=== PATIENT | female | born 1940 | race Caucasian/White ===

== ENCOUNTER → 2016-05-05 | Outpatient (CLI) | payer OTHER ==
[~2016-05-05] MED LIST: AMOX500C3 PO; ASPCH81X PO; CALC-20 PO; CARB1CAP21 PO; CARB25TA12 PO; CHOL100010 PO; EFF/375 PO; EYE PROMISE PO; KETO1DRO13 OPB; LEVO50TA PO; LEVO50TA6 PO; LORA-741 SL; MAGN400T6 PO; METO50TA16 PO; NAPHDRO11 OPB; OMEG10007 PO; PANC5000 PO; POLY335019 PO; SIMV40TA2 PO; THERA TEARS OPB
[2016-05-05 12:36] LABS: ALT/SGPT 8 U/L (12-78); AST/SGOT 13 U/L (15-37); BLOOD UREA NITROGEN 21 mg/dl (7-18); BUN/CREATININE RATIO 21.2 (10-20); CALCIUM 9.2 mg/dl (8.5-10.1); CARBON DIOXIDE 31 mmol/L (21-32); CHLORIDE 104 mmol/L (98-107); CREATININE 0.98 mg/dl (0.60-1.20); GLUCOSE 95 mg/dl (70-99); POTASSIUM 4.2 mmol/L (3.5-5.1); SODIUM 142 mmol/L (136-145)
[2016-05-05 12:47] LABS: ALB/GLOB RATIO 1.2 (0.9-2); ALKALINE PHOSPHATASE 69 U/L (45-117)
== END | disposition home or self-care (01) ==
LOC: C.LABSALHI 05-03 15:37
PROVIDERS: ATTEND Nurse Practitioner Family
DX: E03.9 Hypothyroidism, unspecified (principal); E11.9 Type 2 diabetes mellitus without complications

== ENCOUNTER → 2016-05-09 | Outpatient (CLI) | payer OTHER ==
[2016-05-09 12:46] LABS: ESTIMATED AVERAGE GLUCOSE 117 mg/dl; HA1C FLAG Normal (Normal)
== END | disposition home or self-care (01) ==
LOC: C.LABSPEC 05-05 13:36
PROVIDERS: ATTEND Nurse Practitioner Family
DX: E11.9 Type 2 diabetes mellitus without complications (principal); E03.9 Hypothyroidism, unspecified

== ENCOUNTER → 2016-09-20 | Outpatient (CLI) | payer OTHER ==
[~2016-09-20] VITALS: Ht 160 cm; Wt 64.4 kg
[~2016-09-20] MED LIST changes: -CARB25TA12 PO; -KETO1DRO13 OPB; -LEVO50TA6 PO; -METO50TA16 PO; -NAPHDRO11 OPB
[2016-09-20 14:26] VITALS: BP 123/70; PULSE 67; Ht 160 cm; Wt 64.4 kg
== END | disposition home or self-care (01) ==
LOC: C.NEUR 13:27
PROVIDERS: ATTEND Internal Medicine Pulmonary Disease
DX: G47.33 Obstructive sleep apnea (adult) (pediatric) (principal); G20 Parkinson's disease

== ENCOUNTER → 2016-09-21 | Day surgery (SDC) | payer OTHER ==
[2016-09-19 07:33] VITALS: Ht 160 cm; Wt 60.0 kg
[~2016-09-21] VITALS: Ht 160 cm; Wt 60.0 kg
[~2016-09-21] MED LIST changes: +LIDOCAINE HCL 2% 2 ML VIAL (20MG/ML) ONE; +PROPOFOL IV EMULSION 10 MG/ML 20 ML VIAL IV ONE; +SODIUM CHLORIDE 0.9% 500ML 500 ML IV ONE
--- NOTE | 2016-09-21 10:25 | Endo History and Physical ---
History & Physical Date of Service: Sep 21, 2016. Chief Complaint: change in bowel habits Referring Physician: Nicole Joseph History of Present Illness 76 yo CF who presents for colonoscopy secondary to change in bowel habits. Past Medical History Atrial Fibrillation, Diabetes, Arthritis, Anxiety, Cancer, Heart Disease, Hypertension, Thyroid Disease Past Surgical History Hx Cardiac Surgery: No Hx Internal Defibrillator: No Hx Pacemaker: No Hx Abdominal Surgery: Yes (APPY, HYSTER, TUBAL LIGATION) Hx Post-Op Nausea and Vomiting: No Hx Cancer Surgery: No Hx Thoracic Surgery: No Hx Orthopedic: Yes (CARPEL TUNNEL, R.TKA) Hx Urinary Tract Surgery: Yes (BLADDER TACK A/P) Family History None Social History Smoking Status: Never Smoker Hx Substance Use: No Hx Alcohol Use: No Allergies Coded Allergies: Sitagliptin (Verified Allergy, Mild, PER RECORD, 09/19/16) Animal Dander (Verified Allergy, Unknown, PER RECORD, 09/19/16) Metformin (Verified Allergy, Unknown, PER RECORD, 09/19/16) Sulfa Antibiotics (Verified Allergy, Unknown, PER RECORD, 09/19/16) Scallop (Verified Adverse Reaction, Intermediate, SEVERE N/V, 09/19/16) Morphine (Verified Adverse Reaction, Mild, LOW BP, 09/19/16) Uncoded Allergies: METAL (Allergy, Unknown, ., 12/17/13) Current Medications Reported Home Medications Medications Dose Route/Sig Max Daily Dose Days Date Category Dose Instructions Amoxil (Amoxicillin) 500 Mg Cap 2,000 Mg PO UD 09/19/16 Reported ONE HOUR PRIOR TO DENTAL Miralax (Polyethylene Glycol 3350) 1 Pow Pow 17 Gm PO DAILY PRN 09/19/16 Reported Rytary 36.25-145 mg (Carbidopa-Levodopa) 1 Cap Cap 1 Tab PO U 09/19/16 Reported 3 CAP AT 6AM, 2 CAP 10 AM, 3 AT 2PM, 2 AT 6PM ON EMPTY STOMACH [Thera Tears] 2 Drop OPB QAM 09/19/16 Reported Synthroid (Levothyroxine Sodium) 50 Mcg Tab 50 Mcg PO QAM 09/19/16 Reported [Eye Promise] 8 Mg PO QAM 09/19/16 Reported Vitamin D (Cholecalciferol) 1,000 Inter.unit Tab 1,000 Inter.unit PO QPM 12/22/15 Reported Effexor (Venlafaxine Hcl) 37.5 Mg Tab 37.5 Mg PO QAM 12/22/15 Reported Zocor (Simvastatin) 40 Mg Tab 40 Mg PO QPM 07/14/15 Reported Calcium 600 + D (Calcium Carbonate-Vitamin D) 1 Tab Tab 1 Tab PO BID 12/18/13 Reported Mag-Ox (Magnesium Oxide) 400 Mg Tab 400 Mg PO QAM 12/18/13 Reported Pancrelipase (Pancrelipase (Lipase-Protease-) 1 Cap Cap 4,200 Mg PO QAM 12/11/12 Reported Ativan (Lorazepam) 0.5 Mg Tab 1 Mg SL BID 12/11/12 Reported 2 TABLET DOSE [place]-3 (Fish Oil) 1 Ea Cap 1,000 Mg PO TID 12/11/12 Reported Aspirin Chewable (Aspirin) 81 Mg Chew 81 Mg PO QAM 12/11/12 Reported Vital Signs Weight (Kilograms): 60 Height (Feet): 5 Height (Inches): 3 Physical Exam General Appearance: WD/WN, no apparent distress Respiratory/Chest: Auscultation: breath sounds normal Cardiovascular: Heart Auscultation: RRR Abdomen: Bowel Sounds: normal Inspection & Palpation: soft, non-distended, no tenderness, guarding & rebound Assessment and Plan Assessment: 76 yo CF who presents for colonoscopy secondary to change in bowel habits. Plan: Proceed with colonoscopy
--- NOTE | 2016-09-21 11:02 | GI REPORT ---
Procedure Date: 09/21/2016 10:35 AM Procedure: Colonoscopy Indications: Change in bowel habits Medicines: Monitored Anesthesia Care Complications: No immediate complications. Estimated Blood Loss: Estimated blood loss: none. Procedure: Pre-Anesthesia Assessment: - Prior to the procedure, a History and Physical was performed, and patient medications and allergies were reviewed. The patient's tolerance of previous anesthesia was also reviewed. The risks and benefits of the procedure and the sedation options and risks were discussed with the patient. All questions were answered, and informed consent was obtained. Prior Anticoagulants: The patient has taken aspirin, last dose was 1 day prior to procedure. ASA Grade Assessment: III - A patient with severe systemic disease. After reviewing the risks and benefits, the patient was deemed in satisfactory condition to undergo the procedure. After I obtained informed consent, the scope was passed under direct vision. Throughout the procedure, the patient's blood pressure, pulse, and oxygen saturations were monitored continuously. The Scope was introduced through the anus and advanced to the terminal ileum. The colonoscopy was performed without difficulty. The patient tolerated the procedure well. The quality of the bowel preparation was good. The ileocecal valve, appendiceal orifice, and rectum were photographed. Findings: Scattered small and large-mouthed diverticula were found in the entire colon. Non-bleeding internal hemorrhoids were found during retroflexion. The hemorrhoids were small. Impression: - Diverticulosis in the entire examined colon. - Non-bleeding internal hemorrhoids. - No specimens collected. Recommendation: - Resume previous diet. - Continue present medications. - No repeat colonoscopy due to age and the absence of advanced adenomas. - Return to primary care physician as previously scheduled. Manfred Yadav DO 09/21/2016 11:01:51 AM This report has been signed electronically. Note Initiated On: 09/21/2016 10:35 AM I attest to the content of the Intraoperative Record and orders documented therein, exceptions below
--- NOTE | 2016-09-21 11:02 | Discharge Instructions ---
Endoscopy Patient Instructions Date / Procedure(s) Performed Sep 21, 2016. Colonoscopy Allergy Information Coded Allergies: Sitagliptin (Verified Allergy, Mild, PER RECORD, 09/19/16) Animal Dander (Verified Allergy, Unknown, PER RECORD, 09/19/16) Metformin (Verified Allergy, Unknown, PER RECORD, 09/19/16) Sulfa Antibiotics (Verified Allergy, Unknown, PER RECORD, 09/19/16) Scallop (Verified Adverse Reaction, Intermediate, SEVERE N/V, 09/19/16) Morphine (Verified Adverse Reaction, Mild, LOW BP, 09/19/16) Uncoded Allergies: METAL (Allergy, Unknown, ., 12/17/13) Discharge Date / Findings Sep 21, 2016. Diverticulosis Internal hemorrhoids Medication Instructions OK to resume all medications today as prescribed. Medications Dose Route/Sig Max Daily Dose Days Date Category Dose Instructions Amoxil (Amoxicillin) 500 Mg Cap 2,000 Mg PO UD 09/19/16 Reported ONE HOUR PRIOR TO DENTAL Miralax (Polyethylene Glycol 3350) 1 Pow Pow 17 Gm PO DAILY PRN 09/19/16 Reported Rytary 36.25-145 mg (Carbidopa-Levodopa) 1 Cap Cap 1 Tab PO U 09/19/16 Reported 3 CAP AT 6AM, 2 CAP 10 AM, 3 AT 2PM, 2 AT 6PM ON EMPTY STOMACH [Thera Tears] 2 Drop OPB QAM 09/19/16 Reported Synthroid (Levothyroxine Sodium) 50 Mcg Tab 50 Mcg PO QAM 09/19/16 Reported [Eye Promise] 8 Mg PO QAM 09/19/16 Reported Vitamin D (Cholecalciferol) 1,000 Inter.unit Tab 1,000 Inter.unit PO QPM 12/22/15 Reported Effexor (Venlafaxine Hcl) 37.5 Mg Tab 37.5 Mg PO QAM 12/22/15 Reported Zocor (Simvastatin) 40 Mg Tab 40 Mg PO QPM 07/14/15 Reported Calcium 600 + D (Calcium Carbonate-Vitamin D) 1 Tab Tab 1 Tab PO BID 12/18/13 Reported Mag-Ox (Magnesium Oxide) 400 Mg Tab 400 Mg PO QAM 12/18/13 Reported Pancrelipase (Pancrelipase (Lipase-Protease-) 1 Cap Cap 4,200 Mg PO QAM 12/11/12 Reported Ativan (Lorazepam) 0.5 Mg Tab 1 Mg SL BID 12/11/12 Reported 2 TABLET DOSE [place]-3 (Fish Oil) 1 Ea Cap 1,000 Mg PO TID 12/11/12 Reported Aspirin Chewable (Aspirin) 81 Mg Chew 81 Mg PO QAM 12/11/12 Reported Provider Instructions Activity Restrictions - No exercising or heavy lifting for 24 hours. - Do not drink alcohol the day of the procedure. - Do not drive a car or operate machinery until the day after the procedure. - Do not make any important decisions or sign important papers in 24 hours after the procedure. Following Day: - Return to full activity which may include returning to work/school. Diet Start your diet with liquids and light foods (jello, soup, juice, toast). Then eat your usual diet if not nauseated. Treatment For Common After Affects For mild abdominal pain, bloating, or excessive gas: - Rest - Eat lightly - Lie on right side Follow-Up Information Follow-up with Nicole Joseph as scheduled Anesthesia Information What You Should Know You have had a procedure that required some medicine to reduce anxiety and discomfort. This treatment is called moderate sedation. After receiving the treatment, you may be sleepy, but you will be able to breathe on your own. The effects of the treatment may last for several hours. Follow these instructions along with Activity/Diet recommendations noted above: * Do NOT do anything where dizziness or clumsiness would be dangerous. * Rest quietly at home today, then you can be up and about tomorrow. * Have a responsible person stay with you the rest of today. * You may have had an I.V. today. If so, you may take the dressing off later today. Recommendations Call your doctor if: * Trouble breathing * Continuous vomiting for more than 24 hours * Temperature above 101 degrees * Severe abdominal pain or bloating * Pain not relieved by pain medicine ordered * There is increased drainage or redness from any incision * A large amount of rectal bleeding greater than 2-3 tablespoons. (If you had a polyp/s removed or have hemorrhoids, a small amount of blood - from the rectum is to be expected.) * You have any unanswered questions or concerns. IN THE EVENT OF A SERIOUS EMERGENCY, GO TO THE NEAREST EMERGENCY ROOM Your discharge instructions were prepared by provider Manfred Yadav. Patient Instructions Signature Page Galina Kelsey Patient (or Guardian) Signature/Date: I have read and understand the instructions given to me by my caregivers. Caregiver/RN/Doctor Signature/Date: The above-named patient and/or guardian has received patient instructions on this date. + Original Patient Signature Page (only) stays with chart. Please make copy for patient.
--- NOTE | 2016-09-21 11:20 | Anesthesiology Progress Note ---
Anesthesia Post Op Note Date & Time Sep 21, 2016 at 11:19 Vital Signs Pain Intensity: 0 Vital Signs Past 12 Hours Date Time Temp Pulse Resp B/P (MAP) Pulse Ox O2 Delivery O2 Flow Rate FiO2 09/21/16 11:14 61 16 116/57 (76) 97 Room Air 09/21/16 10:59 60 16 117/52 (73) 98 Room Air 09/21/16 10:28 36.8 68 22 134/62 (86) 96 Room Air Notes Mental Status: alert / awake / arousable, participated in evaluation Pt Amnestic to Procedure: Yes Nausea / Vomiting: adequately controlled Pain: adequately controlled Airway Patency, RR, SpO2: stable & adequate BP & HR: stable & adequate Hydration State: stable & adequate Anesthetic Complications: no major complications apparent
[2016-09-21 11:29] VITALS: BP 102/58; PULSE 55; O2SAT 97
== END | disposition home or self-care (01) ==
LOC: C.GI 09:32
PROVIDERS: ATTEND Internal Medicine
DX: R19.4 Change in bowel habit (principal); K57.30 Diverticulosis of large intestine without perforation or abscess without bleeding; K64.8 Other hemorrhoids; I48.91 Unspecified atrial fibrillation; E11.9 Type 2 diabetes mellitus without complications; M19.90 Unspecified osteoarthritis, unspecified site; F41.9 Anxiety disorder, unspecified; I51.9 Heart disease, unspecified; I10 Essential (primary) hypertension

== ENCOUNTER → 2016-09-29 | Outpatient (CLI) | payer OTHER ==
[~2016-09-29] MED LIST changes: -LIDOCAINE HCL 2% 2 ML VIAL (20MG/ML) ONE; -PROPOFOL IV EMULSION 10 MG/ML 20 ML VIAL IV ONE; -SODIUM CHLORIDE 0.9% 500ML 500 ML IV ONE
[2016-09-29 13:02] LABS: ALT/SGPT 11 U/L (12-78); AST/SGOT 12 U/L (15-37); BLOOD UREA NITROGEN 18 mg/dl (7-18); BUN/CREATININE RATIO 18.3 (10-20); CALCIUM 9.2 mg/dl (8.5-10.1); CARBON DIOXIDE 32 mmol/L (21-32); CHLORIDE 107 mmol/L (98-107); GLUCOSE 82 mg/dl (70-99); POTASSIUM 4.3 mmol/L (3.5-5.1); SODIUM 145 mmol/L (136-145)
[2016-09-29 13:05] LABS: ALB/GLOB RATIO 1.2 (0.9-2); ALKALINE PHOSPHATASE 69 U/L (45-117)
== END | disposition home or self-care (01) ==
LOC: C.LABSALHI 14:40
PROVIDERS: ATTEND Family Medicine
DX: R14.0 Abdominal distension (gaseous) (principal)

== ENCOUNTER → 2016-10-17 | Outpatient (CLI) | payer OTHER ==
--- NOTE | 2016-10-17 17:17 | DIAGNOSTIC IMAGING REPORT ---
PA CHEST WITH ABDOMINAL SERIES CLINICAL HISTORY: Generalized abdominal pain. Bloating. Change in bowel habits FINDINGS: A PA chest radiograph is compared to study dated 12/22/2015 and correlated with chest CT dated 12/24/2015. The examination is degraded by apical lordotic positioning. The cardiomediastinal silhouette is unremarkable. There is atherosclerotic calcification of the thoracic aorta. The lungs and pleural spaces are clear. No pneumothorax is seen. The skeletal structures are osteopenic. The bony thorax is grossly intact. Supine and erect abdominal radiographs are obtained. No prior studies are available for comparison at the time of dictation. There is a nonobstructed abdominal bowel gas pattern. No evidence of intraperitoneal free air is seen. There is mild to moderate colonic fecal retention. There are no abnormal abdominal calcifications. Phleboliths are seen in the pelvis. There is mild lumbosacral spondylosis and scoliosis. The lumbosacral spine and bony pelvis appear intact. IMPRESSION: 1. No active disease in the chest. 2. Nonobstructed abdominal bowel gas pattern. Electronically signed by: Marcelino Pedro M.D. 10/17/2016 5:16 PM Dictated Date/Time: 10/17/2016 5:14 PM
== END | disposition home or self-care (01) ==
LOC: C.RAD1850 16:43
PROVIDERS: ATTEND Registered Nurse
DX: R14.0 Abdominal distension (gaseous) (principal); R19.4 Change in bowel habit

== ENCOUNTER → 2016-11-17 | Outpatient (CLI) | payer OTHER ==
--- NOTE | 2016-11-17 14:29 | DIAGNOSTIC IMAGING REPORT ---
KUB HISTORY: 76 years-old Female R19.4 Change in bowel applnxJ03.0 Abdominal [id number] COMPARISON: Acute abdominal series radiographs 10/17/2016 TECHNIQUE: KUB radiograph FINDINGS: Vascular calcifications of the left upper abdomen are seen. There are phleboliths of the pelvis. Bowel gas pattern is nonobstructive. No definite urolith or fracture identified. Mild volume formed stool seen throughout the colon. There is mild convex right curvature of the lumbar spine with severe degenerative changes of the lower lumbar spine. Moderate degenerative changes of all the bilateral hips. IMPRESSION: Nonobstructive bowel gas pattern. The above report was generated using voice recognition software. It may contain grammatical, syntax or spelling errors. Electronically signed by: Armand Molina M.D. 11/17/2016 2:28 PM Dictated Date/Time: 11/17/2016 2:27 PM
== END | disposition home or self-care (01) ==
LOC: C.RAD1850 13:49
PROVIDERS: ATTEND Registered Nurse
DX: R14.0 Abdominal distension (gaseous) (principal); R19.4 Change in bowel habit

== ENCOUNTER → 2017-02-01 | Outpatient (CLI) | payer OTHER ==
--- NOTE | 2017-02-01 10:09 | DIAGNOSTIC IMAGING REPORT ---
L-SPINE MIN 4 VIEWS ROUTINE HISTORY: Pain BACK PAIN COMPARISON: None. FINDINGS: Mild lumbar scoliosis. Vertebral wire stature is normal. Grade 1 anterolisthesis of L3 on L4 with a maximum subluxation of 7 mm. Appears to relate to degenerative changes of posterior elements. No evidence for compression deformity. Apparent bilateral nephrocalcinosis versus bowel content. No subluxation. Disc spaces are preserved. IMPRESSION: Moderate to significant degenerative change primarily from L3 through L5. No acute process. Bilateral nephrocalcinosis versus overlying bowel content. The above report was generated using voice recognition software. It may contain grammatical, syntax or spelling errors. Electronically signed by: Ernesto Porter M.D. 02/01/2017 10:08 AM Dictated Date/Time: 02/01/2017 10:07 AM
== END | disposition home or self-care (01) ==
LOC: C.RADPV 09:46
PROVIDERS: ATTEND Internal Medicine Gastroenterology
DX: M54.9 Dorsalgia, unspecified (principal)

== ENCOUNTER → 2017-04-17 | Outpatient (CLI) | payer OTHER ==
[2017-04-17 13:04] LABS: ALBUMIN 3.8 gm/dl (3.4-5.0); ALT/SGPT 7 U/L (12-78); BLOOD UREA NITROGEN 25 mg/dl (7-18); CALCIUM 9.2 mg/dl (8.5-10.1); CARBON DIOXIDE 31 mmol/L (21-32); CHOLESTEROL 151 mg/dl (0-200); CREATININE 0.89 mg/dl (0.60-1.20); GLUCOSE 95 mg/dl (70-99); POTASSIUM 4.1 mmol/L (3.5-5.1); SODIUM 139 mmol/L (136-145)
[2017-04-17 13:14] LABS: ALKALINE PHOSPHATASE 74 U/L (45-117); AST/SGOT 16 U/L (15-37); LDL CHOLESTEROL CALCULATED 94 mg/dl; TOTAL PROTEIN 7.2 gm/dl (6.4-8.2)
== END | disposition home or self-care (01) ==
LOC: C.LABSALHI 13:09
PROVIDERS: ATTEND Nurse Practitioner Family
DX: E78.5 Hyperlipidemia, unspecified (principal); E03.9 Hypothyroidism, unspecified

== ENCOUNTER 2017-06-29 13:13 | Emergency (ER) | payer OTHER ==
[~2017-06-29] VITALS: Ht 160 cm; Wt 61.3 kg
[~2017-06-29 13:13] MED LIST changes: +LORA-741 PO; -LORA-741 SL
[2017-06-29 13:25] VITALS: TEMP 36.6; Ht 160 cm; Wt 61.3 kg
[2017-06-29 13:26] VITALS: O2SAT 96
[2017-06-29] MEDS ORDERED: SODIUM CHLORIDE 0.9% 1000ML 1,000 ML IV STA (13:28)
[2017-06-29] MEDS ORDERED: FAMOTIDINE 20 MG TAB PO ONE (13:30)
--- NOTE | 2017-06-29 13:55 | DIAGNOSTIC IMAGING REPORT ---
CHEST ONE VIEW PORTABLE CLINICAL HISTORY: 76 years-old Female presenting with CHEST PAIN. TECHNIQUE: Portable upright AP view of the chest was obtained. COMPARISON: 10/17/2016. FINDINGS: Atherosclerosis of the aortic arch. Cardiac silhouette normal in size. Lungs and pleural spaces clear. Osseous structures normal. Upper abdomen normal. IMPRESSION: 1. No acute cardiopulmonary disease. Electronically signed by: Hadley Rutledge M.D. 06/29/2017 1:54 PM Dictated Date/Time: 06/29/2017 1:53 PM
[2017-06-29 14:04] LABS: BASO % 0.4 %; BASO ABS # 0.02 K/uL (0-0.2); EOS % 1.8 %; HEMATOCRIT 44.4 % (37-47); IG# 0.01 K/uL (0.00-0.02); LYMPH % 35.2 %; LYMPH ABS # 1.91 K/uL (1.2-3.4); MEAN CORPUSCULAR HEMOGLOBIN 30.7 pg (25-34); MEAN CORPUSCULAR HGB CONC 33.8 g/dl (32-36); MEAN PLATELET VOLUME 10.3 fL (7.4-10.4); MONO % 5.3 %; MONO ABS # 0.29 K/uL (0.11-0.59); NEUT % 57.1 %; PLATELET COUNT 159 K/uL (130-400); RED CELL DISTRIBUTION WIDTH CV 13.8 % (11.5-14.5); RED CELL DISTRIBUTION WIDTH SD 46.2 fL (36.4-46.3); WHITE BLOOD COUNT 5.43 K/uL (4.8-10.8)
[2017-06-29 14:32] LABS: ALBUMIN 3.9 gm/dl (3.4-5.0); ALT/SGPT 11 U/L (12-78); BLOOD UREA NITROGEN 20 mg/dl (7-18); CALCIUM 9.6 mg/dl (8.5-10.1); CARBON DIOXIDE 31 mmol/L (21-32); CREATININE 0.99 mg/dl (0.60-1.20); GLUCOSE 91 mg/dl (70-99); LIPASE 305 U/L (73-393); SODIUM 137 mmol/L (136-145)
[2017-06-29] MEDS ORDERED: CHOL1000 PO (14:32)
[2017-06-29] MEDS ORDERED: KETO1DRO13 OPB (14:32)
[2017-06-29] MEDS ORDERED: CARB1CAP21 PO (14:32)
[2017-06-29] MEDS ORDERED: LACT9000 PO (14:32)
[2017-06-29] MEDS ORDERED: ASPI81TA28 PO (14:32)
[2017-06-29] MEDS ORDERED: VENL75CA73 PO (14:32)
[2017-06-29 14:39] LABS: ALKALINE PHOSPHATASE 84 U/L (45-117); TOTAL PROTEIN 7.7 gm/dl (6.4-8.2)
[2017-06-29 15:18] LABS: POTASSIUM 3.8 mmol/L (3.5-5.1)
[2017-06-29] MEDS ORDERED: FAMO20TA9 PO (16:54)
--- NOTE | 2017-06-29 16:55 | EMERGENCY ROOM VISIT NOTE ---
History Report prepared by Gumaro: Anand Stevens Under the Supervision of: Dr. Franky Ruiz M.D. First contact with patient: 13:25 Stated Complaint: CHEST PAIN History of Present Illness The patient is a 76 year old female who presents to the Emergency Room with complaints of resolved chest pain beginning two hours ago. She has a history of Parkinson's (on medication TID). She states that her mind feels "slow". The patient also complains of an episode of pain in her upper back and jaw as well. She rates her current pain as a 0/10 in severity. She notes that she currently feels bloated and gassy (but this is normal for her). The patient denies fevers , chills, cough, nausea, or vomiting. She notes that her blood sugar has been running low recently. Source of History: patient Onset: Two hours ago Position: chest Symptom Intensity: 0/10 Timing: resolved Associated Symptoms: No fevers, No chills, No cough, No nausea, No vomiting Note: The patient also complains of an episode of pain in her upper back and jaw as well. Review of Systems See HPI for pertinent positives and negatives. A total of ten systems were reviewed and were otherwise negative. Past Medical & Surgical Medical Problems: (1) Atrial fibrillation (2) Benign hypertension (3) Chest pain (4) Diabetes mellitus (5) Heart disease (6) Parkinson disease Family History Patient reports no known family medical history. Social History Smoking Status: Never Smoker Alcohol Use: none Drug Use: none Marital Status: Housing Status: lives with significant other Occupation Status: retired Current/Historical Medications Scheduled Amoxicillin (Amoxil), 2,000 MG PO UD Aspirin (Aspirin Ec), 81 MG PO DAILY Calcium Carbonate-Vitamin D (Calcium 600 + D), 1 TAB PO BID Carbidopa-Levodopa (Rytary 36.25-145 mg), 3 CAP PO BID Carbidopa-Levodopa (Rytary 36.25-145 mg), 2 CAP PO BID Cholecalciferol (Vitamin D3), 1 TAB PO DAILY Famotidine (Pepcid), 20 MG PO BID Fish Oil ([place]-3), 1,000 MG PO TID Ketotifen Fumarate (Ophth) (Thera Tears Allergy Eye I), 2 DROPS OPB DAILY Lactase (Lactaid Fast Act), 1 TAB PO QAM Levothyroxine Sodium (Synthroid), 50 MCG PO QAM Magnesium Oxide (Mag-Ox), 400 MG PO QAM Polyethylene Glycol 3350 (Miralax), 17 GM PO QAM Simvastatin (Zocor), 40 MG PO QPM Venlafaxine Hcl (Venlafaxine Extended Rel), 75 MG PO DAILY [Eye Promise], 8 MG PO QAM Scheduled PRN Lorazepam (Ativan), 0.5 MG PO BID PRN for Anxiety Allergies Coded Allergies: Sitagliptin (Verified Allergy, Mild, PER RECORD, 09/19/16) Animal Dander (Verified Allergy, Unknown, PER RECORD, 09/19/16) Metformin (Verified Allergy, Unknown, PER RECORD, 09/19/16) Sulfa Antibiotics (Verified Allergy, Unknown, PER RECORD, 09/19/16) Scallop (Verified Adverse Reaction, Intermediate, SEVERE N/V, 09/19/16) Morphine (Verified Adverse Reaction, Mild, LOW BP, 09/19/16) Uncoded Allergies: METAL (Allergy, Unknown, ., 12/17/13) Physical Exam Vital Signs Date Time Temp Pulse Resp B/P (MAP) Pulse Ox O2 Delivery O2 Flow Rate FiO2 06/29/17 17:09 64 20 141/87 98 06/29/17 16:00 68 139/67 98 Room Air 06/29/17 14:56 67 18 159/70 98 Room Air 06/29/17 13:26 96 Room Air 06/29/17 13:25 36.6 66 20 142/81 96 Room Air 06/29/17 13:23 68 Physical Exam GENERAL: Awake, alert, fatigued-appearing, in no distress HENT: Normocephalic, atraumatic. Oropharynx unremarkable other than dry mucous membranes. EYES: Normal conjunctiva. Sclera non-icteric. NECK: Supple. No nuchal rigidity. FROM. No JVD. RESPIRATORY: Clear to auscultation. CARDIAC: Regular rate, normal rhythm. Extremities warm and well perfused. Pulses equal. ABDOMEN: Soft, non-distended. No tenderness to palpation. No rebound or guarding. No masses. RECTAL: Deferred. MUSCULOSKELETAL: Chest examination reveals no tenderness. The back is symmetrical on inspection without obvious abnormality. There is no CVA tenderness to palpation. No joint edema. LOWER EXTREMITIES: Calves are equal size bilaterally and non-tender. No edema. No discoloration. NEURO: Normal sensorium. No focal sensory or motor deficits noted. Slightly slow motor movement at baseline consistent with Parkinson's. SKIN: No rash or jaundice noted. Medical Decision & Procedures ER Provider Diagnostic Interpretation: Radiology results as stated below per my review and radiologist interpretation: CHEST ONE VIEW PORTABLE FINDINGS: Atherosclerosis of the aortic arch. Cardiac silhouette normal in size. Lungs and pleural spaces clear. Osseous structures normal. Upper abdomen normal. IMPRESSION: 1. No acute cardiopulmonary disease. Electronically signed by: Hadley Rutledge M.D. 06/29/2017 1:54 PM Laboratory Results 06/29/17 13:55 Red Blood Count 4.88, Mean Corpuscular Volume 91.0, Mean Corpuscular Hemoglobin 30.7, Mean Corpuscular Hemoglobin Concent 33.8, Mean Platelet Volume 10.3, Neutrophils (%) (Auto) 57.1, Lymphocytes (%) (Auto) 35.2, Monocytes (%) (Auto) 5.3, Eosinophils (%) (Auto) 1.8, Basophils (%) (Auto) 0.4, Neutrophils # (Auto) 3.10, Lymphocytes # (Auto) 1.91, Monocytes # (Auto) 0.29, Eosinophils # (Auto) 0.10, Basophils # (Auto) 0.02 06/29/17 13:55 06/29/17 14:55 Test 06/29/17 13:55 06/29/17 14:55 06/29/17 16:02 White Blood Count 5.43 K/uL (4.8-10.8) Red Blood Count 4.88 M/uL (4.2-5.4) Hemoglobin 15.0 g/dL (12.0-16.0) Hematocrit 44.4 % (37-47) Mean Corpuscular Volume 91.0 fL (80-100) Mean Corpuscular Hemoglobin 30.7 pg (25-34) Mean Corpuscular Hemoglobin Concent 33.8 g/dl (32-36) Platelet Count 159 K/uL (130-400) Mean Platelet Volume 10.3 fL (7.4-10.4) Neutrophils (%) (Auto) 57.1 % Lymphocytes (%) (Auto) 35.2 % Monocytes (%) (Auto) 5.3 % Eosinophils (%) (Auto) 1.8 % Basophils (%) (Auto) 0.4 % Neutrophils # (Auto) 3.10 K/uL (1.4-6.5) Lymphocytes # (Auto) 1.91 K/uL (1.2-3.4) Monocytes # (Auto) 0.29 K/uL (0.11-0.59) Eosinophils # (Auto) 0.10 K/uL (0-0.5) Basophils # (Auto) 0.02 K/uL (0-0.2) RDW Standard Deviation 46.2 fL (36.4-46.3) RDW Coefficient of Variation 13.8 % (11.5-14.5) Immature Granulocyte % (Auto) 0.2 % Immature Granulocyte # (Auto) 0.01 K/uL (0.00-0.02) Prothrombin Time 10.0 SECONDS (9.0-12.0) Prothromb Time International Ratio 1.0 (0.9-1.1) Anion Gap 5.0 mmol/L (3-11) Est Creatinine Clear Calc Drug Dose 39.4 ml/min Estimated GFR () 63.7 Estimated GFR (Non- 55.0 BUN/Creatinine Ratio 20.3 (10-20) Calcium Level 9.6 mg/dl (8.5-10.1) Total Bilirubin 0.7 mg/dl (0.2-1) Alanine Aminotransferase (ALT/SGPT) 11 U/L (12-78) Alkaline Phosphatase 84 U/L (45-117) Pro-B-Type Natriuretic Peptide 186 pg/ml (0-1800) Total Protein 7.7 gm/dl (6.4-8.2) Albumin 3.9 gm/dl (3.4-5.0) Lipase 305 U/L (73-393) Direct Bilirubin 0.1 mg/dl (0-0.2) Aspartate Amino Transf (AST/SGOT) 11 U/L (15-37) Troponin I < 0.015 ng/ml (0-0.045) Laboratory results reviewed by me Medications Administered Medications (Trade) Dose Ordered Sig/Robb Route Start Time Stop Time Status Last Admin Dose Admin Sodium Chloride 1,000 ml @ 999 mls/hr Q1H1M STAT IV 06/29/17 13:28 3/22/18 14:28 DC 06/29/17 14:00 999 MLS/HR Famotidine (Pepcid Tab) 20 mg NOW ONCE PO 06/29/17 13:30 06/29/17 13:36 DC 06/29/17 13:43 20 MG ECG Per My Interpretation Indication: chest pain Rate (beats per minute): 63 Rhythm: normal sinus Findings: other (Normal axis. No ST elevation. ) ED Course 1327: The patient was evaluated in room B12B. A complete history and physical exam was performed. 1335: The patient began experiencing chest pain again. 1700: I reevaluated the patient. Discussed results and discharge instructions: she verbalized understanding and agreement. The patient is ready for discharge. Medical Decision I reviewed the patient's past medical history, medications, and the nursing notes as described above. Differential diagnosis: Etiologies such as cardiac ischemia, aortic dissection, pulmonary embolism, pneumonia, pneumothorax, musculoskeletal, infections, pericarditis, myocarditis , esophageal rupture, gastrointestinal, as well as others were entertained. The patient is a 76 y/o woman with a pmhx of parkinson's disease who presents to the emergency department with episode of CP per HPI. On arrival the patient is in NAD, AFVSS. Sx onset at 1400. EKG unremarkable. Trop negative. WBC wnl. CXR negative. Delta troponin again negative > 4 hours from onset of sx. Unlikely cardiac. No tachycardia or hypoxia thus PE not likely. Patient feeling improved with Pepcid suggesting likely GERD/gastritis. Findings and plan for follow-up reviewed with patient. Patient agreeable and d/c'd per discharge instructions. Medication Reconcilliation Current Medication List: was personally reviewed by me Blood Pressure Screening Patient's blood pressure: Elevated blood pressure Blood pressure disposition: Elevated BP felt to be situational Impression Primary Impression: Chest pain due to GERD Scribe Attestation The scribe's documentation has been prepared under my direction and personally reviewed by me in its entirety. I confirm that the note above accurately reflects all work, treatment, procedures, and medical decision making performed by me. Departure Information Dispostion Home / Self-Care Prescriptions Famotidine (PEPCID) 20 Mg Tab 20 MG PO BID for 14 Days, #28 TAB Prov: Franky Ruiz M.D. 06/29/17 Referrals Nicole Joseph,C.R.N.P. (PCP) Patient Instructions ED Chest Pain Atypical Unkn Cause, ED GERD, My [facility] Additional Instructions Please follow up with your primary care physician in the next 1-3 days for re- evaluation. Your symptoms are most likely due to reflux/gastritis. Otherwise, your exam, EKG, chest xray, and lab results did not show signs of an emergent condition at this time. Pepcid as directed for acid reduction. Drink plenty of fluids to ensure hydration. Return to the emergency department for worsening symptoms as described in the accompanying instructions.
[2017-06-29 17:09] VITALS: BP 141/87; PULSE 64; O2SAT 98
== END 2017-06-29 17:16 | disposition home or self-care (01) ==
LOC: EDBD 13:13 → C.EDB 13:14
DX: R07.9 Chest pain, unspecified (principal); K21.9 Gastro-esophageal reflux disease without esophagitis; G20 Parkinson's disease; I48.91 Unspecified atrial fibrillation; E11.9 Type 2 diabetes mellitus without complications; I11.9 Hypertensive heart disease without heart failure; Z79.82 Long term (current) use of aspirin; Z79.899 Other long term (current) drug therapy; Z91.048 Other nonmedicinal substance allergy status; Z88.8 Allergy status to other drugs, medicaments and biological substances; Z88.2 Allergy status to sulfonamides; Z88.5 Allergy status to narcotic agent; Z91.018 Allergy to other foods

== ENCOUNTER → 2017-11-08 | Outpatient (CLI) | payer OTHER ==
[~2017-11-08] MED LIST changes: -ASPCH81X PO; +ASPI81TA28 PO; +CHOL1000 PO; -CHOL100010 PO; -EFF/375 PO; +KETO1DRO13 OPB; +LACT9000 PO; -PANC5000 PO; -THERA TEARS OPB; +VENL75CA73 PO
--- NOTE | 2017-11-08 15:12 | DIAGNOSTIC IMAGING REPORT ---
KUB HISTORY: Acute nausea with constipation CHANGE IN BOWEL HABIT COMPARISON: KUB 11/17/2016 FINDINGS: The bowel gas pattern is non-obstructive. Moderate volume of formed colonic stool about the right hemicolon. There is no organomegaly. Phleboliths of the pelvis redemonstrated. No renal calculi. No ureteral calculi. No pneumoperitoneum or pneumatosis. No fracture. Degenerative changes of the lumbar spine and hips. IMPRESSION: Nonobstructive bowel gas pattern. Electronically signed by: Armand Molina M.D. 11/08/2017 3:11 PM Dictated Date/Time: 11/08/2017 3:10 PM
== END | disposition home or self-care (01) ==
LOC: C.RADPV 14:48
PROVIDERS: ATTEND Nurse Practitioner Family
DX: K59.00 Constipation, unspecified (principal)

== ENCOUNTER 2018-08-06 08:21 | Inpatient (IN) ==
[2018-08-06 09:13] LABS: Basophils # (auto) 0.01 K/uL (0-0.2); Basophils % (auto) 0.2 %; Eosinophils # (auto) 0.16 K/uL (0-0.5); Eosinophils % (auto) 3.1 %; Hematocrit (blood only) 46.9 % (37-47); Hemoglobin 15.7 g/dL (12.0-16.0); Immature Granulocytes # (auto) 0.01 K/uL (0.00-0.02); Immature Granulocytes % (auto) 0.2 %; Lymphocytes # (auto) 1.86 K/uL (1.2-3.4); Mean Corpuscular Hgb Conc 33.5 g/dL (32-36); Mean Corpuscular Volume 92.1 fL (80-100); Mean Platelet Volume 10.1 fL (7.4-10.4); Monocytes # (auto) 0.24 K/uL (0.11-0.59); Monocytes % (auto) 4.6 %; Neutrophils # (auto) 2.89 K/uL (1.4-6.5); Neutrophils % (auto) 55.9 %; Platelet Count 137 K/uL (130-400); RDW Coefficient of Variation 14.4 % (11.5-14.5); RDW Standard Deviation 48.8 fL (36.4-46.3); Red Blood Count 5.09 M/uL (4.2-5.4); White Blood Count 5.17 K/uL (4.8-10.8)
[2018-08-06 09:21] LABS: Alanine Aminotransferase 12 U/L (12-78); Aspartate Aminotransferase 15 U/L (15-37); BUN Creatinine Ratio 23.6 (10-20); Blood Urea Nitrogen 20 mg/dl (7-18); Calcium 9.7 mg/dl (8.5-10.1); Carbon Dioxide 29 mmol/L (21-32); Chloride 106 mmol/L (98-107); Creatinine Clr Calc Pharmacy 50.9 ml/min; Est GFR (African American) 77.7; Est GFR (Non-African American) 67.1; Glucose 119 mg/dl (70-99); Potassium 4.2 mmol/L (3.5-5.1); Sodium 141 mmol/L (136-145)
[2018-08-06 09:31] LABS: Alkaline Phosphatase 125 U/L (45-117); Bilirubin,Total 0.5 mg/dl (0.2-1); Globulin 3.9 gm/dl (2.5-4.0); Total Protein 7.9 gm/dl (6.4-8.2); Troponin I < 0.015 ng/ml (0-0.045)
--- NOTE | 2018-08-06 10:13 | XRay Report ---
XR chest 1V portable CLINICAL HISTORY: weakness dyspnea COMPARISON STUDY: 03/07/2018 FINDINGS: The bones soft tissues and hemidiaphragms are normal. The cardiomediastinal silhouette is n ormal. The lungs are clear. The pulmonary vasculature is normal. IMPRESSION: Negative chest. The above report was generated using voice recognition software. It may contain grammatical, syntax or spelling errors. Electronically signed by: Ernesto Porter M.D. 08/06/2018 10:11 AM
[2018-08-06 10:18] LABS: Appearance Urine Clear (Clear); Bilirubin Urine Negative (Negative); Blood Urine Negative (Negative); Color Urine Yellow; Glucose Urine UA Negative (Negative); Ketones Urine Negative (Negative); Leukocyte Esterase Urine Negative (Negative); Nitrite Urine Negative (Negative); Protein Urine Negative (Negative); Urobilinogen Urine Negative (Negative)
[2018-08-06] MEDS ORDERED: LORazepam 0.5 MG TAB PO STA (10:30)
--- NOTE | 2018-08-06 12:13 | History & Physical Report ---
Date of Service August 06, 2018 Assessment & Plan (1) Dysphasia: Dysphasia and difficulty with medical compliance is the primary reason for this patient returning to the facility. We will hydrate her overnight with normal saline will have a speech evaluation level on swallowing precautions with aspiration precautions mentioned moist foods will attempt to give her usual medications which include antidepressants and anxiolytics as well as Parkinson medications. If she does not improve and there is no defined direction from speech neurology consultation, she typically sees Dr. Sidhu, may be undertaken to see if adjustment of her Parkinson's meds will help with her swallowing. In addition she does have a strong smell of urine and this may be just from dehydration we will check a urine culture in case a metabolic encephalopathy is worsening some of her confusion and making swallowing more of a challenge for her (2) Atrial fibrillation: Patient typically takes Eliquis for anticoagulation and aspirin. Not usually on a rate controlling medication will maintain these medicines at this time he does not appear to be in A. fib on EKG (3) Parkinson disease: Patient takes combination carbidopa levodopa 3 tablets 4 times a day and will be continued on the same (4) Diabetes: Diabetes is listed in her problem list and metformin and Januvia are listed as allergies. Patient's glucose is 119 on presentation we will have her on a carb conscious diet and not in place sliding-scale insulin unless her glucoses are difficult control and A1c will be ordered in the morning (5) Coronary artery disease: This is listed by her history aspirin will be maintained (6) Anxiety and depression: Patient typically takes clonazepam in the morning Effexor 150 with PRN Ativan these are ordered and will be continued Patient also takes Requip at night at 0.25 this will be continued (7) Hypothyroidism: Clinically euthyroid on presentation, TSH is 2.5 we will continue her Synthroid dosing (8) DVT prophylaxis: Subcu heparin is used History of Present Illness Primary Care Provider: Chesterred Neritory Patient [facility] with decline of late with increased anxiety and difficulty taking oral medications. Patient had a long history of swallowing issues having had a speech evaluation in February 2018 including a video swallow and barium swallow without any significant mechanical obstruction seen. Patient was given strategies to help with her swallowing however she is having some mild progression of her dementia and she lives in the [facility] with her who suffers from macular degeneration. She presents today feeling on fit to return to the personal [facility] anxious and jittery with lack of confidence in what medication she is actually taking at home. Some of these do include anticoagulant such as Eliquis and anxiety medications and depression medications. Patient be brought in for repeat speech evaluation and consideration for pacemaker in a higher level of nursing care. She also presents to us with a pulsed form that says comfort is her focus however she presented for treatment today she is not clear regarding those issues she was questioned about DNR status and did confirm that Allergies Allergy/AdvReac Type Severity Reaction Status Date / Time sitagliptin Allergy Mild PER RECORD Verified 08/06/18 08:47 animal dander Allergy Unknown PER RECORD Verified 08/06/18 08:47 metformin Allergy Unknown PER RECORD Verified 08/06/18 08:47 Sulfa (Sulfonamide Allergy Unknown PER RECORD Verified 08/06/18 08:47 Antibiotics) scallops AdvReac Intermediate SEVERE N/V Verified 08/06/18 08:47 morphine AdvReac Mild LOW BP Verified 08/06/18 08:47 METAL Allergy Unknown . Uncoded 08/06/18 08:47 Home Medications Home Medications Medication Instructions Recorded Confirmed Type Eye Promise 8 mg PO DAILY 03/07/18 08/06/18 History Thera Tears Drops 2 drp OPB DAILY 03/07/18 08/06/18 History aspirin [Aspir-Low] 81 mg PO DAILY 03/07/18 08/06/18 History carbidopa-levodopa [Rytary] 3 cap PO QID 03/07/18 08/06/18 History cholecalciferol (vitamin D3) 1,000 unit PO DAILY 03/07/18 08/06/18 History [Vitamin D3] docusate sodium [Colace] 100 mg PO BID 03/07/18 08/06/18 History lactase [Lactaid Fast Act] 9,000 unit PO UD PRN 03/07/18 08/06/18 History lorazepam 0.5 mg PO BID PRN 03/07/18 08/06/18 History magnesium oxide 400 mg PO DAILY 03/07/18 08/06/18 History polyethylene glycol 3350 17 g PO DAILY 03/07/18 08/06/18 History simvastatin [Zocor] 40 mg PO QPM 03/07/18 08/06/18 History venlafaxine 150 mg PO DAILY 03/07/18 08/06/18 History apixaban [Eliquis] 5 mg PO BID 08/06/18 08/06/18 History clonazepam 1 mg PO QAM 08/06/18 08/06/18 History levothyroxine [Synthroid] 75 mcg PO DAILY 08/06/18 08/06/18 History Past Med/Surg History Medical History Parkinson disease (Chronic) Anxiety and depression Atrial fibrillation Coronary artery disease Diabetes Hypothyroidism Family History Other FHx: heart disease Family history of diabetes mellitus Social History Preferred Language: Grenadian Feels Safe at Home: Yes Smoking Status: Never smoker Review of Systems Review of Systems: ROS: Review of systems is questionable as she does have some forgetfulness. She is tremulous and appears frightened No double vision blurry vision She says she cannot swallow effectively No palpitations, chest pain or pressure No Wheezing or breathing issues No abdominal pain nausea vomiting diarrhea No burning urine urine frequency or changes in color, she smells of strong urine No focal joint pain or muscle pain No skin rashes or oral lesions No unusual bruising or bleeding No focused back pain or numbness or loss of strength Patient has difficulty completing a train of thought but on confrontation of testing does have reasonable memory recall Physical Exam Physical Exam: The patient appeared anxious and agitated Vital signs as documented. Stable Head exam is unremarkable. normocephalic, atraumatic oropharynx is clear she does have an upper plate Neck is without jugular venous distension, thyromegaly, or lymphademopathy Lungs are clear to auscultation and percussion. (She claims not be able to get a full breath but on exam she did seem to move air well) Cardiac exam reveals Rhythm is regular. She appears in sinus mechanism of the history of A. fib, systolic murmur is heard Abdominal exam reveals normal bowel sounds, no masses, no organomegaly Extremities are nonedematous and both pedal pulses are present Neurologic exam is A&Ox3, no focal deficits Psychologically seems anxious and distracted Skin is warm Dry without bruises or lesions Results & Data Vital Signs (Past 12 Hours) Vital Signs Pulse Pulse Resp BP BP Pulse Ox 08/06/18 11:31 82 19 154/70 H 99 08/06/18 11:30 83 20 99 08/06/18 11:01 78 30 H 145/70 H 98 08/06/18 11:00 75 22 98 08/06/18 10:32 77 16 96 08/06/18 10:31 78 20 143/76 H 97 08/06/18 10:30 76 16 97 08/06/18 10:03 77 23 98 08/06/18 09:31 69 22 158/75 H 99 08/06/18 09:30 73 73 22 158/75 H 97 08/06/18 09:02 72 20 157/77 H 98 08/06/18 09:00 71 23 100 08/06/18 08:57 71 25 H 146/96 H 98 08/06/18 08:50 99 08/06/18 08:30 71 21 100 08/06/18 08:27 74 22 153/89 H 99 08/06/18 08:08 72 25 H 153/89 H 99 Diagnostic Findings Chest x-rays unremarkable ECG Additional Comments: EKG appears to have a sinus mechanism although read as accelerated junctional rhythm
[2018-08-06] MEDS ORDERED: ACETAMINOPHEN 325 MG TAB PO PRN (13:17)
[2018-08-06] MEDS ORDERED: ONDANSETRON INJ 2 MG/ML 2 ML VIAL IV PRN (13:17)
[2018-08-06] MEDS ORDERED: SODIUM CHLORIDE 0.9% 1000ML 1,000 ML IV SCH (13:17)
[2018-08-06] MEDS ORDERED: LACTASE 3000 UNIT TAB PO PRN (13:45)
[2018-08-06 14:16] LABS: Partial Thromboplastin Ratio 1.1; Partial Thromboplastin Time 29.6 Seconds (21.0-31.0); Prothrombin Time 10.2 Seconds (9.0-12.0)
--- NOTE | 2018-08-06 14:26 | Emergency Department Note ---
Entered by Adwoa Simms acting as a scribe for History of Present Illness General Chief complaint: GI Assessment Stated complaint: Can't Swallow Source: patient History of Present Illness Provider complaint: abdominal bloating Onset (ago): hour(s) (today) Location: abdomen Maximum Pain Intensity: 0 Quality: + other (bloating) Associated symptoms: + other (difficulty with swallowing and breathing ); no fever/chills and no nausea/vomiting The patient is a 78 year old female who presents to the Emergency Department with complaints of abdominal bloating today. She denies feeling nauseous and febrile. She does report having difficulty with swallowing and breathing. She states that she is able to eat intermittently. The patient states that her pills are being crushed and that she is able to take them like this. The patient s tates that she feels like there is something "stuck in her throat." She reports that she recently had a test done by Dr. Jolly. Home Medications Home Medications Medication Instructions Recorded Confirmed Type Eye Promise 8 mg PO DAILY 03/07/18 08/06/18 History Thera Tears Drops 2 drp OPB DAILY 03/07/18 08/06/18 History aspirin [Aspir-Low] 81 mg PO DAILY 03/07/18 08/06/18 History carbidopa-levodopa [Rytary] 3 cap PO QID 03/07/18 08/06/18 History cholecalciferol (vitamin D3) 1,000 unit PO DAILY 03/07/18 08/06/18 History [Vitamin D3] docusate sodium [Colace] 100 mg PO BID 03/07/18 08/06/18 History lactase [Lactaid Fast Act] 9,000 unit PO UD PRN 03/07/18 08/06/18 History lorazepam 0.5 mg PO BID PRN 03/07/18 08/06/18 History magnesium oxide 400 mg PO DAILY 03/07/18 08/06/18 History polyethylene glycol 3350 17 g PO DAILY 03/07/18 08/06/18 History simvastatin [Zocor] 40 mg PO QPM 03/07/18 08/06/18 History venlafaxine 150 mg PO DAILY 03/07/18 08/06/18 History apixaban [Eliquis] 5 mg PO BID 08/06/18 08/06/18 History clonazepam 1 mg PO QAM 08/06/18 08/06/18 History levothyroxine [Synthroid] 75 mcg PO DAILY 08/06/18 08/06/18 History Allergies Allergy/AdvReac Type Severity Reaction Status Date / Time sitagliptin Allergy Mild PER RECORD Verified 08/06/18 08:47 animal dander Allergy Unknown PER RECORD Verified 08/06/18 08:47 metformin Allergy Unknown PER RECORD Verified 08/06/18 08:47 Sulfa (Sulfonamide Allergy Unknown PER RECORD Verified 08/06/18 08:47 Antibiotics) scallops AdvReac Intermediate SEVERE N/V Verified 08/06/18 08:47 morphine AdvReac Mild LOW BP Verified 08/06/18 08:47 METAL Allergy Unknown . Uncoded 08/06/18 08:47 Past Med/Surg History Medical History Parkinson disease (Chronic) Anxiety and depression Atrial fibrillation Coronary artery disease Diabetes Hypothyroidism Family History Other FHx: heart disease Family history of diabetes mellitus Social History Preferred Language: Uzbek Feels Safe at Home: Yes Smoking Status: Never smoker Review of Systems See HPI for pertinent positives & negatives. and A total of 10 systems reviewed and were otherwise negative Physical Exam Vital Signs Vital Signs - 24 hr 08/06/18 08:08 08/06/18 08:27 08/06/18 08:30 Temperature Temperature Source Sepsis Recent Fever Within 48 Hours No Sepsis New/Unexplained Change in Mental Status No Sepsis Action Taken by Nursing No Action Required Pulse Rate 72 74 71 Pulse Rate [Apical] Pulse Rate [Left Brachial] Pulse Rate from SpO2 Sensor 73 71 Pulse Rhythm Regular Pulse Rhythm [Apical] Respiratory Rate 25 H 22 21 Respiratory Effort / Characteristics Non-Labored Respiratory Depth Normal Respiratory Pattern Regular Blood Pressure 153/89 H 153/89 H Blood Pressure [Left Arm] Blood Pressure Mean 110 110 Blood Pressure Mean [Left Arm] Blood Pressure Position Sitting Blood Pressure Position [Left Arm] Pulse Oximetry 99 99 100 Oxygen Delivery Method Room Air 08/06/18 08:50 08/06/18 08:57 08/06/18 09:00 Temperature Temperature Source Sepsis Recent Fever Within 48 Hours Sepsis New/Unexplained Change in Mental Status Sepsis Action Taken by Nursing Pulse Rate 71 71 Pulse Rate [Apical] Pulse Rate [Left Brachial] Pulse Rate from SpO2 Sensor 68 71 Pulse Rhythm Pulse Rhythm [Apical] Respiratory Rate 25 H 23 Respiratory Effort / Characteristics Respiratory Depth Respiratory Pattern Blood Pressure 146/96 H Blood Pressure [Left Arm] Blood Pressure Mean 112 Blood Pressure Mean [Left Arm] Blood Pressure Position Blood Pressure Position [Left Arm] Pulse Oximetry 99 98 100 Oxygen Delivery Method Room Air 08/06/18 09:02 08/06/18 09:30 08/06/18 09:31 Temperature Temperature Source Sepsis Recent Fever Within 48 Hours Sepsis New/Unexplained Change in Mental Status Sepsis Action Taken by Nursing Pulse Rate 72 73 69 Pulse Rate [Apical] 73 Pulse Rate [Left Brachial] Pulse Rate from SpO2 Sensor 72 71 70 Pulse Rhythm Pulse Rhythm [Apical] Regular Respiratory Rate 20 22 22 Respiratory Effort / Characteristics Respiratory Depth Normal Respiratory Pattern Blood Pressure 157/77 H 158/75 H Blood Pressure [Left Arm] 158/75 H Blood Pressure Mean 103 102 Blood Pressure Mean [Left Arm] 102 Blood Pressure Position Blood Pressure Position [Left Arm] Lying Pulse Oximetry 98 97 99 Oxygen Delivery Method Room Air 08/06/18 10:03 08/06/18 10:30 08/06/18 10:31 Temperature Temperature Source Sepsis Recent Fever Within 48 Hours Sepsis New/Unexplained Change in Mental Status Sepsis Action Taken by Nursing Pulse Rate 77 76 78 Pulse Rate [Apical] Pulse Rate [Left Brachial] Pulse Rate from SpO2 Sensor 76 76 78 Pulse Rhythm Pulse Rhythm [Apical] Respiratory Rate 23 16 20 Respiratory Effort / Characteristics Respiratory Depth Respiratory Pattern Blood Pressure 143/76 H Blood Pressure [Left Arm] Blood Pressure Mean 98 Blood Pressure Mean [Left Arm] Blood Pressure Position Blood Pressure Position [Left Arm] Pulse Oximetry 98 97 97 Oxygen Delivery Method 08/06/18 10:32 08/06/18 11:00 08/06/18 11:01 Temperature Temperature Source Sepsis Recent Fever Within 48 Hours Sepsis New/Unexplained Change in Mental Status Sepsis Action Taken by Nursing Pulse Rate 77 75 78 Pulse Rate [Apical] Pulse Rate [Left Brachial] Pulse Rate from SpO2 Sensor 77 75 78 Pulse Rhythm Pulse Rhythm [Apical] Respiratory Rate 16 22 30 H Respiratory Effort / Characteristics Respiratory Depth Respiratory Pattern Blood Pressure 145/70 H Blood Pressure [Left Arm] Blood Pressure Mean 95 Blood Pressure Mean [Left Arm] Blood Pressure Position Blood Pressure Position [Left Arm] Pulse Oximetry 96 98 98 Oxygen Delivery Method 08/06/18 11:30 08/06/18 11:31 08/06/18 11:32 Temperature Temperature Source Sepsis Recent Fever Within 48 Hours Sepsis New/Unexplained Change in Mental Status Sepsis Action Taken by Nursing Pulse Rate 83 82 83 Pulse Rate [Apical] Pulse Rate [Left Brachial] Pulse Rate from SpO2 Sensor 83 81 81 Pulse Rhythm Pulse Rhythm [Apical] Respiratory Rate 20 19 16 Respiratory Effort / Characteristics Respiratory Depth Respiratory Pattern Blood Pressure 154/70 H Blood Pressure [Left Arm] Blood Pressure Mean 98 Blood Pressure Mean [Left Arm] Blood Pressure Position Blood Pressure Position [Left Arm] Pulse Oximetry 99 99 99 Oxygen Delivery Method 08/06/18 12:00 08/06/18 12:30 08/06/18 12:31 Temperature Temperature Source Sepsis Recent Fever Within 48 Hours Sepsis New/Unexplained Change in Mental Status Sepsis Action Taken by Nursing Pulse Rate 71 69 68 Pulse Rate [Apical] Pulse Rate [Left Brachial] Pulse Rate from SpO2 Sensor 65 69 65 Pulse Rhythm Pulse Rhythm [Apical] Respiratory Rate 21 16 15 Respiratory Effort / Characteristics Respiratory Depth Respiratory Pattern Blood Pressure 157/72 H 141/61 H Blood Pressure [Left Arm] Blood Pressure Mean 100 87 Blood Pressure Mean [Left Arm] Blood Pressure Position Blood Pressure Position [Left Arm] Pulse Oximetry 98 98 97 Oxygen Delivery Method 08/06/18 13:17 Temperature 36.4 C L Temperature Source Oral Sepsis Recent Fever Within 48 Hours Sepsis New/Unexplained Change in Mental Status Sepsis Action Taken by Nursing Pulse Rate Pulse Rate [Apical] Pulse Rate [Left Brachial] 74 Pulse Rate from SpO2 Sensor Pulse Rhythm Pulse Rhythm [Apical] Respiratory Rate 18 Respiratory Effort / Characteristics Respiratory Depth Respiratory Pattern Blood Pressure Blood Pressure [Left Arm] 144/76 H Blood Pressure Mean Blood Pressure Mean [Left Arm] 98 Blood Pressure Position Blood Pressure Position [Left Arm] Sitting Pulse Oximetry 98 Oxygen Delivery Method Room Air GENERAL: Awake, alert but occasionally confused, generally weak-appearing and anxious HENT: Normocephalic, atraumatic. EYES: Normal conjunctiva. Sclera non-icteric. NECK: Supple. No nuchal rigidity. RESPIRATORY: Clear to auscultation. Normal respiratory effort. CARDIAC: Normal rate. Normal rhythm. Extremities warm and well perfused. GI: Soft, non-distended. No tenderness to palpation. No rebound or guarding. RECTAL: Deferred. MUSCULOSKELETAL: Atraumatic. Chest examination reveals no tenderness. LOWER EXTREMITIES: Calves are equal size bilaterally and non-tender. No edema NEURO: Normal sensorium. No sensory or motor deficits noted. No facial droop. Slight resting tremor. SKIN: Warm and dry. No jaundice noted. Course 0856: The patient was evaluated in room B3B. A history and physical were performed. 1050: I called the patient's son without answer. 1101: I reevaluated the patient. 1109: I discussed the patient's case with her [facility]. They stated that the patient has not been eating much, has not been taking most of her medications, and that her behavior changes back and forth liberally. 1112: I updated the patient who verbalized agreement and understanding of the treatment plan. 1117: I discussed the patient's case with Dr. Lawanda Francois who will evaluate the patient for further management. Consultations Consultation #1: [facility] Time: 11:09 Consultation #2: Dr. Lawanda Francois Time: 11:17 Administered Medications Discontinued Medications Lorazepam (Ativan) 0.5 mg PO NOW STA Stop: 08/06/18 10:31 Last Admin: 08/06/18 10:57 Dose: 0.5 mg Documented by: [id number] Medical Decision Making Differential Diagnosis Differential includes acute coronary syndrome, myocardial infarction, CVA, TIA, anemia, infection, pneumonia, UTI, pyelonephritis, poor nutrition, dehydration, electrolyte disturbance,hypoglycemia. Medical Records Attestation: I reviewed the patient's medical records. Home Medications Current Medication List: was personally reviewed by me Laboratory Data Attestation: I reviewed the patient's lab results. Result diagrams: 08/06/18 08:40 08/06/18 08:40 Lab Results 08/06/18 08/06/18 08/06/18 Range/Units 08:40 08:40 08:40 WBC 5.17 (4.8-10.8) K/uL RBC 5.09 (4.2-5.4) M/uL Hgb 15.7 (12.0-16.0) g/dL Hct 46.9 (37-47) % MCV 92.1 (80-100) fL MCH 30.8 (25-34) pg MCHC 33.5 (32-36) g/dL RDW Std Deviation 48.8 H (36.4-46.3) fL RDW Coeff of Beverly 14.4 (11.5-14.5) % Plt Count 137 (130-400) K/uL MPV 10.1 (7.4-10.4) fL Immature Gran % (Auto) 0.2 % Neut % (Auto) 55.9 % Lymph % (Auto) 36.0 % [place] % (Auto) 4.6 % Eos % (Auto) 3.1 % Baso % (Auto) 0.2 % Immature Gran # (Auto) 0.01 (0.00-0.02) K/uL Neut # (Auto) 2.89 (1.4-6.5) K/uL Lymph # (Auto) 1.86 (1.2-3.4) K/uL [place] # (Auto) 0.24 (0.11-0.59) K/uL Eos # (Auto) 0.16 (0-0.5) K/uL Baso # (Auto) 0.01 (0-0.2) K/uL PT 10.2 (9.0-12.0) Seconds INR 1.0 (0.9-1.1) APTT 29.6 (21.0-31.0) Seconds PTT Ratio 1.1 Sodium 141 (136-145) mmol/L Potassium 4.2 (3.5-5.1) mmol/L Chloride 106 (98-107) mmol/L Carbon Dioxide 29 (21-32) mmol/L Anion Gap 6.0 (3-11) BUN 20 H (7-18) mg/dl Creatinine 0.83 (0.6-1.2) mg/dl Est Cr Clr Drug Dosing 50.9 ml/min Est GFR ( Amer) 77.7 Est GFR (Non-Af Amer) 67.1 BUN/Creatinine Ratio 23.6 H (10-20) Glucose 119 H (70-99) mg/dl Calcium 9.7 (8.5-10.1) mg/dl Total Bilirubin 0.5 (0.2-1) mg/dl AST 15 (15-37) U/L ALT 12 (12-78) U/L Alkaline Phosphatase 125 H (45-117) U/L Troponin I < 0.015 (0-0.045) ng/ml Total Protein 7.9 (6.4-8.2) gm/dl Albumin 4.0 (3.4-5.0) gm/dl Globulin 3.9 (2.5-4.0) gm/dl Albumin/Globulin Ratio 1.0 (0.9-2) Lipase 219 (73-393) U/L TSH 2.530 (0.300-4.500) uIu/ml Urine Color Urine Appearance (Clear) Urine pH (4.5-7.5) Ur Specific M[place] (1.000-1.030) Urine Protein (Negative) Urine Glucose (UA) (Negative) Urine Ketones (Negative) Urine Blood (Negative) Urine Nitrite (Negative) Urine Bilirubin (Negative) Urine Urobilinogen (Negative) Ur Leukocyte Esterase (Negative) 08/06/18 Range/Units 10:05 WBC (4.8-10.8) K/uL RBC (4.2-5.4) M/uL Hgb (12.0-16.0) g/dL Hct (37-47) % MCV (80-100) fL MCH (25-34) pg MCHC (32-36) g/dL RDW Std Deviation (36.4-46.3) fL RDW Coeff of Beverly (11.5-14.5) % Plt Count (130-400) K/uL MPV (7.4-10.4) fL Immature Gran % (Auto) % Neut % (Auto) % Lymph % (Auto) % [place] % (Auto) % Eos % (Auto) % Baso % (Auto) % Immature Gran # (Auto) (0.00-0.02) K/uL Neut # (Auto) (1.4-6.5) K/uL Lymph # (Auto) (1.2-3.4) K/uL [place] # (Auto) (0.11-0.59) K/uL Eos # (Auto) (0-0.5) K/uL Baso # (Auto) (0-0.2) K/uL PT (9.0-12.0) Seconds INR (0.9-1.1) APTT (21.0-31.0) Seconds PTT Ratio Sodium (136-145) mmol/L Potassium (3.5-5.1) mmol/L Chloride (98-107) mmol/L Carbon Dioxide (21-32) mmol/L Anion Gap (3-11) BUN (7-18) mg/dl Creatinine (0.6-1.2) mg/dl Est Cr Clr Drug Dosing ml/min Est GFR ( Amer) Est GFR (Non-Af Amer) BUN/Creatinine Ratio (10-20) Glucose (70-99) mg/dl Calcium (8.5-10.1) mg/dl Total Bilirubin (0.2-1) mg/dl AST (15-37) U/L ALT (12-78) U/L Alkaline Phosphatase (45-117) U/L Troponin I (0-0.045) ng/ml Total Protein (6.4-8.2) gm/dl Albumin (3.4-5.0) gm/dl Globulin (2.5-4.0) gm/dl Albumin/Globulin Ratio (0.9-2) Lipase (73-393) U/L TSH (0.300-4.500) uIu/ml Urine Color Yellow Urine Appearance Clear (Clear) Urine pH 8.0 H (4.5-7.5) Ur Specific [place] 1.010 (1.000-1.030) Urine Protein Negative (Negative) Urine Glucose (UA) Negative (Negative) Urine Ketones Negative (Negative) Urine Blood Negative (Negative) Urine Nitrite Negative (Negative) Urine Bilirubin Negative (Negative) Urine Urobilinogen Negative (Negative) Ur Leukocyte Esterase Negative (Negative) Imaging Data Radiologist's Impression: Radiology results as stated below per my review and the radiologist's interpretation: XR chest 1V portable CLINICAL HISTORY: weakness dyspnea COMPARISON STUDY: 03/07/2018 FINDINGS: The bones soft tissues and hemidiaphragms are normal. The cardiomediastinal silhouette is normal. The lungs are clear. The pulmonary vasculature is normal. IMPRESSION: Negative chest. The above report was generated using voice recognition software. It may contain grammatical, syntax or spelling errors. Electronically signed by: Ernesto Porter M.D. 08/06/2018 10:11 AM ECG Data Attestation: I personally reviewed and interpreted this ECG as follows: Indication: weakness Rate (beats per minute): 67 Rhythm: normal sinus Findings: + other (baseline tremor) and + PVC; no ST elevation Blood Pressure Blood Pressure Findings: Elevated blood pressure Blood Pressure Disposition: further management by hospitalist CHERYL Narrative Patient is a 78-year-old female with a history of Parkinson's disease as well as hyperlipidemia and thyroid dysfunction presenting today complaining of generalized weakness some nausea and slight shortness of breath. Evidently is having difficulty swallowing which is her primary complaint feels like things sometimes get stuck. Ongoing for a while according to her. She states she has seen GI before but discussion with GI do not see recent evaluation there. States generalized weakness. States difficulty swallowing. Some abdominal bloating but no tenderness. Basic labs are completed here without acute fi ndings. No leukocytosis or evidence of acute hepatitis or pancreatitis. No evidence of electrolyte abnormality acute renal insufficiency. Patient extremely anxious and coming more tremulous. Discussed with pharmacy obtaining her carbidopa but do not have that kind here. Given dose of home Ativan. Reviewed records and appears she did have a swallow study February without acute findings. Has been seen here several times but today seems significantly worse. Do not see evidence of an acute strep pharyngitis. Thyroid function within normal limits and negative urinalysis. No evidence of significant dehydration. Discussed with the patient and she is very concerned and does not feel comfo rtable at discharge. Discussed with the hospitalist. Impression & Plan Weakness, Dysphasia Discharge Plan Visit Data *Final* Discharge Date/Time: 08/06/18 12:44 Chief Complaint: GI Assessment Stated Complaint: Can't Swallow ED Provider: Tayo Rebollar Discharge Problem: Weakness, Dysphasia Patient Disposition: Admitted As Inpatient Discharge Instructions Interventions: ED Discharge Assessment Last Done: 08/06/18 12:44 The maria del carmenibe's documentation has been prepared under my direction and personally reviewed by me in its entirety. I confirm that the note above accurately reflects all work, treatment, procedures, and medical decision making performed by me.
[2018-08-06] MEDS: LORazepam 0.5 MG TAB PO PRN (15:46)
[2018-08-06] MEDS: CARBIDOPA/LEVODOPA 50/200MG EXT REL TAB PO SCH ×2 (17:26→19:59)
[2018-08-06] MEDS: HEPARIN SOD 5,000 UNIT/0.5 ML VIAL SQ SCH (20:51)
[2018-08-06] MEDS ORDERED: ROPINIROLE HCL 0.25 MG TABLET PO SCH (21:00)
[2018-08-06] MEDS: DOCUSATE SODIUM 100 MG CAP PO SCH (21:08)
[2018-08-06] MEDS: APIXABAN 5 MG TABLET PO SCH (21:08)
--- OUTSIDE RECORDS SUMMARY | 2018-08-06 22:54 | External Medical Summary | Continuity of Care Document ---
:1940 Author Name Tony Conner, Provider Address Unavailable Unavailable , Care Team Providers Name Role Phone Nuria eDleon Unavailable [email or web address] Kim Conner, Kendrick Diallo Unavailable [email or web address] Thea DO Unavailable [email or web address] Case Breanne RODRIGUEZ Unavailable [email or web address] Rossi WEAVER Unavailable Unavailable THEA Conner, S Unavailable Unavailable Unavailable Unavailable Unavailable Problems Parkinson's disease (332.0) (G20) Obstructive sleep apnea (327.23) (G47.33) Abdominal bloating (787.3) (R14.0) Anxiety (300.00) (F41.9) Panic attacks (300.01) (F41.0) Hypoxia (799.02) (R09.02) Numbness (782.0) (R20.0) Restless legs (333.94) (G25.81) Atrial fibrillation (427.31) (I48.91) Arthritis (716.90) (M19.90) Mass of right breast (611.72) (N63.10) Change in bowel habits (787.99) (R19.4) Internal hemorrhoids (455.0) (K64.8) Diverticulosis (562.10) (K57.90) Hyperlipidemia (272.4) (E78.5) Diabetes mellitus (250.00) (E11.9) Hypothyroidism (244.9) (E03.9) Fatigue (780.79) (R53.83) Sinus bradycardia (427.89) (R00.1) Claustrophobia (300.29) (F40.240) Mitral regurgitation (424.0) (I34.0) Laryngopharyngeal reflux (478.79) (K21.9) Paroxysmal supraventricular tachycardia (427.0) (I47.1) Sleep disturbances (780.50) (G47.9) Carpal tunnel syndrome of left wrist (354.0) (G56.02) Cervical radicular pain (723.4) (M54.12) Macular degeneration (362.50) (H35.30) Dysphonia (784.42) (R49.0) Allergies and Adverse Reactions Januvia TABS (Allergy) Reaction: Swellin g metFORMIN HCl TABS (Allergy) Reaction: M yalgia Sulfa Drugs (Allergy) Reaction: Rash, Ot her Animal dander - Cats (Allergy) Shellfish (Allergy) Medications Simvastatin 40 MG Oral Tablet; TAKE 1 TABLET BY MOUTH DAILY AT BEDTIME. TI Apple Start: 19-Feb-2016 Quantity: 30 Refills: 5 Baby Aspirin 81 MG CHEW; CHEW AND SWALLOW 1 TABLET DAILY. Refills: 0 Magnesium 400 MG Oral Tablet; Take 1 tablet daily Refills: 0 Theratears 0.25 % Ophthalmic Solution; I NSTILL TWO DROPS IN BOTH EYES EVERY A.M. Start: 18-Nov-2014 Refills: 0 Calcium 600+D 600-200 MG-UNIT Oral Tablet; TAKE 1 TABLET TWI CE DAILY. Start: 18-Nov-2014 Refills: 0 Eliquis 5 MG Oral Tablet; Take 1 tablet twice daily Refills: 0 Amoxicillin 500 MG Oral Capsule; TAKE 4 CAPSULES 1 HOUR PRIOR TO DENTAL APPOINTMENT. Refills: 0 Vitamin D 1000 UNIT Oral Tablet; TAKE 1 TABLET DAILY. Refills: 0 Venlafaxine HCl ER 150 MG Oral Capsule E xtended Release 24 Hour; TAKE 1 CAPSULE EVERY DAY JENNIFER Yadav Start: 25-Sep-2015 Quantity: 30 Refills: 3 Accu-Chek Faiza Plus In Vitro Strip; TEST ONCE DAILY. TI Apple Start: 04-Feb-2015 Quantity: 2 50 Strip Box Refills: 3 Stool Softener CAPS; Take 1 capsule twice daily Refills: 0 Liquid Antacid SUSP; take 2-4 tsp upto 4 times a day Refills: 0 rOPINIRole HCl - 0.25 MG Oral Tablet; TAKE 1 TABLET Be dtiDO Ana Bland Start: 22-Jun-2018 Quantity: 90 Refills: 3 Ocutabs Oral Tablet; eye promise 8mg, 1 tablet daily Start: 25-Jul-2018 Refills: 0 Beano Oral Tablet; USE DIRECTED. Star t: 25-Jul-2018 Refills: 0 clonazePAM 0.5 MG Oral Tablet; Take 2 tablets daily IRIS Yadav Start: 07-May-2018 Quantity: 30 Refills: 3 Levothyroxine Sodium 75 MCG Oral Tablet; TAKE 1 TABLET DAILY . Start: 03-Jul-2012 Refills: 0 LORazepam 0.5 MG Oral Tablet; TAKE 1.5 TABLETS AT BEDTIME. Refills: 0 Polyethylene Glycol Powder; USE DIRECTED. Start: 15-Sep-2016 Refills: 0 Rytary 36.25-145 MG Oral Capsule Extende d Release; 3 CAPS at 6am, 3 caps at 10am, 3 caps at 2pm, 3 caps at 6pm on an empty stomach (30 minutes before a meal, or one to 2 hours after a meal). JENNIFER Yadav Start: 016 Quantity: 1170 Refills: 1 Procedures History of Tubal Ligation Status: Comple tamiko History of Hysterectomy Status: Complete d History of Neuroplasty Decompression Median Nerve At Carpal Status: Completed Tunnel History of Knee Surgery Status: Complete d History of Bladder Surgery Status: Compl eted History of Appendectomy Status: Complete d Immunizations DT On: 26-Jan-2004 Pneumococcal polysaccharide vaccine, 23 valent On: 20-Feb-20 07 Influenza On: 30-Jan-2012 15:50 Lot #: [id number], [employer] Influenza On: 14-Jan-2013 14:52 Lot #: [id number], [employer] Pneumococcal polysaccharide vaccine, 23 valent On: 20-Mar-20 13 10:25 Lot #: [id number], [employer] Fluzone Quadrivalent Intramuscular Suspension On: 4 15:49 Lot #: [id number], [employer] [id number] intramuscular suspension On: 18-Nov-2014 11:35 Lot #: [id number], Other (add annotation) Fluzone High-Dose Intramuscular Suspension On: 02-Feb-2015 1 3:27 Lot #: [id number], [employer] Fluzone High-Dose Intramuscular Suspension On: 28-Jan-2016 1 0:21 Lot #: [id number], [employer] Fluzone High-Dose Intramuscular Suspension On: 27-Jan-2017 1 1:19 Lot #: [id number], [employer] Family History Unknown Family Member Family history of Acute Myocardial Infarction Status: Active Comments: Family History (V17.3) Father Family history of Acute Myocardial Infarction (V17.3) Status : Active Brother Family history of Stroke Syndrome (V17.1) Status: Active Sister Family history of colon cancer (V16.0) (Z80.0) Status: Activ e aunt Family history of malignant neoplasm of breast (V16.3) (Z80. 3) Status: Active Social History - Smoking Status Unknown if ever smoked Never smoker Plan of Treatment Planned Encounters Appointment; Kendrick Alvarez M.D. Start: 22-Nov-2018 13:15 Requ est Planned Observations Planned Goals not documented Results No Known Results Results not documented Vital Signs 24-Jul-2018 14:29 O2 Saturation 98 % 24-Jul-2018 13:21 Systolic 109 mm[Hg] Diastolic 63 mm[Hg] Heart Rate 80 /min Weight 151.8 lb Height 63 in BSA Calculated 1.72 m2 BMI Calculated 26.89 kg/m2 Encounters Appointment; Kendrick Alvarez M.D. 24-Jul-2018 13:15 Encounter Diagnosis: Problem not documented Appointment; Ana Sidhu DO 22-Jun-2018 9:40 Encounter Diagnosis: Problem not documented Appointment; Kendrick Alvarez M.D. 16-May-2018 10:45 Encounter Diagnosis: Problem not documented Appointment; Lillian Yadav PA-C 07-May-2018 12:30 Encounter Diagnosis: Problem not documented Appointment; Jarred Pichardo III, M.D. 13-Apr-2018 10:30 Encounter Diagnosis: Problem not documented Appointment; Lillian Yadav PA-C 28-Mar-2018 12:30 Encounter Diagnosis: Problem not documented Appointment; OBGYN SC1, Ultrasound 26-Dec-2017 15:00 Encounter Diagnosis: Problem not documented Appointment; Lillian Yadav PA-C 21-Dec-2017 15:00 Encounter Diagnosis: Problem not documented Appointment; Gill Lyons M.D. 18-Dec-2017 10:30 Encounter Diagnosis: Problem not documented Appointment; Kendrick Alvarez M.D. 19-Sep-2017 13:15 Encounter Diagnosis: Problem not documented Appointment; Ana Sidhu DO 22-Jun-2017 14:00 Encounter Diagnosis: Problem not documented Appointment; nAa Sidhu DO 20-Dec-2016 14:40 Encounter Diagnosis: Problem not documented Appointment; Kiana Ham CRNP 17-Nov-2016 13:00 Encounter Diagnosis: Problem not documented Appointment; Kiana Ham CRNP 17-Oct-2016 16:20 Encounter Diagnosis: Problem not documented Appointment; Kendrick Alvarez M.D. 20-Sep-2016 13:45 Encounter Diagnosis: Problem not documented Appointment; Kiana Ham CRNP 15-Sep-2016 11:50 Encounter Diagnosis: Problem not documented Appointment; Lillian Yadav PA-C 19-Aug-2016 11:00 Encounter Diagnosis: Problem not documented Appointment; Kendrick Alvarez M.D. 22-Nov-2018 13:15 Encounter Diagnosis: Problem not documented
[2018-08-07] MEDS: LORazepam 0.5 MG TAB PO PRN (06:08)
[2018-08-07] MEDS ORDERED: LEVOTHYROXINE SODIUM 75 MCG TABLET PO SCH (06:30)
[2018-08-07 07:47] LABS: Estimated Average Glucose 140 mg/dl; Hemoglobin A1C 6.5 % (4.5-5.6)
[2018-08-07 07:56] LABS: BUN Creatinine Ratio 22.7 (10-20); Calcium 8.9 mg/dl (8.5-10.1); Creatinine Clr Calc Pharmacy 53.5 ml/min; Est GFR (African American) 82.5; Est GFR (Non-African American) 71.2; Potassium 3.9 mmol/L (3.5-5.1)
[2018-08-07] MEDS: CARBIDOPA/LEVODOPA 50/200MG EXT REL TAB PO SCH ×2 (08:21→13:25)
[2018-08-07] MEDS: HEPARIN SOD 5,000 UNIT/0.5 ML VIAL SQ SCH (08:30)
[2018-08-07] MEDS ORDERED: VENLAFAXINE HCL XR 150 MG CAPXR PO SCH (09:00)
[2018-08-07] MEDS ORDERED: ASPIRIN 81 MG ECTAB PO SCH (09:00)
[2018-08-07] MEDS ORDERED: POLYETHYLENE (MIRALAX) 17 GM PACK PO SCH (09:00)
[2018-08-07] MEDS ORDERED: clonazePAM 1 MG TAB PO SCH (09:00)
[2018-08-07] MEDS ORDERED: MAGNESIUM OXIDE 400 MG TAB PO SCH (09:00)
[2018-08-07] MEDS: DOCUSATE SODIUM 100 MG CAP PO SCH (09:13)
[2018-08-07] MEDS: APIXABAN 5 MG TABLET PO SCH (09:13)
--- NOTE | 2018-08-07 16:20 | Discharge Summary ---
Date of Service August 07, 2018 Admission HPI Per Admitting Provider Patient presents from personal-care senior care with decline of late with increased anxiety and difficulty taking oral medications. Patient had a long history of swallowing issues having had a speech evaluation in February 2018 including a video swallow and barium swallow without any significant mechanical obstruction seen. Patient was given strategies to help with her swallowing however she is having some mild progression of her dementia and she lives in the personal senior care with her who suffers from macular degeneration. She presents today feeling on fit to return to the personal senior care anxious and jittery with lack of confidence in what medication she is actually taking at home. Some of these do include anticoagulant such as Eliquis and anxiety medications and depression medications. Patient be brought in for repeat speech evaluation and consideration for pacemaker in a higher level of nursing care. She also presents to us with a pulsed form that says comfort is her focus however she presented for treatment today she is not clear regarding those issues she was questioned about DNR status and did confirm that Principal Diagnosis Panic attacks Discharge Exam Constitutional WD/WN, vitals as above Eyes EOM intact bilaterally; no conjunctival abnormality ENMT external ear and nose normal, oropharynx normal Neck trachea midline, no thyromegaly normal visual inspection Respiratory normal respiratory effort, lungs clear to auscultation no respiratory distress Cardiovascular RRR, no murmur, no edema Gastrointestinal (Abdomen) Inspection/Auscultation: abdomen normal to inspection; abdomen not distended Musculoskeletal no cyanosis or clubbing, extremities motor strength 5/5 Skin no rashes, warm and dry Neurologic moves all extremities and awake Psychiatric Orientation: alert, oriented to person and cooperative Affect: + anxious affect and + tearful affect Discharge Data Allergies Allergy/AdvReac Type Severity Reaction Status Date / Time sitagliptin Allergy Mild PER RECORD Verified 08/06/18 08:47 animal dander Allergy Unknown PER RECORD Verified 08/06/18 08:47 metformin Allergy Unknown PER RECORD Verified 08/06/18 08:47 Sulfa (Sulfonamide Allergy Unknown PER RECORD Verified 08/06/18 08:47 Antibiotics) scallops AdvReac Intermediate SEVERE N/V Verified 08/06/18 08:47 morphine AdvReac Mild LOW BP Verified 08/06/18 08:47 METAL Allergy Unknown . Uncoded 08/06/18 08:47 Consultations 08/06/18 11:18 ED Decision to Admit Stat 08/06/18 13:17 Consult Case Management - Discharge Planning Routine Hospital Course (1) Dysphasia: Dysphasia was the purported reason for coming to the hospital; however, B[employer] MECH[employer]IC saw the patient and had no concerns about aspiration. The patient herself reported being at baseline the morning after admission. - Significant concern that she is having anxiety/panic attacks that cause her to have a variety of symptoms at her care facility. - Will see psychiatry on Monday. Encouraged son to keep that appointment. (2) Atrial fibrillation: Patient typically takes Eliquis for anticoagulation and aspirin. Not usually on a rate controlling medication will maintain these medicines at this time he does not appear to be in A. fib on EKG (3) Parkinson disease: Patient takes combination carbidopa levodopa 3 tablets 4 times a day and will be continued on the same (4) Diabetes: Diabetes is listed in her problem list and metformin and Januvia are listed as allergies. Patient's glucose is 119 on presentation we will have her on a carb conscious diet and not in place sliding-scale insulin unless her glucoses are difficult control and A1c will be ordered in the morning (5) Coronary artery disease: This is listed by her history aspirin will be maintained (6) Anxiety and depression: Patient typically takes clonazepam in the morning Effexor 150 with PRN Ativan these are ordered and will be continued Patient also takes Requip at night at 0.25 this will be continued (7) Hypothyroidism: Clinically euthyroid on presentation, TSH is 2.5 we will continue her Synthroid dosing (8) DVT prophylaxis: Subcu heparin is used Total Time Total Time Spent Total Time Spent (In Minutes): 35 Total Time Includes: Examination of the Patient, Discharge Planning, Medication Reconciliation and Communication With Other Providers Discharge Plan Discharge Items Patient Disposition: Personal [facility] Reason For Visit: DYSPHAGIA Discharge Diagnosis: Dysphagia, anxiety Discharge Goals: Decrease discomfort and Diagnostic testing Activity: Resume your previous activity Non-emergency contact: Primary Care Provider Call non-emergency contact if: you have any medication questions and your symptoms worsen Follow-up/Referrals: Ame Gaston [Primary Care Provider] - Diet: Regular Addtl Provider Instructions: Ms. Kelsey was admitted for trouble swallowing and shortness of breath. The speech team did not think there was any aspiration going on. They recommended: Moist diet Alternate solids and liquids Put medications in pudding, applesauce, etc. Sit upright during meals and for 30 minutes after We are arranging to have the [facility] come and update her mask as her anxiety was centered on her CPAP device at her care facility and she felt the mask was not fitting well. Prescriptions: Continued venlafaxine 150 mg capsule,extended release 24hr 150 mg PO DAILY RF: 0 aspirin [Aspir-Low] 81 mg Tablet,Delayed Release (Dr/Ec) 81 mg PO DAILY RF: 0 docusate sodium [Colace] 100 mg Capsule 100 mg PO BID RF: 0 polyethylene glycol 3350 17 gram/dose powder 17 g PO DAILY RF: 0 cholecalciferol (vitamin D3) [Vitamin D3] 1,000 unit Capsule 1,000 unit PO DAILY RF: 0 Rytary 36.25-145 mg Capsule, Extended Release 3 cap PO QID RF: 0 magnesium oxide 400 mg magnesium Tablet 400 mg PO DAILY RF: 0 Eye Promise 8 mg PO DAILY RF: 0 Thera Tears Drops 2 drp OPB DAILY RF: 0 simvastatin [Zocor] 40 mg tablet 40 mg PO QPM RF: 0 lorazepam 0.5 mg Tablet 0.5 mg PO BID PRN (Reason: intolerance) RF: 0 Lactaid Fast Act 9,000 unit Tablet 9,000 unit PO UD PRN (Reason: intolerance) RF: 0 clonazepam 1 mg Tablet 1 mg PO QAM RF: 0 levothyroxine [Synthroid] 75 mcg Tablet 75 mcg PO DAILY RF: 0 Eliquis 5 mg Tablet 5 mg PO BID RF: 0 Stand-Alone Forms: [facility] Discharge Orders: Discharge Order (Routine); Ordered 08/07/18 Ordered By: Segun Hua Admission Data Admit Date/Time: 08/06/18 11:47 Attending Provider: Segun Hua Admit Provider: Navarro Denise Primary Care Provider: Ame Gaston Other Providers: Segun Hua Service: Medical Other Interventions: Discharge Summary Assessment (RN) Last Done: 08/07/18 13:01 DC Date/Time DO NOT enter until pt leaves facility: 08/07/18 13:45
== END 2018-08-07 13:45 | disposition home or self-care (01) | DRG 880 ==
LOC: ED 08:21 → SUATTDRO 11:47 → 4W 11:47

== ENCOUNTER 2018-09-05 13:45 | Inpatient (IN) ==
[2018-09-05 14:06] LABS: Basophils # (auto) 0.01 K/uL (0-0.2); Basophils % (auto) 0.2 %; Eosinophils # (auto) 0.11 K/uL (0-0.5); Eosinophils % (auto) 1.9 %; Hematocrit (blood only) 44.9 % (37-47); Immature Granulocytes # (auto) 0.01 K/uL (0.00-0.02); Immature Granulocytes % (auto) 0.2 %; Lymphocytes # (auto) 2.26 K/uL (1.2-3.4); Lymphocytes % (auto) 38.8 %; Mean Corpuscular Hgb Conc 33.4 g/dL (32-36); Mean Platelet Volume 10.3 fL (7.4-10.4); Monocytes # (auto) 0.32 K/uL (0.11-0.59); Monocytes % (auto) 5.5 %; Neutrophils # (auto) 3.11 K/uL (1.4-6.5); Neutrophils % (auto) 53.4 %; Platelet Count 168 K/uL (130-400); RDW Coefficient of Variation 14.7 % (11.5-14.5); RDW Standard Deviation 49.5 fL (36.4-46.3); Red Blood Count 4.88 M/uL (4.2-5.4); White Blood Count 5.82 K/uL (4.8-10.8)
[2018-09-05 14:19] LABS: Alanine Aminotransferase 12 U/L (12-78); Albumin Level 4.1 gm/dl (3.4-5.0); Aspartate Aminotransferase 24 U/L (15-37); BUN Creatinine Ratio 35.4 (10-20); Blood Urea Nitrogen 29 mg/dl (7-18); Calcium 9.5 mg/dl (8.5-10.1); Carbon Dioxide 29 mmol/L (21-32); Chloride 105 mmol/L (98-107); Creatinine Clr Calc Pharmacy 50.1 ml/min; Est GFR (African American) 77.7; Est GFR (Non-African American) 67.1; Glucose 69 mg/dl (70-99); Magnesium 2.5 mg/dl (1.8-2.4); Potassium 3.6 mmol/L (3.5-5.1); Sodium 140 mmol/L (136-145)
[2018-09-05 14:30] LABS: Albumin Globulin Ratio 1.1 (0.9-2); Alkaline Phosphatase 119 U/L (45-117); Bilirubin,Total 0.6 mg/dl (0.2-1); Globulin 3.8 gm/dl (2.5-4.0); Total Protein 7.9 gm/dl (6.4-8.2); Troponin I < 0.015 ng/ml (0-0.045)
--- NOTE | 2018-09-05 14:36 | CT Scan Report ---
CT head/brain wo con CT DOSE: 638.56 mGycm HISTORY: Mental status change ams TECHNIQUE: Multiaxial CT images of the head were performed without the use of intravenous contrast. A dose lowering technique was utilized adhering to the principles of ALARA. Comparison: 04/24/2018 Findings: The paranasal sinuses and mastoid air cells are clear. The calvarium and skull base are int act. The ventricles and sulci are within normal limits. There is no mass, hematoma, midline shift, or acute infarct. Impression: No acute intracranial abnormality. The above report was generated using voice recognition software. It may contain grammatical, syntax or spelling errors. Electronically signed by: Ernesto Porter M.D. 09/05/2018 2:34 PM
[2018-09-05] MEDS: SODIUM CHLORIDE 0.9% 1000ML 1,000 ML IV SCH (14:49)
[2018-09-05 15:50] LABS: Appearance Urine Clear (Clear); Bilirubin Urine Negative (Negative); Blood Urine Negative (Negative); Color Urine Yellow; Glucose Urine UA Negative (Negative); Ketones Urine Negative (Negative); Leukocyte Esterase Urine Negative (Negative); Nitrite Urine Negative (Negative); Protein Urine Negative (Negative); Specific Gravity Urine 1.013 (1.000-1.030); Urobilinogen Urine Negative (Negative)
[2018-09-05] MEDS ORDERED: LORazepam 2 MG/4 ML VIAL ONE (16:57)
[2018-09-05] MEDS ORDERED: LORazepam 1 MG/2 ML VIAL IV STA (17:04)
--- NOTE | 2018-09-05 17:24 | History & Physical Report ---
Date of Service September 05, 2018 Assessment & Plan (1) Metabolic encephalopathy: Patient appears to be delirious. Etiology uncertain. Concern with overall decline over the last 3 weeks as well. She is afebrile, hemodynamically stable, laboratory findings largely unremarkable and CT head negative. ?medication effects? ?progression of PD with dementia/delirium. Doubt infectious etiology -Admit to medical floor, one to one observation to assist with patient safety -Check ammonia, phos, B12 -Delirium prevention strategies -Avoid delirium producing agents - benzos/anticholinergics -If persistent symptoms would consider MRI, LP and consultation with Neurology Present on Admission?: Yes (2) Diabetes: Blood sugar presently 84 on fingerstick. -ISS -Continue to monitor Present on Admission?: Yes (3) Atrial fibrillation: Patient presently in NSR -Continue Eliquis at home dose Present on Admission?: Yes (4) Parkinson disease: Chronic -Continue Carbidopa/Levodopa at home dosage Present on Admission?: Yes (5) CAD (coronary artery disease): Chronic. Stable. -Continue ASA -Continue Simvastatin Present on Admission?: Yes (6) Anxiety: Chronic. -Continue Venlafaxine at home dosage -Continue Buspar -Hold PO Benzos for now as they may be contributing to overall delirium -Will provide PRN agent for delirium if called (7) Hypothyroid: Chronic. TSH WNL -Continue Synthroid (8) RLS (restless legs syndrome): Chronic -Hold Ropinarole for now F/E/N - Heplock. Monitor electrolytes and replete as needed. Continue PO Magnesium. CC diet as tolerate, bowel regimen Ppx - Patient on anticoagulation with Eliquis Code -Full per review of records, patient unable to hold discussion due to AMS Dispo - Medical floor History of Present Illness Chief Complaint: Metabolic encephalopathy Primary Care Provider: [facility] Ame Galina Kelsey is a 78yo female [place] resident presenting from [facility] with altered mental status. Patient is reportedly quite clear at baseline but has been having increased confusion over the last 2-3 weeks. She was seen in the ER on 08/17 with acute SOB thought to be secondary to panic attack. Upon review of documentation from that visit, patient had been combative with the staff at the long-term care residence and was "hearing electricity" in her head. She was seen in the ER on 08/16 with SOB as well. She was also admitted to the Hospitalist service 08/06 - 08/07 with dysphagia and increased anxiety and difficulty taking her medications. Upon arrival to the ER she is afebrile, HD Stable, acutely confused and delirious - trying to crawl out of bed. When asked about why she is in the hospital she responds "because somebody tore out the page", patient counting "1,2,1,2,1,2" repeatedly. Answers some questions and follows some commands. Unable to provide more details of history. ER Course: Ativan 1mg IV Allergies Allergy/AdvReac Type Severity Reaction Status Date / Time sitagliptin Allergy Mild PER RECORD Verified 09/05/18 14:58 animal dander Allergy Unknown PER RECORD Verified 09/05/18 14:58 metformin Allergy Unknown PER RECORD Verified 09/05/18 14:58 Sulfa (Sulfonamide Allergy Unknown PER RECORD Verified 09/05/18 14:58 Antibiotics) scallops AdvReac Intermediate SEVERE N/V Verified 09/05/18 14:58 morphine AdvReac Mild LOW BP Verified 09/05/18 14:58 METAL Allergy Unknown . Uncoded 09/05/18 14:58 Home Medications Home Medications Medication Instructions Recorded Confirmed Type apixaban [Eliquis] 5 mg PO BID 08/17/18 09/05/18 History aspirin [Aspirin Childrens] 81 mg PO [facility] 08/17/18 09/05/18 History clonazepam 1 mg PO 08/17/18 09/05/18 History docusate sodium [Colace] 100 mg PO BID 08/17/18 09/05/18 History levothyroxine [Synthroid] 75 mcg PO [facility] 08/17/18 09/05/18 History lorazepam 1 mg PO 08/17/18 09/05/18 History magnesium oxide 400 mg PO QA 08/17/18 09/05/18 History polyethylene glycol 3350 1 packet PO [facility] 08/17/18 09/05/18 History ropinirole 0.25 mg PO 08/17/18 09/05/18 History simvastatin 40 mg PO 08/17/18 09/05/18 History venlafaxine 150 mg PO QA 08/17/18 09/05/18 History Eye Promise 8mg Tabs 8 mg PO [facility] 09/05/18 09/05/18 History Thera Tears 0.25% Eye Drops 2 drp OPB QAM 09/05/18 09/05/18 History oclfc-i-khhbtdmhcktde [Beano] 2 - 4 tab PO UD 09/05/18 09/05/18 History buspirone 5 mg PO BID 09/05/18 09/05/18 History carbidopa-levodopa [Rytary] 3 cap PO QID 09/05/18 09/05/18 History cholecalciferol (vitamin D3) 1,000 unit PO QAM 09/05/18 09/05/18 History [Vitamin D3] Past Med/Surg History Medical History Parkinson disease (Chronic) Anxiety and depression Atrial fibrillation Coronary artery disease Diabetes Hypothyroidism Family History Other FHx: heart disease Family history of diabetes mellitus Social History Preferred Language: Sami Communication Ability: Effective Beliefs That Will Affect Care: None marital status: Current Living Situation: Spouse and Personal Care Facility current occupational status: retired Feels Safe at Home: Yes Smoking Status: Never smoker Hx Alcohol Use: No Hx Substance Use: No Review of Systems Review of Systems: Unobtainable due to cognitive status Physical Exam Physical Exam: General: restless, crawling out of bed, NAD, non-toxic in appearance, AA&O to person and location and "May" Skin: warm, dry, intact, no rashes or lesions HEENT: NC/AT, PERRL, EOMI, anicteric sclera, conjunctiva without injection, external ear normal to inspection and nontender, nares patent, moist mucus membranes, dentition intact, no oropharyngeal lesions, neck supple, trachea midline, no LAD, no thyromegaly, no JVD Heart: +S1/S2, regular, no m/r/g Lungs: equal air entry bilaterally, no rales/rhonchi/wheezes Abd: +BS, soft, NT/ND, no masses/organomegaly/ascites Ext: warm, 2+ pulses in UE/LE bilaterally, no clubbing/cyanosis or edema Neuro: patient moving all extremities spontaneously with equal strength, AA&O to person and location, no facial droop, inattentive, slow to answer questions Results & Data Vital Signs (Past 12 Hours) Vital Signs Temp Pulse Resp BP BP Pulse Ox 09/05/18 16:30 84 23 09/05/18 16:20 77 19 09/05/18 16:10 85 15 09/05/18 16:00 85 17 149/82 H 99 09/05/18 15:50 83 19 99 09/05/18 15:40 77 24 99 09/05/18 15:30 77 16 144/71 H 98 09/05/18 15:20 82 17 09/05/18 15:10 78 16 97 09/05/18 15:00 87 24 141/71 H 99 09/05/18 14:51 99 09/05/18 14:50 77 15 98 09/05/18 14:40 72 18 99 09/05/18 14:34 73 17 123/79 97 09/05/18 14:33 76 19 09/05/18 14:15 142/57 H 09/05/18 14:10 71 14 99 09/05/18 14:05 75 16 142/57 H 96 09/05/18 14:00 72 13 96 09/05/18 13:55 36.3 C L 73 18 98 Laboratory Results Lab Results 09/05/18 09/05/18 09/05/18 Range/Units 13:15 13:15 15:34 WBC 5.82 (4.8-10.8) K/uL RBC 4.88 (4.2-5.4) M/uL Hgb 15.0 (12.0-16.0) g/dL Hct 44.9 (37-47) % MCV 92.0 (80-100) fL MCH 30.7 (25-34) pg MCHC 33.4 (32-36) g/dL RDW Std Deviation 49.5 H (36.4-46.3) fL RDW Coeff of [place] 14.7 H (11.5-14.5) % Plt Count 168 (130-400) K/uL MPV 10.3 (7.4-10.4) fL Immature Gran % (Auto) 0.2 % Neut % (Auto) 53.4 % Lymph % (Auto) 38.8 % [place] % (Auto) 5.5 % Eos % (Auto) 1.9 % Baso % (Auto) 0.2 % Immature Gran # (Auto) 0.01 (0.00-0.02) K/uL Neut # (Auto) 3.11 (1.4-6.5) K/uL Lymph # (Auto) 2.26 (1.2-3.4) K/uL [place] # (Auto) 0.32 (0.11-0.59) K/uL Eos # (Auto) 0.11 (0-0.5) K/uL Baso # (Auto) 0.01 (0-0.2) K/uL Sodium 140 (136-145) mmol/L Potassium 3.6 (3.5-5.1) mmol/L Chloride 105 (98-107) mmol/L Carbon Dioxide 29 (21-32) mmol/L Anion Gap 6.0 (3-11) BUN 29 H (7-18) mg/dl Creatinine 0.83 (0.6-1.2) mg/dl Est Cr Clr Drug Dosing 50.1 ml/min Est GFR ( Amer) 77.7 Est GFR (Non-Af Amer) 67.1 BUN/Creatinine Ratio 35.4 H (10-20) Glucose 69 L (70-99) mg/dl POC Glucose (70-99) Calcium 9.5 (8.5-10.1) mg/dl Magnesium 2.5 H (1.8-2.4) mg/dl Total Bilirubin 0.6 (0.2-1) mg/dl AST 24 (15-37) U/L ALT 12 (12-78) U/L Alkaline Phosphatase 119 H (45-117) U/L Troponin I < 0.015 (0-0.045) ng/ml Total Protein 7.9 (6.4-8.2) gm/dl Albumin 4.1 (3.4-5.0) gm/dl Globulin 3.8 (2.5-4.0) gm/dl Albumin/Globulin Ratio 1.1 (0.9-2) Lipase 264 (73-393) U/L TSH 3.690 (0.300-4.500) uIu/ml Urine Color Yellow Urine Appearance Clear (Clear) Urine pH 7.0 (4.5-7.5) Ur Specific [place] 1.013 (1.000-1.030) Urine Protein Negative (Negative) Urine Glucose (UA) Negative (Negative) Urine Ketones Negative (Negative) Urine Blood Negative (Negative) Urine Nitrite Negative (Negative) Urine Bilirubin Negative (Negative) Urine Urobilinogen Negative (Negative) Ur Leukocyte Esterase Negative (Negative) 09/05/18 Range/Units 17:02 WBC (4.8-10.8) K/uL RBC (4.2-5.4) M/uL Hgb (12.0-16.0) g/dL Hct (37-47) % MCV (80-100) fL MCH (25-34) pg MCHC (32-36) g/dL RDW Std Deviation (36.4-46.3) fL RDW Coeff of [place] (11.5-14.5) % Plt Count (130-400) K/uL MPV (7.4-10.4) fL Immature Gran % (Auto) % Neut % (Auto) % Lymph % (Auto) % [place] % (Auto) % Eos % (Auto) % Baso % (Auto) % Immature Gran # (Auto) (0.00-0.02) K/uL Neut # (Auto) (1.4-6.5) K/uL Lymph # (Auto) (1.2-3.4) K/uL [place] # (Auto) (0.11-0.59) K/uL Eos # (Auto) (0-0.5) K/uL Baso # (Auto) (0-0.2) K/uL Sodium (136-145) mmol/L Potassium (3.5-5.1) mmol/L Chloride (98-107) mmol/L Carbon Dioxide (21-32) mmol/L Anion Gap (3-11) BUN (7-18) mg/dl Creatinine (0.6-1.2) mg/dl Est Cr Clr Drug Dosing ml/min Est GFR ( Amer) Est GFR (Non-Af Amer) BUN/Creatinine Ratio (10-20) Glucose (70-99) mg/dl POC Glucose 84 (70-99) Calcium (8.5-10.1) mg/dl Magnesium (1.8-2.4) mg/dl Total Bilirubin (0.2-1) mg/dl AST (15-37) U/L ALT (12-78) U/L Alkaline Phosphatase (45-117) U/L Troponin I (0-0.045) ng/ml Total Protein (6.4-8.2) gm/dl Albumin (3.4-5.0) gm/dl Globulin (2.5-4.0) gm/dl Albumin/Globulin Ratio (0.9-2) Lipase (73-393) U/L TSH (0.300-4.500) uIu/ml Urine Color Urine Appearance (Clear) Urine pH (4.5-7.5) Ur Specific [place] (1.000-1.030) Urine Protein (Negative) Urine Glucose (UA) (Negative) Urine Ketones (Negative) Urine Blood (Negative) Urine Nitrite (Negative) Urine Bilirubin (Negative) Urine Urobilinogen (Negative) Ur Leukocyte Esterase (Negative) Diagnostic Findings CT head/brain wo con CT DOSE: 638.56 mGycm HISTORY: Mental status change ams TECHNIQUE: Multiaxial CT images of the head were performed without the use of intravenous contrast. A dose lowering technique was utilized adhering to the principles of ALARA. Comparison: 04/24/2018 Findings: The paranasal sinuses and mastoid air cells are clear. The calvarium and skull base are intact. The ventricles and sulci are within normal limits. There is no mass, hematoma, midline shift, or acute infarct. Impression: No acute intracranial abnormality. The above report was generated using voice recognition software. It may contain grammatical, syntax or spelling errors. Electronically signed by: Ernesto Porter M.D. 09/05/2018 2:34 PM Dictated: 09/05/18 1431 Transcribed: 09/05/18 1431 ECG Additional Comments: NSR at 71, normal axis and intervals, no acute ischemic changes Code Status & VTE Plan Code Status Full per review of records (1) Diabetes Diabetes mellitus type: type 2 Diabetes mellitus predatory animal exterminator insulin use: without care home use Diabetes mellitus complication status: without complication Qualified Code(s): E11.9 - Type 2 diabetes mellitus without complications (2) Atrial fibrillation Atrial fibrillation type: unspecified Qualified Code(s): I48.91 - Unspecified atrial fibrillation (3) CAD (coronary artery disease) Coronary Disease-Associated Artery/Lesion type: [place] artery [place] vs. transplanted heart: [place] heart Associated angina: without angina Qualified Code(s): I25.10 - Atherosclerotic heart disease of [place] coronary artery without angina pectoris (4) Hypothyroid Hypothyroidism type: unspecified Qualified Code(s): E03.9 - Hypothyroidism, unspecified
--- NOTE | 2018-09-05 18:32 | XRay Report ---
CHEST AND ABDOMEN 2 VIEWS HISTORY: Altered mental status. COMPARISON: Chest 08/17/2018. FINDINGS: The lungs are clear. The cardiomediastinal silhouette is within normal limits. There is no pneumoperitoneum or pneumatosis. The bowel gas pattern is unremarkable. No evidence for b owel obstruction. No renal or ureteral calculi. IMPRESSION: No acute cardiopulmonary process. No evidence for bowel obstruction. Electronically signed by: Phil Ritchie M.D. 09/05/2018 6:30 PM
[2018-09-05] MEDS ORDERED: GLUCOSE 40% GEL 15 GM TUBE PO PRN (18:53)
[2018-09-05] MEDS ORDERED: GLUCOSE 10 TABS/TUBE PO PRN (18:53)
[2018-09-05] MEDS ORDERED: DEXTROSE 50% 50 ML SYRINGE IV PRN (18:53)
[2018-09-05] MEDS ORDERED: CARBOHYDRATES FOR HYPOGLYCEMIA PO PRN (18:53)
[2018-09-05] MEDS ORDERED: GLUCAGON FOR INJ 1 MG VIAL SQ PRN (18:53)
[2018-09-05] MEDS: APIXABAN 5 MG TABLET PO SCH (20:40)
[2018-09-05] MEDS: SIMVASTATIN 40 MG TAB PO SCH (20:40)
[2018-09-05] MEDS: DOCUSATE SODIUM 100 MG CAP PO SCH (20:40)
[2018-09-05] MEDS: INSULIN ASPART 100 UNITS/ML 3 ML PEN SC SCH (21:04)
[2018-09-06] MEDS: LEVOTHYROXINE SODIUM 75 MCG TABLET PO SCH (05:11)
[2018-09-06 05:42] LABS: Basophils # (auto) 0.01 K/uL (0-0.2); Basophils % (auto) 0.2 %; Eosinophils # (auto) 0.15 K/uL (0-0.5); Eosinophils % (auto) 2.6 %; Hematocrit (blood only) 43.6 % (37-47); Hemoglobin 14.5 g/dL (12.0-16.0); Immature Granulocytes # (auto) 0.01 K/uL (0.00-0.02); Immature Granulocytes % (auto) 0.2 %; Lymphocytes # (auto) 2.01 K/uL (1.2-3.4); Lymphocytes % (auto) 34.2 %; Mean Corpuscular Hgb Conc 33.3 g/dL (32-36); Mean Corpuscular Volume 92.4 fL (80-100); Mean Platelet Volume 10.6 fL (7.4-10.4); Monocytes # (auto) 0.39 K/uL (0.11-0.59); Monocytes % (auto) 6.6 %; Neutrophils % (auto) 56.2 %; Platelet Count 165 K/uL (130-400); RDW Coefficient of Variation 14.5 % (11.5-14.5); RDW Standard Deviation 49.3 fL (36.4-46.3); Red Blood Count 4.72 M/uL (4.2-5.4); White Blood Count 5.87 K/uL (4.8-10.8)
[2018-09-06 06:21] LABS: BUN Creatinine Ratio 26.9 (10-20); Creatinine Clr Calc Pharmacy 46.7 ml/min; Est GFR (African American) 71.4; Est GFR (Non-African American) 61.6
[2018-09-06] MEDS: SODIUM CHLORIDE 0.9% 1000ML 1,000 ML IV SCH (07:05)
[2018-09-06] MEDS: APIXABAN 5 MG TABLET PO SCH ×2 (07:37→21:19)
[2018-09-06] MEDS: DOCUSATE SODIUM 100 MG CAP PO SCH ×2 (07:37→21:20)
[2018-09-06] MEDS: VENLAFAXINE HCL XR 150 MG CAPXR PO SCH (07:37)
[2018-09-06] MEDS: POLYETHYLENE (MIRALAX) 17 GM PACK PO SCH (07:38)
[2018-09-06] MEDS: ASPIRIN 81 MG CHEW PO SCH (07:38)
[2018-09-06] MEDS: MAGNESIUM OXIDE 400 MG TAB PO SCH (07:38)
[2018-09-06] MEDS: ARTIFICIAL TEARS OPB SCH (07:39)
[2018-09-06] MEDS ORDERED: EYE PROMISE PO SCH (09:00)
[2018-09-06] MEDS: INSULIN ASPART 100 UNITS/ML 3 ML PEN SC SCH ×4 (09:55→21:20)
[2018-09-06] MEDS: LORazepam 0.5 MG TAB PO PRN (11:00)
--- NOTE | 2018-09-06 13:07 | Hospitalist Progress Note ---
Date of Service September 06, 2018 Assessment & Plan (1) Anxiety: She has had long-standing episodes of panic attacks with anxiety, shortness of breath, and even aggression. In speaking with Rahul ([facility] development administrator) & Ms. Nicole Joseph (her PCP), this is much longer-standing than a few weeks. In the last few weeks, it has gotten worse, but she has had the police called early this month for aggression. Presently, she has no signs of an acute process including infection, metabolic disturbance, or organ dysfunction. - Delirium prevention strategies - Consult psychiatry - She has been seeing [facility] with some recent medication changes, but still having a lot of agitation, possibly caused by home situation. - Continue buspirone (started ~2 weeks ago), venlafaxine, benzo PRN (2) Diabetes: Last A1c was 6.5% in 07/2018. - Sliding scale insulin - Continue to monitor (3) Atrial fibrillation: Patient presently in NSR. - Continue Eliquis at home dose (4) Parkinson disease: Chronic. May be exacerbating her mental health issues with a Lewy-Body dementia type picture. Sees Dr. Sidhu as outpatient. - Continue Carbidopa/Levodopa at home dosage (5) CAD (coronary artery disease): Chronic. Stable. Not reporting any chest pain. - Continue ASA, statin (6) Hypothyroid: Chronic. TSH WNL. - Continue Synthroid (7) RLS (restless legs syndrome): Chronic - Hold ropinarole for now (8) DVT prophylaxis: Apixaban Subjective Sleeping after getting Ativan for agitation/anxiety. Review of Systems Review of Systems: Unobtainable due to reduced consciousness Physical Exam Constitutional: WD/WN, vitals as above + acute distress and + lethargic Eyes: EOM intact bilaterally; no conjunctival abnormality ENMT: external ear and nose normal, oropharynx normal Neck: trachea midline, no thyromegaly normal visual inspection Respiratory: normal respiratory effort, lungs clear to auscultation no respiratory distress Cardiovascular: RRR, no murmur, no edema Gastrointestinal (Abdomen): Inspection/Auscultation: abdomen normal to inspection; abdomen not distended Musculoskeletal: no cyanosis or clubbing, extremities motor strength 5/5 Skin: no rashes, warm and dry Neurologic: moves all extremities and awake Psychiatric: Orientation: + not alert Results & Data Vital Signs (Past 12 Hours) Vital Signs Temp Pulse Resp BP Pulse Ox 09/06/18 07:37 36.5 C 67 16 128/72 97 (1) Diabetes Diabetes mellitus type: type 2 Diabetes mellitus fdc insulin use: without termite control representative use Diabetes mellitus complication status: without complication Qualified Code(s): E11.9 - Type 2 diabetes mellitus without complications (2) Atrial fibrillation Atrial fibrillation type: unspecified Qualified Code(s): I48.91 - Unspecified atrial fibrillation (3) CAD (coronary artery disease) Coronary Disease-Associated Artery/Lesion type: [place] artery [place] vs. transplanted heart: [place] heart Associated angina: without angina Qualified Code(s): I25.10 - Atherosclerotic heart disease of [place] coronary artery without angina pectoris (4) Hypothyroid Hypothyroidism type: unspecified Qualified Code(s): E03.9 - Hypothyroidism, unspecified
--- NOTE | 2018-09-06 14:59 | Psychiatric Consultation ---
Date of Consultation September 06, 2018 Impression / Recommendations Impression 78-year-old female admitted medically on 09/05/18 due to AMS and cognitive decline for the past 2-3 weeks. Recommending ongoing attempts to identify contributing factors. Pt was cooperative, but limited in ability to provide history. Pt was unwilling at this time for medication adjustments, as she wishes to consider the recommended changes before agreeing. This provider, therefore, did not enter orders - but would recommend the following: Use of clonazepam and lorazepam should be limited, and ideally discontinued, as they can contribute to falls, confusion, and respiratory depression - especially as patient is complaining of shortness of breath during the night. Recommending use only as needed, and even then may wish to utilize alternative agents with reduced risk of contributing to decompensation. Could consider further titration of buspirone, recommending 10mg BID to target anxiety. Pt is not reporting an awareness of aggressive history, but this has been reported in documentation. Could consider trial of olanzapine ODT (due to reports of dysphagia, ?ability to swallow pills). EKG on 09/05/18 with QTc <450. Could trial 2.5mg of olanzapine ODT q4h prn anxiety/agitation - but would also suggest limiting use of this medication as may also contribute to confusion and further mental status changes. Increased risk of cardiac and stroke events with antipsychotic medications in the elderly population was discussed, but should be reviewed with patient prior to initiation. Could continue venlafaxine at 150mg daily. Would certainly recommend some medication adjustments if patient is willing to consider, and will attempt to reassess the situation tomorrow to follow-up on discussion. Dr. Tameka Hodge was directly involved in review and discussion of the patient's case and participated in medical decision making regarding treatment recommendations. CPT Code Initial Consultation: 59546 Psych History Identifying Data 78-year-old female admitted medically on 09/05/18 due to altered mental status with increased confusion over the past 2-3 weeks. Pt has reportedly had several ED visits due to anxiety/SOB and was admitted the end of July with dysphagia. Psychiatric consultation is requested to address "agitation." Information is gathered from documentation, but history provided by patient is limited and not clearly reliable. Chief Complaint "Not good. Well, I guess ok." History of Present Illness Galina Kelsey is a 78-year-old female with PMH of Parkinson's disease, A. fib, CAD, diabetes, hypothyroidism, anxiety and depression. Pt was admitted medically on 09/05/18 due to reported AMS and cognitive decline for the past 2-3 weeks. Clear cause of decline is unknown at this time, though is questioned to be related to a delirium or progression of her Parkinson's, among other questions. Psychiatric consultation was requested to evaluate patient for "agitation." Records suggest the patient has been demonstrating increasingly aggressive behavior at her personal senior living. Pt has reportedly been experiencing panic attacks with shortness of breath. Pt is found to be laying in bed, in no apparent distress. She states her sister, Anat, and [id number], Briana, are currently visiting and are granted her permission to remain in the room during our discussion. Unfortunately, the patient's sister has just returned from a winter away, and is not especially familiar with the patient's recent behavior. Pt states she has been having difficulty with her swallowing, and cites this as her primary concern. She is not aware of why she has been admitted for this hospitalization. History from the patient is limited, as she is not overly aware of medication adjustments or recent events leading to her decline. Pt does admit to hallucinations - "hearing a libertarian outside [facility] every night, people in bright colors walking to libertarian." She also admits to hearing "a ringing in my head, like electricity." Pt admits that she has been experiencing "panic attacks" recently, and feels they occur without clear precipitant. Pt does not believe she has been overly agitated or aggressive. She reports shortness of breath, especially at bedtime and upon awakening. States she is to be wearing a CPAP, but recently hers has not functioned. She is agreeable to discussing possible medication adjustments, but is unwilling at time of this encounter to make any changes to her medication regimen. Pt denies SI, HI, SIB, kelsie/hypomania, other symptoms more suggestive of a bipolar presentation, and other specific psychiatric symptoms. Past Psychiatric History Previous Psych History: Reported history of anxiety and depression. Pt believes her PCP prescribes her psychiatric medications. Pt is unable to provide more significant history, and sister is not clearly aware of treatment history. History of Previous Suicide Attempt: No Allergies Allergy/AdvReac Type Severity Reaction Status Date / Time sitagliptin Allergy Mild PER RECORD Verified 09/05/18 14:58 animal dander Allergy Unknown PER RECORD Verified 09/05/18 14:58 metformin Allergy Unknown PER RECORD Verified 09/05/18 14:58 Sulfa (Sulfonamide Allergy Unknown PER RECORD Verified 09/05/18 14:58 Antibiotics) scallops AdvReac Intermediate SEVERE N/V Verified 09/05/18 14:58 morphine AdvReac Mild LOW BP Verified 09/05/18 14:58 METAL Allergy Unknown . Uncoded 09/05/18 14:58 Home Medications Home Medications Medication Instructions Recorded Confirmed Type apixaban [Eliquis] 5 mg PO BID 08/17/18 09/05/18 History aspirin [Aspirin Childrens] 81 mg PO QAM 08/17/18 09/05/18 History clonazepam 1 mg PO HS 08/17/18 09/05/18 History docusate sodium [Colace] 100 mg PO BID 08/17/18 09/05/18 History levothyroxine [Synthroid] 75 mcg PO QAM 08/17/18 09/05/18 History lorazepam 1 mg PO HS 08/17/18 09/05/18 History magnesium oxide 400 mg PO QAM 08/17/18 09/05/18 History polyethylene glycol 3350 1 packet PO QAM 08/17/18 09/05/18 History ropinirole 0.25 mg PO HS 08/17/18 09/05/18 History simvastatin 40 mg PO HS 08/17/18 09/05/18 History venlafaxine 150 mg PO QAM 08/17/18 09/05/18 History Eye Promise 8mg Tabs 8 mg PO QAM 09/05/18 09/05/18 History Thera Tears 0.25% Eye Drops 2 drp OPB QA 09/05/18 09/05/18 History [id number] [Beano] 2 - 4 tab PO UD 09/05/18 09/05/18 History buspirone 5 mg PO BID 09/05/18 09/05/18 History carbidopa-levodopa [Rytary] 3 cap PO QID 09/05/18 09/05/18 History cholecalciferol (vitamin D3) 1,000 unit PO QAM 09/05/18 09/05/18 History [Vitamin D3] Personal History Living Arrangements: Personal Care Facility ([facility] - resides there with ) Employment Status: Retired Marital Status: Beliefs That Will Affect Care: None Patient History Medical History Parkinson disease (Chronic) Anxiety and depression Atrial fibrillation Coronary artery disease Diabetes Hypothyroidism Family History Other FHx: heart disease Family history of diabetes mellitus Social History Preferred Language: [place] Communication Ability: Impaired Egg Setter Required: No Beliefs That Will Affect Care: None marital status: Current Living Situation: Personal Care Facility current occupational status: retired Feels Safe at Home: Yes Safety Concerns: Feels Safe At This Time Smoking Status: Never smoker Do You Dip or Chew Tobacco: No Second Hand Exposure: No Hx Alcohol Use: No Hx Substance Use: No Physical Exam Psychiatric: Orientation: alert (though demonstrating confusion at times), oriented to person and oriented to place Apperance: appropriately dressed (in hospital gown) and appropriately groomed Eye Contact: good eye contact Motor Behavior: + tremor (fine, observed in face and jaw specifically) Observed while laying in bed Speech: normal rate/rhythm/volume of speech Affect: + anxious affect and + tearful affect Mood: + anxious mood "I'm just not sure what's going on" Thought Process: + concrete thought process Thought Content: + preoccupation (with anxiety and dysphagia) and + hopelessness Suicidal Thoughts: denies suicidal thoughts (though admits "I'm ready to go when it's my time"), denies suicidal plan and denies suicidal intent Homicidal Thoughts: denies homicidal thoughts Hallucinations: + auditory hallucinations ("ringing in my head, like electricity") and + visual hallucinations (reporting seeing a "libertarian" outside her window for the past week) Cognition: attention grossly intact and language grossly intact; + recent memory not intact Estimated Intelligence: consistent with education level Insight: + impaired insight Judgement: + impaired judgement Vital Signs (Past 24 Hours): Last Vital Signs Temp 36.5 C 09/06/18 07:37 Pulse 67 09/06/18 07:37 Resp 16 09/06/18 07:37 BP 128/72 09/06/18 07:37 Pulse Ox 97 09/06/18 07:37 Review of Systems Constitutional: reports increased restlessness and difficulty sleeping HEENT: reports difficulty swallowing Cardiovascular: denied Respiratory: reports shortness of breath Gastrointestinal: denied Neurological: reports tremor related to Parkinson's Psychiatric: denies symptoms other than stated above Total of at least 10 systems reviewed, pertinent positives as above and in HPI. Results & Data Medications Administered Apixaban (Eliquis) 5 mg PO BID [facility] Stop: 10/05/18 20:59 Last Admin: 09/06/18 07:37 Dose: 5 mg Documented by: [id number] Admin: 09/05/18 20:40 Dose: 5 mg Documented by: [id number] Artificial Tears (Artificial Tears) 2 drops OPB [facility] Stop: 10/06/18 08:59 Last Admin: 09/06/18 07:39 Dose: 2 drops Documented by: [id number] Aspirin (Aspirin Chew) 81 mg PO QAM [facility] Stop: 10/06/18 08:59 Last Admin: 09/06/18 07:38 Dose: 81 mg Documented by: [id number] Buspirone HCl (Buspar) 5 mg PO BID [facility] Stop: 10/05/18 20:59 Last Admin: 09/06/18 07:37 Dose: 5 mg Documented by: [id number] Admin: 09/05/18 20:40 Dose: 5 mg Documented by: [id number] Docusate Sodium (Colace) 100 mg PO BID [facility] Stop: 10/05/18 20:59 Last Admin: 09/06/18 07:37 Dose: 100 mg Documented by: [id number] Admin: 09/05/18 20:40 Dose: 100 mg Documented by: [id number] Insulin Aspart (Novolog Flexpen) 0 units SC ACHS [facility] Stop: 10/05/18 20:59 Last Admin: 09/06/18 12:48 Dose: 1 units Documented by: [id number] Cosigned by: [id number] Admin: 09/06/18 09:55 Dose: 1 units Documented by: [id number] Cosigned by: [id number] Admin: 09/05/18 21:04 Dose: Not Given Documented by: [id number] Cosigned by: [id number] Levothyroxine Sodium (Synthroid) 75 mcg PO DAILYBB [facility] Stop: 10/06/18 06:29 Last Admin: 09/06/18 05:11 Dose: 75 mcg Documented by: [id number] Lorazepam (Ativan) 0.5 mg PO TID PRN PRN Reason: Anxiety Stop: 10/06/18 10:37 Last Admin: 09/06/18 11:00 Dose: 0.5 mg Documented by: [id number] Magnesium Oxide (Mag-Ox) 400 mg PO [facility] Stop: 10/06/18 08:59 Last Admin: 09/06/18 07:38 Dose: 400 mg Documented by: [id number] Polyethylene Glycol (Miralax Powder Packet) 17 gm PO [facility] Stop: 10/06/18 08:59 Last Admin: 09/06/18 07:38 Dose: 17 gm Documented by: [id number] Simvastatin (Zocor) 40 mg PO [facility] Stop: 10/05/18 20:59 Last Admin: 09/05/18 20:40 Dose: 40 mg Documented by: [id number] Venlafaxine HCl (Effexor Extended Release) 150 mg PO [facility] Stop: 10/06/18 08:59 Last Admin: 09/06/18 07:37 Dose: 150 mg Documented by: [id number]
[2018-09-06] MEDS: CARBIDOPA/LEVODOPA 25-250 1 EA TAB PO SCH ×2 (19:33→21:19)
[2018-09-06] MEDS: SIMVASTATIN 40 MG TAB PO SCH (21:20)
[2018-09-07] MEDS: LORazepam 0.5 MG TAB PO PRN ×2 (02:58→20:29)
[2018-09-07] MEDS: LEVOTHYROXINE SODIUM 75 MCG TABLET PO SCH (06:21)
[2018-09-07] MEDS: DOCUSATE SODIUM 100 MG CAP PO SCH ×2 (08:17→20:14)
[2018-09-07] MEDS: CARBIDOPA/LEVODOPA 25-250 1 EA TAB PO SCH ×4 (08:17→20:12)
[2018-09-07] MEDS: VENLAFAXINE HCL XR 150 MG CAPXR PO SCH (08:17)
[2018-09-07] MEDS: MAGNESIUM OXIDE 400 MG TAB PO SCH (08:18)
[2018-09-07] MEDS: ASPIRIN 81 MG CHEW PO SCH (08:18)
[2018-09-07] MEDS: APIXABAN 5 MG TABLET PO SCH ×2 (08:18→20:14)
[2018-09-07] MEDS: ARTIFICIAL TEARS OPB SCH (08:18)
[2018-09-07] MEDS: POLYETHYLENE (MIRALAX) 17 GM PACK PO SCH (08:18)
[2018-09-07] MEDS: INSULIN ASPART 100 UNITS/ML 3 ML PEN SC SCH ×4 (08:33→20:23)
--- NOTE | 2018-09-07 10:39 | Neurology Consultation ---
Date of Consultation September 07, 2018 Assessment & Plan (1) Parkinson disease: Parkinson's disease which is been symptomatic for the past 4 to 5 years. Patient has been following with Dr. Ana Sidhu. The patient has been exhibiting increasing subacute confusion. Etiology not entirely clear although may be multifactorial related to her underlying Parkinson's disease as well as adverse effects from some of her medications. Of note, she does report some non-distressing visual hallucinations which I suspect are a feature of her Parkinson's disease. To some extent, this issue could be triggered by her Parkinson's medications. It is notable that her dosage of ropinirole was actually increased at her last appointment in June to 3 times per day dosing. This dosing adjustment does not appear to be represented in her current medication list, however. Nonetheless, I would recommend discontinuing ropinirole altogether. If the issue persists, I would consider reducing her dosage of Rytary in the future. It may also be worthwhile to consider starting Nuplazid for Parkinson's associated hallucinations. Of course, this medication would need to be initiated as an outpatient. It is typically shipped to the patient from a specialty pharmacy after appropriate authorization/insurance approval has been completed. Of note, it does appear as if her encephalopathy is at least modestly improved this morning. I do not have any further immediate recommendations other than the di scontinuation of her dopamine agonist as above and the potential reduction of her Rytary dosage if necessary, which can be completed as an outpatient. Please contact me if I may be of further assistance. History of Present Illness Reason for Consultation: Parkinson's disease Requesting Physician: Segun Hua MD Attending Physician: Segun Hua MD History of Present Illness The patient is a 78-year-old female who has been following with Dr. Sidhu for the past few years for management of mild to moderate idiopathic Parkinson's disease which became symptomatic in 2013 or . Her Parkinson's has been characterized by tremor, restlessness, as well as gait and postural instability. Her symptoms have been responding well to Rytary. She was given a prescription for ropinirole to be taken 3 times per day this past June to address some mild wearing off between levodopa dosages. She also takes ropinirole in the evening for mild restless leg syndrome. The patient has been admitted for further assessment of persistent confusion that began 2 to 3 weeks ago. She has a history of anxiety which has been an ongoing chronic issue. She was seen by psychiatry yesterday and recommendations were made to reduce or ideally discontinue her benzodiazepines. The patient casually mention to me that she has been having visual hallucinations, people and animals, non-distressing as she knows these images are not real. This issue has been going on for the past few weeks as well. She continues to complain of a mild generalized tremor as well as some ongoing problems with her balance but believes that her Rytary has been conferring adequate symptom relief for these issues. Allergies Allergy/AdvReac Type Severity Reaction Status Date / Time sitagliptin Allergy Mild PER RECORD Verified 09/05/18 14:58 animal dander Allergy Unknown PER RECORD Verified 09/05/18 14:58 metformin Allergy Unknown PER RECORD Verified 09/05/18 14:58 Sulfa (Sulfonamide Allergy Unknown PER RECORD Verified 09/05/18 14:58 Antibiotics) scallops AdvReac Intermediate SEVERE N/V Verified 09/05/18 14:58 morphine AdvReac Mild LOW BP Verified 09/05/18 14:58 METAL Allergy Unknown . Uncoded 09/05/18 14:58 Home Medications Home Medications Medication Instructions Recorded Confirmed Type apixaban [Eliquis] 5 mg PO BID 08/17/18 09/05/18 History aspirin [Aspirin Childrens] 81 mg PO [facility] 08/17/18 09/05/18 History clonazepam 1 mg PO 08/17/18 09/05/18 History docusate sodium [Colace] 100 mg PO BID 08/17/18 09/05/18 History levothyroxine [Synthroid] 75 mcg PO [facility] 08/17/18 09/05/18 History lorazepam 1 mg PO 08/17/18 09/05/18 History magnesium oxide 400 mg PO QA 08/17/18 09/05/18 History polyethylene glycol 3350 1 packet PO QA 08/17/18 09/05/18 History ropinirole 0.25 mg PO 08/17/18 09/05/18 History simvastatin 40 mg PO 08/17/18 09/05/18 History venlafaxine 150 mg PO QA 08/17/18 09/05/18 History Eye Promise 8mg Tabs 8 mg PO [facility] 09/05/18 09/05/18 History Thera Tears 0.25% Eye Drops 2 drp OPB QAM 09/05/18 09/05/18 History [id number]-[id number] [Beano] 2 - 4 tab PO UD 09/05/18 09/05/18 History buspirone 5 mg PO BID 09/05/18 09/05/18 History carbidopa-levodopa [Rytary] 3 cap PO QID 09/05/18 09/05/18 History cholecalciferol (vitamin D3) 1,000 unit PO QAM 09/05/18 09/05/18 History [Vitamin D3] Patient History Medical History Parkinson disease (Chronic) Anxiety and depression Atrial fibrillation Coronary artery disease Diabetes Hypothyroidism Family History Other FHx: heart disease Family history of diabetes mellitus Social History Preferred Language: [place] Communication Ability: Impaired Final Inspector Motorcyles Required: No Beliefs That Will Affect Care: None marital status: Current Living Situation: Personal Care Facility current occupational status: retired Feels Safe at Home: Yes Safety Concerns: Feels Safe At This Time Smoking Status: Never smoker Do You Dip or Chew Tobacco: No Second Hand Exposure: No Hx Alcohol Use: No Hx Substance Use: No Review of Systems Constitutional: no fever and no chills Eyes: no blind spots and no diplopia Ear, Nose, Mouth, Throat: no hearing loss Respiratory: no cough and no dyspnea Cardiovascular: no chest pain and no palpitations Gastrointestinal: no abdominal pain and no vomiting Genitourinary: no dysuria Musculoskeletal: no myalgia Integumentary: no rash and no lesions Neurologic: as per Subjective / HPI Psychiatric: as per Subjective / HPI Hematologic / Lymphatic: no easy bleeding and no easy bruising Physical Exam Physical Exam: The patient is a well-developed, well-nourished elderly female. She is alert and fully oriented. Recent and remote memory intact. Attention and concentration normal. She exhibits a normal spontaneous speech pattern and age-appropriate fund of knowledge with normal comprehension of vocabulary. Her speech is mildly hypophonic. Visual parker full to confrontation. Visual acuity normal. Pupils equal round react to light and accommodation. Eye movements normal. Facial sensation intact. There is no facial droop or weakness. Hearing intact. Palate elevates to midline. Shoulder shrug intact. Tongue protrudes to midline. Sensation intact to all modalities in all 4 limbs. Deep tendon reflexes intact and symmetrical. Plantar responses downgoing bilaterally. There is no dysdiadochokinesia or dysmetria [id number] or [id number] bilaterally. Ophthalmoscopic examination reveals normal-appearing optic disks and posterior segments. No papilledema or hemorrhages. Carotid pulses normal bilaterally, no bruits to auscultation. Patient has mild difficulty standing up out of bed. Posture slightly flexed. Gait somewhat shuffling appearing. Ambulation speed reduced. Patient exhibits normal muscle strength and tone for all 4 limbs there is no cogwheel rigidity. No atrophy. The patient exhibits a mild mixed tremor with resting, postural, and action components, appears fairly symmetrical. There is an associated chin tremor as well. Results & Data Vital Signs (Past 12 Hours) Vital Signs Temp Pulse Resp BP BP Pulse Ox 09/07/18 07:29 36.6 C 69 16 149/76 H 96 09/06/18 23:38 36.5 C 69 20 112/64 97 Laboratory Results Recent labs reviewed. WBC 5.87, hemoglobin 14.5, platelet count 165, sodium 141, potassium 4.2, BUN 24, creatinine 0.89, glucose [address] of the head completed September 05, 2018 was negative for hemorrhage or acute process. Images and report reviewed. An electrocardiogram completed September 05, 2018 revealed a normal sinus rhythm, 71 bpm
--- NOTE | 2018-09-07 11:18 | Emergency Department Note ---
Entered by Tanya Bucio acting as a scribe for History of Present Illness General Chief complaint: Confusion Time Seen by Provider: 09/05/18 13:50 Source: patient Limitations: altered mental status History of Present Illness Onset (ago): hour(s) (this morning) Location: head Pain Consistency: + other (worsening) Quality: + other (confusion) Associated symptoms: + denies other symptoms (change in urine) and + other (feeling feverish, "bloating," and constipation) The patient is a 78 year old female who presents to the ED complaining of confusion that worsened this morning. She denies any pain. The patient complains of feeling feverish, "bloating," and constipation. She denies any change in urine. The patient notes that her Buspar and Klonopin and prescription medications have changed recently. She notes that she lives with her . HPI limited secondary to AMS. Patient resides in a local detention facility. They report patient has had increased fatigue and weakness over the last 2 weeks, however in the last 2 to 3 days has become more confused. Home Medications Home Medications Medication Instructions Recorded Confirmed Type apixaban [Eliquis] 5 mg PO BID 08/17/18 09/05/18 History aspirin [Aspirin Childrens] 81 mg PO [facility] 08/17/18 09/05/18 History clonazepam 1 mg PO 08/17/18 09/05/18 History docusate sodium [Colace] 100 mg PO BID 08/17/18 09/05/18 History levothyroxine [Synthroid] 75 mcg PO [facility] 08/17/18 09/05/18 History lorazepam 1 mg PO 08/17/18 09/05/18 History magnesium oxide 400 mg PO [facility] 08/17/18 09/05/18 History polyethylene glycol 3350 1 packet PO [facility] 08/17/18 09/05/18 History ropinirole 0.25 mg PO 08/17/18 09/05/18 History simvastatin 40 mg PO 08/17/18 09/05/18 History venlafaxine 150 mg PO QA 08/17/18 09/05/18 History Eye Promise 8mg Tabs 8 mg PO [facility] 09/05/18 09/05/18 History Thera Tears 0.25% Eye Drops 2 drp OPB [facility] 09/05/18 09/05/18 History [id number] [Beano] 2 - 4 tab PO UD 09/05/18 09/05/18 History buspirone 5 mg PO BID 09/05/18 09/05/18 History carbidopa-levodopa [Rytary] 3 cap PO QID 09/05/18 09/05/18 History cholecalciferol (vitamin D3) 1,000 unit PO QAM 09/05/18 09/05/18 History [Vitamin D3] Allergies Allergy/AdvReac Type Severity Reaction Status Date / Time sitagliptin Allergy Mild PER RECORD Verified 09/05/18 14:58 animal dander Allergy Unknown PER RECORD Verified 09/05/18 14:58 metformin Allergy Unknown PER RECORD Verified 09/05/18 14:58 Sulfa (Sulfonamide Allergy Unknown PER RECORD Verified 09/05/18 14:58 Antibiotics) scallops AdvReac Intermediate SEVERE N/V Verified 09/05/18 14:58 morphine AdvReac Mild LOW BP Verified 09/05/18 14:58 METAL Allergy Unknown . Uncoded 09/05/18 14:58 Past Med/Surg History Medical History Parkinson disease (Chronic) Anxiety and depression Atrial fibrillation Coronary artery disease Diabetes Hypothyroidism Family History Other FHx: heart disease Family history of diabetes mellitus Social History Preferred Language: Bulgarian Communication Ability: Impaired Communications Analyst Required: No Beliefs That Will Affect Care: None marital status: Current Living Situation: Personal Care Facility current occupational status: retired Feels Safe at Home: Yes Safety Concerns: Feels Safe At This Time Smoking Status: Never smoker Do You Dip or Chew Tobacco: No Second Hand Exposure: No Hx Alcohol Use: No Hx Substance Use: No Review of Systems See HPI for pertinent positives & negatives. Other (ROS limited secondary to AMS.) Physical Exam Vital Signs Vital Signs - 24 hr 09/05/18 13:55 09/05/18 14:00 09/05/18 14:05 Temperature 97.3 F L Temperature Source Oral Sepsis Recent Fever Within 48 Hours No Sepsis Action Taken by Nursing No Action Required Pulse Rate 73 72 75 Pulse Rate from SpO2 Sensor 74 73 72 Respiratory Rate 18 13 16 Respiratory Effort / Characteristics Non-Labored Respiratory Depth Normal Respiratory Pattern Regular Blood Pressure 142/57 H Blood Pressure [Right Arm] Blood Pressure Mean 85 Blood Pressure Mean [Right Arm] Blood Pressure Position [Right Arm] Pulse Oximetry 98 96 96 Oxygen Delivery Method Room Air 09/05/18 14:10 09/05/18 14:15 09/05/18 14:33 Temperature Temperature Source Sepsis Recent Fever Within 48 Hours Sepsis Action Taken by Nursing Pulse Rate 71 76 Pulse Rate from SpO2 Sensor 70 Respiratory Rate 14 19 Respiratory Effort / Characteristics Respiratory Depth Respiratory Pattern Blood Pressure Blood Pressure [Right Arm] 142/57 H Blood Pressure Mean Blood Pressure Mean [Right Arm] 85 Blood Pressure Position [Right Arm] Lying Pulse Oximetry 99 Oxygen Delivery Method 09/05/18 14:34 09/05/18 14:40 09/05/18 14:50 Temperature Temperature Source Sepsis Recent Fever Within 48 Hours Sepsis Action Taken by Nursing Pulse Rate 73 72 77 Pulse Rate from SpO2 Sensor 73 72 77 Respiratory Rate 17 18 15 Respiratory Effort / Characteristics Respiratory Depth Respiratory Pattern Blood Pressure 123/79 Blood Pressure [Right Arm] Blood Pressure Mean 93 Blood Pressure Mean [Right Arm] Blood Pressure Position [Right Arm] Pulse Oximetry 97 99 98 Oxygen Delivery Method 09/05/18 14:51 09/05/18 15:00 09/05/18 15:10 Temperature Temperature Source Sepsis Recent Fever Within 48 Hours Sepsis Action Taken by Nursing Pulse Rate 87 78 Pulse Rate from SpO2 Sensor 75 79 Respiratory Rate 24 16 Respiratory Effort / Characteristics Respiratory Depth Respiratory Pattern Blood Pressure 141/71 H Blood Pressure [Right Arm] Blood Pressure Mean 94 Blood Pressure Mean [Right Arm] Blood Pressure Position [Right Arm] Pulse Oximetry 99 99 97 Oxygen Delivery Method Room Air 09/05/18 15:20 09/05/18 15:30 09/05/18 15:40 Temperature Temperature Source Sepsis Recent Fever Within 48 Hours Sepsis Action Taken by Nursing Pulse Rate 82 77 77 Pulse Rate from SpO2 Sensor 78 77 Respiratory Rate 17 16 24 Respiratory Effort / Characteristics Respiratory Depth Respiratory Pattern Blood Pressure 144/71 H Blood Pressure [Right Arm] Blood Pressure Mean 95 Blood Pressure Mean [Right Arm] Blood Pressure Position [Right Arm] Pulse Oximetry 98 99 Oxygen Delivery Method 09/05/18 15:50 09/05/18 16:00 09/05/18 16:10 Temperature Temperature Source Sepsis Recent Fever Within 48 Hours Sepsis Action Taken by Nursing Pulse Rate 83 85 85 Pulse Rate from SpO2 Sensor 78 Respiratory Rate 19 17 15 Respiratory Effort / Characteristics Respiratory Depth Respiratory Pattern Blood Pressure 149/82 H Blood Pressure [Right Arm] Blood Pressure Mean 104 Blood Pressure Mean [Right Arm] Blood Pressure Position [Right Arm] Pulse Oximetry 99 99 Oxygen Delivery Method 09/05/18 16:20 09/05/18 16:30 09/05/18 16:40 Temperature Temperature Source Sepsis Recent Fever Within 48 Hours Sepsis Action Taken by Nursing Pulse Rate 77 84 87 Pulse Rate from SpO2 Sensor Respiratory Rate 19 23 21 Respiratory Effort / Characteristics Respiratory Depth Respiratory Pattern Blood Pressure Blood Pressure [Right Arm] Blood Pressure Mean Blood Pressure Mean [Right Arm] Blood Pressure Position [Right Arm] Pulse Oximetry Oxygen Delivery Method 09/05/18 16:50 09/05/18 17:00 09/05/18 17:10 Temperature Temperature Source Sepsis Recent Fever Within 48 Hours Sepsis Action Taken by Nursing Pulse Rate 79 77 76 Pulse Rate from SpO2 Sensor 76 Respiratory Rate 17 17 20 Respiratory Effort / Characteristics Respiratory Depth Respiratory Pattern Blood Pressure 133/78 Blood Pressure [Right Arm] Blood Pressure Mean 96 Blood Pressure Mean [Right Arm] Blood Pressure Position [Right Arm] Pulse Oximetry 98 Oxygen Delivery Method Room Air 09/05/18 17:11 09/05/18 17:20 Temperature Temperature Source Sepsis Recent Fever Within 48 Hours Sepsis Action Taken by Nursing Pulse Rate 75 77 Pulse Rate from SpO2 Sensor 75 Respiratory Rate 20 18 Respiratory Effort / Characteristics Respiratory Depth Respiratory Pattern Blood Pressure Blood Pressure [Right Arm] Blood Pressure Mean Blood Pressure Mean [Right Arm] Blood Pressure Position [Right Arm] Pulse Oximetry 97 Oxygen Delivery Method GENERAL: alert, well appearing, well nourished, no distress, non-toxic EYE EXAM: normal conjunctiva, PERRL and EOM's grossly intact OROPHARYNX: no exudate, no erythema, lips, buccal mucosa, and tongue normal and mucous membranes are moist NECK: supple, no nuchal rigidity, no adenopathy, non-tender LUNGS: Clear to auscultation. Normal chest wall mechanics, no w/r/r HEART: no murmurs, S1 normal and S2 normal ABDOMEN: abdomen soft, non-tender, normo-active bowel sounds, no masses, no rebound or guarding. BACK: Back is symmetrical on inspection and there is no deformity, no midline tenderness, no CVA tenderness. SKIN: no rashes and no bruising UPPER EXTREMITIES: upper extremities are grossly normal. FROM, nml pulses b/l. LOWER EXTREMITIES: No pitting edema. FROM, nml pulses b/l. NEURO EXAM: Normal sensorium, cranial nerves II-XII grossly intact, normal speech, no gross weakness of arms, no gross weakness of legs. No facial droop. NIH stroke score is 0. Course 1353: The patient was evaluated in room A03. A complete history and physical exam was performed. 1622: I reevaluated the patient, and she was still very confused. She was trying to get out of bed. She states "there is a page missing". 1647: I spoke with Dr. Anat Norris, [facility] hospitalist, about the patients case. She will evaluate the patient further. Consultations Consultation #1: I spoke with Dr. Anat Norris, [facility] hospitalist, about the patients case. She will evaluate the patient further. Time: 16:47 Administered Medications Apixaban (Eliquis) 5 mg PO BID [facility] Stop: 10/05/18 20:59 Last Admin: 09/07/18 08:18 Dose: 5 mg Documented by: [id number] Admin: 09/06/18 21:19 Dose: 5 mg Documented by: [id number] Admin: 09/06/18 07:37 Dose: 5 mg Documented by: [id number] Admin: 09/05/18 20:40 Dose: 5 mg Documented by: [id number] Artificial Tears (Artificial Tears) 2 drops OPB [facility] Stop: 10/06/18 08:59 Last Admin: 09/07/18 08:18 Dose: Not Given Documented by: [id number] Admin: 09/06/18 07:39 Dose: 2 drops Documented by: [id number] Aspirin (Aspirin Chew) 81 mg PO QAM [facility] Stop: 10/06/18 08:59 Last Admin: 09/07/18 08:18 Dose: 81 mg Documented by: [id number] Admin: 09/06/18 07:38 Dose: 81 mg Documented by: [id number] Carbidopa/Levodopa (Sinemet 25/250mg) 1 tab PO QID [facility] Stop: 10/06/18 18:29 Last Admin: 09/07/18 08:17 Dose: 1 tab Documented by: [id number] Admin: 09/06/18 21:19 Dose: 1 tab Documented by: [id number] Admin: 09/06/18 19:33 Dose: 1 tab Documented by: [id number] Docusate Sodium (Colace) 100 mg PO BID [facility] Stop: 10/05/18 20:59 Last Admin: 09/07/18 08:17 Dose: 100 mg Documented by: [id number] Admin: 09/06/18 21:20 Dose: 100 mg Documented by: [id number] Admin: 09/06/18 07:37 Dose: 100 mg Documented by: [id number] Admin: 09/05/18 20:40 Dose: 100 mg Documented by: [id number] Insulin Aspart (Novolog Flexpen) 0 units SC ACHS [facility] Stop: 10/05/18 20:59 Last Admin: 09/07/18 08:33 Dose: Not Given Documented by: [id number] Admin: 09/06/18 21:20 Dose: 1 units Documented by: [id number] Cosigned by: [id number] Admin: 09/06/18 17:39 Dose: Not Given Documented by: [id number] Cosigned by: [id number] Admin: 09/06/18 12:48 Dose: 1 units Documented by: [id number] Cosigned by: [id number] Admin: 09/06/18 09:55 Dose: 1 units Documented by: [id number] Cosigned by: [id number] Admin: 09/05/18 21:04 Dose: Not Given Documented by: [id number] Cosigned by: [id number] Levothyroxine Sodium (Synthroid) 75 mcg PO DAILYBB [facility] Stop: 10/06/18 06:29 Last Admin: 09/07/18 06:21 Dose: 75 mcg Documented by: [id number] Admin: 09/06/18 05:11 Dose: 75 mcg Documented by: [id number] Lorazepam (Ativan) 0.5 mg PO TID PRN PRN Reason: Anxiety Stop: 10/06/18 10:37 Last Admin: 09/07/18 02:58 Dose: 0.5 mg Documented by: [id number] Admin: 09/06/18 11:00 Dose: 0.5 mg Documented by: [id number] Magnesium Oxide (Mag-Ox) 400 mg PO QAM [facility] Stop: 10/06/18 08:59 Last Admin: 09/07/18 08:18 Dose: 400 mg Documented by: [id number] Admin: 09/06/18 07:38 Dose: 400 mg Documented by: [id number] Polyethylene Glycol (Miralax Powder Packet) 17 gm PO QAM [facility] Stop: 10/06/18 08:59 Last Admin: 09/07/18 08:18 Dose: 17 gm Documented by: [id number] Admin: 09/06/18 07:38 Dose: 17 gm Documented by: [id number] Simvastatin (Zocor) 40 mg PO HS [facility] Stop: 10/05/18 20:59 Last Admin: 09/06/18 21:20 Dose: 40 mg Documented by: [id number] Admin: 09/05/18 20:40 Dose: 40 mg Documented by: [id number] Venlafaxine HCl (Effexor Extended Release) 150 mg PO QAM [facility] Stop: 10/06/18 08:59 Last Admin: 09/07/18 08:17 Dose: 150 mg Documented by: [id number] Admin: 09/06/18 07:37 Dose: 150 mg Documented by: [id number] Discontinued Medications Buspirone HCl (Buspar) 5 mg PO BID [facility] Stop: 10/05/18 20:59 Last Admin: 09/07/18 08:17 Dose: 5 mg Documented by: [id number] Admin: 09/06/18 21:20 Dose: 5 mg Documented by: [id number] Admin: 09/06/18 07:37 Dose: 5 mg Documented by: [id number] Admin: 09/05/18 20:40 Dose: 5 mg Documented by: [id number] Sodium Chloride (Nss 1000ml) 1,000 mls @ 250 mls/hr IV .Q4H [facility] Stop: 10/05/18 14:44 Last Infusion: 09/06/18 07:06 Dose: 0 mls/hr Documented by: [id number] Admin: 09/06/18 07:05 Dose: Not Given Documented by: [id number] Infusion: 09/05/18 18:11 Dose: 0 mls/hr Documented by: [id number] Admin: 09/05/18 14:49 Dose: 250 mls/hr Documented by: [id number] Lorazepam (Ativan) 1 mg in 2 mls @ 2 mls/min IV NOW STA Stop: 09/05/18 17:05 Last Admin: 09/05/18 17:22 Dose: Not Given Documented by: [id number] Lorazepam (Ativan) Confirm Administered Dose 2 mg .ROUTE .STK-MED ONE Stop: 09/05/18 16:58 Last Admin: 09/05/18 17:09 Dose: 1 mg Documented by: [id number] Medical Decision Making Differential Diagnosis Differential diagnoses includes but is not limited to toxic, metabolic, infectious, traumatic, cardiac, neurologic, hematologic, psychiatric and inflammatory etiologies. Medical Records Attestation: I reviewed the patient's medical records. Home Medications Current Medication List: was personally reviewed by me Laboratory Data Attestation: I reviewed the patient's lab results. Result diagrams: 09/06/18 05:09/06/18 08:26 Lab Results 09/05/18 09/05/18 09/05/18 Range/Units 13:15 13:15 15:34 WBC 5.82 (4.8-10.8) K/uL RBC 4.88 (4.2-5.4) M/uL Hgb 15.0 (12.0-16.0) g/dL Hct 44.9 (37-47) % MCV 92.0 (80-100) fL MCH 30.7 (25-34) pg MCHC 33.4 (32-36) g/dL RDW Std Deviation 49.5 H (36.4-46.3) fL RDW Coeff of Beverly 14.7 H (11.5-14.5) % Plt Count 168 (130-400) K/uL MPV 10.3 (7.4-10.4) fL Immature Gran % (Auto) 0.2 % Neut % (Auto) 53.4 % Lymph % (Auto) 38.8 % Clark % (Auto) 5.5 % Eos % (Auto) 1.9 % Baso % (Auto) 0.2 % Immature Gran # (Auto) 0.01 (0.00-0.02) K/uL Neut # (Auto) 3.11 (1.4-6.5) K/uL Lymph # (Auto) 2.26 (1.2-3.4) K/uL Clark # (Auto) 0.32 (0.11-0.59) K/uL Eos # (Auto) 0.11 (0-0.5) K/uL Baso # (Auto) 0.01 (0-0.2) K/uL Sodium 140 (136-145) mmol/L Potassium 3.6 (3.5-5.1) mmol/L Chloride 105 (98-107) mmol/L Carbon Dioxide 29 (21-32) mmol/L Anion Gap 6.0 (3-11) BUN 29 H (7-18) mg/dl Creatinine 0.83 (0.6-1.2) mg/dl Est Cr Clr Drug Dosing 50.1 ml/min Est GFR ( Amer) 77.7 Est GFR (Non-Af Amer) 67.1 BUN/Creatinine Ratio 35.4 H (10-20) Glucose 69 L (70-99) mg/dl POC Glucose (70-99) Calcium 9.5 (8.5-10.1) mg/dl Magnesium 2.5 H (1.8-2.4) mg/dl Total Bilirubin 0.6 (0.2-1) mg/dl AST 24 (15-37) U/L ALT 12 (12-78) U/L Alkaline Phosphatase 119 H (45-117) U/L Troponin I < 0.015 (0-0.045) ng/ml Total Protein 7.9 (6.4-8.2) gm/dl Albumin 4.1 (3.4-5.0) gm/dl Globulin 3.8 (2.5-4.0) gm/dl Albumin/Globulin Ratio 1.1 (0.9-2) Lipase 264 (73-393) U/L TSH 3.690 (0.300-4.500) uIu/ml Urine Color Yellow Urine Appearance Clear (Clear) Urine pH 7.0 (4.5-7.5) Ur Specific [place] 1.013 (1.000-1.030) Urine Protein Negative (Negative) Urine Glucose (UA) Negative (Negative) Urine Ketones Negative (Negative) Urine Blood Negative (Negative) Urine Nitrite Negative (Negative) Urine Bilirubin Negative (Negative) Urine Urobilinogen Negative (Negative) Ur Leukocyte Esterase Negative (Negative) 09/05/18 Range/Units 17:02 WBC (4.8-10.8) K/uL RBC (4.2-5.4) M/uL Hgb (12.0-16.0) g/dL Hct (37-47) % MCV (80-100) fL MCH (25-34) pg MCHC (32-36) g/dL RDW Std Deviation (36.4-46.3) fL RDW Coeff of Beverly (11.5-14.5) % Plt Count (130-400) K/uL MPV (7.4-10.4) fL Immature Gran % (Auto) % Neut % (Auto) % Lymph % (Auto) % Clark % (Auto) % Eos % (Auto) % Baso % (Auto) % Immature Gran # (Auto) (0.00-0.02) K/uL Neut # (Auto) (1.4-6.5) K/uL Lymph # (Auto) (1.2-3.4) K/uL Clark # (Auto) (0.11-0.59) K/uL Eos # (Auto) (0-0.5) K/uL Baso # (Auto) (0-0.2) K/uL Sodium (136-145) mmol/L Potassium (3.5-5.1) mmol/L Chloride (98-107) mmol/L Carbon Dioxide (21-32) mmol/L Anion Gap (3-11) BUN (7-18) mg/dl Creatinine (0.6-1.2) mg/dl Est Cr Clr Drug Dosing ml/min Est GFR ( Amer) Est GFR (Non-Af Amer) BUN/Creatinine Ratio (10-20) Glucose (70-99) mg/dl POC Glucose 84 (70-99) Calcium (8.5-10.1) mg/dl Magnesium (1.8-2.4) mg/dl Total Bilirubin (0.2-1) mg/dl AST (15-37) U/L ALT (12-78) U/L Alkaline Phosphatase (45-117) U/L Troponin I (0-0.045) ng/ml Total Protein (6.4-8.2) gm/dl Albumin (3.4-5.0) gm/dl Globulin (2.5-4.0) gm/dl Albumin/Globulin Ratio (0.9-2) Lipase (73-393) U/L TSH (0.300-4.500) uIu/ml Urine Color Urine Appearance (Clear) Urine pH (4.5-7.5) Ur Specific [place] (1.000-1.030) Urine Protein (Negative) Urine Glucose (UA) (Negative) Urine Ketones (Negative) Urine Blood (Negative) Urine Nitrite (Negative) Urine Bilirubin (Negative) Urine Urobilinogen (Negative) Ur Leukocyte Esterase (Negative) Imaging Data Radiologist's Impression: Radiology results as stated below per my review and the radiologist's interpretation: CT head/brain wo con CT DOSE: 638.56 mGycm HISTORY: Mental status change ams TECHNIQUE: Multiaxial CT images of the head were performed without the use of intravenous contrast. A dose lowering technique was utilized adhering to the principles of ALARA. Comparison: 04/24/2018 Findings: The paranasal sinuses and mastoid air cells are clear. The calvarium and skull base are intact. The ventricles and sulci are within normal limits. There is no mass, hematoma, midline shift, or acute infarct. Impression: No acute intracranial abnormality. The above report was generated using voice recognition software. It may contain grammatical, syntax or spelling errors. Electronically signed by: Ernesto Porter M.D. 09/05/2018 2:34 PM CHEST AND ABDOMEN 2 VIEWS HISTORY: Altered mental status. COMPARISON: Chest 08/17/2018. FINDINGS: The lungs are clear. The cardiomediastinal silhouette is within normal limits. There is no pneumoperitoneum or pneumatosis. The bowel gas pattern is unremarkable. No evidence for bowel obstruction. No renal or ureteral calculi. IMPRESSION: No acute cardiopulmonary process. No evidence for bowel obstruction. Electronically signed by: Phil Ritchie M.D. 09/05/2018 6:30 PM ECG Data Attestation: I personally reviewed and interpreted this ECG as follows: Indication: altered mental status Rate (beats per minute): 71 Rhythm: sinus rhythm Findings: + other (normal axis, normal interval); no acute ischemic change and no ectopy Blood Pressure Blood Pressure Findings: Elevated blood pressure Blood Pressure Disposition: further management by hospitalist [facility] Narrative Patient here well-appearing and hemodynamically stable however obviously confused. Patient from a local nursing facility who is noticed this change will days after 2 weeks of increasing fatigue. Patient's labs and imaging here are reassuring. No evidence of evolving infection. Patient with a normal and nonfocal neuro exam at bedside despite confusion and reassuring head CT. I do not suspect CVA, ICH, cerebellar infarct or bleed. While patient does have a prior history of Parkinson's, there is no previously documented record of dementia. Patient does make mention of recent medication changes and on the MAR accompanying the patient from the facility, there are some medication changes that were recently made. No evidence of acute thyroid dysfunction. No evidence of acute electrolyte abnormality. No evidence of acute vascular etiology at this time. No ectopy or dysrhythmia noted on telemetry. Patient h emodynamically stable. In discussion with the hospitalist regarding the patient and plan for additional inpatient evaluation, discussed this is a possible etiology of her altered mentation at this time. Impression & Plan Altered mental status Discharge Plan Visit Data *Final* Discharge Date/Time: 09/05/18 17:58 Chief Complaint: Confusion ED Provider: Clara Hill Discharge Problem: Altered mental status Patient Disposition: Admitted As Inpatient Discharge Instructions Interventions: ED Discharge Assessment Last Done: 09/05/18 17:58 Discharge Problem: Altered mental status Qualifiers: Altered mental status type: unspecified Qualified Code(s): R41.82 - Altered mental status, unspecified The scribe's documentation has been prepared under my direction and personally reviewed by me in its entirety. I confirm that the note above accurately reflects all work, treatment, procedures, and medical decision making performed by me.
--- NOTE | 2018-09-07 11:51 | Psychiatric Progress Note ---
Date of Service September 07, 2018 Impression / Recommendations Impression Case discussed today with psychiatric nurse liaison and reviewed with attending physician. Additional history was discussed, including concern for increased aggressive behavior at the personal halfway for the past 2-3 months. There is concern from staff at the home regarding whether it is appropriate for patient to return, which explains why they are requesting additional input during this hospitalization. This provider reviewed documentation from neurology consultation, and several medication adjustments were recommended. Would certainly suggest ongoing observation to determine if these changes are benef icial to her overall presentation. Reviewed recommendations in regard to psychiatric medications - and orders for buspirone 10mg BID and olanzapine 2.5mg q4h prn were placed. Could consider Zyprexa Zydis if desire for an ODT form, as reports some episodes of dysphagia. Continued recommendation to utilize minimal amounts of benzodiazepines, as can cause further disinhibition and can continue to agitation and aggression (in addition to increased fall risk and respiratory depression). Psychiatric nurse liaison [facility] to assist with this process. Dr. Korey William was directly involved in review and discussion of the patient's case and participated in medical decision making regarding treatment recommendations. Interval History Identifying Information 78-year-old female admitted medically on 09/05/18 due to altered mental status with increased confusion over the past 2-3 weeks. Pt has reportedly had several ED visits due to anxiety/SOB and was admitted the end of July with dysphagia. Psychiatric consultation is requested to address "agitation." Information is gathered from documentation, but history provided by patient is limited and not clearly reliable. Chief Complaint "I still have a little ways left to go, but I think I'm getting better." Review of Systems Notes Constitutional: denied HEENT: reports mild improvement in dysphagia Cardiovascular: denied Respiratory: denied Gastrointestinal: denied Neurological: admits to some ongoing confusion Psychiatric: denies symptoms other than stated above Total of at least 10 systems reviewed, pertinent positives as above and in HPI. Subjective Subjective Patient's case was reviewed with psychiatric nurse liaison. Case was discussed with liaison, supervising physician, and patient's attending physician. Patient was seen today to assess progress since admission and to follow up on recommendations discussed during our initial consultation yesterday. At time of this provider's visit, the patient is stating steadily in her room, drinking a glass of water. Patient is cooperative and pleasant during our encounter and remains standing for the duration of the visit. Patient states that she recognizes that she "has a long ways to go yet" but tells this provider that she is "heading her life over to the Lord." Patient states that she recognizes that she needs help, and is therefore more willing to trust the recommendations given to her here in the hospital. Patient is now agreeable to medication adjustments discussed yesterday. She will receive 10 mg of buspirone twice daily, continue venlafaxine at home dose, and was agreeable to having olanzapine 2.5 mg availabl e as needed for anxiety or agitation. We reviewed the anticipated benefits of these medication adjustments, the patient voices no concerns about the changes. Patient states to this provider that she has not been experiencing hallucinations in the hospital, and "I do not even hear the buzzing in my head anymore." Patient denies any other needs or concerns at this time, remains agreeable to our participation in the coordination of her care moving forward. Physical Exam Psychiatric Orientation: alert, oriented x 3 (though does demonstrate some epsidoes of confusion) and cooperative (And pleasant) Apperance: appropriately dressed (In hospital gown) and appropriately groomed Eye Contact: good eye contact Motor Behavior: steady gait and station (Swaying back and forth, standing for duration of visit) and + tremor Speech: normal rate/rhythm/volume of speech Affect: euthymic affect Mood: no depressed mood and no anxious mood (Denies anxiety at this time as "giving it over to the Lord") Thought Process: goal directed thought process Thought Content: no hopelessness and no worthlessness Patient frequently mentions "getting everything over to the Lord, He is talking with me", though denies clear auditory hallucinations. Unclear if these comments are related to spiritual beliefs, mandaen preoccupations, or delusional thought content. Suicidal Thoughts: denies suicidal thoughts Homicidal Thoughts: denies homicidal thoughts Hallucinations: no auditory hallucinations and no visual hallucinations Denies to this provider any auditory or visual hallucinations while in the hospital Cognition: attention grossly intact and language grossly intact Estimated Intelligence: consistent with education level Insight: + limited insight Judgement: + limited judgement Vital Signs (Past 24 Hours) Last Vital Signs Temp 36.6 C 09/07/18 07:29 Pulse 69 09/07/18 07:29 Resp 16 09/07/18 07:29 BP 149/76 H 09/07/18 07:29 Pulse Ox 96 09/07/18 07:29 Results & Data Laboratory Results Laboratory Results - last 24 hr 09/06/18 09/06/18 09/07/18 16:38 20:11 07:49 POC Glucose 93 141 H 100 H Current Inpatient Medications Current Inpatient Medications: Current Inpatient Medications Acetaminophen (Tylenol) 650 mg PO Q4H PRN PRN Reason: pain/fever Stop: 10/05/18 18:52 Apixaban (Eliquis) 5 mg PO BID [facility] Stop: 10/05/18 20:59 Last Admin: 09/07/18 08:18 Dose: 5 mg Documented by: Artificial Tears (Artificial Tears) 2 drops [facility] Stop: 10/06/18 08:59 Last Admin: 09/07/18 08:18 Dose: Not Given Documented by: Aspirin (Aspirin Chew) 81 mg PO QAM [facility] Stop: 10/06/18 08:59 Last Admin: 09/07/18 08:18 Dose: 81 mg Documented by: Buspirone HCl (Buspar) 10 mg PO BID [facility] Stop: 10/07/18 20:59 Carbidopa/Levodopa (Sinemet 25/250mg) 1 tab PO QID [facility] Stop: 10/06/18 18:29 Last Admin: 09/07/18 08:17 Dose: 1 tab Documented by: Dextrose (Dextrose 50%) 25 - 50 ml IV UD PRN; Protocol PRN Reason: Hypoglycemia Protocol Stop: 10/05/18 18:52 Docusate Sodium (Colace) 100 mg PO BID [facility] Stop: 10/05/18 20:59 Last Admin: 09/07/18 08:17 Dose: 100 mg Documented by: Glucagon (Glucagen) 1 mg SQ UD PRN; Protocol PRN Reason: Hypoglycemia Protocol Stop: 10/05/18 18:52 Glucose (Glucose 40%) 15 - 30 gm PO UD PRN; Protocol PRN Reason: Hypoglycemia Protocol Stop: 10/05/18 18:52 Glucose (Dex4 Glucose) 4 - 8 tabs PO UD PRN; Protocol PRN Reason: Hypoglycemia Protocol Stop: 10/05/18 18:52 Insulin Aspart (Novolog Flexpen) 0 units SC ACHS [facility] Stop: 10/05/18 20:59 Last Admin: 09/07/18 08:33 Dose: Not Given Documented by: Levothyroxine Sodium (Synthroid) 75 mcg PO DAILYBB [facility] Stop: 10/06/18 06:29 Last Admin: 09/07/18 06:21 Dose: 75 mcg Documented by: Lorazepam (Ativan) 0.5 mg PO TID PRN PRN Reason: Anxiety Stop: 10/06/18 10:37 Last Admin: 09/07/18 02:58 Dose: 0.5 mg Documented by: Magnesium Oxide (Mag-Ox) 400 mg PO QAM [facility] Stop: 10/06/18 08:59 Last Admin: 09/07/18 08:18 Dose: 400 mg Documented by: Miscellaneous (Carbohydrates For Hypoglycemia) 15 - 30 gm PO UD PRN PRN Reason: Hypoglycemia Treatment Stop: 10/05/18 18:52 Olanzapine (Zyprexa) 2.5 mg PO Q6H PRN PRN Reason: Anxiety/Agitation Stop: 10/07/18 10:14 Polyethylene Glycol (Miralax Powder Packet) [facility] [place] Stop: 10/06/18 08:59 Last Admin: 09/07/18 08:18 Dose: 17 gm Documented by: Simvastatin (Zocor) 40 mg PO HS [facility] Stop: 10/05/18 20:59 Last Admin: 09/06/18 21:20 Dose: 40 mg Documented by: Venlafaxine HCl (Effexor Extended Release) 150 mg PO QAM [facility] Stop: 10/06/18 08:59 Last Admin: 09/07/18 08:17 Dose: 150 mg Documented by: CPT Code CPT Code 71727
--- NOTE | 2018-09-07 14:14 | Hospitalist Progress Note ---
Date of Service September 07, 2018 Assessment & Plan (1) Anxiety: She has had long-standing episodes of panic attacks with anxiety, shortness of breath, and even aggression. In speaking with Rahul ([facility] inside sales administrator) & Ms. Nicloe Joseph (her PCP), this is much longer-standing than a few weeks. In the last few weeks, it has gotten worse, but she has had the police called early this month for aggression. Presently, she has no signs of an acute process including infection, metabolic disturbance, or organ dysfunction. - Delirium prevention strategies - Consulted psychiatry & neurology - She has been seeing [facility] with some recent medication changes, but still having a lot of agitation, possibly caused by home situation. - Recs: - Increase buspirone to 10mg PO BID - Continue venlafaxine - Avoid benzos as able - Stop ropinerole entirely - Can decrease Rytary (carbidopa-levodopa) as outpatient - Could start Nuplazid as outpatient (needs extensive pre-auth) - Olanzapine 2.5mg PO/IM PRN for agitation/aggression (2) Diabetes: Last A1c was 6.5% in 07/2018. - Sliding scale insulin - Continue to monitor (3) Atrial fibrillation: Patient presently in NSR. - Continue Eliquis at home dose (4) Parkinson disease: Chronic. May be exacerbating her mental health issues as above. Saw Dr. Sidhu as outpatient. - Continue Carbidopa/Levodopa at home dosage as best as able (given we do not have her formulation on formulary) (5) CAD (coronary artery disease): Chronic. Stable. Not reporting any chest pain. - Continue ASA, statin (6) Hypothyroid: Chronic. TSH WNL. - Continue Synthroid (7) RLS (restless legs syndrome): Chronic - Hold ropinarole as above (8) DVT prophylaxis: Apixaban Subjective This morning she is standing at her bedside, drinking water, then spitting it out, saying it is the "Cup of Life." Review of Systems Review of Systems: Unobtainable due to mental health condition Physical Exam Constitutional: WD/WN, vitals as above + acute distress and + lethargic Eyes: EOM intact bilaterally; no conjunctival abnormality ENMT: external ear and nose normal, oropharynx normal Neck: trachea midline, no thyromegaly normal visual inspection Respiratory: normal respiratory effort, lungs clear to auscultation no respiratory distress Cardiovascular: RRR, no murmur, no edema Gastrointestinal (Abdomen): Inspection/Auscultation: abdomen normal to inspection; abdomen not distended Musculoskeletal: no cyanosis or clubbing, extremities motor strength 5/5 Skin: no rashes, warm and dry Neurologic: moves all extremities and awake Psychiatric: Orientation: alert Apperance: + disheveled Eye Contact: + poor eye contact Results & Data Vital Signs (Past 12 Hours) Vital Signs Temp Pulse Resp BP Pulse Ox 09/07/18 07:29 36.6 C 69 16 149/76 H 96 (1) Diabetes Diabetes mellitus type: type 2 Diabetes mellitus nail technician insulin use: without jail use Diabetes mellitus complication status: without complication Qualified Code(s): E11.9 - Type 2 diabetes mellitus without complications (2) Atrial fibrillation Atrial fibrillation type: unspecified Qualified Code(s): I48.91 - Unspecified atrial fibrillation (3) CAD (coronary artery disease) Coronary Disease-Associated Artery/Lesion type: [place] artery [place] vs. transplanted heart: [place] heart Associated angina: without angina Qualified Code(s): I25.10 - Atherosclerotic heart disease of [place] coronary artery without angina pectoris (4) Hypothyroid Hypothyroidism type: unspecified Qualified Code(s): E03.9 - Hypothyroidism, unspecified
[2018-09-07] MEDS: OLANZAPINE 2.5 MG TAB PO PRN (20:14)
[2018-09-07] MEDS: SIMVASTATIN 40 MG TAB PO SCH (20:15)
[2018-09-08] MEDS: OLANZAPINE 2.5 MG TAB PO PRN ×3 (03:29→21:53)
[2018-09-08] MEDS: LEVOTHYROXINE SODIUM 75 MCG TABLET PO SCH ×2 (06:06→20:26)
[2018-09-08] MEDS: VENLAFAXINE HCL XR 150 MG CAPXR PO SCH (07:36)
[2018-09-08] MEDS: MAGNESIUM OXIDE 400 MG TAB PO SCH (07:36)
[2018-09-08] MEDS: DOCUSATE SODIUM 100 MG CAP PO SCH ×2 (07:37→20:28)
[2018-09-08] MEDS: CARBIDOPA/LEVODOPA 25-250 1 EA TAB PO SCH ×4 (07:37→20:26)
[2018-09-08] MEDS: APIXABAN 5 MG TABLET PO SCH ×2 (07:38→20:27)
[2018-09-08] MEDS: POLYETHYLENE (MIRALAX) 17 GM PACK PO SCH (07:39)
[2018-09-08] MEDS: ASPIRIN 81 MG CHEW PO SCH (07:44)
[2018-09-08] MEDS: INSULIN ASPART 100 UNITS/ML 3 ML PEN SC SCH ×4 (09:00→20:30)
[2018-09-08] MEDS: ARTIFICIAL TEARS OPB SCH (09:52)
--- NOTE | 2018-09-08 13:30 | Hospitalist Progress Note ---
Date of Service September 08, 2018 Assessment & Plan (1) Anxiety: She has had long-standing episodes of panic attacks with anxiety, shortness of breath, and even aggression. In speaking with Rahul ([facility] systems administrator) & Ms. Nicole Joseph (her PCP), this is much longer-standing than a few weeks. In the last few weeks, it has gotten worse, but she has had the police called early this month for aggression. Presently, she has no signs of an acute process including infection, metabolic disturbance, or organ dysfunction. - Delirium prevention strategies - Consulted psychiatry & neurology - She has been seeing [facility] with some recent medication changes, but still having a lot of agitation, possibly caused by home situation. - Recs: - Increase buspirone to 10mg PO BID - Continue venlafaxine - Avoid benzos as able - Stop ropinerole entirely - Can decrease Rytary (carbidopa-levodopa) as outpatient - Could start Nuplazid as outpatient (needs extensive pre-auth) - Olanzapine 2.5mg PO/IM PRN for agitation/aggression - Discussed at bedside with son and grandson. Would like SNF as they feel patient cannot live at [facility] any longer. CM for placement help. I spent 35 minutes counseling the patient and family and discussing the current state, treatment course, and prognosis of his/her disease, including her Parkinson's, dementia, and anxiety. (2) Diabetes: Last A1c was 6.5% in 07/2018. - Sliding scale insulin - Continue to monitor (3) Atrial fibrillation: Patient presently in NSR. - Continue Eliquis at home dose (4) Parkinson disease: Chronic. May be exacerbating her mental health issues as above. Saw Dr. Sidhu as outpatient. - Continue Carbidopa/Levodopa at home dosage as best as able (given we do not have her formulation on formulary) (5) CAD (coronary artery disease): Chronic. Stable. Not reporting any chest pain. - Continue ASA, statin (6) Hypothyroid: Chronic. TSH WNL. - Continue Synthroid (7) RLS (restless legs syndrome): Chronic - Hold ropinirole as above (8) DVT prophylaxis: Apixaban Subjective Reports some trouble swallowing still, though no choking. Some bloating. When she got upset about leaving [facility], she reported shortness of breath. Review of Systems Review of Systems: All systems reviewed & are unremarkable except as noted in HPI & below Physical Exam Constitutional: WD/WN, vitals as above + acute distress Eyes: EOM intact bilaterally; no conjunctival abnormality ENMT: external ear and nose normal, oropharynx normal Neck: trachea midline, no thyromegaly normal visual inspection Respiratory: normal respiratory effort, lungs clear to auscultation no respiratory distress Cardiovascular: RRR, no murmur, no edema Gastrointestinal (Abdomen): Inspection/Auscultation: abdomen normal to in spection; abdomen not distended Musculoskeletal: no cyanosis or clubbing, extremities motor strength 5/5 Skin: no rashes, warm and dry Neurologic: moves all extremities and awake Psychiatric: Orientation: alert Apperance: + disheveled Eye Contact: + poor eye contact Results & Data Vital Signs (Past 12 Hours) Vital Signs Temp Pulse Resp BP Pulse Ox 09/08/18 07:20 36.5 C 67 18 139/79 99 (1) Diabetes Diabetes mellitus type: type 2 Diabetes mellitus intermediate project manager insulin use: without intermediate project manager use Diabetes mellitus complication status: without complication Qualified Code(s): E11.9 - Type 2 diabetes mellitus without complications (2) Atrial fibrillation Atrial fibrillation type: unspecified Qualified Code(s): I48.91 - Unspecified atrial fibrillation (3) CAD (coronary artery disease) Coronary Disease-Associated Artery/Lesion type: [place] artery [place] vs. transplanted heart: [place] heart Associated angina: without angina Qualified Code(s): I25.10 - Atherosclerotic heart disease of [place] coronary artery without angina pectoris (4) Hypothyroid Hypothyroidism type: unspecified Qualified Code(s): E03.9 - Hypothyroidism, unspecified
[2018-09-08] MEDS: LORazepam 0.5 MG TAB PO PRN (16:30)
[2018-09-08] MEDS: OLANZapine 10 MG/2.1 ML SDV IM PRN (17:44)
[2018-09-08] MEDS: SIMVASTATIN 40 MG TAB PO SCH (20:26)
[2018-09-09] MEDS: OLANZapine 10 MG/2.1 ML SDV IM PRN (03:52)
[2018-09-09] MEDS: CARBIDOPA/LEVODOPA 25-250 1 EA TAB PO SCH ×5 (07:27→22:09)
[2018-09-09] MEDS: VENLAFAXINE HCL XR 150 MG CAPXR PO SCH (07:27)
[2018-09-09] MEDS: MAGNESIUM OXIDE 400 MG TAB PO SCH (07:29)
[2018-09-09] MEDS: DOCUSATE SODIUM 100 MG CAP PO SCH ×2 (07:30→22:04)
[2018-09-09] MEDS: ARTIFICIAL TEARS OPB SCH (07:30)
[2018-09-09] MEDS: POLYETHYLENE (MIRALAX) 17 GM PACK PO SCH (07:31)
[2018-09-09] MEDS: APIXABAN 5 MG TABLET PO SCH ×2 (07:31→22:08)
[2018-09-09] MEDS: ASPIRIN 81 MG CHEW PO SCH (07:34)
[2018-09-09] MEDS: INSULIN ASPART 100 UNITS/ML 3 ML PEN SC SCH ×4 (10:19→22:06)
[2018-09-09] MEDS: OLANZAPINE 2.5 MG TAB PO PRN ×2 (12:12→20:15)
--- NOTE | 2018-09-09 13:23 | Hospitalist Progress Note ---
Date of Service September 09, 2018 Assessment & Plan (1) Anxiety: She has had long-standing episodes of panic attacks with anxiety, shortness of breath, and even aggression. In speaking with Rahul ([facility] infrastructure administrator) & Ms. Nicole Joseph (her PCP), this is much longer-standing than a few weeks. In the last few weeks, it has gotten worse, but she has had the police called early this month for aggression. Presently, she has no signs of an acute process including infection, metabolic disturbance, or organ dysfunction. - Delirium prevention strategies - Consulted psychiatry & neurology - She has been seeing [facility] with some recent medication changes, but still having a lot of agitation, possibly caused by home situation. - Recs: - Increase buspirone to 10mg PO BID - Continue venlafaxine - Avoid benzos as able - Stop ropinerole entirely - Can decrease Rytary (carbidopa-levodopa) as outpatient - Could start Nuplazid as outpatient (needs extensive pre-auth) - Olanzapine 2.5mg PO/IM PRN for agitation/aggression - Discussed at bedside with son and grandson. Would like SNF as they feel patient cannot live at [facility] any longer. CM for placement help. - On 09/09, had more agitation and required more PRN olanzapine. Will attempt to minimize as able. Still has 1:1 sitter. - Of note, olanzapine is a dopamine antagonist and would interfere with carbidopa/levodopa. Will need to discuss with neurology & psychiatry if this is a viable long-term medication for her. (2) Diabetes: Last A1c was 6.5% in 07/2018. - Sliding scale insulin - Continue to monitor (3) Atrial fibrillation: Patient presently in NSR. - Continue Eliquis at home dose (4) Parkinson disease: Chronic. May be exacerbating her mental health issues as above. Saw Dr. Sidhu as outpatient. - Continue Carbidopa/Levodopa at home dosage as best as able (given we do not have her formulation on formulary) (5) CAD (coronary artery disease): Chronic. Stable. Not reporting any chest pain. - Continue ASA, statin (6) Hypothyroid: Chronic. TSH WNL. - Continue Synthroid (7) RLS (restless legs syndrome): Chronic - Hold ropinirole as above (8) DVT prophylaxis: Apixaban Dispo: Will likely need SNF or even dementia unit for her continued agitation. Subjective Agitated this morning, had to get Zyprexa. At the time of examination, she was lethargic and would only follow simple commands. Review of Systems Review of Systems: Unobtainable due to mental health condition Physical Exam Constitutional: WD/WN, vitals as above Eyes: EOM intact bilaterally; no conjunctival abnormality ENMT: external ear and nose normal, oropharynx normal Neck: trachea midline, no thyromegaly normal visual inspection Respiratory: normal respiratory effort, lungs clear to auscultation no respiratory distress Cardiovascular: RRR, no murmur, no edema Gastrointestinal (Abdomen): Inspection/Auscultation: abdomen normal to inspection; abdomen not distended Musculoskeletal: no cyanosis or clubbing, extremities motor strength 5/5 Skin: no rashes, warm and dry Neurologic: moves all extremities Psychiatric: Apperance: + disheveled Eye Contact: + poor eye contact Results & Data Vital Signs (Past 12 Hours) Vital Signs Temp Pulse Resp BP Pulse Ox 09/09/18 07:11 36.5 C 79 20 145/79 H 95 (1) Diabetes Diabetes mellitus type: type 2 Diabetes mellitus termite control representative insulin use: without prison use Diabetes mellitus complication status: without complication Qualified Code(s): E11.9 - Type 2 diabetes mellitus without complications (2) Atrial fibrillation Atrial fibrillation type: unspecified Qualified Code(s): I48.91 - Unspecified atrial fibrillation (3) CAD (coronary artery disease) Coronary Disease-Associated Artery/Lesion type: [place] artery [place] vs. transplanted heart: [place] heart Associated angina: without angina Qualified Code(s): I25.10 - Atherosclerotic heart disease of [place] coronary artery without angina pectoris (4) Hypothyroid Hypothyroidism type: unspecified Qualified Code(s): E03.9 - Hypothyroidism, unspecified
[2018-09-09] MEDS: LORazepam 0.5 MG TAB PO PRN (19:44)
[2018-09-09] MEDS: SIMVASTATIN 40 MG TAB PO SCH (22:09)
[2018-09-10] MEDS: OLANZapine 10 MG/2.1 ML SDV IM PRN (02:19)
[2018-09-10] MEDS: LEVOTHYROXINE SODIUM 75 MCG TABLET PO SCH (06:35)
[2018-09-10 07:11] LABS: Hematocrit (blood only) 44.3 % (37-47); Hemoglobin 14.7 g/dL (12.0-16.0); Mean Corpuscular Hgb Conc 33.2 g/dL (32-36); Mean Corpuscular Volume 92.7 fL (80-100); Mean Platelet Volume 10.3 fL (7.4-10.4); Platelet Count 177 K/uL (130-400); RDW Coefficient of Variation 14.5 % (11.5-14.5); RDW Standard Deviation 49.4 fL (36.4-46.3); Red Blood Count 4.78 M/uL (4.2-5.4)
[2018-09-10 07:52] LABS: Calcium 9.3 mg/dl (8.5-10.1); Creatinine Clr Calc Pharmacy 45.7 ml/min; Est GFR (African American) 69.5
[2018-09-10] MEDS: INSULIN ASPART 100 UNITS/ML 3 ML PEN SC SCH ×4 (11:08→22:00)
[2018-09-10] MEDS: POLYETHYLENE (MIRALAX) 17 GM PACK PO SCH (11:10)
[2018-09-10] MEDS: DOCUSATE SODIUM 100 MG CAP PO SCH ×2 (11:10→21:10)
[2018-09-10] MEDS: VENLAFAXINE HCL XR 150 MG CAPXR PO SCH (14:02)
[2018-09-10] MEDS: ARTIFICIAL TEARS OPB SCH (14:02)
[2018-09-10] MEDS: ASPIRIN 81 MG CHEW PO SCH (14:02)
[2018-09-10] MEDS: MAGNESIUM OXIDE 400 MG TAB PO SCH (14:03)
[2018-09-10] MEDS: CARBIDOPA/LEVODOPA 25-250 1 EA TAB PO SCH ×4 (14:03→21:10)
[2018-09-10] MEDS: APIXABAN 5 MG TABLET PO SCH ×2 (14:03→21:10)
--- NOTE | 2018-09-10 20:33 | Hospitalist Progress Note ---
Date of Service September 10, 2018 Assessment & Plan (1) Altered mental status: This may be due to an underlying dementia process from her parkinson's disease with concomitant behavioral disturbance. Either way she continues to do poorly See below in "anxiety." Recent CT head w/o acute pathology. Consider MRI brain r/o subacute process. TSH, b12, ammonia all normal. consider b1 level. (2) Anxiety: Chronic h/o anxiety, panic attacks -- in setting of parkinson's disease. Now with delirium, aggression, etc leading to this admission. Appreciate psych and neurology consults. I don't see evidence of metabolic or infectious process contributing to clinical picture. She continues to have frequent need for PRN zyprexa. She has not slept in 3 + days per staff. To promote sleep and improve delirium will schedule zyprexa 5mg at HS tonight. Review of PDMP shows long-standing use of ativan on daily basis at home. Normally would not advise ongoing ativan use but has been using it for years; thus, will schedule 1mg ativan at HS as this was how she was doing it at home according to damion Riojas. Ropinirole has been stopped. - Can decrease Rytary (carbidopa-levodopa) as outpatient - Could start Nuplazid as outpatient (needs extensive pre-auth) - Continue Olanzapine 2.5mg PO/IM PRN for agitation/aggression Present on Admission?: Yes (3) Diabetes: Last A1c was 6.5% in 07/2018. - Sliding scale insulin - Continue to monitor - controlled (4) Atrial fibrillation: Patient presently in NSR. - Continue Eliquis at home dose (5) Parkinson disease: Chronic. Previously followed by Dr. Sidhu as outpatient. Continue Carbidopa/Levodopa at home dosage. Appreciate neuro consultation. (6) CAD (coronary artery disease): Chronic. Stable. Continue ASA, statin (7) Hypothyroid: Chronic. TSH WNL. Continue Synthroid. (8) RLS (restless legs syndrome): Chronic No issues (9) DVT prophylaxis: Apixaban Will restart IV fluids; barely eating. has mild T2DM but will add dextrose to fluids for calories. son updated by phone today. Subjective according to staff patient has been very agitated and borderline aggressive requiring frequent use of prn zyprexa. has not slept in 3 days. not eating. some difficulties w/ taking meds. during my visit she was sleeping soundly with blinds on windows drawn. Review of Systems Review of Systems: Unobtainable due to reduced consciousness Physical Exam Constitutional: no acute distress sleeping tremors of facial muscles/mouth region ENMT: external ear and nose normal, oropharynx normal Respiratory: normal respiratory effort, lungs clear to auscultation Cardiovascular: Rate/Rhythm: regular rate and regular rhythm Heart Sounds: normal S1 and normal S2; no murmur Vessels: posterior tibial pulses present and dorsalis pedis pulses present; no JVD Gastrointestinal (Abdomen): normal bowel sounds, soft, nontender, no hepatosplenomegaly Psychiatric: sleeping; tremors of face Results & Data Laboratory Results Laboratory Results - last 24 hr 09/10/18 09/10/18 09/10/18 06:59 06:59 12:04 WBC 6.70 RBC 4.78 Hgb 14.7 Hct 44.3 MCV 92.7 MCH 30.8 MCHC 33.2 RDW Std Deviation 49.4 H RDW Coeff of [place] 14.5 Plt Count 177 MPV 10.3 Sodium 142 Potassium Chloride 108 H Carbon Dioxide 28 Anion Gap 6.0 BUN 33 H Creatinine 0.91 Est Cr Clr Drug Dosing 45.7 Est GFR ( Amer) 69.5 Est GFR (Non-Af Amer) 60.0 BUN/Creatinine Ratio 36.0 H Glucose 101 H POC Glucose 97 Calcium 9.3 Magnesium (1) Diabetes Diabetes mellitus complication status: without complication Diabetes mellitus intermediate project manager insulin use: without intermediate project manager use Diabetes mellitus type: type 2 Qualified Code(s): E11.9 - Type 2 diabetes mellitus without complications (2) CAD (coronary artery disease) Associated angina: without angina Coronary Disease-Associated Artery/Lesion type: [place] artery [place] vs. transplanted heart: [place] heart Qualified Code(s): I25.10 - Atherosclerotic heart disease of [place] coronary artery without angina pectoris (3) Atrial fibrillation Atrial fibrillation type: unspecified Qualified Code(s): I48.91 - Unspecified atrial fibrillation (4) Hypothyroid Hypothyroidism type: unspecified Qualified Code(s): E03.9 - Hypothyroidism, unspecified (5) Altered mental status Altered mental status type: unspecified Qualified Code(s): R41.82 - Altered mental status, unspecified
[2018-09-10] MEDS ORDERED: LORazepam 0.5 MG TAB PO SCH (21:00)
[2018-09-10] MEDS: D5W AND NSS 1,000 ML IV SCH (21:10)
[2018-09-10] MEDS: SIMVASTATIN 40 MG TAB PO SCH (21:10)
[2018-09-10] MEDS: OLANZapine 5 MG TABLET PO SCH (22:00)
[2018-09-11] MEDS: LEVOTHYROXINE SODIUM 75 MCG TABLET PO SCH (05:01)
[2018-09-11] MEDS: D5W AND NSS 1,000 ML IV SCH ×2 (07:52→20:40)
--- NOTE | 2018-09-11 09:41 | Psychiatric Progress Note ---
Date of Service September 11, 2018 Impression / Recommendations Impression Galina is a 78 year old female with a past medical history of parkinsons dementia, and anxiety that we are following up on due to hospitalists concern for aggressive behavior at her personal assisted. She was started on zyprexa 5mg qhs and ativan 0.5mg qhs per the primary team. Obviously the ativan is not ideal in a 78 year old female with dementia as it can cause worsening agitation, disorientation, aggression and has an increased fall risk/respiratory depression risk. Would recommend decreasing the ativan to 0.25mg qhs and then eventually stopping it prior to discharge from hospital. Recommend continuing with the zyprexa 5mg qhs. Hopefully by decreasing the ativan and with the patient getting improved sleep her agitation and aggressive behaviour will improve. Case was discussed today with psychiatric nurse liaison and reviewed with Dr. Hodge. Please don't hesitate to contact the psychiatric team for further recommendations with regards to the patients care. Interval History Identifying Information 78-year-old female admitted medically on 09/05/18 due to altered mental status with increased confusion over the past 2-3 weeks. Pt has reportedly had several ED visits due to anxiety/SOB and was admitted the end of July with dysphagia. Psychiatric consultation is requested to address "agitation." Information is gathered from documentation, but history provided by patient is limited and not clearly reliable. Chief Complaint "I had a rough night last night". Review of Systems Notes Unable to obtain an adequate ROS due to patients inappropriate answering of questions Subjective Subjective I saw the patient for follow up this morning due to worsening agitation over the past few days. She was switched to zyprexa 5mg qhs scheduled and 0.5mg of ativan qhs. According to pdmp records she had been taking this on a regular basis (per Dr. Acosta). When spoken to this morning she said to me "I had a rough night". When asked to elucidate further she did not answer. According to nursing records she slept 7-8 hours last night without interruption. When I was in the room she would answer questions without any logical thought process. When asked if she was feeling anxious she said "I've been having difficulty breathing all night long". She kept repeating to herself "relax, relax, relax" in a soft voice while I was try ing to ask her questions. Physical Exam Mental Examination Eye Contact: No Eye Contact Motor Behavior: Tremulous Speech: Disorganized and Incoherent Mood: Anxious Affect: Anxious and Withdrawn Thought Process: Incoherent Thought Content: Disorganized and Obsessional Thoughts Insight: Poor Judgement: Poor Vital Signs (Past 24 Hours) Last Vital Signs Temp 36.9 C 09/11/18 06:01 Pulse 106 H 09/11/18 06:01 Resp 16 09/11/18 06:01 BP 126/83 09/11/18 06:01 Pulse Ox 92 09/11/18 06:01 Results & Data Laboratory Results Laboratory Results - last 24 hr 09/10/18 09/11/18 12:04 07:46 POC Glucose 97 98 Current Inpatient Medications Current Inpatient Medications: Current Inpatient Medications Acetaminophen (Tylenol) 650 mg PO Q4H PRN PRN Reason: pain/fever Stop: 10/05/18 18:52 Apixaban (Eliquis) 5 mg PO BID [facility] Stop: 10/05/18 20:59 Last Admin: 09/10/18 21:10 Dose: Not Given Documented by: Artificial Tears (Artificial Tears) 2 drops OPB QAM [facility] Stop: 10/06/18 08:59 Last Admin: 09/10/18 14:02 Dose: Not Given Documented by: Aspirin (Aspirin Chew) 81 mg PO QAM [facility] Stop: 10/06/18 08:59 Last Admin: 09/10/18 14:02 Dose: Not Given Documented by: Buspirone HCl (Buspar) 10 mg PO BID [facility] Stop: 10/07/18 20:59 Last Admin: 09/10/18 21:10 Dose: Not Given Documented by: Carbidopa/Levodopa (Sinemet 25/250mg) 1 tab PO QID [facility] Stop: 10/06/18 18:29 Last Admin: 09/10/18 21:10 Dose: Not Given Documented by: Dextrose (Dextrose 50%) 25 - 50 ml IV UD PRN; Protocol PRN Reason: Hypoglycemia Protocol Stop: 10/05/18 18:52 Docusate Sodium (Colace) 100 mg PO BID [facility] Stop: 10/05/18 20:59 Last Admin: 09/10/18 21:10 Dose: Not Given Documented by: Glucagon (Glucagen) 1 mg SQ UD PRN; Protocol PRN Reason: Hypoglycemia Protocol Stop: 10/05/18 18:52 Glucose (Glucose 40%) 15 - 30 gm PO UD PRN; Protocol PRN Reason: Hypoglycemia Protocol Stop: 10/05/18 18:52 Glucose (Dex4 Glucose) 4 - 8 tabs PO UD PRN; Protocol PRN Reason: Hypoglycemia Protocol Stop: 10/05/18 18:52 Dextrose/Sodium Chloride (D5w And Nss) 1,000 mls @ 80 mls/hr IV .[id number] [facility] Stop: 10/10/18 19:59 Last Admin: 09/11/18 07:52 Dose: 80 mls/hr Documented by: Insulin Aspart (Novolog Flexpen) 0 units SC ACHS [facility] Stop: 10/05/18 20:59 Last Admin: 09/10/18 22:00 Dose: Not Given Documented by: Levothyroxine Sodium (Synthroid) 75 mcg PO DAILYBB [facility] Stop: 10/06/18 06:29 Last Admin: 09/11/18 05:01 Dose: Not Given Documented by: Lorazepam (Ativan) 0.5 mg PO [facility] Stop: 10/10/18 20:59 Last Admin: 09/10/18 21:10 Dose: Not Given Documented by: Magnesium Oxide (Mag-Ox) 400 mg PO [facility] Stop: 10/06/18 08:59 Last Admin: 09/10/18 14:03 Dose: Not Given Documented by: Miscellaneous (Carbohydrates For Hypoglycemia) 15 - 30 gm PO UD PRN PRN Reason: Hypoglycemia Treatment Stop: 10/05/18 18:52 Olanzapine (Zyprexa) 2.5 mg PO Q6H PRN PRN Reason: Anxiety/Agitation Stop: 10/07/18 10:14 Last Admin: 09/09/18 20:15 Dose: 2.5 mg Documented by: Olanzapine (Zyprexa) 2.5 mg IM Q4H PRN PRN Reason: Anxiety/Agitation Stop: 10/08/18 17:15 Last Admin: 09/10/18 02:19 Dose: 2.5 mg Documented by: Olanzapine (Zyprexa) 5 mg PO [facility] Stop: 10/10/18 20:59 Last Admin: 09/10/18 22:00 Dose: 5 mg Documented by: Polyethylene Glycol ([facility]ax Powder Packet) [facility] Stop: 10/06/18 08:59 Last Admin: 09/10/18 11:10 Dose: Not Given Documented by: Simvastatin (Zocor) 40 mg PO HS [facility] Stop: 10/05/18 20:59 Last Admin: 09/10/18 21:10 Dose: Not Given Documented by: Venlafaxine HCl (Effexor Extended Release) [facility] Stop: 10/06/18 08:59 Last Admin: 09/10/18 14:02 Dose: Not Given Documented by: CPT Code CPT Code [id number]
[2018-09-11] MEDS: INSULIN ASPART 100 UNITS/ML 3 ML PEN SC SCH ×4 (11:36→20:45)
[2018-09-11] MEDS: ASPIRIN 81 MG CHEW PO SCH (11:38)
[2018-09-11] MEDS: ARTIFICIAL TEARS OPB SCH (11:38)
[2018-09-11] MEDS: DOCUSATE SODIUM 100 MG CAP PO SCH ×2 (11:40→20:46)
[2018-09-11] MEDS: MAGNESIUM OXIDE 400 MG TAB PO SCH (11:40)
[2018-09-11] MEDS: POLYETHYLENE (MIRALAX) 17 GM PACK PO SCH (11:40)
[2018-09-11] MEDS: VENLAFAXINE HCL XR 150 MG CAPXR PO SCH (11:40)
[2018-09-11] MEDS: APIXABAN 5 MG TABLET PO SCH ×2 (11:40→20:42)
[2018-09-11] MEDS: CARBIDOPA/LEVODOPA 25-250 1 EA TAB PO SCH ×5 (11:41→20:41)
--- NOTE | 2018-09-11 20:18 | Hospitalist Progress Note ---
Date of Service September 11, 2018 Assessment & Plan (1) Altered mental status: This may be due to an underlying dementia process from her parkinson's disease with concomitant behavioral disturbance. Cannot rule out a delirium process in setting of dementia or baseline cognitive impairment. She is much more awake today but still very confused and having active hallucinations. Psych saw again today -- recommend continuing the zyprexa 5mg HS and cutting back ativan to 0.25mg HS with ultimately stopping latter. Recent CT head w/o acute pathology. Consider MRI brain r/o subacute process but doubt she could tolerate it/complete it. TSH, b12, ammonia all normal. Check ESR, Vit B1 level, and lyme's test in am. Cont gentle fluids since she is not eating/drinking. (2) Anxiety: Chronic h/o anxiety, panic attacks -- in setting of parkinson's disease. Now with delirium, aggression, etc leading to this admission. Appreciate psych and neurology consults. I don't see evidence of metabolic or infectious process contributing to clinical picture. To promote sleep and improve delirium I have scheduled zyprexa 5mg at HS. This helped last pm. Review of PDMP shows long-standing use of ativan on daily basis at home. Normally would not advise ongoing ativan use but has been using it for years; thus, scheduled ativan at HS as this was how she was doing it at home according to MAR. Psych recommending cutting dose to 0.25mg at HS -- I have ordered that. Cont buspar,effexor. Ropinirole has been stopped. - Can decrease Rytary (carbidopa-levodopa) as outpatient - Could start Nuplazid as outpatient (needs extensive pre-auth) - Continue Olanzapine 2.5mg PO/IM PRN for agitation/aggression (3) Diabetes: Last A1c was 6.5% in 07/2018. - Sliding scale insulin - Continue to monitor - controlled (4) Atrial fibrillation: Patient presently in NSR. - Continue Eliquis at home dose (5) Parkinson disease: Chronic. Previously followed by Dr. Sidhu as outpatient. Continue Carbidopa/Levodopa at home dosage. Appreciate neuro consultation. (6) CAD (coronary artery disease): Chronic. Stable. Continue ASA, statin (7) Hypothyroid: Chronic. TSH WNL. Continue Synthroid. She has been taking it PO on most days. (8) RLS (restless legs syndrome): Chronic No issues (9) DVT prophylaxis: Apixaban cont IV fluids due to anorexia hopefully we can make progress next few days consider [facility]-psych unit?? Subjective patient indeed slept last night -- only needed 5mg of zyprexa at HS. did not require PRN zyprexa. this am did not eat any breakfast. she was wide awake during my encounter. she had pulled off all the covers and was naked when I entered the room. I attempted to put the bedsheets on her to give her privacy and she immediately wanted them off. she was actively hallucinating during my visit - pointing towards the curtain and talking about "people over there." she would grab the guardrails of the bed and shake them. when I asked her why she was shaking the bed she could not tell me. she asked me several times to "go away" and then several times she said "I need your help - I want to feel better". could not tell me why she was here or where she was. Review of Systems Review of Systems: Unobtainable due to mental health condition and Unobtainable due to cognitive status Physical Exam Constitutional: + altered mental status; no acute distress awake/alert during the visit but VERY confused ENMT: external ear and nose normal, oropharynx normal Respiratory: normal respiratory effort, lungs clear to auscultation Cardiovascular: Rate/Rhythm: regular rate and regular rhythm Heart Sounds: normal S1 and normal S2; no murmur Vessels: posterior tibial pulses present and dorsalis pedis pulses present; no JVD Gastrointestinal (Abdomen): normal bowel sounds, soft, nontender, no hepatosplenomegaly Neurologic: no focal motor deficits (moving all 4 limbs equally; no facial droop; no aphasia/dysarthria) Motor/Sensory: + tremor (facial muscles ) Psychiatric: Orientation: alert and oriented to person; + not oriented to place and + not oriented to time Results & Data Vital Signs (Past 12 Hours) Vital Signs Temp Pulse Resp BP Pulse Ox 09/11/18 15:59 37.7 C H 85 18 118/73 94 Laboratory Results Laboratory Results - last 24 hr 09/11/18 09/11/18 09/11/18 07:46 11:44 16:59 POC Glucose 98 98 139 H (1) Diabetes Diabetes mellitus complication status: without complication Diabetes mellitus penitentiary insulin use: without sanitation lead use Diabetes mellitus type: type 2 Qualified Code(s): E11.9 - Type 2 diabetes mellitus without complications (2) CAD (coronary artery disease) Associated angina: without angina Coronary Disease-Associated Artery/Lesion type: [place] artery [place] vs. transplanted heart: [place] heart Qualified Code(s): I25.10 - Atherosclerotic heart disease of [place] coronary artery without angina pectoris (3) Atrial fibrillation Atrial fibrillation type: unspecified Qualified Code(s): I48.91 - Unspecified atrial fibrillation (4) Hypothyroid Hypothyroidism type: unspecified Qualified Code(s): E03.9 - Hypothyroidism, unspecified (5) Altered mental status Altered mental status type: unspecified Qualified Code(s): R41.82 - Altered mental status, unspecified
[2018-09-11] MEDS: SIMVASTATIN 40 MG TAB PO SCH (20:42)
[2018-09-11] MEDS: OLANZapine 5 MG TABLET PO SCH (20:43)
[2018-09-11] MEDS: LORazepam 0.5 MG TAB PO SCH (20:44)
[2018-09-12] MEDS: LEVOTHYROXINE SODIUM 75 MCG TABLET PO SCH (06:05)
[2018-09-12 07:18] LABS: Basophils # (auto) 0.01 K/uL (0-0.2); Basophils % (auto) 0.1 %; Eosinophils # (auto) 0.04 K/uL (0-0.5); Eosinophils % (auto) 0.5 %; Hematocrit (blood only) 43.8 % (37-47); Hemoglobin 14.5 g/dL (12.0-16.0); Immature Granulocytes # (auto) 0.01 K/uL (0.00-0.02); Immature Granulocytes % (auto) 0.1 %; Lymphocytes # (auto) 1.95 K/uL (1.2-3.4); Lymphocytes % (auto) 25.2 %; Mean Corpuscular Hgb Conc 33.1 g/dL (32-36); Mean Corpuscular Volume 92.8 fL (80-100); Mean Platelet Volume 10.4 fL (7.4-10.4); Monocytes # (auto) 0.71 K/uL (0.11-0.59); Monocytes % (auto) 9.2 %; Neutrophils # (auto) 5.02 K/uL (1.4-6.5); Neutrophils % (auto) 64.9 %; Platelet Count 164 K/uL (130-400); RDW Coefficient of Variation 14.6 % (11.5-14.5); RDW Standard Deviation 49.5 fL (36.4-46.3); Red Blood Count 4.72 M/uL (4.2-5.4); White Blood Count 7.74 K/uL (4.8-10.8)
[2018-09-12 07:52] LABS: BUN Creatinine Ratio 52.2 (10-20); Calcium 9.2 mg/dl (8.5-10.1); Creatinine Clr Calc Pharmacy 57.7 ml/min; Est GFR (African American) 92.3; Est GFR (Non-African American) 79.7; Potassium 3.6 mmol/L (3.5-5.1)
[2018-09-12 08:09] LABS: Lyme Ab IgG w/WB Rflx Negative (Negative); Lyme Ab IgM w/WB Rflx Negative (Negative)
[2018-09-12] MEDS: CARBIDOPA/LEVODOPA 25-250 1 EA TAB PO SCH ×4 (08:27→20:53)
[2018-09-12] MEDS: VENLAFAXINE HCL XR 150 MG CAPXR PO SCH (08:27)
[2018-09-12] MEDS: MAGNESIUM OXIDE 400 MG TAB PO SCH (08:27)
[2018-09-12] MEDS: APIXABAN 5 MG TABLET PO SCH ×2 (08:29→20:53)
[2018-09-12] MEDS: POLYETHYLENE (MIRALAX) 17 GM PACK PO SCH (08:33)
[2018-09-12] MEDS: ASPIRIN 81 MG CHEW PO SCH (08:33)
[2018-09-12] MEDS: ARTIFICIAL TEARS OPB SCH (08:37)
[2018-09-12] MEDS: INSULIN ASPART 100 UNITS/ML 3 ML PEN SC SCH ×4 (10:38→20:58)
--- NOTE | 2018-09-12 10:57 | Psychiatric Progress Note ---
Date of Service September 12, 2018 Impression / Recommendations Impression Galina is a 78 year old female with a past medical history of parkinsons dementia, and anxiety that we are following up on due to hospitalists concern for aggressive behavior at her personal [facility]. It seems as if the patient has had episodic episodes of agitation/delireum on a bacground of her parkinsons dementia. Conservative measures such as frequent orientation, familiar faces and keeping the patient active during the day are important in order to ensure the patient doesn't have worsening psychotic symptoms. Making sure she doesn't sleep during the day and that the blinds are open will be important in developing a routine schedule for the patient. She has been on zyprexa 5mg qhs while in the hospital and had her ativan decreased to 0.25mg qhs yesterday evening. Today she appears to be doing much better. She is orientated to person and time but not place. The majority of her speech is difficult to understand but she seems to be cooperating with nursing staff and has not been aggressive this morning. At this point our recommendations would be to continue the zyprexa at 5mg qhs with a plan to wean off this medication at the nursing facility she lives at. We would also suggest stopping the ativan prior to discharge. She can continue all her other psychiatric medications at this point. Further discussion between case management, the patients son and elke lynne needs to be had in order to decide what level of care the patient will require upon discharge. I discussed the case with Dr. Hodge whom helped in coordinating the patients care plan. Interval History Identifying Information 78-year-old female admitted medically on 09/05/18 due to altered mental status with increased confusion over the past 2-3 weeks. Pt has reportedly had several ED visits due to anxiety/SOB and was admitted the end of July with dysphagia. Psychiatric consultation is requested to address "agitation." Information is gathered from documentation, but history provided by patient is limited and not clearly reliable. Chief Complaint "We need to figure all of this out". Review of Systems Notes Patient denies any depressive symptoms, anxiety symptoms, hallucinations, insomnia, difficulty breathing Subjective Subjective Patient was seen at the bedside this morning. According to nursing staff she slept well through the night but did press the alarm intermittently without any acute complaints. She did walk around the room today and was able to use the washroom without any difficulty. She also cut up her pancakes and ate most of h er breakfast. She is orientated to person and and time but not place. Otherwise her speech was difficult to understand; however she did re-iterate the importance of not wanting to be a burden to her siblings. Physical Exam Mental Examination Appearance: Well Groomed Eye Contact: Maintains Eye Contact Motor Behavior: Tremulous Speech: Soft and Incoherent Mood: Euthymic Affect: Nervous Thought Process: Disoriented and Incoherent Hallucinations: None Insight: Poor Judgement: Poor Vital Signs (Past 24 Hours) Last Vital Signs Temp 36.9 C 09/12/18 06:15 Pulse 73 09/12/18 06:15 Resp 18 09/12/18 06:15 BP 125/68 09/12/18 06:15 Pulse Ox 96 09/12/18 06:15 Results & Data Laboratory Results Laboratory Results - last 24 hr 09/11/18 09/11/18 09/11/18 11:44 16:59 20:25 WBC RBC Hgb Hct MCV MCH MCHC RDW Std Deviation RDW Coeff of [place] Plt Count MPV Immature Gran % (Auto) Neut % (Auto) Lymph % (Auto) [place] % (Auto) Eos % (Auto) Baso % (Auto) Immature Gran # (Auto) Neut # (Auto) Lymph # (Auto) [place] # (Auto) Eos # (Auto) Baso # (Auto) ESR Sodium Potassium Chloride Carbon Dioxide Anion Gap BUN Creatinine Est Cr Clr Drug Dosing Est GFR ( Amer) Est GFR (Non-Af Amer) BUN/Creatinine Ratio Glucose POC Glucose 98 139 H 148 H Calcium Whole Bld Vitamin B1 Lyme Disease IgG Ab Lyme Disease IgM Ab 09/12/18 09/12/18 09/12/18 06:53 06:53 06:53 WBC 7.74 RBC 4.72 Hgb 14.5 Hct 43.8 MCV 92.8 MCH 30.7 MCHC 33.1 RDW Std Deviation 49.5 H RDW Coeff of [place] 14.6 H Plt Count 164 MPV 10.4 Immature Gran % (Auto) 0.1 Neut % (Auto) 64.9 Lymph % (Auto) 25.2 [place] % (Auto) 9.2 Eos % (Auto) 0.5 Baso % (Auto) 0.1 Immature Gran # (Auto) 0.01 Neut # (Auto) 5.02 Lymph # (Auto) 1.95 [place] # (Auto) 0.71 H Eos # (Auto) 0.04 Baso # (Auto) 0.01 ESR 15 Sodium 147 H Potassium 3.6 Chloride 113 H Carbon Dioxide 28 Anion Gap 6.0 BUN 38 H Creatinine 0.72 Est Cr Clr Drug Dosing 57.7 Est GFR ( Amer) 92.3 Est GFR (Non-Af Amer) 79.7 BUN/Creatinine Ratio 52.2 H Glucose 149 H POC Glucose Calcium 9.2 Whole Bld Vitamin B1 Lyme Disease IgG Ab Lyme Disease IgM Ab 09/12/18 09/12/18 09/12/18 06:53 06:53 08:26 WBC RBC Hgb Hct MCV MCH MCHC RDW Std Deviation RDW Coeff of [place] Plt Count MPV Immature Gran % (Auto) Neut % (Auto) Lymph % (Auto) [place] % (Auto) Eos % (Auto) Baso % (Auto) Immature Gran # (Auto) Neut # (Auto) Lymph # (Auto) [place] # (Auto) Eos # (Auto) Baso # (Auto) ESR Sodium Potassium Chloride Carbon Dioxide Anion Gap BUN Creatinine Est Cr Clr Drug Dosing Est GFR ( Amer) Est GFR (Non-Af Amer) BUN/Creatinine Ratio Glucose POC Glucose 155 H Calcium Whole Bld Vitamin B1 Pending Lyme Disease IgG Ab Negative Lyme Disease IgM Ab Negative Current Inpatient Medications Current Inpatient Medications: Current Inpatient Medications Acetaminophen (Tylenol) 650 mg PO Q4H PRN PRN Reason: pain/fever Stop: 10/05/18 18:52 Apixaban (Eliquis) 5 mg PO BID [facility] Stop: 10/05/18 20:59 Last Admin: 09/12/18 08:29 Dose: 5 mg Documented by: Artificial Tears (Artificial Tears) 2 drops OPB [facility] Stop: 10/06/18 08:59 Last Admin: 09/12/18 08:37 Dose: 2 drops Documented by: Aspirin (Aspirin Chew) 81 [facility] Stop: 10/06/18 08:59 Last Admin: 09/12/18 08:33 Dose: 81 mg Documented by: Buspirone HCl (Buspar) 10 mg PO BID [facility] Stop: 10/07/18 20:59 Last Admin: 09/12/18 08:27 Dose: 10 mg Documented by: Carbidopa/Levodopa (Sinemet 25/250mg) 1 tab PO QID [facility] Stop: 10/06/18 18:29 Last Admin: 09/12/18 08:27 Dose: 1 tab Documented by: Dextrose (Dextrose 50%) 25 - 50 ml IV UD PRN; Protocol PRN Reason: Hypoglycemia Protocol Stop: 10/05/18 18:52 Docusate Sodium (Colace) 100 mg PO BID [facility] Stop: 10/05/18 20:59 Last Admin: 09/11/18 20:46 Dose: Not Given Documented by: Glucagon (Glucagen) 1 mg SQ UD PRN; Protocol PRN Reason: Hypoglycemia Protocol Stop: 10/05/18 18:52 Glucose (Glucose 40%) 15 - 30 gm PO UD PRN; Protocol PRN Reason: Hypoglycemia Protocol Stop: 10/05/18 18:52 Glucose (Dex4 Glucose) 4 - 8 tabs PO UD PRN; Protocol PRN Reason: Hypoglycemia Protocol Stop: 10/05/18 18:52 Potassium Chloride/Dextrose/Sod Cl (D5w And 1/2nss + 20meq Kcl) 20 meq in 1,000 mls @ 80 mls/hr IV .[id number] [facility] Stop: 10/12/18 10:29 Insulin Aspart (Novolog Flexpen) 0 units SC ACHS [facility] Stop: 10/05/18 20:59 Last Admin: 09/12/18 10:38 Dose: Not Given Documented by: Levothyroxine Sodium (Synthroid) 75 mcg PO DAILYBB [facility] Stop: 10/06/18 06:29 Last Admin: 09/12/18 06:05 Dose: 75 mcg Documented by: Lorazepam (Ativan) 0.25 mg PO HS [facility] Stop: 10/11/18 20:59 Last Admin: 09/11/18 20:44 Dose: 0.25 mg Documented by: Magnesium Oxide (Mag-Ox) 400 mg PO QAM [facility] Stop: 10/06/18 08:59 Last Admin: 09/12/18 08:27 Dose: 400 mg Documented by: Miscellaneous (Carbohydrates For Hypoglycemia) 15 - 30 gm PO UD PRN PRN Reason: Hypoglycemia Treatment Stop: 10/05/18 18:52 Olanzapine (Zyprexa) 2.5 mg PO Q6H PRN PRN Reason: Anxiety/Agitation Stop: 10/07/18 10:14 Last Admin: 09/09/18 20:15 Dose: 2.5 mg Documented by: Olanzapine (Zyprexa) 2.5 mg IM Q4H PRN PRN Reason: Anxiety/Agitation Stop: 10/08/18 17:15 Last Admin: 09/10/18 02:19 Dose: 2.5 mg Documented by: Olanzapine (Zyprexa) 5 mg PO [facility] Stop: 10/10/18 20:59 Last Admin: 09/11/18 20:43 Dose: 5 mg Documented by: Polyethylene Glycol (Miralax Powder Packet) 17 gm PO [facility] Stop: 10/06/18 08:59 Last Admin: 09/12/18 08:33 Dose: 17 gm Documented by: Simvastatin (Zocor) 40 mg PO [facility] Stop: 10/05/18 20:59 Last Admin: 09/11/18 20:42 Dose: 40 mg Documented by: Venlafaxine HCl (Effexor Extended Release) 150 mg PO [facility] Stop: 10/06/18 08:59 Last Admin: 09/12/18 08:27 Dose: 150 mg Documented by: CPT Code CPT Code [id number]
[2018-09-12] MEDS: D5W AND 1/2NSS + 20MEQ KCL 20 MEQ/1,000 ML BAG IV SCH (13:11)
[2018-09-12] MEDS: DOCUSATE SODIUM 100 MG CAP PO SCH ×2 (13:14→21:04)
--- NOTE | 2018-09-12 20:33 | Hospitalist Progress Note ---
Date of Service September 12, 2018 Assessment & Plan (1) Altered mental status: MARKED IMPROVEMENT WITH 2 NIGHTS OF CONSECUTIVE SLEEP AND SCHEDULED HS ZYPREXA 5MG. Weaning her ativan at HS (now only getting 0.25mg HS). This may have been due to an underlying dementia process from her parkinson's disease with concomitant behavioral disturbance. Cannot rule out a delirium process in setting of dementia (or baseline cognitive impairment). hallucinations improved. Recent CT head w/o acute pathology. TSH, b12, ammonia all normal. ESR normal. Lyme's testing negative. B1 level sent; in meantime thiamine 200mg BID. I am pleased with her progress in the last 48 hours. (2) Anxiety: Chronic h/o anxiety, panic attacks -- in setting of parkinson's disease. Presented with delirium, aggression, etc leading to this admission. Appreciate psych and neurology consults. I don't see evidence of metabolic or infectious process contributing to clinical picture. To promote sleep and improve delirium I have scheduled zyprexa 5mg at HS. This has helped the last 2 nights. Review of PDMP shows long-standing use of ativan on daily basis at home. Normally would not advise ongoing ativan use but has been using it for years; thus, scheduled ativan at HS as this was how she was doing it at home according to MAR. Psych recommending cutting dose to 0.25mg at HS then ultimately weaning off entirely. Cont buspar,effexor. Ropinirole has been stopped. (3) Diabetes: Last A1c was 6.5% in 07/2018. - Sliding scale insulin - Continue to monitor - controlled even despite use of dextrose-containing fluids (4) Atrial fibrillation: Patient presently in NSR. - Continue Eliquis at home dose (5) Parkinson disease: Chronic. Previously followed by Dr. Sidhu as outpatient. Continue Carbidopa/Levodopa at home dosage. Appreciate neuro consultation. (6) CAD (coronary artery disease): Chronic. Stable. Continue ASA, statin (7) Hypothyroid: Chronic. TSH WNL. Continue Synthroid. (8) RLS (restless legs syndrome): Chronic No issues (9) DVT prophylaxis: Apixaban cont IV fluids due to dehydration repeat BMP am son updated by phone again this evening Subjective Pt slept well again for the 2nd night in a row. Did NOT need PRN zyprexa -- just scheduled zyprexa at . When I entered the room she said hello. She apparently had eaten breakfast. She has been calm and cooperative. She knew she was in the hospital. Denied any hallucinations. Still some mild confusion however. Denied any chest pain, abd pain or other complaints. Staff reported she wanted to get up and walk today. Review of Systems Constitutional: + weakness and + increased appetite Respiratory: no cough Cardiovascular: no chest pain Gastrointestinal: no abdominal pain and no nausea Physical Exam Constitutional: well developed and well nourished; no acute distress MARKED IMPROVEMENT IN AWAKEFULNESS AND ORIENTATION ! ENMT: external ear and nose normal, oropharynx normal Respiratory: normal respiratory effort, lungs clear to auscultation Cardiovascular: Rate/Rhythm: regular rate and regular rhythm Heart Sounds: normal S1 and normal S2; no murmur Vessels: posterior tibial pulses present and dorsalis pedis pulses present; no JVD Gastrointestinal (Abdomen): normal bowel sounds, soft, nontender, no hepatosplenomegaly Neurologic: no focal motor deficits (5/5 X 4 EXTS) Motor/Sensory: + tremor (facial muscles ) Psychiatric: Orientation: alert, oriented to person and oriented to place; + not oriented to time Results & Data Vital Signs (Past 12 Hours) Vital Signs Temp Pulse Resp BP Pulse Ox 09/12/18 16:33 36.5 C 72 16 109/70 91 Laboratory Results Laboratory Results - last 24 hr 09/12/18 09/12/18 09/12/18 06:53 06:53 06:53 WBC 7.74 RBC 4.72 Hgb 14.5 Hct 43.8 MCV 92.8 MCH 30.7 MCHC 33.1 RDW Std Deviation 49.5 H RDW Coeff of Beverly 14.6 H Plt Count 164 MPV 10.4 Immature Gran % (Auto) 0.1 Neut % (Auto) 64.9 Lymph % (Auto) 25.2 [place] % (Auto) 9.2 Eos % (Auto) 0.5 Baso % (Auto) 0.1 Immature Gran # (Auto) 0.01 Neut # (Auto) 5.02 Lymph # (Auto) 1.95 [place] # (Auto) 0.71 H Eos # (Auto) 0.04 Baso # (Auto) 0.01 ESR 15 Sodium 147 H Potassium 3.6 Chloride 113 H Carbon Dioxide 28 Anion Gap 6.0 BUN 38 H Creatinine 0.72 Est Cr Clr Drug Dosing 57.7 Est GFR ( Amer) 92.3 Est GFR (Non-Af Amer) 79.7 BUN/Creatinine Ratio 52.2 H Glucose 149 H POC Glucose Calcium 9.2 Whole Bld Vitamin B1 Lyme Disease IgG Ab Lyme Disease IgM Ab 09/12/18 09/12/18 09/12/18 06:53 06:53 08:26 WBC RBC Hgb Hct MCV MCH MCHC RDW Std Deviation RDW Coeff of [place] Plt Count MPV Immature Gran % (Auto) Neut % (Auto) Lymph % (Auto) [place] % (Auto) Eos % (Auto) Baso % (Auto) Immature Gran # (Auto) Neut # (Auto) Lymph # (Auto) [place] # (Auto) Eos # (Auto) Baso # (Auto) ESR Sodium Potassium Chloride Carbon Dioxide Anion Gap BUN Creatinine Est Cr Clr Drug Dosing Est GFR ( Amer) Est GFR (Non-Af Amer) BUN/Creatinine Ratio Glucose POC Glucose 155 H Calcium Whole Bld Vitamin B1 Pending Lyme Disease IgG Ab Negative Lyme Disease IgM Ab Negative 09/12/18 09/12/18 12:12 17:34 WBC RBC Hgb Hct MCV MCH MCHC RDW Std Deviation RDW Coeff of [place] Plt Count MPV Immature Gran % (Auto) Neut % (Auto) Lymph % (Auto) [place] % (Auto) Eos % (Auto) Baso % (Auto) Immature Gran # (Auto) Neut # (Auto) Lymph # (Auto) [place] # (Auto) Eos # (Auto) Baso # (Auto) ESR Sodium Potassium Chloride Carbon Dioxide Anion Gap BUN Creatinine Est Cr Clr Drug Dosing Est GFR ( Amer) Est GFR (Non-Af Amer) BUN/Creatinine Ratio Glucose POC Glucose 109 H 104 H Calcium Whole Bld Vitamin B1 Lyme Disease IgG Ab Lyme Disease IgM Ab (1) Diabetes Diabetes mellitus complication status: without complication Diabetes mellitus retirement insulin use: without retirement use Diabetes mellitus type: type 2 Qualified Code(s): E11.9 - Type 2 diabetes mellitus without complications (2) CAD (coronary artery disease) Associated angina: without angina Coronary Disease-Associated Artery/Lesion type: [place] artery [place] vs. transplanted heart: [place] heart Qualified Code(s): I25.10 - Atherosclerotic heart disease of [place] coronary artery without angina pectoris (3) Atrial fibrillation Atrial fibrillation type: unspecified Qualified Code(s): I48.91 - Unspecified atrial fibrillation (4) Hypothyroid Hypothyroidism type: unspecified Qualified Code(s): E03.9 - Hypothyroidism, unspecified (5) Altered mental status Altered mental status type: unspecified Qualified Code(s): R41.82 - Altered mental status, unspecified
[2018-09-12] MEDS: LORazepam 0.5 MG TAB PO SCH (20:52)
[2018-09-12] MEDS: SIMVASTATIN 40 MG TAB PO SCH (20:54)
[2018-09-12] MEDS: OLANZapine 5 MG TABLET PO SCH (20:55)
[2018-09-12] MEDS: THIAMINE HCL 100 MG TAB PO SCH (21:20)
[2018-09-13] MEDS: D5W AND 1/2NSS + 20MEQ KCL 20 MEQ/1,000 ML BAG IV SCH ×2 (01:19→14:38)
[2018-09-13] MEDS: LEVOTHYROXINE SODIUM 75 MCG TABLET PO SCH (05:59)
[2018-09-13 07:07] LABS: BUN Creatinine Ratio 41.6 (10-20); Calcium 8.5 mg/dl (8.5-10.1); Creatinine Clr Calc Pharmacy 58.5 ml/min; Est GFR (African American) 93.9; Potassium 3.5 mmol/L (3.5-5.1)
[2018-09-13] MEDS: INSULIN ASPART 100 UNITS/ML 3 ML PEN SC SCH ×4 (09:41→20:21)
--- NOTE | 2018-09-13 14:11 | XRay Report ---
KUB HISTORY: abd distension; fecal impaction/constipation? COMPARISON: Chest and abdominal series 09/05/2017. FINDINGS: The bowel gas pattern is unremarkable. There are no dilated loops of small bowel to suggest an obstruction. No renal calculi. No ureteral calculi. Calcifications in the deep pelvis likely rep resent phleboliths. Punctate metallic density in the right lateral midabdomen. This remains unchanged . Small amount of well-formed stool seen within the colon. No pneumoperitoneum or pneumatosis. IMPRESSION: 1. No evidence for bowel obstruction. 2. Small amount of well-formed stool within the colon. Electronically signed by: Phil Ritchie M.D. 09/13/2018 2:10 PM
[2018-09-13] MEDS: ARTIFICIAL TEARS OPB SCH (14:35)
[2018-09-13] MEDS: DOCUSATE SODIUM 100 MG CAP PO SCH ×2 (14:35→20:23)
[2018-09-13] MEDS: ASPIRIN 81 MG CHEW PO SCH (14:35)
[2018-09-13] MEDS: VENLAFAXINE HCL XR 150 MG CAPXR PO SCH (14:35)
[2018-09-13] MEDS: MAGNESIUM OXIDE 400 MG TAB PO SCH (14:36)
[2018-09-13] MEDS: APIXABAN 5 MG TABLET PO SCH ×2 (14:36→20:23)
[2018-09-13] MEDS: CARBIDOPA/LEVODOPA 25-250 1 EA TAB PO SCH ×4 (14:36→20:24)
[2018-09-13] MEDS: POLYETHYLENE (MIRALAX) 17 GM PACK PO SCH (14:36)
[2018-09-13] MEDS: THIAMINE HCL 100 MG TAB PO SCH ×2 (14:36→20:24)
[2018-09-13] MEDS: ACETAMINOPHEN 325 MG TAB PO PRN (15:14)
[2018-09-13] MEDS: SENNA 8.6 MG TAB PO SCH (17:45)
[2018-09-13] MEDS: LORazepam 0.5 MG TAB PO SCH (20:23)
[2018-09-13] MEDS: SIMVASTATIN 40 MG TAB PO SCH (20:24)
[2018-09-13] MEDS: OLANZapine 5 MG TABLET PO SCH (20:39)
--- NOTE | 2018-09-13 21:44 | Hospitalist Progress Note ---
Date of Service September 13, 2018 Assessment & Plan (1) Altered mental status: Last 3 nights she has slept soundly all night w/o needing any PRN antipsychotics. She is not as oriented today but still awake and NOT combative or as agitated as seen earlier this stay. Will continue the zyprexa 5mg at HS. Cont ativan HS but attempting to wean off. Recent CT head w/o acute pathology. TSH, b12, ammonia all normal. ESR normal. Lyme's testing negative. B1 level sent; in meantime thiamine 200mg BID. No obvious infectious issue found. Consider MRI brain to r/o subacute strokes, etc. Etiology -- parkinson's disease with baseline dementia and now superimposed delirium? other? Cont supportive care. Appreciate neurology and psych evaluations/recommendations. (2) Anxiety: Chronic h/o anxiety, panic attacks -- in setting of parkinson's disease. Presented with delirium, aggression, etc leading to this admission. I don't see evidence of metabolic or infectious process contributing to clinical picture. To promote sleep and improve delirium she continues with scheduled zyprexa 5mg at HS. Review of PDMP shows long-standing use of ativan on daily basis at home. Normally would not advise ongoing ativan use but has been using it for years; thus, scheduled ativan at HS as this was how she was doing it at home according to MAR. Psych recommending cutting dose to 0.25mg at HS then ultimately weaning off entirely. Cont buspar and effexor. Ropinirole has been stopped. (3) Diabetes: Last A1c was 6.5% in 07/2018. - Sliding scale insulin - Continue to monitor - controlled even despite use of dextrose-containing fluids (4) Atrial fibrillation: Patient presently in NSR. - Continue Eliquis at home dose (5) Parkinson disease: Chronic. Previously followed by Dr. Sidhu as outpatient. Continue Carbidopa/Levodopa at home dosage. Appreciate neuro consultation. Now with altered MS -- see above. (6) CAD (coronary artery disease): Chronic. Stable. Continue ASA, statin (7) Hypothyroid: Chronic. TSH WNL. Continue Synthroid. (8) RLS (restless legs syndrome): Chronic No issues (9) Anorexia: ongoing. ate better yesterday; today not as good. cont IV fluids. BMP am. consider low-dose prednisone for appetite stimulation but this could potentially make mental status worse. obtained x-ray of abdomen today to r/o impaction/severe constipation - this was not seen. recent u/a negative for UTI. suspect appetite issues are due to altered MS. follow. (10) DVT prophylaxis: Apixaban cont IV fluids due to dehydration repeat BMP am son updated by phone yesterday he is to visit her MONDAY Subjective checked on patient twice today. AM rounds -- very sleepy, but would answer questions (with eyes closed). She was talking about "[place] class of '58...". Rambling about various people. Denied any complaints but difficult to obtain ROS. Staff report she slept ALL night. Saw her late evening about 1829. Apparently w/ poor appetite today. She was awake, alert. She said "I think I am confused. But I'm in the hospital. God will take care of everything." Review of Systems Review of Systems: Unobtainable due to mental health condition and Unobtainable due to cognitive status Physical Exam Constitutional: well developed and well nourished; no acute distress ENMT: external ear and nose normal, oropharynx normal Respiratory: normal respiratory effort, lungs clear to auscultation Cardiovascular: Rate/Rhythm: regular rate and regular rhythm Heart Sounds: normal S1 and normal S2; no murmur Vessels: posterior tibial pulses present and dorsalis pedis pulses present; no JVD Gastrointestinal (Abdomen): normal bowel sounds, soft, nontender, no hepatosplenomegaly Neurologic: no focal motor deficits (5/5 X 4 EXTS) Motor/Sensory: + tremor (facial muscles and arms) Psychiatric: Orientation: alert, oriented to person and oriented to place; + not oriented to time Results & Data Vital Signs (Past 12 Hours) Vital Signs Temp Pulse Resp BP Pulse Ox 09/13/18 15:17 36.8 C 67 18 174/70 H 96 Laboratory Results Laboratory Results - last 24 hr 09/13/18 09/13/18 09/13/18 05:54 08:09 12:02 Sodium 144 Potassium 3.5 Chloride 110 H Carbon Dioxide 30 Anion Gap 4.0 BUN 29 H Creatinine 0.71 Est Cr Clr Drug Dosing 58.5 Est GFR ( Amer) 93.9 Est GFR (Non-Af Amer) 81.0 BUN/Creatinine Ratio 41.6 H Glucose 121 H POC Glucose 122 H 125 H Calcium 8.5 09/13/18 09/13/18 17:01 20:11 Sodium Potassium Chloride Carbon Dioxide Anion Gap BUN Creatinine Est Cr Clr Drug Dosing Est GFR ( Amer) Est GFR (Non-Af Amer) BUN/Creatinine Ratio Glucose POC Glucose 133 H 136 H Calcium (1) Diabetes Diabetes mellitus complication status: without complication Diabetes mellitus salvage determiner insulin use: without correction use Diabetes mellitus type: type 2 Qualified Code(s): E11.9 - Type 2 diabetes mellitus without complications (2) CAD (coronary artery disease) Associated angina: without angina Coronary Disease-Associated Artery/Lesion type: [place] artery [place] vs. transplanted heart: [place] heart Qualified Code(s): I25.10 - Atherosclerotic heart disease of [place] coronary artery without angina pectoris (3) Atrial fibrillation Atrial fibrillation type: unspecified Qualified Code(s): I48.91 - Unspecified atrial fibrillation (4) Hypothyroid Hypothyroidism type: unspecified Qualified Code(s): E03.9 - Hypothyroidism, unspecified (5) Altered mental status Altered mental status type: unspecified Qualified Code(s): R41.82 - Altered mental status, unspecified
[2018-09-14] MEDS: D5W AND 1/2NSS + 20MEQ KCL 20 MEQ/1,000 ML BAG IV SCH (02:29)
[2018-09-14] MEDS: ACETAMINOPHEN 325 MG TAB PO PRN (02:41)
[2018-09-14] MEDS: LEVOTHYROXINE SODIUM 75 MCG TABLET PO SCH (05:37)
[2018-09-14 08:05] LABS: BUN Creatinine Ratio 21.5 (10-20); Est GFR (African American) 99.4; Est GFR (Non-African American) 85.8; Potassium 3.8 mmol/L (3.5-5.1)
[2018-09-14] MEDS: VENLAFAXINE HCL XR 150 MG CAPXR PO SCH (09:30)
[2018-09-14] MEDS: APIXABAN 5 MG TABLET PO SCH ×2 (09:31→20:36)
[2018-09-14] MEDS: CARBIDOPA/LEVODOPA 25-250 1 EA TAB PO SCH ×4 (09:32→20:36)
[2018-09-14] MEDS: MAGNESIUM OXIDE 400 MG TAB PO SCH (09:33)
[2018-09-14] MEDS: THIAMINE HCL 100 MG TAB PO SCH ×2 (09:33→20:37)
[2018-09-14] MEDS: ARTIFICIAL TEARS OPB SCH (09:45)
[2018-09-14] MEDS: DOCUSATE SODIUM 100 MG CAP PO SCH ×2 (09:45→20:54)
[2018-09-14] MEDS: ASPIRIN 81 MG CHEW PO SCH (09:45)
[2018-09-14] MEDS: POLYETHYLENE (MIRALAX) 17 GM PACK PO SCH (09:45)
[2018-09-14] MEDS: SENNA 8.6 MG TAB PO SCH (09:46)
[2018-09-14] MEDS: INSULIN ASPART 100 UNITS/ML 3 ML PEN SC SCH ×4 (09:50→20:53)
--- NOTE | 2018-09-14 12:53 | Psychiatric Progress Note ---
Date of Service September 14, 2018 Impression / Recommendations Impression 78-year-old female admitted medically on 09/05/18 for AMS. Initial psychiatric consultation completed on 09/06/18 to evaluate for "agitation". Pt has been seen for several follow-up visits since initial consultation. She has been receiving 5mg of olanzapine qHS and is reportedly sleeping through the night. Pt has received prn olanzapine 2.5mg as needed for agitation. Compliance with medication and PO intake has been limited, and is concerning as it is ongoing. Reviewed attending's consideration to discontinue buspirone, as this was the most recent medication adjustment prior to AMS. It is not clear if this is the main contributor to her current presentation; however, does not seem inappropriate to trail a period of time off the medication - especially as she is receiving scheduled olanzapine, with prns as needed. 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 We discussed possible benefit of scheduling a morning dose of olanzapine as well. Requested that EKG be repeated to check QTc prior to initiation of another scheduled dose (last checked 09/05/18). Could certainly consider adding 2.5mg qAM if no evidence of QTc prolongation. May also need to consider the possibility that her current presentation is a worsening of her chronic Parkinson's disease, and reversal of condition may be limited overall. Will leave discharge planning to family, case management, and primary team - however, with her current presentation, she is most appropriate for a locked dementia unit as opposed to a [facility] psych facility. Will continue to follow along and make recommendations as needed. Appreciate the opportunity to participate in the care of this patient. Dr. Korey William was directly involved in review and discussion of the patient's case and participated in medical decision making regarding treatment recommendations. Interval History Identifying Information 78-year-old female admitted medically on 09/05/18 due to altered mental status with increased confusion over the past 2-3 weeks. Pt has reportedly had several ED visits due to anxiety/SOB and was admitted the end of July with dysphagia. Psychiatric consultation is requested to address "agitation." Information is gathered from documentation, but history provided by patient is limited and not clearly reliable. Chief Complaint "Well, ok. It's nice to see you. I don't know, just a lot of time and dates and things to keep straight." Review of Systems Notes Pt did not verbalize any physical complaint, unable to reliably participate in a fully review of systems. Subjective Subjective Patient's case has been reviewed daily while following. Initial consultation completed on 09/06/18. Pt was last seen on 09/12/[address] Sams, [facility] and reviewed with Dr. Hodge, psychiatrist. This provider spoke with patient's attending physician this morning to discuss recent history obtained by patient's son. Son reported to attending that the patient began reporting feelings of "electric shock in my brain" to her son about 2-3 weeks ago. They had followed up with her outpatient psychiatrist who had started buspirone, now about 2 weeks ago. There is a question if medication adjustments may be contributing to patient's behavior and hallucinations. Son denied any visual or auditory hallucinations reported prior to the past few weeks. It is now reported by attending that the patient is experiencing olfactory hallucinations as well. Possible medication adjustments were reviewed with attending, who is considering discontinuation of buspirone, given it was most recently added. We also discussed the possible need for a scheduled morning dose of olanzapine as well. Pt has reportedly been sleeping better. She is reported to be alert and oriented, but otherwise remains confused. This provider requested a repeat EKG, and offered to follow-up with the patient in person as well. Upon my assessment, the patient is alert, spinning her water jug and staring into it. Pt was pleasant, immediately requesting this provider's name so she could find it in the jug. Pt was asked how she has been doing and states, "we'll just leave that up to the next committee. She is unable to participate in a productive interview. Attempted to assess sleep and appetite, but patient is unable to provide reliable history. Pt was asked if she was seeing odd things other than names in her water, and states, "well yeah, but they're ok if they want to stay in suit." Pt denies specific needs at this time. Attempted to determine orientation to person/place/time - she states she knows her name, but this provider must ask the committee to be told. Further questioning is not productive. Physical Exam Psychiatric Orientation: alert Orientation uncertain at this time, stated she knew her name but would not share. Unable to maintain attention to participate in further questioning. Apperance: appropriately dressed (in hospital gown) and appropriately groomed Eye Contact: + fair eye contact (occasionally looking up from water jug, which she's looking at for "names") Motor Behavior: + tremor (full body tremor visualized) Speech: normal rate/rhythm/volume of speech Affect: + blunted affect (does not appear overtly depressed) "Well, we'll take that to the committee and they can decide on that" Thought Process: + looseness of associations; + thought process not goal directed, + thought process not linear or logical and + thought process not clear or coherent Thought Content: + preoccupation (with finding names in her water jug); not paranoid Suicidal Thoughts: denies suicidal thoughts Homicidal Thoughts: denies homicidal thoughts Hallucinations: + visual hallucinations (seeing names in her water jug, admits to others but does not describe) Cognition: + remote memory not intact, + attention not intact and + language not intact Estimated Intelligence: consistent with education level Insight: + severely impaired insight Judgement: + severely impaired judgement Vital Signs (Past 24 Hours) Last Vital Signs Temp 37.0 C 09/14/18 07:53 Pulse 78 09/14/18 07:53 Resp 16 09/14/18 07:53 BP 144/64 H 09/14/18 07:53 Pulse Ox 97 09/14/18 07:53 Results & Data Laboratory Results Laboratory Results - last 24 hr 09/13/18 09/13/18 09/14/18 17:01 20:11 07:10 Sodium 144 Potassium 3.8 Chloride 112 H Carbon Dioxide 27 Anion Gap 5.0 BUN 13 D Creatinine 0.62 Est Cr Clr Drug Dosing 67.0 Est GFR ( Amer) 99.4 Est GFR (Non-Af Amer) 85.8 BUN/Creatinine Ratio 21.5 H Glucose 139 H POC Glucose 133 H 136 H Calcium 9.0 09/14/18 08:14 Sodium Potassium Chloride Carbon Dioxide Anion Gap BUN Creatinine Est Cr Clr Drug Dosing Est GFR ( Amer) Est GFR (Non-Af Amer) BUN/Creatinine Ratio Glucose POC Glucose 121 H Calcium Current Inpatient Medications Current Inpatient Medications: Current Inpatient Medications Acetaminophen (Tylenol) 650 mg PO Q4H PRN PRN Reason: pain/fever Stop: 10/05/18 18:52 Last Admin: 09/14/18 02:41 Dose: 650 mg Documented by: Apixaban (Eliquis) 5 mg PO BID [facility] Stop: 10/05/18 20:59 Last Admin: 09/14/18 09:31 Dose: 5 mg Documented by: Artificial Tears (Artificial Tears) 2 drops [facility] Stop: 10/06/18 08:59 Last Admin: 09/14/18 09:45 Dose: 2 drops Documented by: Aspirin (Aspirin Chew) 81 mg PO QAM [facility] Stop: 10/06/18 08:59 Last Admin: 09/14/18 09:45 Dose: Not Given Documented by: Carbidopa/Levodopa (Sinemet 25/250mg) 1 tab PO QID [facility] Stop: 10/06/18 18:29 Last Admin: 09/14/18 12:47 Dose: 1 tab Documented by: Dextrose (Dextrose 50%) 25 - 50 ml IV UD PRN; Protocol PRN Reason: Hypoglycemia Protocol Stop: 10/05/18 18:52 Docusate Sodium (Colace) 100 mg PO BID [facility] Stop: 10/05/18 20:59 Last Admin: 09/14/18 09:45 Dose: Not Given Documented by: Glucagon (Glucagen) 1 mg SQ UD PRN; Protocol PRN Reason: Hypoglycemia Protocol Stop: 10/05/18 18:52 Glucose (Glucose 40%) 15 - 30 gm PO UD PRN; Protocol PRN Reason: Hypoglycemia Protocol Stop: 10/05/18 18:52 Glucose (Dex4 Glucose) 4 - 8 tabs PO UD PRN; Protocol PRN Reason: Hypoglycemia Protocol Stop: 10/05/18 18:52 Potassium Chloride/Dextrose/Sod Cl (D5w And 1/2nss + 20meq Kcl) 20 meq in 1,000 mls @ 80 mls/hr IV .[id number] [facility] Stop: 10/12/18 12:44 Last Infusion: 09/14/18 09:54 Dose: 0 mls/hr Documented by: Insulin Aspart (Novolog Flexpen) 0 units SC ACHS [facility] Stop: 10/05/18 20:59 Last Admin: 09/14/18 09:50 Dose: Not Given Documented by: Levothyroxine Sodium (Synthroid) 75 mcg PO DAILYBB [facility] Stop: 10/06/18 06:29 Last Admin: 09/14/18 05:37 Dose: 75 mcg Documented by: Lorazepam (Ativan) 0.25 mg PO [facility] Stop: 10/11/18 20:59 Last Admin: 09/13/18 20:23 Dose: Not Given Documented by: Magnesium Oxide (Mag-Ox) 400 mg PO QAM [facility] Stop: 10/06/18 08:59 Last Admin: 09/14/18 09:33 Dose: 400 mg Documented by: Miscellaneous (Carbohydrates For Hypoglycemia) 15 - 30 gm PO UD PRN PRN Reason: Hypoglycemia Treatment Stop: 10/05/18 18:52 Olanzapine (Zyprexa) 2.5 mg PO Q6H PRN PRN Reason: Anxiety/Agitation Stop: 10/07/18 10:14 Last Admin: 09/09/18 20:15 Dose: 2.5 mg Documented by: Olanzapine (Zyprexa) 2.5 mg IM Q4H PRN PRN Reason: Anxiety/Agitation Stop: 10/08/18 17:15 Last Admin: 09/10/18 02:19 Dose: 2.5 mg Documented by: Olanzapine (Zyprexa) 5 mg PO [facility] Stop: 10/10/18 20:59 Last Admin: 09/13/18 20:39 Dose: 5 mg Documented by: Polyethylene Glycol (Miralax Powder Packet) 17 gm PO [facility] Stop: 10/06/18 08:59 Last Admin: 09/14/18 09:45 Dose: Not Given Documented by: Sennosides (Senokot) 17.2 mg PO [facility] Stop: 10/13/18 16:14 Last Admin: 09/14/18 09:46 Dose: Not Given Documented by: Simvastatin (Zocor) 40 mg PO [facility] Stop: 10/05/18 20:59 Last Admin: 09/13/18 20:24 Dose: Not Given Documented by: Thiamine HCl (Vitamin B-1) 200 mg PO BID [facility] Stop: 10/12/18 20:59 Last Admin: 09/14/18 09:33 Dose: 200 mg Documented by: Venlafaxine HCl (Effexor Extended Release) 150 mg PO [facility] Stop: 10/06/18 08:59 Last Admin: 09/14/18 09:30 Dose: 150 mg Documented by: CPT Code CPT Code 80055
--- NOTE | 2018-09-14 18:57 | Hospitalist Progress Note ---
Date of Service September 14, 2018 Assessment & Plan (1) Altered mental status: Last several nights she has slept soundly all night w/o needing any PRN antipsychotics. Will continue the zyprexa 5mg at HS. Cont ativan HS but will ultimately wean this off. Recent CT head w/o acute pathology. TSH, b12, ammonia all normal. ESR normal. Lyme's testing negative. B1 level sent; in meantime thiamine 200mg BID. No obvious infectious issue found. Consider MRI brain to r/o subacute strokes, etc. However, doubt she could tolerate such w/o heavy sedation. Uncertain of "electric shocks in the brain" she was experiencing 3 weeks ago. Doesn't sound like trigeminal neuralgia. Placed on buspar at that time. Since mental status got worse shortly after will d/c the buspar. Suspect we are dealing with advancing parkinson's disease with underlying dementia and behavioral disturbance. Spoke with psych - plan to give an AM dose of 2.5mg of zyprexa due to ongoing hallucinations. QTc on EKG today wnl. Re-eval tomorrow. (2) Anxiety: Chronic h/o anxiety and panic attacks -- in setting of parkinson's disease. Presented with delirium, aggression, etc leading to this admission. I don't see evidence of metabolic or infectious process contributing to clinical picture. Continue scheduled zyprexa 5mg at HS. Add AM zyprexa 2.5mg Review of PDMP shows long-standing use of ativan on daily basis at home. Normally would not advise ongoing ativan use but has been using it for years. Cont at HS to prevent withdrawal. Psych recommending cutting dose to 0.25mg at HS then ultimately weaning off entirely. STOP BUSPAR. Ropinirole has been stopped as well. Cont effexor. (3) Diabetes: Last A1c was 6.5% in 07/2018. Controlled. (4) Atrial fibrillation: Patient presently in NSR. Continue Eliquis. (5) Parkinson disease: Chronic. Previously followed by Dr. Sidhu as outpatient. Dx 2-3 years ago. Continue Carbidopa/Levodopa at home dosage. Appreciate neuro consultation. Now with altered MS -- see above. (6) CAD (coronary artery disease): Chronic. Stable. Continue ASA, statin. (7) Hypothyroid: Chronic. TSH WNL. Continue Synthroid. (8) RLS (restless legs syndrome): Chronic No issues (9) Anorexia: ongoing. consider low-dose prednisone for appetite stimulation but this could potentially make mental status worse. obtained x-ray of abdomen today to r/o impaction/severe constipation - this was not seen. recent u/a negative for UTI. suspect appetite issues are due to altered MS. add boost. add MVI. encouraged son to bring in home-cooked food that she enjoys. BMP normal today. fluids d/c for now. (10) DVT prophylaxis: Apixaban son updated at bedside today dispo - SNF once MS improved & eating better will need dementia unit ideally total time today - 65 minutes, >50% of which was spent counseling and coordinating care Subjective per staff patient was calm overnight and slept well. she still is not eating - typically refusing to eat. staff having difficult time getting her to take meds - takes 50-75% of them. during my visit patient's son Braydon had arrived and was at bedside. she was sitting in chair. she knew her son's name and where he lived (could name his hometown). she said multiple times "I'm confused." she kept saying things that did not make sense and multiple sentences had nothing to do with what we were discussing. son gave following information - * PD was dx 2-3 years ago formally by neurology, but he suspects she had PD years before her formal diagnosis * she had intact cognition and memory at time of PD diagnosis * she has lived at [facility] w/ her for 2 years * about 3 weeks ago she c/o "electric shocks" in her head; she was NOT confused at that time; she was agitated, however * 3 weeks ago saw outpatient psych; it was difficult to determine what the problem was; it was assumed that her symptoms were related to anxiety * at that time buspar BID was added; this never helped, however * she got progressively more confused over the next 1-2 weeks * son last saw his mother nearly 1 week ago - her overall mental status is similar to then * again, prior to 2-3 weeks ago, his mother has NEVER had hallucinations while speaking with son the patient was talking about people in the room that were not there. she also mentioned smelling odd smells in the room (which was not the case). Review of Systems Constitutional: + anorexia Cardiovascular: no chest pain Gastrointestinal: no abdominal pain Neurologic: no headache(s) Physical Exam Constitutional: well developed and well nourished; no acute distress very confused; hallucinating; tremors (baseline) Eyes: + conjunctival abnormality (injection, right eye) no sinus tenderness to palpation ENMT: external ear and nose normal, oropharynx normal Respiratory: normal respiratory effort, lungs clear to auscultation Cardiovascular: Rate/Rhythm: regular rate and regular rhythm Heart Sounds: normal S1 and normal S2; no murmur Vessels: posterior tibial pulses present and dorsalis pedis pulses present; no JVD Gastrointestinal (Abdomen): normal bowel sounds, soft, nontender, no hepatosplenomegaly Neurologic: no focal motor deficits (5/5 X 4 EXTS) Motor/Sensory: + tremor (facial muscles and arms) Psychiatric: Orientation: alert and oriented to person; + not oriented to place and + not oriented to time Mood: no depressed mood Results & Data Vital Signs (Past 12 Hours) Vital Signs Temp Pulse Resp BP Pulse Ox 09/14/18 15:00 36.7 C 88 21 137/87 95 09/14/18 07:53 37.0 C 78 16 144/64 H 97 Laboratory Results Laboratory Results - last 24 hr 09/13/18 09/14/18 09/14/18 20:11 07:10 08:14 Sodium 144 Potassium 3.8 Chloride 112 H Carbon Dioxide 27 Anion Gap 5.0 BUN 13 D Creatinine 0.62 Est Cr Clr Drug Dosing 67.0 Est GFR ( Amer) 99.4 Est GFR (Non-Af Amer) 85.8 BUN/Creatinine Ratio 21.5 H Glucose 139 H POC Glucose 136 H 121 H Calcium 9.0 09/14/18 09/14/18 12:06 16:37 Sodium Potassium Chloride Carbon Dioxide Anion Gap BUN Creatinine Est Cr Clr Drug Dosing Est GFR ( Amer) Est GFR (Non-Af Amer) BUN/Creatinine Ratio Glucose POC Glucose 109 H 99 Calcium (1) Diabetes Diabetes mellitus complication status: without complication Diabetes mellitus intermediate frame tender insulin use: without fci use Diabetes mellitus type: type 2 Qualified Code(s): E11.9 - Type 2 diabetes mellitus without complications (2) CAD (coronary artery disease) Associated angina: without angina Coronary Disease-Associated Artery/Lesion type: [place] artery [place] vs. transplanted heart: [place] heart Qualified Code(s): I25.10 - Atherosclerotic heart disease of [place] coronary artery without angina pectoris (3) Atrial fibrillation Atrial fibrillation type: unspecified Qualified Code(s): I48.91 - Unspecified atrial fibrillation (4) Hypothyroid Hypothyroidism type: unspecified Qualified Code(s): E03.9 - Hypothyroidism, unspecified (5) Altered mental status Altered mental status type: unspecified Qualified Code(s): R41.82 - Altered mental status, unspecified
[2018-09-14] MEDS: LORazepam 0.5 MG TAB PO SCH (20:35)
[2018-09-14] MEDS: OLANZapine 5 MG TABLET PO SCH (20:36)
[2018-09-14] MEDS: SIMVASTATIN 40 MG TAB PO SCH (20:36)
[2018-09-14] MEDS: CIPROFLOXACIN HCL 0.3% OP SOLN 2.5 ML BTL OPR SCH (21:45)
[2018-09-15] MEDS: LEVOTHYROXINE SODIUM 75 MCG TABLET PO SCH (05:34)
[2018-09-15] MEDS: ASPIRIN 81 MG CHEW PO SCH (09:01)
[2018-09-15] MEDS: ARTIFICIAL TEARS OPB SCH (09:01)
[2018-09-15] MEDS: CIPROFLOXACIN HCL 0.3% OP SOLN 2.5 ML BTL OPR SCH ×3 (09:02→20:22)
[2018-09-15] MEDS: MAGNESIUM OXIDE 400 MG TAB PO SCH (09:03)
[2018-09-15] MEDS: VENLAFAXINE HCL XR 150 MG CAPXR PO SCH (09:03)
[2018-09-15] MEDS: DOCUSATE SODIUM 100 MG CAP PO SCH ×2 (09:03→20:30)
[2018-09-15] MEDS: APIXABAN 5 MG TABLET PO SCH ×2 (09:03→20:21)
[2018-09-15] MEDS: POLYETHYLENE (MIRALAX) 17 GM PACK PO SCH (09:04)
[2018-09-15] MEDS: THIAMINE HCL 100 MG TAB PO SCH ×2 (09:04→20:22)
[2018-09-15] MEDS: CARBIDOPA/LEVODOPA 25-250 1 EA TAB PO SCH ×4 (09:04→20:21)
[2018-09-15] MEDS: OLANZAPINE 2.5 MG TAB PO SCH (09:04)
[2018-09-15] MEDS: SENNA 8.6 MG TAB PO SCH (09:04)
[2018-09-15] MEDS: INSULIN ASPART 100 UNITS/ML 3 ML PEN SC SCH ×4 (09:18→20:30)
[2018-09-15] MEDS: OLANZapine 10 MG/2.1 ML SDV IM PRN (12:45)
--- NOTE | 2018-09-15 18:52 | Hospitalist Progress Note ---
Date of Service September 15, 2018 Assessment & Plan (1) Altered mental status: Continues with significant confusion despite scheduled HS zyprexa. Also remains on ativan HS but will ultimately wean this off. Had been taking ativan for many years at home for anxiety disorder. Recent CT head w/o acute pathology. TSH, b12, ammonia all normal. ESR normal. Lyme's testing negative. B1 level sent; in meantime thiamine 200mg BID. No obvious infectious issue found. Consider MRI brain to r/o subacute strokes, etc. However, I am concerned she may not tolerate the procedure. Had "electric shocks in the brain" 3 weeks ago. This has not recurred. Doesn't sound like trigeminal neuralgia. Placed on buspar at that time. Mental status got worse shortly after buspar was added and thus it has been discontinued. Suspect we are dealing with advancing parkinson's disease with underlying dementia and behavioral disturbance. Cont zyprexa 5mg HS. Cont zyprexa 2.5mg qAM. Consider MRI brain. Consider repeat u/a and urine cx to ensure no occult UTI. Consider RPR. Will ask psych to see again. (2) Anxiety: Chronic h/o anxiety and panic attacks -- in setting of parkinson's disease. Presented with delirium, aggression, etc leading to this admission. I don't see evidence of metabolic or infectious process contributing to clinical picture. Continue scheduled zyprexa 5mg at HS and zyprexa 2.5mg qAM. Review of PDMP shows long-standing use of ativan on daily basis at home. Normally would not advise ongoing ativan use but has been using it for years. Cont at HS to prevent withdrawal. Psych recommending cutting dose to 0.25mg at HS then ultimately weaning off entirely. Stopped BUSPAR. Ropinirole has been stopped as well. Cont effexor. (3) Diabetes: Last A1c was 6.5% in 07/2018. Controlled. (4) Atrial fibrillation: Patient presently in NSR. Continue Eliquis. (5) Parkinson disease: Chronic. Previously followed by Dr. Sidhu as outpatient. Dx 2-3 years ago. Continue Carbidopa/Levodopa at home dosage. Appreciate neuro consultation. Now with altered MS -- see above. (6) CAD (coronary artery disease): Chronic. Stable. Continue ASA, statin. (7) Hypothyroid: Chronic. TSH WNL. Continue Synthroid. (8) RLS (restless legs syndrome): Chronic No issues (9) Anorexia: ongoing. consider low-dose prednisone for appetite stimulation but this could potentially make mental status worse. obtained x-ray of abdomen to r/o impaction/severe constipation - this was not seen. recent u/a negative for UTI. suspect appetite issues are due to altered MS. added boost. added MVI. on thiamine BID. encouraged son to bring in home-cooked food that she enjoys. (10) DVT prophylaxis: Apixaban son updated at bedside on Monday he is to visit again this weekend dispo - SNF once MS improved & eating better will need dementia unit ideally I asked staff, if possible and if safe, to take patient in wheelchair out to [facility] [employer] [facility] [employer] to provide sunlight exposure to help reinforce circadian rhythm Subjective patient trying to constantly stand up during my visit. interestingly she stated she was in "[facility]" and she also stated "I think I am confused." She remembers that she was put on buspar several weeks ago and that it was stopped because "I think I'm allergic to it." Unfortunately she did not sleep well last pm - up much of the night despite HS zyprexa. appetite continues to be poor. Review of Systems Respiratory: no cough and no dyspnea Cardiovascular: no chest pain Gastrointestinal: no abdominal pain Physical Exam Constitutional: well developed and well nourished; no acute distress Eyes: + conjunctival abnormality (injection, right eye) ENMT: external ear and nose normal, oropharynx normal Respiratory: normal respiratory effort, lungs clear to auscultation Cardiovascular: Rate/Rhythm: regular rate and regular rhythm Heart Sounds: normal S1 and normal S2; no murmur Vessels: posterior tibial pulses present and dorsalis pedis pulses present; no JVD Gastrointestinal (Abdomen): normal bowel sounds, soft, nontender, no hepatosplenomegaly Neurologic: no focal motor deficits (5/5 X 4 EXTS) Motor/Sensory: + tremor (facial muscles and arms) Psychiatric: Orientation: alert, oriented to person and oriented to place; + not oriented to time Mood: no depressed mood Results & Data Vital Signs (Past 12 Hours) Vital Signs Temp Pulse Resp BP Pulse Ox 09/15/18 07:25 36.9 C 67 16 103/50 L 95 (1) Altered mental status Altered mental status type: unspecified Qualified Code(s): R41.82 - Altered mental status, unspecified (2) Diabetes Diabetes mellitus type: type 2 Diabetes mellitus [employer] insulin use: without [employer] use Diabetes mellitus complication status: without co mplication Qualified Code(s): E11.9 - Type 2 diabetes mellitus without complications (3) Atrial fibrillation Atrial fibrillation type: unspecified Qualified Code(s): I48.91 - Unspecified atrial fibrillation (4) CAD (coronary artery disease) Coronary Disease-Associated Artery/Lesion type: [place] artery [place] vs. transplanted heart: [place] heart Associated angina: without angina Qualified Code(s): I25.10 - Atherosclerotic heart disease of [place] coronary artery without angina pectoris (5) Hypothyroid Hypothyroidism type: unspecified Qualified Code(s): E03.9 - Hypothyroidism, unspecified
[2018-09-15] MEDS: LORazepam 0.5 MG TAB PO SCH (20:20)
[2018-09-15] MEDS: SIMVASTATIN 40 MG TAB PO SCH (20:22)
[2018-09-15] MEDS: OLANZapine 5 MG TABLET PO SCH (20:22)
[2018-09-16] MEDS: LEVOTHYROXINE SODIUM 75 MCG TABLET PO SCH (06:09)
[2018-09-16] MEDS: ASPIRIN 81 MG CHEW PO SCH (10:03)
[2018-09-16] MEDS: DOCUSATE SODIUM 100 MG CAP PO SCH ×2 (10:03→20:16)
[2018-09-16] MEDS: CARBIDOPA/LEVODOPA 25-250 1 EA TAB PO SCH ×4 (10:04→20:16)
[2018-09-16] MEDS: OLANZAPINE 2.5 MG TAB PO SCH (10:04)
[2018-09-16] MEDS: APIXABAN 5 MG TABLET PO SCH ×2 (10:04→20:16)
[2018-09-16] MEDS: VENLAFAXINE HCL XR 150 MG CAPXR PO SCH (10:04)
[2018-09-16] MEDS: SENNA 8.6 MG TAB PO SCH (10:04)
[2018-09-16] MEDS: MAGNESIUM OXIDE 400 MG TAB PO SCH (10:04)
[2018-09-16] MEDS: THIAMINE HCL 100 MG TAB PO SCH ×2 (10:04→20:16)
[2018-09-16] MEDS: POLYETHYLENE (MIRALAX) 17 GM PACK PO SCH (10:04)
[2018-09-16] MEDS: INSULIN ASPART 100 UNITS/ML 3 ML PEN SC SCH ×4 (10:05→20:56)
[2018-09-16] MEDS: D5W AND 1/2NSS + 20MEQ KCL 20 MEQ/1,000 ML BAG IV SCH (10:31)
[2018-09-16] MEDS: CIPROFLOXACIN HCL 0.3% OP SOLN 2.5 ML BTL OPR SCH ×3 (10:31→20:16)
[2018-09-16] MEDS: ARTIFICIAL TEARS OPB SCH (10:31)
[2018-09-16] MEDS: OLANZapine 10 MG/2.1 ML SDV IM PRN (10:33)
--- NOTE | 2018-09-16 12:29 | Psychiatric Progress Note ---
Date of Service September 16, 2018 Impression / Recommendations Impression 78-year-old female admitted medically on 09/05/18 for AMS. Initial psychiatric consultation completed on 09/06/18 to evaluate for "agitation". Pt has been seen for several follow-up visits since initial consultation. She has been started on olanzapine which was increased to 7.5 mg daily yesterday, with no improvement. She is still on the dopamine agonist, but buspirone and ropinirole were discontinued as they appear to worsen mental status. Her lorazepam has been decreased from 1 mg to 0.25 mg at bedtime. This is a complex case, and the differential includes multifactorial delirium, medication side effects, and catatonia. We will discontinue olanzapine as it has been ineffective, and start a trial of quetiapine. The dopamine agonist may be causing or exacerbating psychotic symptoms, unclear to me if it is being tapered per neurology's recommendations. If quetiapine is ineffective, would consider a trial of high- dose lorazepam for catatonia. Interval History Identifying Information 78-year-old female with anxiety, Parkinson's disease and dementia who was admitted medically on 09/05/18 due to altered mental status with increased confusion. Psychiatric consultation was requested for agitation, and the patient has been seen several times since admission. She was seen today in follow-up. Chief Complaint Patient nonverbal, not responding to questions. Review of Systems Notes Patient unable to participate due to altered mental status. Subjective Subjective Patient was seen & assessed and interval progress reviewed with the patient's nurse. On admission, she was continued on venlafaxine XR, buspirone, ropinirole, and carbidopa/levodopa. Clonazepam was discontinued, and lorazepam dose was decreased. Buspirone was increased to 10 mg twice daily to target anxiety on 09/06/2018, and olanzapine 2.5 mg as needed was added. Her mental status then worsened, and buspirone was discontinued. Olanzapine was increased to 5 mg at bedtime. She has been getting 5 mg daily since 09/07/2018, and a 2.5 mg every morning dose was added yesterday. She was seen by neurology, who discontinued ropinirole and recommended discontinuing her dopamine agonist as well. Her mental status has been waxing and waning, as there are days where she is alert and partially oriented, able to answer questions and perform some of her ADLs, but other days where she is disoriented, confused, nonsensical. Her son visited and provided collateral information: Patient was diagnosed with Parkinson's disease 2-3 years ago, but thinks that she had symptoms for years prior to that. Her cognition and memory were intact at the time of her diagnosis. She has been living at [facility] with her for the past 2 years. She has never had hallucinations until the last several weeks. About 3 weeks ago, she reported "electric shocks" in her head, and was agitated. She was not confused at the time. She saw an outpatient psychiatrist, who thought her symptoms were related to anxiety, and started BuSpar. It did not appear to help, and her symptoms worsened over the next 1-2 weeks. She has had an extensive medical workup, including head CT, TSH, B12, ammonia, ESR, and Lyme testing, all of which were negative. On my assessment today, the patient is lying in her bed with eyes open, but does not respond to questions other than to shake her head no when asked if I can get her anything. Her nurse reports she has been persistently confused, uncooperative at times, refusing medications and food, but has not been combative recently. At baseline, she walks with a walker, but was unable to participate in PT today. She was up all night talking nonsensically and appeared paranoid. She is only occasionally getting medication, which she takes crushed in applesauce. Physical Exam Mental Examination Female appearing her stated age, lying in bed in mild distress. Wearing a hospital gown, although one arm is not in the gown. Facial grimacing, and chin trembling throughout interaction. Poor eye contact, and does not participate in the assessment. She did respond appropriately once, shaking her head no when asked if she needed anything. She does not answer regarding mood, so speech, thought process and thought content cannot be assessed. Vital Signs (Past 24 Hours) Last Vital Signs Temp 36.6 C 09/16/18 07:39 Pulse 98 H 09/16/18 07:39 Resp 20 09/16/18 07:39 BP 156/75 H 09/16/18 07:39 Pulse Ox 92 09/16/18 07:39 Results & Data Laboratory Results Laboratory Results - last 24 hr 09/15/18 09/15/18 09/16/18 17:10 20:17 07:49 POC Glucose 102 H 81 65 L* 09/16/18 08:21 POC Glucose 150 H Current Inpatient Medications Current Inpatient Medications: Current Inpatient Medications Acetaminophen (Tylenol) 650 mg PO Q4H PRN PRN Reason: pain/fever Stop: 10/05/18 18:52 Last Admin: 09/14/18 02:41 Dose: 650 mg Documented by: Apixaban (Eliquis) 5 mg PO BID [facility] Stop: 10/05/18 20:59 Last Admin: 09/16/18 10:04 Dose: Not Given Documented by: Artificial Tears (Artificial Tears) 2 drops OPB QAM [facility] Stop: 10/06/18 08:59 Last Admin: 09/16/18 10:31 Dose: 2 drops Documented by: Aspirin (Aspirin Chew) 81 mg PO QAM [facility] Stop: 10/06/18 08:59 Last Admin: 09/16/18 10:03 Dose: Not Given Documented by: Carbidopa/Levodopa (Sinemet 25/250mg) 1 tab PO QID [facility] Stop: 10/06/18 18:29 Last Admin: 09/16/18 10:04 Dose: Not Given Documented by: Ciprofloxacin (Ciloxan 0.3% Opth) 1 drops OPR TID [facility] Stop: 09/24/18 20:59 Last Admin: 09/16/18 10:31 Dose: 1 drops Documented by: Dextrose (Dextrose 50%) 25 - 50 ml IV UD PRN; Protocol PRN Reason: Hypoglycemia Protocol Stop: 10/05/18 18:52 Last Admin: 09/16/18 08:04 Dose: 25 ml Documented by: Docusate Sodium (Colace) 100 mg PO BID [facility] Stop: 10/05/18 20:59 Last Admin: 09/16/18 10:03 Dose: Not Given Documented by: Glucagon (Glucagen) 1 mg SQ UD PRN; Protocol PRN Reason: Hypoglycemia Protocol Stop: 10/05/18 18:52 Glucose (Glucose 40%) 15 - 30 gm PO UD PRN; Protocol PRN Reason: Hypoglycemia Protocol Stop: 10/05/18 18:52 Glucose (Dex4 Glucose) 4 - 8 tabs PO UD PRN; Protocol PRN Reason: Hypoglycemia Protocol Stop: 10/05/18 18:52 Potassium Chloride/Dextrose/Sod Cl (D5w And 1/2nss + 20meq Kcl) 20 meq in 1,000 mls @ 75 mls/hr IV .[id number] [facility] Stop: 10/16/18 09:14 Last Admin: 09/16/18 10:31 Dose: 75 mls/hr Documented by: Insulin Aspart (Novolog Flexpen) 0 units SC ACHS [facility] Stop: 10/05/18 20:59 Last Admin: 09/16/18 10:05 Dose: Not Given Documented by: Levothyroxine Sodium (Synthroid) 75 mcg PO DAILYBB [facility] Stop: 10/06/18 06:29 Last Admin: 09/16/18 06:09 Dose: 75 mcg Documented by: Lorazepam (Ativan) 0.25 mg PO [facility] Stop: 10/11/18 20:59 Last Admin: 09/15/18 20:20 Dose: 0.25 mg Documented by: Magnesium Oxide (Mag-Ox) 400 mg PO QAM [facility] Stop: 10/06/18 08:59 Last Admin: 09/16/18 10:04 Dose: Not Given Documented by: Miscellaneous (Carbohydrates For Hypoglycemia) 15 - 30 gm PO UD PRN PRN Reason: Hypoglycemia Treatment Stop: 10/05/18 18:52 Last Admin: 09/16/18 07:55 Dose: 1 gm Documented by: Olanzapine (Zyprexa) 2.5 mg IM Q4H PRN PRN Reason: Anxiety/Agitation Stop: 10/08/18 17:15 Last Admin: 09/16/18 10:33 Dose: 2.5 mg Documented by: Olanzapine (Zyprexa) 5 mg PO [facility] Stop: 10/10/18 20:59 Last Admin: 09/15/18 20:22 Dose: 5 mg Documented by: Olanzapine (Zyprexa) 2.5 mg PO QAM [facility] Stop: 10/15/18 08:59 Last Admin: 09/16/18 10:04 Dose: Not Given Documented by: Polyethylene Glycol (Miralax Powder Packet) 17 gm PO QAM [facility] Stop: 10/06/18 08:59 Last Admin: 09/16/18 10:04 Dose: Not Given Documented by: Sennosides (Senokot) 17.2 mg PO QAM [facility] Stop: 10/13/18 16:14 Last Admin: 09/16/18 10:04 Dose: Not Given Documented by: Simvastatin (Zocor) 40 mg PO HS [facility] Stop: 10/05/18 20:59 Last Admin: 09/15/18 20:22 Dose: 40 mg Documented by: Thiamine HCl (Vitamin B-1) 200 mg PO BID [facility] Stop: 10/12/18 20:59 Last Admin: 09/16/18 10:04 Dose: Not Given Documented by: Venlafaxine HCl (Effexor Extended Release) 150 mg PO QA [facility] Stop: 10/06/18 08:59 Last Admin: 09/16/18 10:04 Dose: Not Given Documented by: CPT Code CPT Code 03919
[2018-09-16] MEDS ORDERED: QUETIAPINE FUMARATE 25 MG TABLET PO SCH (12:30)
[2018-09-16] MEDS ORDERED: QUETIAPINE FUMARATE 25 MG TABLET PO PRN (12:57)
[2018-09-16] MEDS: LORazepam 0.5 MG TAB PO SCH (20:16)
[2018-09-16] MEDS: SIMVASTATIN 40 MG TAB PO SCH (20:16)
[2018-09-16] MEDS: QUETIAPINE FUMARATE 25 MG TABLET PO SCH (20:16)
--- NOTE | 2018-09-16 21:24 | Hospitalist Progress Note ---
Date of Service September 16, 2018 Assessment & Plan (1) Altered mental status: ONGOING with little improvement since admission. Continues with significant confusion and hallucinations despite scheduled HS zyprexa. Also remains on ativan HS but will ultimately wean this off. Had been taking ativan for many years at home for anxiety disorder. Recent CT head w/o acute pathology. TSH, b12, ammonia all normal. ESR normal. Lyme's testing negative. B1 level sent; in meantime thiamine 200mg BID. No obvious infectious issue found. Had "electric shocks in the brain" 3 weeks ago. This has not recurred. Doesn't sound like trigeminal neuralgia. Placed on buspar at that time by outpatient psychiatry. Mental status got worse shortly after buspar was added and thus it has been discontinued. Suspect we are dealing with advancing parkinson's disease with underlying dementia and behavioral disturbance. I asked psych to see again today. Dr Hodge recommending changing zyprexa to seroquel 50mg HS and seroquel 25mg prn. I ordered MRI brain to r/o subacute processes but uncertain if she will be able to tolerate the MRI tube. (2) Anorexia: ongoing. consider low-dose prednisone for appetite stimulation but this could potentially make mental status worse. obtained x-ray of abdomen to r/o impaction/severe constipation - this was not seen. recent u/a negative for UTI. suspect appetite issues are due to altered MS. added boost. added MVI. on thiamine BID. encouraged son to bring in home-cooked food that she enjoys. no good option for appetite stimulation (megace usually not helpful; marinol likely would cause confusion). would not tolerate NG tube. TPN NOT indicated. I don't have a good answer for this issue. (3) Anxiety: Chronic h/o anxiety and panic attacks -- in setting of parkinson's dise ase. Presented with delirium, aggression, etc leading to this admission. I don't see evidence of metabolic or infectious process contributing to clinical picture. Continue scheduled zyprexa 5mg at HS and zyprexa 2.5mg qAM. Review of PDMP shows long-standing use of ativan on daily basis at home. Normally would not advise ongoing ativan use but has been using it for years. Cont at HS to prevent withdrawal. Psych recommending cutting dose to 0.25mg at HS then ultimately weaning off entirely. Stopped BUSPAR. Ropinirole has been stopped as well. Cont effexor. (4) Diabetes: Last A1c was 6.5% in 07/2018. Controlled. had low sugar this am -- added dextrose-containing fluids back for maintenance with resolution of hypoglycemia. (5) Atrial fibrillation: Patient presently in NSR. Continue Eliquis. (6) Parkinson disease: Chronic. Previously followed by Dr. Sidhu as outpatient. Dx 2-3 years ago. Continue Carbidopa/Levodopa at home dosage. Appreciate neuro consultation. Now with altered MS -- see above. (7) CAD (coronary artery disease): Chronic. Stable. Continue ASA, statin. (8) Hypothyroid: Chronic. TSH WNL. Continue Synthroid. (9) RLS (restless legs syndrome): Chronic No issues (10) Halitosis: due to lack of oral hygiene for 2+ weeks? I could not adequately visualize the oral cavity or posterior pharynx even with tongue depressor - patient trying to bite it in half. follow. (11) Conjunctivitis: cipro drops right eye x 7 days (12) DVT prophylaxis: Apixaban son updated at bedside on Monday dispo - SNF once MS improved & eating better will need dementia unit ideally I asked staff, if possible and if safe, to take patient in wheelchair out to [employer] or [employer] garden to provide sunlight exposure to help reinforce circadian rhythm However has been too agitated for such Subjective pt sleeping during my visit arouses only briefly to say "my throat hurts" utters a few other phrases that didn't make any sense unable to obtain other history or ROS staff report ongoing anorexia, refusal of meds, and agitation/hallucinations she also didn't sleep well last pm despite scheduled zyprexa at HS Review of Systems Review of Systems: Unobtainable due to mental health condition and Unobtainable due to cognitive status Physical Exam Constitutional: well developed and well nourished; no acute distress ENMT: Mouth: + malodorous breath and + poor dentition; oral mucous membranes not dry (unable to assess throat - would not open mouth under any circumstance) Respiratory: normal respiratory effort, lungs clear to auscultation Cardiovascular: Rate/Rhythm: regular rate and regular rhythm Heart Sounds: normal S1 and normal S2; no murmur Vessels: posterior tibial pulses present and dorsalis pedis pulses present; no JVD Gastrointestinal (Abdomen): normal bowel sounds, soft, nontender, no hepatosplenomegaly Neurologic: no focal motor deficits (moves all 4 limbs equally) Motor/Sensory: + tremor (facial muscles and arms) Psychiatric: Orientation: oriented to person; + not alert, + not oriented to place and + not oriented to time Results & Data Vital Signs (Past 12 Hours) Vital Signs Temp Pulse Resp BP Pulse Ox 09/16/18 17:05 37.3 C 83 16 122/55 L 95 Laboratory Results Laboratory Results - last 24 hr 09/16/18 09/16/18 09/16/18 07:49 08:21 11:39 POC Glucose 65 L* 150 H 111 H 09/16/18 09/16/18 17:03 20:37 POC Glucose 143 H 132 H (1) Diabetes Diabetes mellitus complication status: without complication Diabetes mellitus group home insulin use: without superintendent container terminal use Diabetes mellitus type: type 2 Qualified Code(s): E11.9 - Type 2 diabetes mellitus without complications (2) CAD (coronary artery disease) Associated angina: without angina Coronary Disease-Associated Artery/Lesion type: [place] artery [place] vs. transplanted heart: [place] heart Qualified Code(s): I25.10 - Atherosclerotic heart disease of [place] coronary artery without angina pectoris (3) Atrial fibrillation Atrial fibrillation type: unspecified Qualified Code(s): I48.91 - Unspecified atrial fibrillation (4) Hypothyroid Hypothyroidism type: unspecified Qualified Code(s): E03.9 - Hypothyroidism, unspecified (5) Altered mental status Altered mental status type: unspecified Qualified Code(s): R41.82 - Altered mental status, unspecified (6) Conjunctivitis Conjunctivitis type: other Laterality: right Qualified Code(s): H10.89 - Other conjunctivitis
[2018-09-17] MEDS: D5W AND 1/2NSS + 20MEQ KCL 20 MEQ/1,000 ML BAG IV SCH ×2 (00:04→14:09)
[2018-09-17] MEDS: LEVOTHYROXINE SODIUM 75 MCG TABLET PO SCH (05:57)
[2018-09-17 07:15] LABS: Basophils # (auto) 0.01 K/uL (0-0.2); Basophils % (auto) 0.2 %; Eosinophils # (auto) 0.11 K/uL (0-0.5); Eosinophils % (auto) 1.7 %; Hematocrit (blood only) 38.7 % (37-47); Hemoglobin 12.9 g/dL (12.0-16.0); Immature Granulocytes # (auto) 0.01 K/uL (0.00-0.02); Immature Granulocytes % (auto) 0.2 %; Lymphocytes # (auto) 1.74 K/uL (1.2-3.4); Lymphocytes % (auto) 26.9 %; Mean Corpuscular Hgb Conc 33.3 g/dL (32-36); Mean Corpuscular Volume 91.9 fL (80-100); Mean Platelet Volume 10.7 fL (7.4-10.4); Monocytes # (auto) 0.41 K/uL (0.11-0.59); Monocytes % (auto) 6.3 %; Neutrophils # (auto) 4.18 K/uL (1.4-6.5); Neutrophils % (auto) 64.7 %; Platelet Count 157 K/uL (130-400); RDW Coefficient of Variation 14.2 % (11.5-14.5); Red Blood Count 4.21 M/uL (4.2-5.4); White Blood Count 6.46 K/uL (4.8-10.8)
[2018-09-17 08:01] LABS: BUN Creatinine Ratio 35.8 (10-20); Calcium 8.7 mg/dl (8.5-10.1); Creatinine Clr Calc Pharmacy 51.3 ml/min; Est GFR (African American) 80.1; Est GFR (Non-African American) 69.1; Magnesium 2.2 mg/dl (1.8-2.4)
[2018-09-17] MEDS: MAGNESIUM OXIDE 400 MG TAB PO SCH (08:27)
[2018-09-17] MEDS: APIXABAN 5 MG TABLET PO SCH ×2 (08:27→20:52)
[2018-09-17] MEDS: DOCUSATE SODIUM 100 MG CAP PO SCH ×2 (08:27→20:59)
[2018-09-17] MEDS: ASPIRIN 81 MG CHEW PO SCH (08:27)
[2018-09-17] MEDS: POLYETHYLENE (MIRALAX) 17 GM PACK PO SCH (08:28)
[2018-09-17] MEDS: SENNA 8.6 MG TAB PO SCH (08:28)
[2018-09-17] MEDS: ARTIFICIAL TEARS OPB SCH (08:29)
[2018-09-17] MEDS: CIPROFLOXACIN HCL 0.3% OP SOLN 2.5 ML BTL OPR SCH ×4 (08:29→20:51)
[2018-09-17] MEDS: INSULIN ASPART 100 UNITS/ML 3 ML PEN SC SCH ×4 (08:31→20:58)
[2018-09-17] MEDS: CARBIDOPA/LEVODOPA 25-250 1 EA TAB PO SCH ×4 (08:35→20:52)
[2018-09-17] MEDS: THIAMINE HCL 100 MG TAB PO SCH ×2 (08:35→20:59)
--- NOTE | 2018-09-17 11:42 | Psychiatric Progress Note ---
Date of Service September 17, 2018 Impression / Recommendations Impression 78-year-old female admitted medically on 09/05/18 for AMS. Initial psychiatric consultation completed on 09/06/18 to evaluate for "agitation". Pt has been seen for several follow-up visits since initial consultation. Most recently seen by Dr. Hodge on 09/16/18 with recommendation to discontinue olanzapine and begin quetiapine (both at HS and q4h prn). Possible agitated catatonia was discussed with primary attending at that time, and trial of high-dose lorazepam was recommended if quetiapine is ineffective. No additional recommendations at this time - agree that the already difficult case is further complicated by patient's refusal of all medications. Currently quetiapine is available for use. If considering trial of IV lorazepam, would suggest ensuring that mental status is assessed prior to administration as well as periodically (~10-15 minutes) for a period thereafter to observe for any changes. Venlafaxine was held by this provider, as patient has refused the medication for the past 3 days. Given the medication is prone to causing discontinuation syndrome, and patient's dosing is sporadic - it does not seem advantageous to continue at this time. Could consider initiation of another antidepressive agent if necessary, though may also prove to be beneficial to condense patient's medication regimen. Will continue to assess need for additional changes. Interval History Identifying Information 78-year-old female with anxiety, Parkinson's disease and dementia who was admitted medically on 09/05/18 due to altered mental status with increased confusion. Psychiatric consultation was requested for agitation, and the patient has been seen several times since admission. She was seen today for follow-up assessment. Chief Complaint "I'm not good. I want to give my life to [place]." Review of Systems Notes Pt denies any specific physical complaints, unable to fully participate in complete ROS. Subjective Subjective Patient's case was reviewed and discussed with psychiatric nurse liaison and psychiatrist. Discussed recommendations from psychiatrist over the weekend, patient seen in follow-up today. Upon entering room, patient is resting in bed. She appears constricted, but does not appear to be in distress. Pt states that she is "not good" and tells this provider that she wants "to give my life to [place]." Pt does not open her eyes during our encounter, but shares with is able to have one of our more lucid conversations in many days. She states, "my Parkinson's makes me quiver, I'm ready to give my life to [place]." She tells this provider that she has a "disease in my brain." Pt states that she desires to return to [facility], as "it is a good place, they take good care of their residents." Plan was to discuss medications with the patient, given her ability to participate in conversation. Started with a discussion about her venlafaxine, but before this provider could proceed, the patient states, "I won't need it after today. I'm giving my life to [facility]." Pt states that this had not been the reason she has been refusing medications previously, but today it is. Pt was oriented to person, place, and year. Physical Exam Psychiatric Orientation: alert, oriented to person, oriented to place and oriented to time (does not know day of week; able to verbalize year is 2018) Apperance: appropriately dressed (in hospital gown) and appropriately groomed Eye Contact: + poor eye contact (participates in conversation with eyes closed) Motor Behavior: + tremor (full body tremor - most prominent in hands and jaw) some cogwheel rigidity, most prominent in left arm soft tone, low volume Affect: + constricted affect "Not good" Thought Process: + looseness of associations and + concrete thought process Frequently stating, "I'm giving my life to [facility]" - Unclear if oriental orthodox delusions versus lucid reports of desire to pass peacefully Suicidal Thoughts: denies suicidal thoughts No active thoughts to harm self, but does report plans to "give my life to [facility]" - stating she does not need medications anymore Cognition: language grossly intact Estimated Intelligence: consistent with education level Vital Signs (Past 24 Hours) Last Vital Signs Temp 36.6 C 09/17/18 06:50 Pulse 78 09/17/18 06:50 Resp 18 09/17/18 06:50 BP 115/69 09/17/18 06:50 Pulse Ox 98 09/17/18 06:50 Results & Data Laboratory Results Laboratory Results - last 24 hr 09/16/18 09/16/18 09/16/18 11:39 17:03 20:37 WBC RBC Hgb Hct MCV MCH MCHC RDW Std Deviation RDW Coeff of [place] Plt Count MPV Immature Gran % (Auto) Neut % (Auto) Lymph % (Auto) [place] % (Auto) Eos % (Auto) Baso % (Auto) Immature Gran # (Auto) Neut # (Auto) Lymph # (Auto) [place] # (Auto) Eos # (Auto) Baso # (Auto) Sodium Potassium Chloride Carbon Dioxide Anion Gap BUN Creatinine Est Cr Clr Drug Dosing Est GFR ( Amer) Est GFR (Non-Af Amer) BUN/Creatinine Ratio Glucose POC Glucose 111 H 143 H 132 H Calcium Magnesium Specimen Hemolysis 09/17/18 09/17/18 09/17/18 06:58 06:58 07:34 WBC 6.46 RBC 4.21 Hgb 12.9 Hct 38.7 MCV 91.9 MCH 30.6 MCHC 33.3 RDW Std Deviation 48.0 H RDW Coeff of [place] 14.2 Plt Count 157 MPV 10.7 H Immature Gran % (Auto) 0.2 Neut % (Auto) 64.7 Lymph % (Auto) 26.9 [place] % (Auto) 6.3 Eos % (Auto) 1.7 Baso % (Auto) 0.2 Immature Gran # (Auto) 0.01 Neut # (Auto) 4.18 Lymph # (Auto) 1.74 [place] # (Auto) 0.41 Eos # (Auto) 0.11 Baso # (Auto) 0.01 Sodium 141 Potassium 4.0 Chloride 108 H Carbon Dioxide 29 Anion Gap 4.0 BUN 29 H Creatinine 0.81 Est Cr Clr Drug Dosing 51.3 Est GFR ( Amer) 80.1 Est GFR (Non-Af Amer) 69.1 BUN/Creatinine Ratio 35.8 H Glucose 151 H POC Glucose 304 H* Calcium 8.7 Magnesium 2.2 Specimen Hemolysis 09/17/18 09/17/18 07:35 07:37 WBC RBC Hgb Hct MCV MCH MCHC RDW Std Deviation RDW Coeff of [place] Plt Count MPV Immature Gran % (Auto) Neut % (Auto) Lymph % (Auto) [place] % (Auto) Eos % (Auto) Baso % (Auto) Immature Gran # (Auto) Neut # (Auto) Lymph # (Auto) [place] # (Auto) Eos # (Auto) Baso # (Auto) Sodium Potassium Chloride Carbon Dioxide Anion Gap BUN Creatinine Est Cr Clr Drug Dosing Est GFR ( Amer) Est GFR (Non-Af Amer) BUN/Creatinine Ratio Glucose POC Glucose 168 H 152 H Calcium Magnesium Specimen Hemolysis Current Inpatient Medications Current Inpatient Medications: Current Inpatient Medications Acetaminophen (Tylenol) 650 mg PO Q4H PRN PRN Reason: pain/fever Stop: 10/05/18 18:52 Last Admin: 09/14/18 02:41 Dose: 650 mg Documented by: Apixaban (Eliquis) 5 mg PO BID [facility] Stop: 10/05/18 20:59 Last Admin: 09/17/18 08:27 Dose: Not Given Documented by: Artificial Tears (Artificial Tears) 2 drops OPB QAM [facility] Stop: 10/06/18 08:59 Last Admin: 09/17/18 08:29 Dose: 2 drops Documented by: Aspirin (Aspirin Chew) 81 mg PO QAM [facility] Stop: 10/06/18 08:59 Last Admin: 09/17/18 08:27 Dose: Not Given Documented by: Carbidopa/Levodopa (Sinemet 25/250mg) 1 tab PO QID [facility] Stop: 10/06/18 18:29 Last Admin: 09/17/18 08:35 Dose: Not Given Documented by: Ciprofloxacin (Ciloxan 0.3% Opt) 1 drops OPR TID [facility] Stop: 09/24/18 20:59 Last Admin: 09/17/18 08:29 Dose: 1 drops Documented by: Dextrose (Dextrose 50%) 25 - 50 ml IV UD PRN; Protocol PRN Reason: Hypoglycemia Protocol Stop: 10/05/18 18:52 Last Admin: 09/16/18 08:04 Dose: 25 ml Documented by: Docusate Sodium (Colace) 100 mg PO BID [facility] Stop: 10/05/18 20:59 Last Admin: 09/17/18 08:27 Dose: Not Given Documented by: Glucagon (Glucagen) 1 mg SQ UD PRN; Protocol PRN Reason: Hypoglycemia Protocol Stop: 10/05/18 18:52 Glucose (Glucose 40%) 15 - 30 gm PO UD PRN; Protocol PRN Reason: Hypoglycemia Protocol Stop: 10/05/18 18:52 Glucose (Dex4 Glucose) 4 - 8 tabs PO UD PRN; Protocol PRN Reason: Hypoglycemia Protocol Stop: 10/05/18 18:52 Potassium Chloride/Dextrose/Sod Cl (D5w And 1/2nss + 20meq Kcl) 20 meq in 1,000 mls @ 75 mls/hr IV .[id number] [facility] Stop: 10/16/18 09:14 Last Infusion: 09/17/18 05:23 Dose: 75 mls/hr Documented by: Insulin Aspart (Novolog Flexpen) 0 units SC ACHS [facility] Stop: 10/05/18 20:59 Last Admin: 09/17/18 08:31 Dose: 1 units Documented by: Levothyroxine Sodium (Synthroid) 75 mcg PO DAILYBB [facility] Stop: 10/06/18 06:29 Last Admin: 09/17/18 05:57 Dose: Not Given Documented by: Lorazepam (Ativan) 0.25 mg PO [facility] Stop: 10/11/18 20:59 Last Admin: 09/16/18 20:16 Dose: Not Given Documented by: Magnesium Oxide (Mag-Ox) 400 mg PO [facility] Stop: 10/06/18 08:59 Last Admin: 09/17/18 08:27 Dose: Not Given Documented by: Miscellaneous (Carbohydrates For Hypoglycemia) 15 - 30 gm PO UD PRN PRN Reason: Hypoglycemia Treatment Stop: 10/05/18 18:52 Last Admin: 09/16/18 07:55 Dose: 1 gm Documented by: Polyethylene Glycol (Miralax Powder Packet) 17 gm PO [facility] Stop: 10/06/18 08:59 Last Admin: 09/17/18 08:28 Dose: Not Given Documented by: Quetiapine Fumarate (Seroquel) 50 mg PO [facility] Stop: 10/16/18 20:59 Last Admin: 09/16/18 20:16 Dose: Not Given Documented by: Quetiapine Fumarate (Seroquel) 25 mg PO Q4H PRN PRN Reason: anxiety Stop: 10/16/18 12:29 Sennosides (Senokot) 17.2 mg PO [facility] Stop: 10/13/18 16:14 Last Admin: 09/17/18 08:28 Dose: Not Given Documented by: Simvastatin (Zocor) 40 mg PO [facility] Stop: 10/05/18 20:59 Last Admin: 09/16/18 20:16 Dose: Not Given Documented by: Thiamine HCl (Vitamin B-1) 200 mg PO BID [facility] Stop: 10/12/18 20:59 Last Admin: 09/17/18 08:35 Dose: Not Given Documented by: Venlafaxine HCl (Effexor Extended Release) 150 mg PO QAM [facility] Stop: 10/06/18 08:59 Last Admin: 09/16/18 10:04 Dose: Not Given Documented by: CPT Code CPT Code 38982
--- NOTE | 2018-09-17 12:32 | Magnetic Resonance Report ---
MRI OF THE BRAIN WITHOUT IV CONTRAST CLINICAL HISTORY: Change in mental status. COMPARISON STUDY: CT of the brain dated 09/05/2018. MRI of the brain dated 06/02/2010. TECHNIQUE: MRI of the brain was performed utilizing various T1 and T2-weighted sequences in the axial , sagittal, and coronal planes. IV contrast was not administered for this examination. FINDINGS: Brain parenchyma: There is nonspecific pachymeningeal thickening, only seen on the coronal FLAIR sequ ence. There is mild subcortical and periventricular microangiopathic disease. There is no hemorrhage or mass effect. There is no restricted diffusion to suggest acute ischemia. Man-white matter differe ntiation is preserved. No extra-axial fluid collection is seen. The cerebellar tonsils are normal in configuration. Ventricles, sulci, and cisterns: Normal in configuration. Pituitary and sella: Unremarkable. Intracranial vasculature: Normal flow voids are maintained at the skull base. Orbits: The bony orbits are grossly intact. Orbital contents are normal in appearance. Sinuses and mastoids: Clear. Calvarium: Unremarkable. Cervical cord: Partially visualized cervical spinal cord is normal in morphology and signal intensity . IMPRESSION: 1. There is no hemorrhage, mass effect, or evidence of acute ischemia. 2. There is mild nonspecific pachymeningeal thickening. This is of indeterminate significance, but in creased from the 2011 examination. Electronically signed by: Marcelino Pedro M.D. 09/17/2018 12:31 PM
--- NOTE | 2018-09-17 13:53 | Hospitalist Progress Note ---
Date of Service September 17, 2018 Assessment & Plan (1) Altered mental status: ONGOING with little improvement since admission. Continues with significant confusion and hallucinations despite scheduled HS zyprexa (not taking consistently) Also remains on ativan HS but will ultimately wean this off. Had been taking ativan for many years at home for anxiety disorder. Recent CT head w/o acute pathology. TSH, b12, ammonia all normal. ESR normal. Lyme's testing negative. B1 level sent and still pending; in meantime thiamine 200mg BID. No obvious infectious issue found. Had "electric shocks in the brain" 4 weeks ago. This has not recurred. Doesn't sound like trigeminal neuralgia. Placed on buspar at that time by outpatient psychiatry. Mental status got worse shortly after buspar was added and thus it has been discontinued. Suspect we are dealing with advancing parkinson's disease with underlying dementia and behavioral disturbance. I asked psych to see again today. Dr Hodge recommending changing zyprexa to seroquel 50mg HS and seroquel 25mg prn. if this would not work may consider catatonia as a possible diagnosis and try high doses of Ativan patient continues to be noncompliant with medications, eating very difficult situation to improve when she won't take treatment (2) Anorexia: ongoing. considered low-dose prednisone for appetite stimulation but this could potentially make mental status worse. obtained x-ray of abdomen to r/o impaction/severe constipation - this was not seen. recent u/a negative for UTI. suspect appetite issues are due to altered MS. added boost. added MVI. on thiamine BID. encouraged son to bring in home-cooked food that she enjoys. no good option for appetite stimulation (megace usually not helpful; marinol likely would cause confusion). would not tolerate NG tube. TPN NOT indicated. no real solution to this issue as it goes back to mental status (3) Anxiety: Chronic h/o anxiety and panic attacks -- in setting of parkinson's disease. Presented with delirium, aggression, etc leading to this admission. no evidence of metabolic or infectious process contributing to clinical picture. changed Zyprexa to Seroquel 25mg PRN and 50mg HS, difficulty with compliance Review of PDMP shows long-standing use of ativan on daily basis at home. Normally would not advise ongoing ativan use but has been using it for years. Cont at HS to prevent withdrawal. Psych recommending cutting dose to 0.25mg at HS then ultimately weaning off entirely. Stopped BUSPAR. Ropinirole has been stopped as well. Cont effexor. (4) Diabetes: Last A1c was 6.5% in 07/2018. Controlled. had low sugar morning of 09/16 -- added dextrose-containing fluids back for maintenance with resolution of hypoglycemia. (5) Atrial fibrillation: Patient presently in NSR. Continue Eliquis. (6) Parkinson disease: Chronic. Previously followed by Dr. Sidhu as outpatient. Dx 2-3 years ago. Continue Carbidopa/Levodopa at home dosage. Appreciate neuro consultation. Now with altered MS -- see above. (7) CAD (coronary artery disease): Chronic. Stable. Continue ASA, statin. (8) Hypothyroid: Chronic. TSH WNL. Continue Synthroid. (9) RLS (restless legs syndrome): Chronic No issues (10) Halitosis: due to lack of oral hygiene for 2+ weeks? (11) Conjunctivitis: cipro drops right eye x 7 days (12) DVT prophylaxis: Apixaban son updated at bedside on Monday by Dr. Acosta dispo - [facility] once MS improved & eating better will need dementia unit ideally Subjective very little in way of responses for me continues to be uncooperative refusing therapy refusing to take medications and not eating difficult situation when Seroquel may help but not taking it reviewed labs, all normal reviewed chart and notes past few days, appreciate most recent psychiatry note Review of Systems Review of Systems: Unobtainable due to mental health condition (refusing to an swer questions for me, "want to be left alone") Physical Exam Constitutional: WD/WN, vitals as above Eyes: PERRL, conjunctivae normal, anicteric sclerae ENMT: external ear and nose normal, oropharynx normal Neck: trachea midline, no thyromegaly Respiratory: normal respiratory effort, lungs clear to auscultation Cardiovascular: RRR, no murmur, no edema Gastrointestinal (Abdomen): normal bowel sounds, soft, nontender, no hepatosplenomegaly Musculoskeletal: no cyanosis or clubbing, extremities motor strength 5/5 Skin: no rashes, warm and dry Neurologic: patellar DTR's 2+ bilat, sensation intact and PERRL, EOMI, accommodation nl, no face palsy, no dysarthria Psychiatric: Orientation: alert, oriented to person and + guarded; + not oriented to place and + not oriented to time Eye Contact: good eye contact Motor Behavior: + psychomotor retardation and + tremor Speech: normal rate/rhythm/volume of speech Affect: + blunted affect Thought Content: + preoccupation Lymphatic: no cervical or axillary lymphadenopathy Results & Data Vital Signs (Past 12 Hours) Vital Signs Temp Pulse Resp BP Pulse Ox 09/17/18 06:50 36.6 C 78 18 115/69 98 Laboratory Results Laboratory Results - last 24 hr 09/16/18 09/16/18 09/17/18 17:03 20:37 06:58 WBC 6.46 RBC 4.21 Hgb 12.9 Hct 38.7 MCV 91.9 MCH 30.6 MCHC 33.3 RDW Std Deviation 48.0 H RDW Coeff of [place] 14.2 Plt Count 157 MPV 10.7 H Immature Gran % (Auto) 0.2 Neut % (Auto) 64.7 Lymph % (Auto) 26.9 [place] % (Auto) 6.3 Eos % (Auto) 1.7 Baso % (Auto) 0.2 Immature Gran # (Auto) 0.01 Neut # (Auto) 4.18 Lymph # (Auto) 1.74 [place] # (Auto) 0.41 Eos # (Auto) 0.11 Baso # (Auto) 0.01 Sodium Potassium Chloride Carbon Dioxide Anion Gap BUN Creatinine Est Cr Clr Drug Dosing Est GFR ( Amer) Est GFR (Non-Af Amer) BUN/Creatinine Ratio Glucose POC Glucose 143 H 132 H Calcium Magnesium Specimen Hemolysis 09/17/18 09/17/18 09/17/18 06:58 07:34 07:35 WBC RBC Hgb Hct MCV MCH MCHC RDW Std Deviation RDW Coeff of [place] Plt Count MPV Immature Gran % (Auto) Neut % (Auto) Lymph % (Auto) [place] % (Auto) Eos % (Auto) Baso % (Auto) Immature Gran # (Auto) Neut # (Auto) Lymph # (Auto) [place] # (Auto) Eos # (Auto) Baso # (Auto) Sodium 141 Potassium 4.0 Chloride 108 H Carbon Dioxide 29 Anion Gap 4.0 BUN 29 H Creatinine 0.81 Est Cr Clr Drug Dosing 51.3 Est GFR ( Amer) 80.1 Est GFR (Non-Af Amer) 69.1 BUN/Creatinine Ratio 35.8 H Glucose 151 H POC Glucose 304 H* 168 H Calcium 8.7 Magnesium 2.2 Specimen Hemolysis 09/17/18 09/17/18 09/17/18 07:37 12:36 13:08 WBC RBC Hgb Hct MCV MCH MCHC RDW Std Deviation RDW Coeff of [place] Plt Count MPV Immature Gran % (Auto) Neut % (Auto) Lymph % (Auto) [place] % (Auto) Eos % (Auto) Baso % (Auto) Immature Gran # (Auto) Neut # (Auto) Lymph # (Auto) [place] # (Auto) Eos # (Auto) Baso # (Auto) Sodium Potassium Chloride Carbon Dioxide Anion Gap BUN Creatinine Est Cr Clr Drug Dosing Est GFR ( Amer) Est GFR (Non-Af Amer) BUN/Creatinine Ratio Glucose POC Glucose 152 H 124 H 120 H Calcium Magnesium Specimen Hemolysis Medications Administered Current Inpatient Medications Acetaminophen (Tylenol) 650 mg PO Q4H PRN PRN Reason: pain/fever Stop: 10/05/18 18:52 Last Admin: 09/14/18 02:41 Dose: 650 mg Documented by: Apixaban (Eliquis) 5 mg PO BID [facility] Stop: 10/05/18 20:59 Last Admin: 09/17/18 08:27 Dose: Not Given Documented by: Artificial Tears (Artificial Tears) [facility] Stop: 10/06/18 08:59 Last Admin: 09/17/18 08:29 Dose: 2 drops Documented by: Aspirin (Aspirin Chew) 81 mg PO QAM [facility] Stop: 10/06/18 08:59 Last Admin: 09/17/18 08:27 Dose: Not Given Documented by: Carbidopa/Levodopa (Sinemet 25/250mg) 1 tab PO QID [facility] Stop: 10/06/18 18:29 Last Admin: 09/17/18 08:35 Dose: Not Given Documented by: Ciprofloxacin (Ciloxan 0.3% Opt) 1 drops OPR TID [facility] Stop: 09/24/18 20:59 Last Admin: 09/17/18 08:29 Dose: 1 drops Documented by: Dextrose (Dextrose 50%) 25 - 50 ml IV UD PRN; Protocol PRN Reason: Hypoglycemia Protocol Stop: 10/05/18 18:52 Last Admin: 09/16/18 08:04 Dose: 25 ml Documented by: Docusate Sodium (Colace) 100 mg PO BID [facility] Stop: 10/05/18 20:59 Last Admin: 09/17/18 08:27 Dose: Not Given Documented by: Glucagon (Glucagen) 1 mg SQ UD PRN; Protocol PRN Reason: Hypoglycemia Protocol Stop: 10/05/18 18:52 Glucose (Glucose 40%) 15 - 30 gm PO UD PRN; Protocol PRN Reason: Hypoglycemia Protocol Stop: 10/05/18 18:52 Glucose (Dex4 Glucose) 4 - 8 tabs PO UD PRN; Protocol PRN Reason: Hypoglycemia Protocol Stop: 10/05/18 18:52 Potassium Chloride/Dextrose/Sod Cl (D5w And 1/2nss + 20meq Kcl) 20 meq in 1,000 mls @ 75 mls/hr IV .[id number] [facility] Stop: 10/16/18 09:14 Last Infusion: 09/17/18 05:23 Dose: 75 mls/hr Documented by: Insulin Aspart (Novolog Flexpen) 0 units SC ACHS [facility] Stop: 10/05/18 20:59 Last Admin: 09/17/18 12:37 Dose: Not Given Documented by: Levothyroxine Sodium (Synthroid) 75 mcg PO DAILYBB [facility] Stop: 10/06/18 06:29 Last Admin: 09/17/18 05:57 Dose: Not Given Documented by: Lorazepam (Ativan) 0.25 mg PO HS [facility] Stop: 10/11/18 20:59 Last Admin: 09/16/18 20:16 Dose: Not Given Documented by: Magnesium Oxide (Mag-Ox) 400 mg PO QAM [facility] Stop: 10/06/18 08:59 Last Admin: 09/17/18 08:27 Dose: Not Given Documented by: Miscellaneous (Carbohydrates For Hypoglycemia) 15 - 30 gm PO UD PRN PRN Reason: Hypoglycemia Treatment Stop: 10/05/18 18:52 Last Admin: 09/16/18 07:55 Dose: 1 gm Documented by: Polyethylene Glycol (Miralax Powder Packet) 17 gm PO QAM [facility] Stop: 10/06/18 08:59 Last Admin: 09/17/18 08:28 Dose: Not Given Documented by: Quetiapine Fumarate (Seroquel) 50 mg PO [facility] Stop: 10/16/18 20:59 Last Admin: 09/16/18 20:16 Dose: Not Given Documented by: Quetiapine Fumarate (Seroquel) 25 mg PO Q4H PRN PRN Reason: anxiety Stop: 10/16/18 12:29 Sennosides (Senokot) 17.2 mg PO QAM [facility] Stop: 10/13/18 16:14 Last Admin: 09/17/18 08:28 Dose: Not Given Documented by: Simvastatin (Zocor) 40 mg PO HS [facility] Stop: 10/05/18 20:59 Last Admin: 09/16/18 20:16 Dose: Not Given Documented by: Thiamine HCl (Vitamin B-1) 200 mg PO BID [facility] Stop: 10/12/18 20:59 Last Admin: 09/17/18 08:35 Dose: Not Given Documented by: Venlafaxine HCl (Effexor Extended Release) [facility] [place] [place]: 10/06/18 08:59 Last Admin: 09/16/18 10:04 Dose: Not Given Documented by: (1) Altered mental status Altered mental status type: unspecified Qualified Code(s): R41.82 - Altered mental status, unspecified (2) Diabetes Diabetes mellitus type: type 2 Diabetes mellitus shelter insulin use: without watermaster use Diabetes mellitus complication status: without complication Qualified Code(s): E11.9 - Type 2 diabetes mellitus without complications (3) Atrial fibrillation Atrial fibrillation type: unspecified Qualified Code(s): I48.91 - Unspecified atrial fibrillation (4) CAD (coronary artery disease) Coronary Disease-Associated Artery/Lesion type: [place] artery [place] vs. transplanted heart: [place] heart Associated angina: without angina Qualified Code(s): I25.10 - Atherosclerotic heart disease of [place] coronary artery without angina pectoris (5) Hypothyroid Hypothyroidism type: unspecified Qualified Code(s): E03.9 - Hypothyroidism, unspecified (6) Conjunctivitis Conjunctivitis type: other Laterality: right Qualified Code(s): H10.89 - Other conjunctivitis
[2018-09-17] MEDS: LORazepam 0.5 MG TAB PO SCH (20:51)
[2018-09-17] MEDS: QUETIAPINE FUMARATE 25 MG TABLET PO SCH (20:52)
[2018-09-17] MEDS: SIMVASTATIN 40 MG TAB PO SCH (20:58)
[2018-09-18] MEDS: D5W AND 1/2NSS + 20MEQ KCL 20 MEQ/1,000 ML BAG IV SCH ×2 (01:27→14:06)
[2018-09-18] MEDS: LEVOTHYROXINE SODIUM 75 MCG TABLET PO SCH (06:00)
[2018-09-18] MEDS: CIPROFLOXACIN HCL 0.3% OP SOLN 2.5 ML BTL OPR SCH ×3 (07:40→21:08)
[2018-09-18] MEDS: POLYETHYLENE (MIRALAX) 17 GM PACK PO SCH (07:40)
[2018-09-18] MEDS: ARTIFICIAL TEARS OPB SCH (07:40)
[2018-09-18] MEDS: CARBIDOPA/LEVODOPA 25-250 1 EA TAB PO SCH ×4 (07:41→21:10)
[2018-09-18] MEDS: ASPIRIN 81 MG CHEW PO SCH (07:45)
[2018-09-18] MEDS: APIXABAN 5 MG TABLET PO SCH ×2 (07:46→21:10)
[2018-09-18] MEDS: SENNA 8.6 MG TAB PO SCH (07:46)
[2018-09-18] MEDS: MAGNESIUM OXIDE 400 MG TAB PO SCH (07:46)
[2018-09-18] MEDS: DOCUSATE SODIUM 100 MG CAP PO SCH ×2 (07:46→21:09)
[2018-09-18] MEDS: THIAMINE HCL 100 MG TAB PO SCH ×2 (07:47→21:10)
[2018-09-18] MEDS: INSULIN ASPART 100 UNITS/ML 3 ML PEN SC SCH ×4 (08:46→21:08)
[2018-09-18] MEDS ORDERED: LORazepam 2 MG/4 ML VIAL IV STA (14:08)
--- NOTE | 2018-09-18 15:51 | Hospitalist Progress Note ---
Date of Service September 18, 2018 Assessment & Plan (1) Altered mental status: ONGOING with no improvement since admission, actually getting worse at this point Continues with significant confusion and hallucinations despite scheduled HS zyprexa (not taking consistently) Also remains on ativan HS but will ultimately wean this off. Had been taking ativan for many years at home for anxiety disorder. Recent CT head w/o acute pathology. TSH, b12, ammonia all normal. ESR normal. Lyme's testing negative. B1 level sent and still pending; in meantime thiamine 200mg BID. No obvious infectious issue found. Had "electric shocks in the brain" 4 weeks ago. This has not recurred. Doesn't sound like trigeminal neuralgia. Placed on buspar at that time by outpatient psychiatry. Mental status got worse shortly after buspar was added and thus it has been discontinued. Suspect we are dealing with advancing parkinson's disease with underlying dementia and behavioral disturbance. MRI brain on 09/17 did not show any acute pathology to explain symptoms discussed with Dr. Hodge on 09/18, will try higher doses of Ativan to treat potential catatonia moved to [facility] for closer monitoring updated patient's son Braydon, he understands that this likely a terminal condition he is on board with hospice at SNF if she does not improve (2) Anorexia: ongoing. considered low-dose prednisone for appetite stimulation but this could potentially make mental status worse. obtained x-ray of abdomen to r/o impaction/severe constipation - this was not seen. recent u/a negative for UTI. suspect appetite issues are due to altered MS. added boost. added MVI. on thiamine BID. encouraged son to bring in home-cooked food that she enjoys. no good option for appetite stimulation (megace usually not helpful; marinol likely would cause confusion). would not tolerate NG tube. TPN NOT indicated. no real solution to this issue as it goes back to mental status terminal condition and hospice would be appropriate (3) Anxiety: Chronic h/o anxiety and panic attacks -- in setting of parkinson's disease. Presented with delirium, aggression, etc leading to this admission. no evidence of metabolic or infectious process contributing to clinical picture. changed Zyprexa to Seroquel 25mg PRN and 50mg HS, difficulty with compliance Review of PDMP shows long-standing use of ativan on daily basis at home. Normally would not advise ongoing ativan use but has been using it for years. Cont at HS to prevent withdrawal. Psych recommending cutting dose to 0.25mg at HS then ultimately weaning off entirely. Stopped BUSPAR. Ropinirole has been stopped as well. Cont effexor (but patient not taking at all) Try high doses of Ativan to treat potential catatonia (4) Diabetes: Last A1c was 6.5% in 07/2018. Controlled. had low sugar morning of 09/16 -- added dextrose-containing fluids back for maintenance with resolution of hypoglycemia. (5) Atrial fibrillation: Patient presently in NSR. not taking Eliquis so there is no stroke prevention given grim prognosis will hold on heparin products (6) Parkinson disease: Chronic. Previously followed by Dr. Sidhu as outpatient. Dx 2-3 years ago. Continue Carbidopa/Levodopa at home dosage. (not taking) Appreciate neuro consultation. (7) CAD (coronary artery disease): Chronic. Stable. Continue ASA, statin. (8) Hypothyroid: Chronic. TSH WNL. Continue Synthroid. (9) RLS (restless legs syndrome): Chronic No issues (10) Halitosis: due to lack of oral hygiene for 2+ weeks? (11) Conjunctivitis: cipro drops right eye x 7 days (12) DVT prophylaxis: nothing, patient not compliant disposition: if there is no response to Ativan then plan for SNF, transition to hospice Subjective still no improvement in patient she continues to refuse to eat, refuses to drink, refuses to take medications she says that she "just wants to go with [place]" and she says that she thinks "I am in outer space" discussed the use of Ativan to treat potential catatonia with psychiatry, they recommended trying 2mg IV moved patient to [facility] for closer monitoring no success as of yet with the Ativan long discussion with patient's son Braydon over the phone today he confirmed that his mother is a DNR/DNI, that she signed those papers at the SNF, I made change in the system we discussed that if the patient does not respond to the Ativan then we are looking as SNF with hospice he is in agreement, understands that she has no quality of life and prognosis is very grim will wait to see if she responds to Ativan Review of Systems Review of Systems: Unobtainable due to cognitive status Physical Exam Constitutional: WD/WN, vitals as above Eyes: PERRL, conjunctivae normal, anicteric sclerae ENMT: external ear and nose normal, oropharynx normal Neck: trachea midline, no thyromegaly Respiratory: normal respiratory effort, lungs clear to auscultation Cardiovascular: RRR, no murmur, no edema Gastrointestinal (Abdomen): normal bowel sounds, soft, nontender, no hepatosplenomegaly Musculoskeletal: no cyanosis or clubbing, extremities motor strength 5/5 Skin: no rashes, warm and dry Neurologic: patellar DTR's 2+ bilat, sensation intact and PERRL, EOMI, accommodation nl, no face palsy, no dysarthria Psychiatric: Orientation: alert, oriented to person and + guarded; + not oriented to place and + not oriented to time Eye Contact: good eye contact Motor Behavior: + psychomotor retardation and + tremor Speech: normal rate/rhythm/volume of speech Affect: + blunted affect Thought Content: + preoccupation Lymphatic: no cervical or axillary lymphadenopathy Results & Data Vital Signs (Past 12 Hours) Vital Signs Temp Pulse Pulse Resp BP Pulse Ox 09/18/18 14:31 73 09/18/18 13:29 36.7 C 78 18 108/66 96 09/18/18 07:30 37.4 C 77 20 130/48 L 96 Medications Administered Current Inpatient Medications Acetaminophen (Tylenol) 650 mg PO Q4H PRN PRN Reason: pain/fever Stop: 10/05/18 18:52 Last Admin: 09/14/18 02:41 Dose: 650 mg Documented by: Apixaban (Eliquis) 5 mg PO BID [facility] Stop: 10/05/18 20:59 Last Admin: 09/18/18 07:46 Dose: Not Given Documented by: Artificial Tears (Artificial Tears) 2 drops [facility] Stop: 10/06/18 08:59 Last Admin: 09/18/18 07:40 Dose: 2 drops Documented by: Aspirin (Aspirin Chew) 81 mg PO QAM [facility] Stop: 10/06/18 08:59 Last Admin: 09/18/18 07:45 Dose: Not Given Documented by: Carbidopa/Levodopa (Sinemet 25/250mg) 1 tab PO QID [facility] Stop: 10/06/18 18:29 Last Admin: 09/18/18 12:45 Dose: Not Given Documented by: Ciprofloxacin (Ciloxan 0.3% Opth) 1 drops OPR TID [facility] Stop: 09/24/18 20:59 Last Admin: 09/18/18 14:06 Dose: 1 drops Documented by: Dextrose (Dextrose 50%) 25 - 50 ml IV UD PRN; Protocol PRN Reason: Hypoglycemia Protocol Stop: 10/05/18 18:52 Last Admin: 09/16/18 08:04 Dose: 25 ml Documented by: Docusate Sodium (Colace) 100 mg PO BID [facility] Stop: 10/05/18 20:59 Last Admin: 09/18/18 07:46 Dose: Not Given Documented by: Glucagon (Glucagen) 1 mg SQ UD PRN; Protocol PRN Reason: Hypoglycemia Protocol Stop: 10/05/18 18:52 Glucose (Glucose 40%) 15 - 30 gm PO UD PRN; Protocol PRN Reason: Hypoglycemia Protocol Stop: 10/05/18 18:52 Glucose (Dex4 Glucose) 4 - 8 tabs PO UD PRN; Protocol PRN Reason: Hypoglycemia Protocol Stop: 10/05/18 18:52 Potassium Chloride/Dextrose/Sod Cl (D5w And 1/2nss + 20meq Kcl) 20 meq in 1,000 mls @ 75 mls/hr IV .[id number] [facility] Stop: 10/16/18 09:14 Last Admin: 09/18/18 14:06 Dose: 75 mls/hr Documented by: Insulin Aspart (Novolog Flexpen) 0 units SC ACHS [facility] Stop: 10/05/18 20:59 Last Admin: 09/18/18 12:38 Dose: Not Given Documented by: Levothyroxine Sodium (Synthroid) 75 mcg PO DAILYBB [facility] Stop: 10/06/18 06:29 Last Admin: 09/18/18 06:00 Dose: 75 mcg Documented by: Magnesium Oxide (Mag-Ox) 400 mg PO QAM [facility] Stop: 10/06/18 08:59 Last Admin: 09/18/18 07:46 Dose: Not Given Documented by: Miscellaneous (Carbohydrates For Hypoglycemia) 15 - 30 gm PO UD PRN PRN Reason: Hypoglycemia Treatment Stop: 10/05/18 18:52 Last Admin: 09/16/18 07:55 Dose: 1 gm Documented by: Polyethylene Glycol (Miralax Powder Packet) 17 gm PO QAM [facility] Stop: 10/06/18 08:59 Last Admin: 09/18/18 07:40 Dose: Not Given Documented by: Sennosides (Senokot) 17.2 mg PO QAM [facility] Stop: 10/13/18 16:14 Last Admin: 09/18/18 07:46 Dose: Not Given Documented by: Simvastatin (Zocor) 40 mg PO HS [facility] Stop: 10/05/18 20:59 Last Admin: 09/17/18 20:58 Dose: 40 mg Documented by: Thiamine HCl (Vitamin B-1) 200 mg PO BID [facility] Stop: 10/12/18 20:59 Last Admin: 09/18/18 07:47 Dose: Not Given Documented by: (1) Diabetes Diabetes mellitus complication status: without complication Diabetes mellitus account service representative insulin use: without account service representative use Diabetes mellitus type: type 2 Qualified Code(s): E11.9 - Type 2 diabetes mellitus without complications (2) CAD (coronary artery disease) Associated angina: without angina Coronary Disease-Associated Artery/Lesion type: [place] artery [place] vs. transplanted heart: [place] heart Qualified Code(s): I25.10 - Atherosclerotic heart disease of [place] coronary artery without angina pectoris (3) Atrial fibrillation Atrial fibrillation type: unspecified Qualified Code(s): I48.91 - Unspecified atrial fibrillation (4) Conjunctivitis Conjunctivitis type: other Laterality: right Qualified Code(s): H10.89 - Other conjunctivitis (5) Hypothyroid Hypothyroidism type: unspecified Qualified Code(s): E03.9 - Hypothyroidism, unspecified (6) Altered mental status Altered mental status type: unspecified Qualified Code(s): R41.82 - Altered mental status, unspecified
[2018-09-18] MEDS: SIMVASTATIN 40 MG TAB PO SCH (21:11)
[2018-09-19] MEDS: D5W AND 1/2NSS + 20MEQ KCL 20 MEQ/1,000 ML BAG IV SCH ×2 (04:18→18:47)
[2018-09-19] MEDS: LEVOTHYROXINE SODIUM 75 MCG TABLET PO SCH ×2 (06:10→08:47)
[2018-09-19] MEDS: INSULIN ASPART 100 UNITS/ML 3 ML PEN SC SCH ×4 (08:45→22:27)
[2018-09-19] MEDS: ARTIFICIAL TEARS OPB SCH (08:47)
[2018-09-19] MEDS: CARBIDOPA/LEVODOPA 25-250 1 EA TAB PO SCH ×4 (08:48→21:26)
[2018-09-19] MEDS: THIAMINE HCL 100 MG TAB PO SCH ×2 (08:48→21:28)
[2018-09-19] MEDS: ASPIRIN 81 MG CHEW PO SCH (08:48)
[2018-09-19] MEDS: SENNA 8.6 MG TAB PO SCH (08:48)
[2018-09-19] MEDS: MAGNESIUM OXIDE 400 MG TAB PO SCH (08:48)
[2018-09-19] MEDS: CIPROFLOXACIN HCL 0.3% OP SOLN 2.5 ML BTL OPR SCH ×3 (08:49→21:32)
[2018-09-19] MEDS: APIXABAN 5 MG TABLET PO SCH ×2 (08:49→21:27)
[2018-09-19] MEDS: DOCUSATE SODIUM 100 MG CAP PO SCH ×2 (08:51→21:37)
[2018-09-19] MEDS: POLYETHYLENE (MIRALAX) 17 GM PACK PO SCH (08:52)
--- NOTE | 2018-09-19 12:33 | Psychiatric Progress Note ---
Date of Service September 19, 2018 Impression / Recommendations Impression 78-year-old female admitted medically on 09/05/18 for AMS. Initial psychiatric consultation completed on 09/06/18 due to agitation. Her clinical course is most consistent with delirium, likely multifactorial, given her Parkinson's disease, multiple centrally acting medications, multiple recent medication changes, taking 2 benzodiazepines at home, and dopamine agonist medication. I also had some concern for catatonia, as over the weekend she was not verbally responding, not eating or taking medications. She had a test dose of Ativan 2 mg yesterday, and was calmer afterwards, with improved ability to communicate and cooperate with care today. (1) Altered mental status: 09/19 -patient admitted with encephalopathy, likely multifactorial related to Parkinson's disease, dementia, medication effects, and multiple recent medication adjustments. -Neurology saw her and discontinued ropinirole, and suggested tapering off her dopamine agonist if mental status does not improve. Her dose was increased in June. They also noted her visual hallucinations are likely related to her Parkinson's, and suggested a trial of Nuplazid if they continue. -Buspirone was discontinued early in hospitalization as mental status worsened after it was started, and continue to try to avoid deliriogenic medications when possible (antihistamines, anticholinergics, opiates, and benzodiazepines). -There may be a component of catatonia, and she did have a favorable response to the lorazepam 2 mg yesterday, but as she is now able to communicate and is eating and taking medication, I would hold off on giving additional Lorazepam as it can be deliriogenic and may increase her fall risk. If she again reverts to catatonic state with immobility, mutism, stupor, etc., would readminister lorazepam 2 mg, which can be repeated several times daily if effective. Present on Admission?: Yes (2) Anxiety: 09/19 -patient was on venlafaxine XR 150 mg daily, but it was discontinued as she was refusing oral medications, and this medication often causes uncomfortable discontinuation symptoms which could worsen her clinical picture. She appears depressed and anxious, and would recommend resuming an antidepressant, but will switch to fluoxetine for its longer half-life and better tolerance if not fully compliant with medication. Will start 10 mg daily and titrate as needed. -We will order quetiapine 25 mg every 4 hours as needed for severe anxiety. Please use this prior to lorazepam, as it is lower risk with respect to exacerbating delirium and falls. Present on Admission?: Yes Interval History Identifying Information 78-year-old female with anxiety, Parkinson's disease and dementia who was admitted medically on 09/05/18 due to altered mental status with increased confusion. Psychiatric consultation was requested for agitation, and the patient has been seen several times since admission. She was seen today for follow-up assessment. Chief Complaint "Confused". Review of Systems Notes Denies pain, headache; + weakness Subjective Subjective Patient was seen & assessed and interval progress reviewed with Dr. Briceño and nursing staff. She received 1 dose of quetiapine 50 mg at bedtime on 09/17/2018, and it was then discontinued. She did not receive any of the 25 mg as needed doses. The olanzapine was discontinued on 09/16/2018, as it was not effective, and she has not received the venlafaxine in 5 days, so it was discontinued due to the risk of discontinuation symptoms with missed doses/erratic compliance. Yesterday she was confused, thought she was in outer space, made comments about wanting to be with Nahun, and was refusing to eat, drink, or take medications. She has not been able to participate in PT or OT in several days. She received a 2 mg dose of lorazepam in the afternoon due to concerns for catatonia, and 2 hours later was assessed and was calm, answering questions appropriately, and was oriented to self and place, but not time. She was able to recognize her visitor (her sister), and was eating. Overnight she was oriented to person only, but no agitation. This morning she took all her medications, and reported hallucinations of hands waving at her, which she was aware where hallucinations, but were upsetting to her. On my assessment she was seen with a friend who was visiting at the bedside, and was significantly more talkative than at the time of her last assessment, able to answer some questions appropriately, but at times it was difficult to follow her thought process. Her friend shared that she has made nonsensical statements at times, or will bring up names of people they know, but without meaningful discussion. She is oriented to herself and date of , but believes she is in a school and that the year is 1919. She was able to be redirected. She reports seeing bugs in the corner of the room earlier today, and at times thinks she is hearing a voice when no one is there (although was also concerned when she could hear voices coming from the bed next to hers, by a curtain, as she did not know there was another patient in the room). She is somewhat distraught by her confusion, stating that she is not sure what is going on, and is tearful at times. She reports feeling very badly and embarrassed about episodes of agitation she has had in the hospital, and recognizes she has not been thinking clearly. She endorses anxiety, stating she is not sure where her is, and thinks he might be , but was reassured when her friend told her that he was fine and was at [facility]. Physical Exam Mental Examination Elderly white female appearing her stated age. Dressed in a hospital gown, lying in bed in no acute distress, with a visitor at the bedside. Good eye contact. Patient is tremulous throughout the assessment. Speech is spontaneous, productive, very soft. Affect is anxious and confused, congruent with stated mood. Thoughts are goal-directed much of the time, but at times difficult to follow her thought process. Denies SI, HI, paranoia. No delusions voiced, but endorses visual hallucinations of bugs and hands waving at her this morning, and a question of auditory hallucinations of voices. She is alert, oriented to self but not place or time. Insight and judgment are impaired, but does recognize she is confused and has not been thinking clearly. Vital Signs (Past 24 Hours) Last Vital Signs Temp 36.7 C 09/19/18 11:00 Pulse 66 09/19/18 11:00 Resp 18 09/19/18 11:00 BP 105/61 09/19/18 11:00 Pulse Ox 94 09/19/18 11:00 Results & Data Laboratory Results Laboratory Results - last 24 hr 09/18/18 09/18/18 09/18/18 12:14 18:29 20:00 POC Glucose 106 H 154 H 193 H 09/19/18 09/19/18 09/19/18 04:17 07:36 11:29 POC Glucose 107 H 127 H 83 Current Inpatient Medications Current Inpatient Medications: Current Inpatient Medications Acetaminophen (Tylenol) 650 mg PO Q4H PRN PRN Reason: pain/fever Stop: 10/05/18 18:52 Last Admin: 09/14/18 02:41 Dose: 650 mg Documented by: Apixaban (Eliquis) 5 mg PO BID [facility] Stop: 10/05/18 20:59 Last Admin: 09/19/18 08:49 Dose: 5 mg Documented by: Artificial Tears (Artificial Tears) 2 drops OPB QAM [facility] Stop: 10/06/18 08:59 Last Admin: 09/19/18 08:47 Dose: 2 drops Documented by: Aspirin (Aspirin Chew) 81 mg PO QAM [facility] Stop: 10/06/18 08:59 Last Admin: 09/19/18 08:48 Dose: 81 mg Documented by: Carbidopa/Levodopa (Sinemet 25/250mg) 1 tab PO QID [facility] Stop: 10/06/18 18:29 Last Admin: 09/19/18 08:48 Dose: 1 tab Documented by: Ciprofloxacin (Ciloxan 0.3% Opth) 1 drops OPR TID [facility] Stop: 09/24/18 20:59 Last Admin: 09/19/18 08:49 Dose: 1 drops Documented by: Dextrose (Dextrose 50%) 25 - 50 ml IV UD PRN; Protocol PRN Reason: Hypoglycemia Protocol Stop: 10/05/18 18:52 Last Admin: 09/16/18 08:04 Dose: 25 ml Documented by: Docusate Sodium (Colace) 100 mg PO BID [facility] Stop: 10/05/18 20:59 Last Admin: 09/19/18 08:51 Dose: 100 mg Documented by: Glucagon (Glucagen) 1 mg SQ UD PRN; Protocol PRN Reason: Hypoglycemia Protocol Stop: 10/05/18 18:52 Glucose (Glucose 40%) 15 - 30 gm PO UD PRN; Protocol PRN Reason: Hypoglycemia Protocol Stop: 10/05/18 18:52 Glucose (Dex4 Glucose) 4 - 8 tabs PO UD PRN; Protocol PRN Reason: Hypoglycemia Protocol Stop: 10/05/18 18:52 Potassium Chloride/Dextrose/Sod Cl (D5w And 1/2nss + 20meq Kcl) 20 meq in 1,000 mls @ 75 mls/hr IV .[id number] [facility] Stop: 10/16/18 09:14 Last Admin: 09/19/18 04:18 Dose: 75 mls/hr Documented by: Insulin Aspart (Novolog Flexpen) 0 units SC ACHS [facility] Stop: 10/05/18 20:59 Last Admin: 09/19/18 08:45 Dose: 5 units Documented by: Levothyroxine Sodium (Synthroid) 75 mcg PO DAILYBB [facility] Stop: 10/06/18 06:29 Last Admin: 09/19/18 08:47 Dose: 75 mcg Documented by: Magnesium Oxide (Mag-Ox) 400 mg PO QAM [facility] Stop: 10/06/18 08:59 Last Admin: 09/19/18 08:48 Dose: 400 mg Documented by: Miscellaneous (Carbohydrates For Hypoglycemia) 15 - 30 gm PO UD PRN PRN Reason: Hypoglycemia Treatment Stop: 10/05/18 18:52 Last Admin: 09/16/18 07:55 Dose: 1 gm Documented by: Polyethylene Glycol (Miralax Powder Packet) 17 gm PO QAM [facility] Stop: 10/06/18 08:59 Last Admin: 09/19/18 08:52 Dose: 17 gm Documented by: Sennosides (Senokot) 17.2 mg PO QAM [facility] Stop: 10/13/18 16:14 Last Admin: 09/19/18 08:48 Dose: 17.2 mg Documented by: Simvastatin (Zocor) 40 mg PO HS [facility] Stop: 10/05/18 20:59 Last Admin: 09/18/18 21:11 Dose: 40 mg Documented by: Thiamine HCl (Vitamin B-1) 200 mg PO BID [facility] Stop: 10/12/18 20:59 Last Admin: 09/19/18 08:48 Dose: 200 mg Documented by: CPT Code CPT Code 13147 (1) Altered mental status Altered mental status type: unspecified Qualified Code(s): R41.82 - Altered mental status, unspecified
[2018-09-19] MEDS ORDERED: LORazepam 2 MG/4 ML VIAL IV STA (13:04)
[2018-09-19] MEDS: FLUOXETINE HCL 10 MG CAP PO SCH (13:14)
[2018-09-19] MEDS ORDERED: LORazepam 1 MG/2 ML VIAL IV STA (13:28)
--- NOTE | 2018-09-19 14:33 | Psychiatric Progress Note ---
Date of Service September 19, 2018 Impression / Recommendations Impression 78-year-old female admitted medically on 09/05/18 for AMS. Initial psychiatric consultation completed on 09/06/18 due to agitation. Her clinical course is most consistent with delirium, likely multifactorial, given her Parkinson's disease, multiple centrally acting medications, multiple recent medication changes, taking 2 benzodiazepines at home, and dopamine agonist medication. I also had some concern for catatonia, as over the weekend she was not verbally responding, not eating or taking medications. She had a test dose of Ativan 2 mg yesterday, and was calmer afterwards, with improved ability to communicate and cooperate with care today. Reassessment 09/19 - continue as above. It is difficult to tell if patient's improved ability to communicate was due to dose of lorazepam 1mg (received only moments prior to our arrival), or a general improvement in metal state. Pt had also agreed to taking her Sinemet and Seroquel during our visit - though not as likely that she would have had as rapid of a response to these medications. - Pt responded well to encouragement, reassurance that staff is here to help her, and a clear understanding of the medications she was being given and what they are for. She recognizes that she has periods of confusion and is concerned that staff is afraid of her because of her behavior. Continue usual delirium behavioral strategies with frequent re-orientation and reassurance, presence of familiar items and visitors in room, lights on during day and off at night to promote regular sleep/wake cycle, and use of prn medications only as needed for agitation which is threatens patient or staff safety. (1) Altered mental status: 09/19 -patient admitted with encephalopathy, likely multifactorial related to Parkinson's disease, dementia, medication effects, and multiple recent medication adjustments. -Neurology saw her and discontinued ropinirole, and suggested tapering off her dopamine agonist if mental status does not improve. Her dose was increased in June. They also noted her visual hallucinations are likely related to her Parkinson's, and suggested a trial of Nuplazid if they continue. -Buspirone was discontinued early in hospitalization as mental status worsened after it was started, and continue to try to avoid deliriogenic medications when possible (antihistamines, anticholinergics, opiates, and benzodiazepines). -There may be a component of catatonia, and she did have a favorable response to the lorazepam 2 mg yesterday, but as she is now able to communicate and is eating and taking medication, I would hold off on giving additional Lorazepam as it can be deliriogenic and may increase her fall risk. If she again reverts to catatonic state with immobility, mutism, stupor, etc., would readminister lorazepam 2 mg, which can be repeated several times daily if effective. (2) Anxiety: 09/19 -patient was on venlafaxine XR 150 mg daily, but it was discontinued as she was refusing oral medications, and this medication often causes uncomfortable discontinuation symptoms which could worsen her clinical picture. She appears depressed and anxious, and would recommend resuming an antidepressant, but will switch to fluoxetine for its longer half-life and better tolerance if not fully compliant with medication. Will start 10 mg daily and titrate as needed. -We will order quetiapine 25 mg every 4 hours as needed for severe anxiety. Please use this prior to lorazepam, as it is lower risk with respect to exacerbating delirium and falls. Interval History Identifying Information 78-year-old female with anxiety, Parkinson's disease and dementia who was admitted medically on 09/05/18 due to altered mental status with increased confusion. Psychiatric consultation was requested for agitation, and the patient has been seen several times since admission. She was seen today for follow-up assessment. Chief Complaint "I don;'t know where the medication is. I'll take it from you [nurse liaison], but I don't trust strangers." Review of Systems Notes Denies current physical complaints - admits to anxiety and restlessness, stating she does not presently feel confused No other verbalized complaints Subjective Subjective Patient's case was reviewed and discussed with psychiatric nurse liaison and supervising psychiatrist. Pt was seen for follow-up assessment by Dr. Hodge earlier today, medication adjustments and recommendations were reviewed. This provider accompanied our psychiatric nurse liaison to re-assess the patient after receiving 1mg of lorazepam. Pt had received the medication only moments prior to our arrival, therefore may not have been a thorough assessment of response. Initially, patient was found to be agitated/anxious, clasping to the curtain divider in the room and smacking the newspaper off of the edge of the be dside table. It was reported by nursing that patient was provided with her doses of Seroquel and Sinemet, but that she had held the pills in her hand and would not take them. Pt initially seems confused and distressed. She recognized our liaison and was able to be comforted by our conversation with her. Throughout the conversation, patient was better able to communicate her thoughts and feelings. Pt states she was not taking the medications as she is concerned they are being tampered with, she states, "but I'll take them from you, just not from the strangers." She did follow through and take both medications crushed in applesauce. Pt was reassured that although staff changes frequently, that we all have her best interest in mind. She was able to recognize that she has episodes of confusion, and addressed that during those times, she is likely not to take medication. Pt also states that she is worried that staff is afraid of her, and she apologizes for her confusion. Pt was re assured that the medications she is being offered are likely to be helpful for her anxiety and worries. Pt later asks "how do I go about getting better so I can start helping you all out, so I can start cleaning up the place?" Pt was able to recognize that she is at [facility] and not at [facility]. Pt was reassured that her only focus should be on getting better. Overall, patient is able to express her thoughts in rather cohesive and coherent sentences. She remains somewhat confused, as she at times mentions comments about [facility], but is rather coherent during our visit. Physical Exam Psychiatric Orientation: alert, oriented to person, oriented to place and cooperative Apperance: appropriately dressed (in hospital gown), + disheveled and appeared stated age Eye Contact: good eye contact Motor Behavior: + tremor (fine full-body tremor) Upon initial assessment, patient is clinging to curtain divider with left hand, and repeatedly smacking a newspaper against her food tray with her right hand - this behavior does calm as she is actively engaged in conversation Speech: normal rate/rhythm/volume of speech (soft tone) Affect: + anxious affect Mood: + anxious mood ("I'm scared, this is no way to live" and "I don't trust the strangers") Thought Process: goal directed thought process and + circumstantial thought process (though improved when compared to some previous visits) Initially somewhat confused, unable to fully assess content - she is later able to discuss her worries in the hospital, recognition of episodic confusion, and desire to help staff "clean up the place." Suicidal Thoughts: denies suicidal thoughts Homicidal Thoughts: denies homicidal thoughts Does not verbalize any active hallucinations Cognition: attention grossly intact and language grossly intact Estimated Intelligence: consistent with education level Insight: + impaired insight (though somewhat improved when compared to previous visits) Judgement: + impaired judgement Vital Signs (Past 24 Hours) Last Vital Signs Temp 36.7 C 09/19/18 11:00 Pulse 66 09/19/18 11:00 Resp 18 09/19/18 11:00 BP 105/61 09/19/18 11:00 Pulse Ox 94 09/19/18 11:00 Results & Data Laboratory Results Laboratory Results - last 24 hr 09/18/18 09/18/18 09/19/18 18:29 20:00 04:17 POC Glucose 154 H 193 H 107 H 09/19/18 09/19/18 07:36 11:29 POC Glucose 127 H 83 Current Inpatient Medications Current Inpatient Medications: Current Inpatient Medications Acetaminophen (Tylenol) 650 mg PO Q4H PRN PRN Reason: pain/fever Stop: 10/05/18 18:52 Last Admin: 09/14/18 02:41 Dose: 650 mg Documented by: Apixaban (Eliquis) 5 mg PO BID [facility] Stop: 10/05/18 20:59 Last Admin: 09/19/18 08:49 Dose: 5 mg Documented by: Artificial Tears (Artificial Tears) 2 drops OPB [facility] Stop: 10/06/18 08:59 Last Admin: 09/19/18 08:47 Dose: 2 drops Documented by: Aspirin (Aspirin Chew) 81 mg PO QAM [facility] Stop: 10/06/18 08:59 Last Admin: 09/19/18 08:48 Dose: 81 mg Documented by: Carbidopa/Levodopa (Sinemet 25/250mg) 1 tab PO QID [facility] Stop: 10/06/18 18:29 Last Admin: 09/19/18 12:44 Dose: 1 tab Documented by: Ciprofloxacin (Ciloxan 0.3% Opt) 1 drops OPR TID [facility] Stop: 09/24/18 20:59 Last Admin: 09/19/18 13:41 Dose: 1 drops Documented by: Dextrose (Dextrose 50%) 25 - 50 ml IV UD PRN; Protocol PRN Reason: Hypoglycemia Protocol Stop: 10/05/18 18:52 Last Admin: 09/16/18 08:04 Dose: 25 ml Documented by: Docusate Sodium (Colace) 100 mg PO BID [facility] Stop: 10/05/18 20:59 Last Admin: 09/19/18 08:51 Dose: 100 mg Documented by: Fluoxetine HCl (Prozac) 10 mg PO QAM [facility] Stop: 10/19/18 12:29 Last Admin: 09/19/18 13:14 Dose: Not Given Documented by: Glucagon (Glucagen) 1 mg SQ UD PRN; Protocol PRN Reason: Hypoglycemia Protocol Stop: 10/05/18 18:52 Glucose (Glucose 40%) 15 - 30 gm PO UD PRN; Protocol PRN Reason: Hypoglycemia Protocol Stop: 10/05/18 18:52 Glucose (Dex4 Glucose) 4 - 8 tabs PO UD PRN; Protocol PRN Reason: Hypoglycemia Protocol Stop: 10/05/18 18:52 Potassium Chloride/Dextrose/Sod Cl (D5w And 1/2nss + 20meq Kcl) 20 meq in 1,000 mls @ 75 mls/hr IV .[id number] [facility] Stop: 10/16/18 09:14 Last Admin: 09/19/18 04:18 Dose: 75 mls/hr Documented by: Insulin Aspart (Novolog Flexpen) 0 units SC ACHS [facility] Stop: 10/05/18 20:59 Last Admin: 09/19/18 12:42 Dose: Not Given Documented by: Levothyroxine Sodium (Synthroid) 75 mcg PO DAILYBB [facility] Stop: 10/06/18 06:29 Last Admin: 09/19/18 08:47 Dose: 75 mcg Documented by: Magnesium Oxide (Mag-Ox) 400 mg PO QAM [facility] Stop: 10/06/18 08:59 Last Admin: 09/19/18 08:48 Dose: 400 mg Documented by: Miscellaneous (Carbohydrates For Hypoglycemia) 15 - 30 gm PO UD PRN PRN Reason: Hypoglycemia Treatment Stop: 10/05/18 18:52 Last Admin: 09/16/18 07:55 Dose: 1 gm Documented by: Polyethylene Glycol (Miralax Powder Packet) 17 gm PO QAM [facility] Stop: 10/06/18 08:59 Last Admin: 09/19/18 08:52 Dose: 17 gm Documented by: Quetiapine Fumarate (Seroquel) 25 mg PO Q4H PRN PRN Reason: Anxiety Stop: 10/19/18 12:29 Sennosides (Senokot) 17.2 mg PO QAM [facility] Stop: 10/13/18 16:14 Last Admin: 09/19/18 08:48 Dose: 17.2 mg Documented by: Simvastatin (Zocor) 40 mg PO HS [facility] Stop: 10/05/18 20:59 Last Admin: 09/18/18 21:11 Dose: 40 mg Documented by: Thiamine HCl (Vitamin B-1) 200 mg PO BID [facility] Stop: 10/12/18 20:59 Last Admin: 09/19/18 08:48 Dose: 200 mg Documented by: CPT Code CPT Code 43329 (1) Altered mental status Altered mental status type: unspecified Qualified Code(s): R41.82 - Altered mental status, unspecified
--- NOTE | 2018-09-19 15:13 | Hospitalist Progress Note ---
Date of Service September 19, 2018 Assessment & Plan (1) Altered mental status: ONGOING with little improvement since admission some improvement in the evening on 09/18 and in the morning on 09/19 she was given Sinemet and Seroquel later, around lunch, she became highly agitated and would not take PO Seroquel Ativan 2mg IV given and patient much calmer, sleeping however, wanted to avoid this will see how she is tomorrow d/w Dr. Hodge over phone for anxiety will use Seroquel PRN and for depression will use Prozac Recent CT head w/o acute pathology. TSH, b12, ammonia all normal. ESR normal. Lyme's testing negative. B1 level sent and still pending; in meantime thiamine 200mg BID. No obvious infectious issue found. Suspect we are dealing with advancing parkinson's disease with underlying dementia and behavioral disturbance. MRI brain on 09/17 did not show any acute pathology to explain symptoms (2) Anorexia: at a little bit in the morning on 09/19 but then became agitated and did not eat lunch considered low-dose prednisone for appetite stimulation but this could potentially make mental status worse. obtained x-ray of abdomen to r/o impaction/severe constipation - this was not seen. recent u/a negative for UTI. suspect appetite issues are due to altered MS. added boost. added MVI. on thiamine BID. encouraged son to bring in home-cooked food that she enjoys. no good option for appetite stimulation (megace usually not helpful; marinol likely would cause confusion). would not tolerate NG tube. TPN NOT indicated. no real solution to this issue as it goes back to mental status terminal condition and hospice would be appropriate (3) Anxiety: Chronic h/o anxiety and panic attacks -- in setting of parkinson's disease. Presented with delirium, aggression, etc leading to this admission. no evidence of metabolic or infectious process contributing to clinical picture. trying to use Seroquel, will not take consistently unfortunately we had to use Ativan 2mg IV today Review of PDMP shows long-standing use of ativan on daily basis at home. Normally would not advise ongoing ativan use but has been using it for years. Stopped BUSPAR. Ropinirole has been stopped as well. stopped Effexor due to inconsistency in taking Try high doses of Ativan (4) Diabetes: Last A1c was 6.5% in 07/2018. Controlled. had low sugar morning of 09/16 -- added dextrose-containing fluids back for maintenance with resolution of hypoglycemia. (5) Atrial fibrillation: Patient presently in NSR. not taking Eliquis so there is no stroke prevention given grim prognosis will hold on heparin products (6) Parkinson disease: Chronic. Previously followed by Dr. Sidhu as outpatient. Dx 2-3 years ago. Continue Carbidopa/Levodopa at home dosage. (not taking) Appreciate neuro consultation. (7) CAD (coronary artery disease): Chronic. Stable. Continue ASA, statin. (8) Hypothyroid: Chronic. TSH WNL. Continue Synthroid. (9) RLS (restless legs syndrome): Chronic No issues (10) Halitosis: due to lack of oral hygiene for 2+ weeks? (11) Conjunctivitis: cipro drops right eye x 7 days (12) DVT prophylaxis: nothing, patient not compliant disposition: if there is no response to Ativan then plan for SNF, transition to hospice Subjective patient was more calm and cooperative this morning answering questions, discussing some hallucinations but not overly agitated she exhibited some signs of depression and anxiety d/w Dr. Hodge, she recommended using Seroquel and Paxil to treat her mood and anxiety unfortunately, later in the day the patient became extremely agitated, pulling at curtain in room, rattling the table given Ativan 2mg IV and she became much calmer, sleeping Review of Systems Review of Systems: Unobtainable due to cognitive status Physical Exam Constitutional: WD/WN, vitals as above Eyes: PERRL, conjunctivae normal, anicteric sclerae ENMT: external ear and nose normal, oropharynx normal Neck: trachea midline, no thyromegaly Respiratory: normal respiratory effort, lungs clear to auscultation Cardiovascular: RRR, no murmur, no edema Gastrointestinal (Abdomen): normal bowel sounds, soft, nontender, no hepatosplenomegaly Musculoskeletal: no cyanosis or clubbing, extremities motor strength 5/5 Skin: no rashes, warm and dry Neurologic: patellar DTR's 2+ bilat, sensation intact and PERRL, EOMI, accommodation nl, no face palsy, no dysarthria Psychiatric: Orientation: alert and oriented to person; + not oriented to place and + not oriented to time Eye Contact: good eye contact Motor Behavior: + tremor Speech: normal rate/rhythm/volume of speech Affect: + depressed affect and + anxious affect Lymphatic: no cervical or axillary lymphadenopathy Results & Data Vital Signs (Past 12 Hours) Vital Signs Temp Pulse Pulse Pulse Resp BP Pulse Ox 09/19/18 11:00 36.7 C 66 18 105/61 94 09/19/18 07:10 67 09/19/18 07:00 37.1 C 66 18 118/67 97 09/19/18 03:50 37.1 C 77 18 132/72 94 Laboratory Results Laboratory Results - last 24 hr 09/18/18 09/18/18 09/19/18 18:29 20:00 04:17 POC Glucose 154 H 193 H 107 H 09/19/18 09/19/18 07:36 11:29 POC Glucose 127 H 83 Medications Administered Current Inpatient Medications Acetaminophen (Tylenol) 650 mg PO Q4H PRN PRN Reason: pain/fever Stop: 10/05/18 18:52 Last Admin: 09/14/18 02:41 Dose: 650 mg Documented by: Apixaban (Eliquis) 5 mg PO BID [facility] Stop: 10/05/18 20:59 Last Admin: 09/19/18 08:49 Dose: 5 mg Documented by: Artificial Tears (Artificial Tears) 2 drops [facility] Stop: 10/06/18 08:59 Last Admin: 09/19/18 08:47 Dose: 2 drops Documented by: Aspirin (Aspirin Chew) 81 mg PO QAM [facility] Stop: 10/06/18 08:59 Last Admin: 09/19/18 08:48 Dose: 81 mg Documented by: Carbidopa/Levodopa (Sinemet 25/250mg) 1 tab PO QID [facility] Stop: 10/06/18 18:29 Last Admin: 09/19/18 12:44 Dose: 1 tab Documented by: Ciprofloxacin (Ciloxan 0.3% Opt) 1 drops OPR TID [facility] Stop: 09/24/18 20:59 Last Admin: 09/19/18 13:41 Dose: 1 drops Documented by: Dextrose (Dextrose 50%) 25 - 50 ml IV UD PRN; Protocol PRN Reason: Hypoglycemia Protocol Stop: 10/05/18 18:52 Last Admin: 09/16/18 08:04 Dose: 25 ml Documented by: Docusate Sodium (Colace) 100 mg PO BID [facility] Stop: 10/05/18 20:59 Last Admin: 09/19/18 08:51 Dose: 100 mg Documented by: Fluoxetine HCl (Prozac) 10 mg PO QAM [facility] Stop: 10/19/18 12:29 Last Admin: 09/19/18 13:14 Dose: Not Given Documented by: Glucagon (Glucagen) 1 mg SQ UD PRN; Protocol PRN Reason: Hypoglycemia Protocol Stop: 10/05/18 18:52 Glucose (Glucose 40%) 15 - 30 gm PO UD PRN; Protocol PRN Reason: Hypoglycemia Protocol Stop: 10/05/18 18:52 Glucose (Dex4 Glucose) 4 - 8 tabs PO UD PRN; Protocol PRN Reason: Hypoglycemia Protocol Stop: 10/05/18 18:52 Potassium Chloride/Dextrose/Sod Cl (D5w And 1/2nss + 20meq Kcl) 20 meq in 1,000 mls @ 75 mls/hr IV .[id number] [facility] Stop: 10/16/18 09:14 Last Admin: 09/19/18 04:18 Dose: 75 mls/hr Documented by: Insulin Aspart (Novolog Flexpen) 0 units SC ACHS [facility] Stop: 10/05/18 20:59 Last Admin: 09/19/18 12:42 Dose: Not Given Documented by: Levothyroxine Sodium (Synthroid) 75 mcg PO DAILYBB [facility] Stop: 10/06/18 06:29 Last Admin: 09/19/18 08:47 Dose: 75 mcg Documented by: Magnesium Oxide (Mag-Ox) [facility] [place] Stop: 10/06/18 08:59 Last Admin: 09/19/18 08:48 Dose: 400 mg Documented by: Miscellaneous (Carbohydrates For Hypoglycemia) 15 - 30 gm PO UD PRN PRN Reason: Hypoglycemia Treatment Stop: 10/05/18 18:52 Last Admin: 09/16/18 07:55 Dose: 1 gm Documented by: Polyethylene Glycol (Miralax Powder Packet) 17 gm PO QAM [facility] Stop: 10/06/18 08:59 Last Admin: 09/19/18 08:52 Dose: 17 gm Documented by: Quetiapine Fumarate (Seroquel) 25 mg PO Q4H PRN PRN Reason: Anxiety Stop: 10/19/18 12:29 Sennosides (Senokot) 17.2 mg PO QAM [facility] Stop: 10/13/18 16:14 Last Admin: 09/19/18 08:48 Dose: 17.2 mg Documented by: Simvastatin (Zocor) 40 mg PO HS [facility] Stop: 10/05/18 20:59 Last Admin: 09/18/18 21:11 Dose: 40 mg Documented by: Thiamine HCl (Vitamin B-1) 200 mg PO BID [facility] Stop: 10/12/18 20:59 Last Admin: 09/19/18 08:48 Dose: 200 mg Documented by: (1) Diabetes Diabetes mellitus complication status: without complication Diabetes mellitus usp insulin use: without usp use Diabetes mellitus type: type 2 Qualified Code(s): E11.9 - Type 2 diabetes mellitus without complications (2) CAD (coronary artery disease) Associated angina: without angina Coronary Disease-Associated Artery/Lesion type: [place] artery [place] vs. transplanted heart: [place] heart Qualified Code(s): I25.10 - Atherosclerotic heart disease of [place] coronary artery without angina pectoris (3) Atrial fibrillation Atrial fibrillation type: unspecified Qualified Code(s): I48.91 - Unspecified atrial fibrillation (4) Conjunctivitis Conjunctivitis type: other Laterality: right Qualified Code(s): H10.89 - Other conjunctivitis (5) Hypothyroid Hypothyroidism type: unspecified Qualified Code(s): E03.9 - Hypothyroidism, unspecified (6) Altered mental status Altered mental status type: unspecified Qualified Code(s): R41.82 - Altered m ental status, unspecified
[2018-09-19] MEDS: SIMVASTATIN 40 MG TAB PO SCH (21:33)
[2018-09-20] MEDS: QUETIAPINE FUMARATE 25 MG TABLET PO PRN (02:19)
[2018-09-20] MEDS: LEVOTHYROXINE SODIUM 75 MCG TABLET PO SCH ×2 (05:37→08:19)
[2018-09-20] MEDS: INSULIN ASPART 100 UNITS/ML 3 ML PEN SC SCH ×4 (08:16→20:39)
[2018-09-20] MEDS: D5W AND 1/2NSS + 20MEQ KCL 20 MEQ/1,000 ML BAG IV SCH ×2 (08:16→20:34)
[2018-09-20] MEDS: CARBIDOPA/LEVODOPA 25-250 1 EA TAB PO SCH ×5 (08:18→20:36)
[2018-09-20] MEDS: SENNA 8.6 MG TAB PO SCH ×2 (08:19→13:19)
[2018-09-20] MEDS: MAGNESIUM OXIDE 400 MG TAB PO SCH ×2 (08:19→13:19)
[2018-09-20] MEDS: FLUOXETINE HCL 10 MG CAP PO SCH (08:19)
[2018-09-20] MEDS: THIAMINE HCL 100 MG TAB PO SCH ×3 (08:20→20:35)
[2018-09-20] MEDS: APIXABAN 5 MG TABLET PO SCH ×2 (08:20→20:35)
[2018-09-20] MEDS: ARTIFICIAL TEARS OPB SCH (08:21)
[2018-09-20] MEDS: CIPROFLOXACIN HCL 0.3% OP SOLN 2.5 ML BTL OPR SCH ×3 (08:21→20:39)
[2018-09-20] MEDS: DOCUSATE SODIUM 100 MG CAP PO SCH ×3 (08:23→20:40)
[2018-09-20] MEDS: ASPIRIN 81 MG CHEW PO SCH (08:23)
[2018-09-20] MEDS: POLYETHYLENE (MIRALAX) 17 GM PACK PO SCH (08:23)
[2018-09-20] MEDS: ACETAMINOPHEN 325 MG TAB PO PRN (08:24)
--- NOTE | 2018-09-20 11:47 | Psychiatric Progress Note ---
Date of Service September 20, 2018 Impression / Recommendations Impression 78-year-old female admitted medically on 09/05/18 for AMS. Initial psychiatric consultation completed on 09/06/18 due to agitation. Her clinical course is most consistent with delirium, with waxing and waning attention and confusion, disorientation, and periods of paranoia. It is likely multifactorial, given her Parkinson's disease, multiple centrally acting medications, multiple recent medication changes, taking 2 benzodiazepines at home, and dopamine agonist medication. I also had some concern for catatonia, as over the weekend she was not verbally responding, not eating or taking medications, but this has resolved. A trial of quetiapine was started to target anxiety and the behavioral component of her dementia, and we will continue to titrate that. Venlafaxine XR was discontinued due to poor adherence and risk for discontinuation symptoms, and she was started on fluoxetine today to target anxiety. (1) Altered mental status: 09/19 -patient admitted with encephalopathy, likely multifactorial related to Parkinson's disease, dementia, medication effects, and multiple recent medication adjustments. -Neurology saw her and discontinued ropinirole, and suggested tapering off her dopamine agonist if mental status does not improve. Her dose was increased in June. They also noted her visual hallucinations are likely related to her Parkinson's, and suggested a trial of Nuplazid if they continue. -Buspirone was discontinued early in hospitalization as mental status worsened after it was started, and continue to try to avoid deliriogenic medications when possible (antihistamines, anticholinergics, opiates, and benzodiazepines). -There may be a component of catatonia, and she did have a favorable response to the lorazepam 2 mg yesterday, but as she is now able to communicate and is eating and taking medication, I would hold off on giving additional Lorazepam as it can be deliriogenic and may increase her fall risk. If she again reverts to catatonic state with immobility, mutism, stupor, etc., would readminister lorazepam 2 mg, which can be repeated several times daily if effective. Reassessment 09/19 - continue as above. It is difficult to tell if patient's improved ability to communicate was due to dose of lorazepam 1mg (received only moments prior to our arrival), or a general improvement in metal state. Pt had also agreed to taking her Sinemet and Seroquel during our visit - though not as likely that she would have had as rapid of a response to these medications. - Pt responded well to encouragement, reassurance that staff is here to help her, and a clear understanding of the medications she was being given and what they are for. She recognizes that she has periods of confusion and is concerned that staff is afraid of her because of her behavior. Continue usual delirium behavioral strategies with frequent re-orientation and reassurance, presence of familiar items and visitors in room, lights on during day and off at night to promote regular sleep/wake cycle, and use of prn medications only as needed for agitation which is threatens patient or staff safety. 09/20 -patient remains delirious and confused, with episodic agitation. Will increase quetiapine by adding 25 mg every morning and 5 PM, and continue 50 mg at bedtime dose. She also has a 25 mg as needed dose. Please reserve Lorazepam for agitation does not respond to verbal de-escalation, redirection, and quetiapine, as there is a risk of worsening delirium. Her persistent visual hallucinations are likely related to her Parkinson's disease and dopamine agonist, as they appear consistent and do not wax and wane with her confusion. Consider further decrease in Sinemet? -Encourage frequent reorientation, use of familiar staff when possible, increase physical activity/out of bed with PT or OT, and avoidance of deliriogenic medications. (2) Anxiety: 09/19 -patient was on venlafaxine XR 150 mg daily, but it was discontinued as she was refusing oral medications, and this medication often causes uncomfortable discontinuation symptoms which could worsen her clinical picture. She appears depressed and anxious, and would recommend resuming an antidepressant, but will switch to fluoxetine for its longer half-life and better tolerance if not fully compliant with medication. Will start 10 mg daily and titrate as needed. -We will order quetiapine 25 mg every 4 hours as needed for severe anxiety. Please use this prior to lorazepam, as it is lower risk with respect to exacerbating delirium and falls. 09/20 -increase quetiapine as above. She received her first dose of fluoxetine 10 mg today, titrate as tolerated. Interval History Identifying Information 78-year-old female with anxiety, Parkinson's disease and dementia who was admitted medically on 09/05/18 due to altered mental status with increased confusion. Psychiatric consultation was requested for agitation, and the patient has been seen several times since admission. She was seen today for follow-up assessment. Chief Complaint "I don't know right now if I'm in [place] or [place]". Review of Systems Notes + Weakness, cannot recall when she last got out of bed Subjective Subjective Patient was seen & assessed and interval progress reviewed. Today the patient was seen with Dr. Pereira. After I saw her yesterday, she had another episode of agitation where she was reporting anxiety and using rolled up papers to hit her bed. She was refusing to take her scheduled medications, and received Lorazepam 1 mg IV. The liaison nurse met with her, and she agreed to take her medications. She was very confused throughout the rest of the day and overnight, was restless, attempting to get out of bed, was assisted to move to the chair, and then attempted to get out of the chair. She was fearful, stating that there was gas in the air and everyone would be lying on the floor soon, and she needed to leave to get the ambulance and [employer]. She received a as needed dose of quetiapine 25 mg overnight, and this morning she took her medications. On my assessment today, she endorses disorientation, but is able to be reoriented. She appears calm, but frequently answers with unrelated information and needs to be redirected to the question. She talks about going to a wedding, various family members, and her plans. She says both she and her would like to be cremated. She thinks she will soon because she had a brain MRI that showed her brain was "somewhat gone." She says she feels safe here, denies thoughts of harming herself or others. She reports feeling distraught when she is confused, and during those moments feels fearful. She does not like it when she does not recognize her medications, but is aware that sometimes they will look different due to the vp of digital marketing, and that some medications have been changed here. Reviewed the changes to her psychotropic medications with her. She recalls hitting the bed with rolled up papers yesterday but cannot recall why she was upset, says "I'm trying to think what possessed me" She says she has not been feeling all that well the past few weeks, but mood was good when she had visitors. She expresses excessive worry, stating she is worried about "lots of things," and thinks that many people she knows over the past month, but cannot recall who. She continues to see visual hallucinations of bugs in the room, and thinks that they are real, despite reality testing. Physical Exam Psychiatric Orientation: alert, oriented to person and cooperative; + not oriented to place and + not oriented to time Apperance: appropriately dressed and appeared stated age Eye Contact: good eye contact Motor Behavior: no abnormal motor movements Speech is spontaneous, productive, soft. Mildly anxious but stable, calm, improved from yesterday. Mood: + anxious mood Thought Process: + tangential thought process Able to answer questions appropriately at times, but other times answers with unrelated information No delusions expressed today, but endorsed fears that everyone was going to overnight. Suicidal Thoughts: denies suicidal thoughts Homicidal Thoughts: denies homicidal thoughts Hallucinations: + visual hallucinations; no auditory hallucinations Cognition: language grossly intact; + recent memory not intact, + remote memory not intact and + attention not intact Insight: + impaired insight Judgement: + impaired judgement Vital Signs (Past 24 Hours) Last Vital Signs Temp 36.5 C 09/20/18 07:00 Pulse 69 09/20/18 07:09 Resp 20 09/20/18 07:00 BP 137/79 09/20/18 07:00 Pulse Ox 97 09/20/18 07:00 Results & Data Laboratory Results Laboratory Results - last 24 hr 09/19/18 09/19/18 09/19/18 11:29 16:34 20:49 POC Glucose 83 110 H 113 H 09/20/18 07:45 POC Glucose 97 Current Inpatient Medications Current Inpatient Medications: Current Inpatient Medications Acetaminophen (Tylenol) 650 mg PO Q4H PRN PRN Reason: pain/fever Stop: 10/05/18 18:52 Last Admin: 09/20/18 08:24 Dose: 650 mg Documented by: Apixaban (Eliquis) 5 mg PO BID [facility] Stop: 10/05/18 20:59 Last Admin: 09/20/18 08:20 Dose: 5 mg Documented by: Artificial Tears (Artificial Tears) 2 drops OPB QAM [facility] Stop: 10/06/18 08:59 Last Admin: 09/20/18 08:21 Dose: 2 drops Documented by: Aspirin (Aspirin Chew) 81 mg PO QAM [facility] Stop: 10/06/18 08:59 Last Admin: 09/20/18 08:23 Dose: 81 mg Documented by: Carbidopa/Levodopa (Sinemet 25/250mg) 1 tab PO QID [facility] Stop: 10/06/18 18:29 Last Admin: 09/19/18 21:26 Dose: 1 tab Documented by: Ciprofloxacin (Ciloxan 0.3% Opth) 1 drops OPR TID [facility] Stop: 09/24/18 20:59 Last Admin: 09/20/18 08:21 Dose: 1 drops Documented by: Dextrose (Dextrose 50%) 25 - 50 ml IV UD PRN; Protocol PRN Reason: Hypoglycemia Protocol Stop: 10/05/18 18:52 Last Admin: 09/16/18 08:04 Dose: 25 ml Documented by: Docusate Sodium (Colace) 100 mg PO BID [facility] Stop: 10/05/18 20:59 Last Admin: 09/19/18 21:37 Dose: 100 mg Documented by: Fluoxetine HCl (Prozac) 10 mg PO QAM [facility] Stop: 10/19/18 12:29 Last Admin: 09/20/18 08:19 Dose: 10 mg Documented by: Glucagon (Glucagen) 1 mg SQ UD PRN; Protocol PRN Reason: Hypoglycemia Protocol Stop: 10/05/18 18:52 Glucose (Glucose 40%) 15 - 30 gm PO UD PRN; Protocol PRN Reason: Hypoglycemia Protocol Stop: 10/05/18 18:52 Glucose (Dex4 Glucose) 4 - 8 tabs PO UD PRN; Protocol PRN Reason: Hypoglycemia Protocol Stop: 10/05/18 18:52 Potassium Chloride/Dextrose/Sod Cl (D5w And 1/2nss + 20meq Kcl) 20 meq in 1,000 mls @ 75 mls/hr IV .[id number] [facility] Stop: 10/16/18 09:14 Last Admin: 09/20/18 08:16 Dose: 75 mls/hr Documented by: Insulin Aspart (Novolog Flexpen) 0 units SC ACHS [facility] Stop: 10/05/18 20:59 Last Admin: 09/20/18 08:16 Dose: Not Given Documented by: Levothyroxine Sodium (Synthroid) 75 mcg PO DAILYBB [facility] Stop: 10/06/18 06:29 Last Admin: 09/20/18 05:37 Dose: Not Given Documented by: Magnesium Oxide (Mag-Ox) 400 mg PO QAM [facility] Stop: 10/06/18 08:59 Last Admin: 09/19/18 08:48 Dose: 400 mg Documented by: Miscellaneous (Carbohydrates For Hypoglycemia) 15 - 30 gm PO UD PRN PRN Reason: Hypoglycemia Treatment Stop: 10/05/18 18:52 Last Admin: 09/16/18 07:55 Dose: 1 gm Documented by: Polyethylene Glycol (Miralax Powder Packet) 17 gm PO QAM [facility] Stop: 10/06/18 08:59 Last Admin: 09/20/18 08:23 Dose: 17 gm Documented by: Quetiapine Fumarate (Seroquel) 25 mg PO Q4H PRN PRN Reason: Anxiety Stop: 10/19/18 12:29 Last Admin: 09/20/18 02:19 Dose: 25 mg Documented by: Sennosides (Senokot) 17.2 mg PO QAM [facility] Stop: 10/13/18 16:14 Last Admin: 09/19/18 08:48 Dose: 17.2 mg Documented by: Simvastatin (Zocor) 40 mg PO HS [facility] Stop: 10/05/18 20:59 Last Admin: 09/19/18 21:33 Dose: 40 mg Documented by: Thiamine HCl (Vitamin B-1) 200 mg PO BID [facility] Stop: 10/12/18 20:59 Last Admin: 09/19/18 21:28 Dose: 200 mg Documented by: CPT Code CPT Code 10274 (1) Altered mental status Altered mental status type: unspecified Qualified Code(s): R41.82 - Altered mental status, unspecified
[2018-09-20] MEDS: QUETIAPINE FUMARATE 25 MG TABLET PO SCH ×2 (13:27→17:16)
--- NOTE | 2018-09-20 16:22 | Hospitalist Progress Note ---
Date of Service September 20, 2018 Assessment & Plan (1) Altered mental status: ONGOING with significant improvement over past 36 hours no need for Ativan IV today taking Prozac and Seroquel still having some hallucinations, some delusions told RN that she went to her own and she was cremated later in the day she was speaking calmly with her diabetologist hope that this trend will continue she actually participated with therapy today d/w CM, working on discharge plan WORK UP: CT head w/o acute pathology. TSH, b12, ammonia all normal. ESR normal. Lyme's testing negative. No obvious infectious issue found. MRI brain normal (2) Anorexia: appetite improving a little long talk with her today about eating, wrote on dry erase board that her only goal is to EAT she said she would try considered low-dose prednisone for appetite stimulation but this could potentially make mental status worse. obtained x-ray of abdomen to r/o impaction/severe constipation - this was not seen. recent u/a negative for UTI. suspect appetite issues are due to altered MS. added boost. added MVI. on thiamine BID. no good option for appetite stimulation (megace usually not helpful; marinol likely would cause confusion). would not tolerate NG tube. TPN NOT indicated. (3) Anxiety: Chronic h/o anxiety and panic attacks -- in setting of parkinson's disease. Presented with delirium, aggression, etc leading to this admission. no evidence of metabolic or infectious process contributing to clinical picture. taking Seroquel more consistently today taking Prozac Review of PDMP shows long-standing use of ativan on daily basis at home. Normally would not advise ongoing ativan use but has been using it for years. currently only using Ativan IV PRN Stopped BUSPAR. Ropinirole has been stopped as well. stopped Effexor due to inconsistency in taking (4) Diabetes: Last A1c was 6.5% in 07/2018. Controlled. had low sugar morning of 09/16 -- added dextrose-containing fluids back for maintenance with resolution of hypoglycemia. (5) Atrial fibrillation: Patient presently in NSR. not taking Eliquis so there is no stroke prevention (6) Parkinson disease: Chronic. Previously followed by Dr. Sidhu as outpatient. Dx 2-3 years ago. Continue Carbidopa/Levodopa at home dosage. (not taking) Appreciate neuro consultation. (7) CAD (coronary artery disease): Chronic. Stable. Continue ASA, statin. (8) Hypothyroid: Chronic. TSH WNL. Continue Synthroid. (9) RLS (restless legs syndrome): Chronic No issues (10) Halitosis: due to lack of oral hygiene for 2+ weeks? (11) Conjunctivitis: cipro drops right eye x 7 days (12) DVT prophylaxis: nothing, patient not compliant disposition: if there is no response to Ativan then plan for SNF, transition to hospice Subjective patient doing much better this morning sitting up in a chair, visiting with a friend, talking calmly she is trying to eat more taking almost all of her medications including Seroquel and Prozac d/w CM, asked if geriatric psych would be appropriate, will discuss with psychiatry Review of Systems Review of Systems: All systems reviewed & are unremarkable except as noted in HPI & below Constitutional: + fatigue and + weakness; no fever, no chills and no sweats Respiratory: no cough and no dyspnea Cardiovascular: no chest pain and no palpitations Gastrointestinal: no abdominal pain, no nausea, no vomiting, no constipation and no diarrhea/loose stools Psychiatric: + depression, + change in appetite, + anxiety, + confusion and + hallucinations; no suicidal ideation Physical Exam Constitutional: WD/WN, vitals as above Eyes: PERRL, conjunctivae normal, anicteric sclerae ENMT: external ear and nose normal, oropharynx normal Neck: trachea midline, no thyromegaly Respiratory: normal respiratory effort, lungs clear to auscultation Cardiovascular: RRR, no murmur, no edema Gastrointestinal (Abdomen): normal bowel sounds, soft, nontender, no hepatosplenomegaly Musculoskeletal: no cyanosis or clubbing, extremities motor strength 5/5 Skin: no rashes, warm and dry Neurologic: patellar DTR's 2+ bilat, sensation intact and PERRL, EOMI, accommodation nl, no face palsy, no dysarthria Psychiatric: Orientation: alert, oriented to person, oriented to place and cooperative; + not oriented to time Eye Contact: good eye contact Speech: normal rate/rhythm/volume of speech Affect: + anxious affect [place] llucinations: + visual hallucinations Lymphatic: no cervical or axillary lymphadenopathy Results & Data Vital Signs (Past 12 Hours) Vital Signs Temp Pulse Pulse Pulse Resp BP BP 09/20/18 15:25 109/65 09/20/18 14:49 36.5 C 72 16 86/63 L 09/20/18 11:43 36.8 C 59 L 18 107/69 09/20/18 07:09 69 09/20/18 07:00 36.5 C 74 20 137/79 Pulse Ox 09/20/18 15:25 09/20/18 14:49 96 09/20/18 11:43 93 09/20/18 07:09 09/20/18 07:00 97 Laboratory Results Laboratory Results - last 24 hr 09/19/18 09/19/18 09/20/18 16:34 20:49 07:45 POC Glucose 110 H 113 H 97 09/20/18 11:56 POC Glucose 113 H Medications Administered Current Inpatient Medications Acetaminophen (Tylenol) 650 mg PO Q4H PRN PRN Reason: pain/fever Stop: 10/05/18 18:52 Last Admin: 09/20/18 08:24 Dose: 650 mg Documented by: Apixaban (Eliquis) 5 mg PO BID [facility] Stop: 10/05/18 20:59 Last Admin: 09/20/18 08:20 Dose: 5 mg Documented by: Artificial Tears (Artificial Tears) 2 [facility] [place]: 10/06/18 08:59 Last Admin: 09/20/18 08:21 Dose: 2 drops Documented by: Aspirin (Aspirin Chew) 81 mg PO QAM [facility] Stop: 10/06/18 08:59 Last Admin: 09/20/18 08:23 Dose: 81 mg Documented by: Carbidopa/Levodopa (Sinemet 25/250mg) 1 tab PO QID [facility] Stop: 10/06/18 18:29 Last Admin: 09/20/18 13:28 Dose: 1 tab Documented by: Ciprofloxacin (Ciloxan 0.3% Opt) 1 drops OPR TID [facility] Stop: 09/24/18 20:59 Last Admin: 09/20/18 13:28 Dose: 1 drops Documented by: Dextrose (Dextrose 50%) 25 - 50 ml IV UD PRN; Protocol PRN Reason: Hypoglycemia Protocol Stop: 10/05/18 18:52 Last Admin: 09/16/18 08:04 Dose: 25 ml Documented by: Docusate Sodium (Colace) 100 mg PO BID [facility] Stop: 10/05/18 20:59 Last Admin: 09/20/18 13:18 Dose: Not Given Documented by: Fluoxetine HCl (Prozac) 10 mg [facility] [place] [place] Stop: 10/19/18 12:29 Last Admin: 09/20/18 08:19 Dose: 10 mg Documented by: Glucagon (Glucagen) 1 mg SQ UD PRN; Protocol PRN Reason: Hypoglycemia Protocol Stop: 10/05/18 18:52 Glucose (Glucose 40%) 15 - 30 gm PO UD PRN; Protocol PRN Reason: Hypoglycemia Protocol Stop: 10/05/18 18:52 Glucose (Dex4 Glucose) 4 - 8 tabs PO UD PRN; Protocol PRN Reason: Hypoglycemia Protocol Stop: 10/05/18 18:52 Potassium Chloride/Dextrose/Sod Cl (D5w And 1/2nss + 20meq Kcl) 20 meq in 1,000 mls @ 75 mls/hr IV .[id number] [facility] Stop: 10/16/18 09:14 Last Admin: 09/20/18 08:16 Dose: 75 mls/hr Documented by: Insulin Aspart ([facility]) [facility] Stop: 10/05/18 20:59 Last Admin: 09/20/18 13:21 Dose: Not Given Documented by: Levothyroxine Sodium (Synthroid) 75 mcg PO DAILYBB [facility] Stop: 10/06/18 06:29 Last Admin: 09/20/18 05:37 Dose: Not Given Documented by: Magnesium Oxide (Mag-Ox) 400 mg PO [facility] Stop: 10/06/18 08:59 Last Admin: 09/20/18 13:19 Dose: Not Given Documented by: Miscellaneous (Carbohydrates For Hypoglycemia) 15 - 30 gm PO UD PRN PRN Reason: Hypoglycemia Treatment Stop: 10/05/18 18:52 Last Admin: 09/16/18 07:55 Dose: 1 gm Documented by: Polyethylene Glycol (Miralax Powder Packet) 17 gm PO [facility] Stop: 10/06/18 08:59 Last Admin: 09/20/18 08:23 Dose: 17 gm Documented by: Quetiapine Fumarate (Seroquel) 25 mg PO Q4H PRN PRN Reason: Anxiety Stop: 10/19/18 12:29 Last Admin: 09/20/18 02:19 Dose: 25 mg Documented by: Quetiapine Fumarate (Seroquel) 25 mg PO BID@0900,1700 [facility] Stop: 10/20/18 11:44 Last Admin: 09/20/18 13:27 Dose: 25 mg Documented by: Sennosides (Senokot) 17.2 mg PO QAM [facility] Stop: 10/13/18 16:14 Last Admin: 09/20/18 13:19 Dose: Not Given Documented by: Simvastatin (Zocor) 40 mg PO HS [facility] Stop: 10/05/18 20:59 Last Admin: 09/19/18 21:33 Dose: 40 mg Documented by: Thiamine HCl (Vitamin B-1) 200 mg PO BID [facility] Stop: 10/12/18 20:59 Last Admin: 09/20/18 13:20 Dose: Not Given Documented by: PG Care Time/CCT Total # of Minutes Spent Total Time Spent with Patient: Total time spent is greater than 50% in coordination of care (as documented) at patient's floor/unit and/or counseling patient: (1) Diabetes Diabetes mellitus complication status: without complication Diabetes mellitus computer terminal operator insulin use: without half-way use Diabetes mellitus type: type 2 Qualified Code(s): E11.9 - Type 2 diabetes mellitus without complications (2) CAD (coronary artery disease) Associated angina: without angina Coronary Disease-Associated Artery/Lesion type: [place] artery [place] vs. transplanted heart: [place] heart Qualified Code(s): I25.10 - Atherosclerotic heart disease of [place] coronary artery without angina pectoris (3) Atrial fibrillation Atrial fibrillation type: unspecified Qualified Code(s): I48.91 - Unspecified atrial fibrillation (4) Conjunctivitis Conjunctivitis type: other Laterality: right Qualified Code(s): H10.89 - Other conjunctivitis (5) Hypothyroid Hypothyroidism type: unspecified Qualified Code(s): E03.9 - Hypothyroidism, unspecified (6) Altered mental status Altered mental status type: unspecified Qualified Code(s): R41.82 - Altered mental status, unspecified
[2018-09-20] MEDS: SIMVASTATIN 40 MG TAB PO SCH (20:35)
[2018-09-21] MEDS: QUETIAPINE FUMARATE 25 MG TABLET PO PRN (01:49)
[2018-09-21] MEDS: LEVOTHYROXINE SODIUM 75 MCG TABLET PO SCH (05:55)
[2018-09-21] MEDS: INSULIN ASPART 100 UNITS/ML 3 ML PEN SC SCH ×4 (08:49→21:17)
[2018-09-21] MEDS: ARTIFICIAL TEARS OPB SCH (08:50)
[2018-09-21] MEDS: ASPIRIN 81 MG CHEW PO SCH (08:50)
[2018-09-21] MEDS: CIPROFLOXACIN HCL 0.3% OP SOLN 2.5 ML BTL OPR SCH ×3 (08:50→21:06)
[2018-09-21] MEDS: DOCUSATE SODIUM 100 MG CAP PO SCH ×2 (08:50→21:06)
[2018-09-21] MEDS: MAGNESIUM OXIDE 400 MG TAB PO SCH (08:51)
[2018-09-21] MEDS: FLUOXETINE HCL 10 MG CAP PO SCH (08:51)
[2018-09-21] MEDS: APIXABAN 5 MG TABLET PO SCH ×2 (08:51→21:04)
[2018-09-21] MEDS: CARBIDOPA/LEVODOPA 25-250 1 EA TAB PO SCH ×4 (08:51→21:05)
[2018-09-21] MEDS: SENNA 8.6 MG TAB PO SCH (08:51)
[2018-09-21] MEDS: D5W AND 1/2NSS + 20MEQ KCL 20 MEQ/1,000 ML BAG IV SCH (08:51)
[2018-09-21] MEDS: THIAMINE HCL 100 MG TAB PO SCH ×2 (08:51→21:05)
[2018-09-21] MEDS: QUETIAPINE FUMARATE 25 MG TABLET PO SCH ×2 (08:51→17:31)
[2018-09-21] MEDS: POLYETHYLENE (MIRALAX) 17 GM PACK PO SCH (08:51)
--- NOTE | 2018-09-21 14:52 | Hospitalist Progress Note ---
Date of Service September 21, 2018 Assessment & Plan (1) Altered mental status: ONGOING, had some improvement for a day or so and then back to delirium and hallucinations refusing to take medications, refusing to eat will look to discharge to SNF and transition to palliative approach psychiatry recommends Prozac and Seroquel but not taking today still having some hallucinations, delusions WORK UP: CT head w/o acute pathology. TSH, b12, ammonia all normal. ESR normal. Lyme's testing negative. No obvious infectious issue found. MRI brain normal (2) Anorexia: not eating or drinking at all today this is terminal issue, no clear solution go to SNF with palliative approach considered low-dose prednisone for appetite stimulation but this could potentially make mental status worse. obtained x-ray of abdomen to r/o impaction/severe constipation - this was not seen. recent u/a negative for UTI. suspect appetite issues are due to altered MS. added boost. added MVI. on thiamine BID. no good option for appetite stimulation (megace usually not helpful; marinol likely would cause confusion). would not tolerate NG tube. TPN NOT indicated. (3) Anxiety: Chronic h/o anxiety and panic attacks -- in setting of parkinson's disease. Presented with delirium, aggression, etc leading to this admission. no evidence of metabolic or infectious process contributing to clinical picture. taking Seroquel but not consistently taking Prozac but not consistently Review of PDMP shows long-standing use of ativan on daily basis at home. Normally would not advise ongoing ativan use but has been using it for years. currently only using Ativan IV PRN Stopped BUSPAR. Ropinirole has been stopped as well. stopped Effexor due to inconsistency in taking (4) Diabetes: Last A1c was 6.5% in 07/2018. Controlled. had low sugar morning of 09/16 -- added dextrose-containing fluids back for maintenance with resolution of hypoglycemia. hold on fluids for now, monitor sugars (5) Atrial fibrillation: Patient presently in NSR. not taking Eliquis so there is no stroke prevention (6) Parkinson disease: Chronic. Previously followed by Dr. Sidhu as outpatient. Dx 2-3 years ago. Continue Carbidopa/Levodopa at home dosage. (not taking) Appreciate neuro consultation. (7) CAD (coronary artery disease): Chronic. Stable. Continue ASA, statin. (8) Hypothyroid: Chronic. TSH WNL. Continue Synthroid. (9) RLS (restless legs syndrome): Chronic No issues (10) Halitosis: due to lack of oral hygiene for 2+ weeks? (11) Conjunctivitis: cipro drops right eye x 7 days (12) DVT prophylaxis: nothing, patient not compliant disposition: SNF, transition to hospice Subjective unfortunately patient reverted to her prior behavior she was hallucinating about women and girls in the room she said that she wanted to go to [facility] she refused to take any of her medications today, just laying in bed refusing to eat or drink anything d/w psychiatry, not really any good options discussed with son Braydon over the phone will plan to look into SNF and plan for palliative approach given that her mental status cannot be reversed Review of Systems Review of Systems: Unobtainable due to mental health condition Physical Exam Constitutional: WD/WN, vitals as above Eyes: PERRL, conjunctivae normal, anicteric sclerae ENMT: external ear and nose normal, oropharynx normal Neck: trachea midline, no thyromegaly Respiratory: normal respiratory effort, lungs clear to auscultation Cardiovascular: RRR, no murmur, no edema Gastrointestinal (Abdomen): normal bowel sounds, soft, nontender, no hepatosplenomegaly Musculoskeletal: no cyanosis or clubbing, extremities motor strength 5/5 Skin: no rashes, warm and dry Neurologic: patellar DTR's 2+ bilat, sensation intact and PERRL, EOMI, accommodation nl, no face palsy, no dysarthria Psychiatric: Orientation: alert, oriented to person, oriented to place and cooperative; + not oriented to time Eye Contact: good eye contact Motor Behavior: + tremor Speech: normal rate/rhythm/volume of speech Affect: + anxious affect Thought Content: + preoccupation Hallucinations: + visual hallucinations Lymphatic: no cervical or axillary lymphadenopathy Results & Data Vital Signs (Past 12 Hours) Vital Signs Temp Pulse Pulse Resp BP Pulse Ox 09/21/18 11:45 36.5 C 82 20 143/67 H 94 09/21/18 04:40 76 20 131/73 99 Laboratory Results Laboratory Results - last 24 hr 09/20/18 09/20/18 16:39 20:21 POC Glucose 154 H 123 H Medications Administered Current Inpatient Medications Acetaminophen (Tylenol) 650 mg PO Q4H PRN PRN Reason: pain/fever Stop: 10/05/18 18:52 Last Admin: 09/20/18 08:24 Dose: 650 mg Documented by: Apixaban (Eliquis) 5 mg PO BID [facility] Stop: 10/05/18 20:59 Last Admin: 09/21/18 08:51 Dose: Not Given Documented by: Artificial Tears (Artificial Tears) 2 drops OPB QAM [facility] Stop: 10/06/18 08:59 Last Admin: 09/21/18 08:50 Dose: Not Given Documented by: Aspirin (Aspirin Chew) 81 mg PO QAM [facility] Stop: 10/06/18 08:59 Last Admin: 09/21/18 08:50 Dose: Not Given Documented by: Carbidopa/Levodopa (Sinemet 25/250mg) 1 tab PO QID [facility] Stop: 10/06/18 18:29 Last Admin: 09/21/18 12:40 Dose: Not Given Documented by: Ciprofloxacin (Ciloxan 0.3% Opth) 1 drops OPR TID [facility] Stop: 09/24/18 20:59 Last Admin: 09/21/18 12:40 Dose: Not Given Documented by: Dextrose (Dextrose 50%) 25 - 50 ml IV UD PRN; Protocol PRN Reason: Hypoglycemia Protocol Stop: 10/05/18 18:52 Last Admin: 09/16/18 08:04 Dose: 25 ml Documented by: Docusate Sodium (Colace) 100 mg PO BID [facility] Stop: 10/05/18 20:59 Last Admin: 09/21/18 08:50 Dose: Not Given Documented by: Fluoxetine HCl (Prozac) [facility] [place]: 10/19/18 12:29 Last Admin: 09/21/18 08:51 Dose: Not Given Documented by: Glucagon (Glucagen) 1 mg SQ UD PRN; Protocol PRN Reason: Hypoglycemia Protocol Stop: 10/05/18 18:52 Glucose (Glucose 40%) 15 - 30 gm PO UD PRN; Protocol PRN Reason: Hypoglycemia Protocol Stop: 10/05/18 18:52 Glucose (Dex4 Glucose) 4 - 8 tabs PO UD PRN; Protocol PRN Reason: Hypoglycemia Protocol Stop: 10/05/18 18:52 Potassium Chloride/Dextrose/Sod Cl (D5w And 1/2nss + 20meq Kcl) 20 meq in 1,000 mls @ 75 mls/hr IV .[id number] [facility] Stop: 10/16/18 09:14 Last Infusion: 09/21/18 13:10 Dose: 0 mls/hr Documented by: Insulin Aspart (Novolog Flexpen) 0 units SC ACHS [facility] Stop: 10/05/18 20:59 Last Admin: 09/21/18 12:39 Dose: Not Given Documented by: Levothyroxine Sodium (Synthroid) 75 mcg PO DAILYBB [facility] Stop: 10/06/18 06:29 Last Admin: 09/21/18 05:55 Dose: 75 mcg Documented by: Magnesium Oxide (Mag-Ox) 400 mg PO QAM [facility] Stop: 10/06/18 08:59 Last Admin: 09/21/18 08:51 Dose: Not Given Documented by: Miscellaneous (Carbohydrates For Hypoglycemia) 15 - 30 gm PO UD PRN PRN Reason: Hypoglycemia Treatment Stop: 10/05/18 18:52 Last Admin: 09/16/18 07:55 Dose: 1 gm Documented by: Polyethylene Glycol (Miralax Powder Packet) 17 gm PO QAM [facility] Stop: 10/06/18 08:59 Last Admin: 09/21/18 08:51 Dose: Not Given Documented by: Quetiapine Fumarate (Seroquel) 25 mg PO Q4H PRN PRN Reason: Anxiety Stop: 10/19/18 12:29 Last Admin: 09/21/18 01:49 Dose: 25 mg Documented by: Quetiapine Fumarate (Seroquel) 25 mg PO BID@0900,1700 [facility] Stop: 10/20/18 11:44 Last Admin: 09/21/18 08:51 Dose: Not Given Documented by: Sennosides (Senokot) 17.2 mg PO QAM [facility] Stop: 10/13/18 16:14 Last Admin: 09/21/18 08:51 Dose: Not Given Documented by: Simvastatin (Zocor) 40 mg PO HS [facility] Stop: 10/05/18 20:59 Last Admin: 09/20/18 20:35 Dose: 40 mg Documented by: Thiamine HCl (Vitamin B-1) 200 mg PO BID [facility] Stop: 10/12/18 20:59 Last Admin: 09/21/18 08:51 Dose: Not Given Documented by: PG Care Time/CCT Total # of Minutes Spent Total Time Spent with Patient: Total time spent is greater than 50% in coordination of care (as documented) at patient's floor/unit and/or counseling patient: (1) Altered mental status Altered mental status type: unspecified Qualified Code(s): R41.82 - Altered mental status, unspecified (2) Diabetes Diabetes mellitus type: type 2 Diabetes mellitus watermaster insulin use: without assisted use Diabetes mellitus complication status: without complication Qualified Code(s): E11.9 - Type 2 diabetes mellitus without complications (3) Atrial fibrillation Atrial fibrillation type: unspecified Qualified Code(s): I48.91 - Unspecified atrial fibrillation (4) CAD (coronary artery disease) Coronary Disease-Associated Artery/Lesion type: [place] artery [place] vs. transplanted heart: [place] heart Associated angina: without angina Qualified Code(s): I25.10 - Atherosclerotic heart disease of [place] coronary artery without angina pectoris (5) Hypothyroid Hypothyroidism type: unspecified Qualified Code(s): E03.9 - Hypothyroidism, unspecified (6) Conjunctivitis Conjunctivitis type: other Laterality: right Qualified Code(s): H10.89 - Other conjunctivitis
[2018-09-21] MEDS: SIMVASTATIN 40 MG TAB PO SCH (21:05)
[2018-09-21] MEDS ORDERED: SODIUM CHLORIDE 0.9% 1000ML 250 ML IV ONE (22:32)
[2018-09-21] MEDS ORDERED: SODIUM CHLORIDE 0.9% 1000ML 1,000 ML IV SCH (22:45)
[2018-09-22] MEDS: QUETIAPINE FUMARATE 25 MG TABLET PO PRN (02:13)
[2018-09-22] MEDS: LEVOTHYROXINE SODIUM 75 MCG TABLET PO SCH (05:24)
[2018-09-22] MEDS: ASPIRIN 81 MG CHEW PO SCH (08:16)
[2018-09-22] MEDS: APIXABAN 5 MG TABLET PO SCH ×3 (08:16→22:21)
[2018-09-22] MEDS: MAGNESIUM OXIDE 400 MG TAB PO SCH (08:16)
[2018-09-22] MEDS: DOCUSATE SODIUM 100 MG CAP PO SCH ×2 (08:16→23:23)
[2018-09-22] MEDS: CARBIDOPA/LEVODOPA 25-250 1 EA TAB PO SCH ×4 (08:17→22:22)
[2018-09-22] MEDS: POLYETHYLENE (MIRALAX) 17 GM PACK PO SCH (08:17)
[2018-09-22] MEDS: THIAMINE HCL 100 MG TAB PO SCH ×3 (08:17→22:23)
[2018-09-22] MEDS: QUETIAPINE FUMARATE 25 MG TABLET PO SCH ×5 (08:17→22:23)
[2018-09-22] MEDS: FLUOXETINE HCL 10 MG CAP PO SCH ×2 (08:17→12:50)
[2018-09-22] MEDS: SENNA 8.6 MG TAB PO SCH (08:17)
[2018-09-22] MEDS: CIPROFLOXACIN HCL 0.3% OP SOLN 2.5 ML BTL OPR SCH ×3 (08:18→23:23)
[2018-09-22] MEDS: ARTIFICIAL TEARS OPB SCH (08:18)
[2018-09-22] MEDS: INSULIN ASPART 100 UNITS/ML 3 ML PEN SC SCH ×4 (08:34→22:53)
--- NOTE | 2018-09-22 14:08 | Psychiatric Progress Note ---
Date of Service September 22, 2018 Impression / Recommendations Impression 78-year-old female admitted medically on 09/05/18 for AMS. Initial psychiatric consultation completed on 09/06/18 due to agitation. Her clinical course is most consistent with delirium, with waxing and waning attention and confusion, disorientation, and periods of paranoia. It is likely multifactorial, given her Parkinson's disease, multiple centrally acting medications, multiple recent medication changes, taking 2 benzodiazepines at home, and dopamine agonist medication. I also had some concern for catatonia, as over the weekend she was not verbally responding, not eating or taking medications, but this has resolved. A trial of quetiapine was started to target anxiety and the behavioral component of her dementia, and we will continue to titrate that. Venlafaxine XR was discontinued due to poor adherence and risk for discontinuation symptoms, and she was started on fluoxetine today to target anxiety. trial of zyprexa zydis stopped, quetiapine quite being used. 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 Quetiapine is a reasonable antipsychotic for this presentation, with Nuplazid a med to consider given her Parkinson's diagnosis pt been refusing meds. addressing underlying paranoid thinking and AH/VH and pt's fears that seem tied to her resuing meds. delerium likely but could be also tied to psychotic from parkisnson's as well (1) Altered mental status: (2) Anxiety: 09/19 -patient was on venlafaxine XR 150 mg daily, but it was discontinued as she was refusing oral medications, and this medication often causes uncomfortable discontinuation symptoms which could worsen her clinical picture. She appears depressed and anxious, and would recommend resuming an antid epressant, but will switch to fluoxetine for its longer half-life and better tolerance if not fully compliant with medication. Will start 10 mg daily and titrate as needed. -We will order quetiapine 25 mg every 4 hours as needed for severe anxiety. Please use this prior to lorazepam, as it is lower risk with respect to exacerbating delirium and falls. 09/20 -increase quetiapine as above. She received her first dose of fluoxetine 10 mg today, titrate as tolerated. 09/22 - it was noted that there was no quetiapine Hs dose, 50mg Hs quetiapine ordered on top of 25mg prn dose and am and 5pm dosing. Would consider Nuplazid as an another medication option to alleviate psychosis aspects carole if symptoms appear present prior to current acute worsening and/or not responding well to seroquel. Will have nurse liaisons obtain collateral from family. also to sought out if pt should be using a CPAP. Interval History Identifying Information 78-year-old female with anxiety, Parkinson's disease and dementia who was admitted medically on 09/05/18 due to altered mental status with increased confusion. Psychiatric consultation was requested for agitation, and the patient has been seen several times since admission. She was seen today for follow-up assessment. Chief Complaint "I am drained" Subjective Subjective Patient was seen & assessed and interval progress reviewed with with psychiatric consult liaison nurse and pt's current primary nurse. Pt had agitation last night with reported concerns of gas coming from the vent and was reported to have been out in the hallway in an agitated state. During this morning she was rather confused and was refusing her Meds. However early afternoon she was more coherent and her nurse got her to take her medication that was due. She also did decently while her family was visiting, [employer] saw her just after that family visit and pt indicated feeling drained from a long day and limited sleep last night. She had a fearful affect at times and endorsed VH and some times of Ah. These hallucinations appeared to be adding to her fearful state. She appeared to be weary of being near the end of her life and quite fearful that she would end up in non functional stat. It appears her confusion and AH/VH and likely paranoid thinking are making her quite fearful. She mentioned having a CPAP at home, and ambivalence about using that currently. sees animals and people in the room, hears people not present at times Physical Exam Psychiatric Orientation: alert, oriented to person, oriented to place, cooperative and + guarded; + not oriented to time Apperance: appropriately dressed (hospital gown), + disheveled and appeared stated age Eye Contact: good eye contact Motor Behavior: + tremor soft speech Affect: + anxious affect and + constricted affect Mood: + anxious mood; no depressed mood Thought Process: + tangential thought process, + looseness of associations, + perseveration and + concrete thought process; + thought process not goal directed, + thought process not linear or logical and + thought process not clear or coherent Thought Content: + preoccupation and + paranoid Suicidal Thoughts: denies suicidal thoughts, denies suicidal plan and denies suicidal intent Homicidal Thoughts: denies homicidal thoughts Hallucinations: + auditory hallucinations and + visual hallucinations Cognition: language grossly intact; + recent memory not intact, + remote memory not intact and + attention not intact Estimated Intelligence: consistent with education level Insight: + impaired insight Judgement: + severely impaired judgement Vital Signs (Past 24 Hours) Last Vital Signs Temp 36.7 C 09/22/18 03:48 Pulse 82 09/22/18 12:10 Resp 19 09/22/18 12:10 BP 150/79 H 09/22/18 12:10 Pulse Ox 95 09/22/18 12:10 Results & Data Laboratory Results Laboratory Results - last 24 hr 09/21/18 09/22/18 09/22/18 20:14 03:56 12:00 POC Glucose 90 95 98 Current Inpatient Medications Current Inpatient Medications: Current Inpatient Medications Acetaminophen (Tylenol) 650 mg PO Q4H PRN PRN Reason: pain/fever Stop: 10/05/18 18:52 Last Admin: 09/20/18 08:24 Dose: 650 mg Documented by: Apixaban (Eliquis) 5 mg PO BID [facility] Stop: 10/05/18 20:59 Last Admin: 09/22/18 13:02 Dose: 5 mg Documented by: Artificial Tears (Artificial Tears) 2 drops OPB QAM [facility] Stop: 10/06/18 08:59 Last Admin: 09/22/18 08:18 Dose: Not Given Documented by: Aspirin (Aspirin Chew) 81 mg PO QAM [facility] Stop: 10/06/18 08:59 Last Admin: 09/22/18 08:16 Dose: Not Given Documented by: Carbidopa/Levodopa (Sinemet 25/250mg) 1 tab PO QID [facility] Stop: 10/06/18 18:29 Last Admin: 09/22/18 12:50 Dose: 1 tab Documented by: Ciprofloxacin (Ciloxan 0.3% [facility]) 1 drops OPR TID [facility] Stop: 09/24/18 20:59 Last Admin: 09/22/18 13:10 Dose: Not Given Documented by: Dextrose (Dextrose 50%) 25 - 50 ml IV UD PRN; Protocol PRN Reason: Hypoglycemia Protocol Stop: 10/05/18 18:52 Last Admin: 09/16/18 08:04 Dose: 25 ml Documented by: Docusate Sodium (Colace) 100 mg PO BID [facility] [place] Stop: 10/05/18 20:59 Last Admin: 09/22/18 08:16 Dose: Not Given Documented by: Fluoxetine HCl (Prozac) 10 mg PO QAM [facility] Stop: 10/19/18 12:29 Last Admin: 09/22/18 12:50 Dose: 10 mg Documented by: Glucagon (Glucagen) 1 mg SQ UD PRN; Protocol PRN Reason: Hypoglycemia Protocol Stop: 10/05/18 18:52 Glucose (Glucose 40%) 15 - 30 gm PO UD PRN; Protocol PRN Reason: Hypoglycemia Protocol Stop: 10/05/18 18:52 Glucose (Dex4 Glucose) 4 - 8 tabs PO UD PRN; Protocol PRN Reason: Hypoglycemia Protocol Stop: 10/05/18 18:52 Potassium Chloride/Dextrose/Sod Cl (D5w And 1/2nss + 20meq Kcl) 20 meq in 1,000 mls @ 75 mls/hr IV .[id number] [facility] Stop: 10/16/18 09:14 Last Infusion: 09/21/18 13:10 Dose: 0 mls/hr Documented by: Insulin Aspart (Novolog Flexpen) 0 units SC ACHS [facility] Stop: 10/05/18 20:59 Last Admin: 09/22/18 12:15 Dose: Not Given Documented by: Levothyroxine Sodium (Synthroid) 75 mcg PO DAILYBB [facility] Stop: 10/06/18 06:29 Last Admin: 09/22/18 05:24 Dose: 75 mcg Documented by: [facility] ([facility]) [facility] Stop: 10/06/18 08:59 Last Admin: 09/22/18 08:16 Dose: Not Given Documented by: Miscellaneous (Carbohydrates For Hypoglycemia) 15 - 30 gm PO UD PRN PRN Reason: Hypoglycemia Treatment Stop: 10/05/18 18:52 Last Admin: 09/16/18 07:55 Dose: 1 gm Documented by: Polyethylene Glycol (Miralax Powder Packet) 17 gm PO [facility] Stop: 10/06/18 08:59 Last Admin: 09/22/18 08:17 Dose: Not Given Documented by: Quetiapine Fumarate (Seroquel) 25 mg PO Q4H PRN PRN Reason: Anxiety Stop: 10/19/18 12:29 Last Admin: 09/22/18 02:13 Dose: 25 mg Documented by: Quetiapine Fumarate (Seroquel) 25 mg PO BID@0900,1700 [facility] Stop: 10/20/18 11:44 Last Admin: 09/22/18 12:57 Dose: 25 mg Documented by: Quetiapine Fumarate (Seroquel) 50 mg PO [facility] Stop: 10/22/18 20:59 Sennosides (Senokot) 17.[facility] Stop: 10/13/18 16:14 Last Admin: 09/22/18 08:17 Dose: Not Given Documented by: Simvastatin (Zocor) 40 mg PO [facility] Stop: 10/05/18 20:59 Last Admin: 09/21/18 21:05 Dose: 40 mg Documented by: Thiamine HCl (Vitamin B-1) 200 mg PO BID [facility] Stop: 10/12/18 20:59 Last Admin: 09/22/18 13:04 Dose: 200 mg Documented by: CPT Code CPT Code 75976 (1) Altered mental status Altered mental status type: unspecified Qualified Code(s): R41.82 - Altered mental status, unspecified
--- NOTE | 2018-09-22 15:13 | Hospitalist Progress Note ---
Date of Service September 22, 2018 Assessment & Plan (1) Altered mental status: ONGOING, had some improvement for a day or so and then back to delirium and hallucinations refusing to take medications, refusing to eat will look to discharge to SNF and transition to palliative approach psychiatry recommends Prozac and Seroquel but not taking consistently still having some hallucinations, delusions believes nurse is changing meds, trying to poison her she was agreeable to taking meds when family was there WORK UP: CT head w/o acute pathology. TSH, b12, ammonia all normal. ESR normal. Lyme's testing negative. No obvious infectious issue found. MRI brain normal (2) Anorexia: eat very little today, some ice cream and peaches, not enough to sustain this is terminal issue, no clear solution go to SNF with palliative approach considered low-dose prednisone for appetite stimulation but this could potentially make mental status worse. obtained x-ray of abdomen to r/o impaction/severe constipation - this was not seen. recent u/a negative for UTI. suspect appetite issues are due to altered MS. added boost. added MVI. on thiamine BID. no good option for appetite stimulation (megace usually not helpful; marinol likely would cause confusion). would not tolerate NG tube. TPN NOT indicated. (3) Anxiety: Chronic h/o anxiety and panic attacks -- in setting of parkinson's disease. Presented with delirium, aggression, etc leading to this admission. no evidence of metabolic or infectious process contributing to clinical picture. taking Seroquel but not consistently taking Prozac but not consistently Review of PDMP shows long-standing use of ativan on daily basis at home. Normally would not advise ongoing ativan use but has been using it for years. currently only using Ativan IV PRN Stopped BUSPAR. Ropinirole has been stopped as well. stopped Effexor due to inconsistency in taking (4) Diabetes: Last A1c was 6.5% in 07/2018. Controlled. had low sugar morning of 09/16 -- added dextrose-containing fluids back for maintenance with resolution of hypoglycemia. hold on fluids for now, monitor sugars (5) Atrial fibrillation: Patient presently in NSR. not taking Eliquis consistently so there is no stroke prevention given palliative approach would not use Lovenox as it causes her discomfort (6) Parkinson disease: Chronic. Previously followed by Dr. Thea as outpatient. Dx 2-3 years ago. Continue Carbidopa/Levodopa at home dosage. (not taking consistently) Appreciate neuro consultation. (7) CAD (coronary artery disease): Chronic. Stable. Continue ASA, statin. (8) Hypothyroid: Chronic. TSH WNL. Continue Synthroid. (9) RLS (restless legs syndrome): Chronic No issues (10) Halitosis: due to lack of oral hygiene for 3+ weeks? (11) Conjunctivitis: cipro drops right eye x 7 days, can stop (12) DVT prophylaxis: nothing, patient not compliant disposition: SNF, transition to hospice once SNF found Subjective early in the morning patient was agitated, angry, refused to eat/drink or even attempt to take medications re-visited later in the day, around lunch time she had 6 family members at the bedside, sisters and nieces she was awake and pleasant, cooperative she was trying to eat ice cream and peaches she said she was willing to take her medications vitals stable, no lab work long talk with the family about the situation so difficult because she was in good spirits and communicating with family while they were there she expressed dilusional thoughts, saying that the nursese were changing meds, trying to hurt her Review of Systems Constitutional: + fatigue, + weakness and + anorexia; no fever, no chills and no sweats Respiratory: no cough and no dyspnea Cardiovascular: no chest pain and no edema Gastrointestinal: no abdominal pain, no nausea, no vomiting, no constipation and no diarrhea/loose stools Musculoskeletal: + stiffness and + muscle weakness Psychiatric: + depression, + anxiety and + paranoia Physical Exam Constitutional: WD/WN, vitals as above Eyes: PERRL, conjunctivae normal, anicteric sclerae ENMT: external ear and nose normal, oropharynx normal Neck: trachea midline, no thyromegaly Respiratory: normal respiratory effort, lungs clear to auscultation Cardiovascular: RRR, no murmur, no edema Gastrointestinal (Abdomen): normal bowel sounds, soft, nontender, no hepatosplenomegaly Musculoskeletal: no cyanosis or clubbing, extremities motor strength 5/5 Skin: no rashes, warm and dry Neurologic: patellar DTR's 2+ bilat, sensation intact and PERRL, EOMI, accommodation nl, no face palsy, no dysarthria Psychiatric: Orientation: alert, oriented to person, oriented to place and cooperative; + not oriented to time Eye Contact: good eye contact Motor Behavior: + tremor Speech: normal rate/rhythm/volume of speech Affect: + anxious affect Thought Content: + preoccupation and + paranoid Hallucina tions: + visual hallucinations Cognition: remote memory grossly intact Lymphatic: no cervical or axillary lymphadenopathy Results & Data Vital Signs (Past 12 Hours) Vital Signs Temp Pulse Pulse Pulse Resp BP Pulse Ox 09/22/18 12:10 82 19 150/79 H 95 09/22/18 08:20 62 09/22/18 03:48 36.7 C 80 20 124/75 98 Laboratory Results Laboratory Results - last 24 hr 09/21/18 09/22/18 09/22/18 20:14 03:56 12:00 POC Glucose 90 95 98 Medications Administered Current Inpatient Medications Acetaminophen (Tylenol) 650 mg PO Q4H PRN PRN Reason: pain/fever Stop: 10/05/18 18:52 Last Admin: 09/20/18 08:24 Dose: 650 mg Documented by: Apixaban (Eliquis) 5 mg PO BID [facility] Stop: 10/05/18 20:59 Last Admin: 09/22/18 13:02 Dose: 5 mg Documented by: Artificial Tears (Artificial Tears) 2 drops OPB QAM [facility] Stop: 10/06/18 08:59 Last Admin: 09/22/18 08:18 Dose: Not Given Documented by: Aspirin (Aspirin Chew) 81 mg PO QAM [facility] Stop: 10/06/18 08:59 Last Admin: 09/22/18 08:16 Dose: Not Given Documented by: Carbidopa/Levodopa (Sinemet 25/250mg) 1 tab PO QID [facility] Stop: 10/06/18 18:29 Last Admin: 09/22/18 12:50 Dose: 1 tab Documented by: Ciprofloxacin (Ciloxan 0.3% Opt) 1 drops OPR TID [facility] Stop: 09/24/18 20:59 Last Admin: 09/22/18 13:10 Dose: Not Given Documented by: Dextrose (Dextrose 50%) 25 - 50 ml IV UD PRN; Protocol PRN Reason: Hypoglycemia Protocol Stop: 10/05/18 18:52 Last Admin: 09/16/18 08:04 Dose: 25 ml Documented by: Docusate Sodium (Colace) 100 mg PO BID [facility] Stop: 10/05/18 20:59 Last Admin: 09/22/18 08:16 Dose: Not Given Documented by: Fluoxetine HCl (Prozac) 10 mg PO QAM [facility] Stop: 10/19/18 12:29 Last Admin: 09/22/18 12:50 Dose: 10 mg Documented by: Glucagon (Glucagen) 1 mg SQ UD PRN; Protocol PRN Reason: Hypoglycemia Protocol Stop: 10/05/18 18:52 Glucose (Glucose 40%) 15 - 30 gm PO UD PRN; Protocol PRN Reason: Hypoglycemia Protocol Stop: 10/05/18 18:52 Glucose (Dex4 Glucose) 4 - 8 tabs PO UD PRN; Protocol PRN Reason: Hypoglycemia Protocol Stop: 10/05/18 18:52 Potassium Chloride/Dextrose/Sod Cl (D5w And 1/2nss + 20meq Kcl) 20 meq in 1,000 mls @ 75 mls/hr IV .[id number] [facility] Stop: 10/16/18 09:14 Last Infusion: 09/21/18 13:10 Dose: 0 mls/hr Documented by: Insulin Aspart (Novolog Flexpen) 0 units SC ACHS [facility] Stop: 10/05/18 20:59 Last Admin: 09/22/18 12:15 Dose: Not Given Documented by: Levothyroxine Sodium (Synthroid) 75 mcg PO DAILYBB [facility] Stop: 10/06/18 06:29 Last Admin: 09/22/18 05:24 Dose: 75 mcg Documented by: Magnesium Oxide (Mag-Ox) 400 mg PO QAM [facility] Stop: 10/06/18 08:59 Last Admin: 09/22/18 08:16 Dose: Not Given Documented by: Miscellaneous (Carbohydrates For Hypoglycemia) 15 - 30 gm PO UD PRN PRN Reason: Hypoglycemia Treatment Stop: 10/05/18 18:52 Last Admin: 09/16/18 07:55 Dose: 1 gm Documented by: Polyethylene Glycol (Miralax Powder Packet) 17 gm PO QAM [facility] Stop: 10/06/18 08:59 Last Admin: 09/22/18 08:17 Dose: Not Given Documented by: Quetiapine Fumarate (Seroquel) 25 mg PO Q4H PRN PRN Reason: Anxiety Stop: 10/19/18 12:29 Last Admin: 09/22/18 02:13 Dose: 25 mg Documented by: Quetiapine Fumarate (Seroquel) 25 mg PO BID@0900,1700 [facility] Stop: 10/20/18 11:44 Last Admin: 09/22/18 12:57 Dose: 25 mg Documented by: Quetiapine Fumarate (Seroquel) 50 mg PO HS [facility] Stop: 10/22/18 20:59 Sennosides (Senokot) 17.2 mg PO QAM [facility] Stop: 10/13/18 16:14 Last Admin: 09/22/18 08:17 Dose: Not Given Documented by: Simvastatin (Zocor) 40 mg PO [facility] Stop: 10/05/18 20:59 Last Admin: 09/21/18 21:05 Dose: 40 mg Documented by: Thiamine HCl (Vitamin B-1) 200 mg PO BID [facility] Stop: 10/12/18 20:59 Last Admin: 09/22/18 13:04 Dose: 200 mg Documented by: PG Care Time/CCT Total # of Minutes Spent Total Time Spent with Patient: Total time spent is greater than 50% in coordination of care (as documented) at patient's floor/unit and/or counseling patient: (1) Diabetes Diabetes mellitus complication status: without complication Diabetes mellitus correction insulin use: without buttermaker continuous churn use Diabetes mellitus type: type 2 Qualified Code(s): E11.9 - Type 2 diabetes mellitus without complications (2) CAD (coronary artery disease) Associated angina: without angina Coronary Disease-Associated Artery/Lesion type: [place] artery [place] vs. transplanted heart: [place] heart Qualified Code(s): I25.10 - Atherosclerotic heart disease of [place] coronary artery without angina pectoris (3) Atrial fibrillation Atrial fibrillation type: unspecified Qualified Code(s): I48.91 - Unspecified atrial fibrillation (4) Conjunctivitis Conjunctivitis type: other Laterality: right Qualified Code(s): H10.89 - Other conjunctivitis (5) Hypothyroid Hypothyroidism type: unspecified Qualified Code(s): E03.9 - Hypothyroidism, unspecified (6) Altered mental status Altered mental status type: unspecified Qualified Code(s): R41.82 - Altered mental status, unspecified
[2018-09-22] MEDS: SIMVASTATIN 40 MG TAB PO SCH (22:21)
[2018-09-23] MEDS: LEVOTHYROXINE SODIUM 75 MCG TABLET PO SCH (06:27)
[2018-09-23] MEDS: APIXABAN 5 MG TABLET PO SCH ×3 (08:32→23:05)
[2018-09-23] MEDS: THIAMINE HCL 100 MG TAB PO SCH ×3 (08:32→23:06)
[2018-09-23] MEDS: ARTIFICIAL TEARS OPB SCH (08:32)
[2018-09-23] MEDS: POLYETHYLENE (MIRALAX) 17 GM PACK PO SCH (08:34)
[2018-09-23] MEDS: FLUOXETINE HCL 10 MG CAP PO SCH (08:34)
[2018-09-23] MEDS: MAGNESIUM OXIDE 400 MG TAB PO SCH (08:34)
[2018-09-23] MEDS: SENNA 8.6 MG TAB PO SCH (08:35)
[2018-09-23] MEDS: CARBIDOPA/LEVODOPA 25-250 1 EA TAB PO SCH ×5 (08:35→23:06)
[2018-09-23] MEDS: CIPROFLOXACIN HCL 0.3% OP SOLN 2.5 ML BTL OPR SCH ×4 (08:36→23:05)
[2018-09-23] MEDS: DOCUSATE SODIUM 100 MG CAP PO SCH ×3 (08:36→23:05)
[2018-09-23] MEDS: ASPIRIN 81 MG CHEW PO SCH (08:38)
[2018-09-23] MEDS: INSULIN ASPART 100 UNITS/ML 3 ML PEN SC SCH ×4 (08:52→21:22)
--- NOTE | 2018-09-23 11:58 | Hospitalist Progress Note ---
Date of Service September 23, 2018 Assessment & Plan (1) Altered mental status: ONGOING, has had some improvement for two days, more cooperative continue on Seroquel and Prozac as they seem to be stabilizing mood psychiatry following, appreciate their recommendations WORK UP: CT head w/o acute pathology. TSH, b12, ammonia all normal. ESR normal. Lyme's testing negative. No obvious infectious issue found. MRI brain normal (2) Anorexia: eating a little but not great, trying to encourage supplements but not receptive this is terminal issue, no clear solution except to improve mental status go to SNF considered low-dose prednisone for appetite stimulation but this could potentially make mental status worse. obtained x-ray of abdomen to r/o impaction/severe constipation - this was not seen. recent u/a negative for UTI. suspect appetite issues are due to altered MS. added boost. added MVI. on thiamine BID. no good option for appetite stimulation (megace usually not helpful; marinol likely would cause confusion). would not tolerate NG tube. TPN NOT indicated. (3) Anxiety: Chronic h/o anxiety and panic attacks -- in setting of parkinson's disease. Presented with delirium, aggression, etc leading to this admission. no evidence of metabolic or infectious process contributing to clinical picture. taking Seroquel but not consistently, getting a little better taking Prozac but not consistently Review of PDMP shows long-standing use of ativan on daily basis at home. Normally would not advise ongoing ativan use but has been using it for years. currently only using Ativan IV PRN Stopped BUSPAR. Ropinirole has been stopped as well. stopped Effexor due to inconsistency in taking (4) Diabetes: Last A1c was 6.5% in 07/2018. Controlled. had low sugar morning of 09/16 -- added dextrose-containing fluids back for maintenance with resolution of hypoglycemia. hold on fluids for now, monitor sugars (5) Atrial fibrillation: Patient presently in NSR. not taking Eliquis consistently so stroke prevention is not perfect given palliative approach would not use Lovenox as it causes her discomfort (6) Parkinson disease: Chronic. Previously followed by Dr. Sidhu as outpatient. Dx 2-3 years ago. Continue Carbidopa/Levodopa at home dosage. (not taking consistently) Appreciate neuro consultation. (7) CAD (coronary artery disease): Chronic. Stable. Continue ASA, statin. (8) Hypothyroid: Chronic. TSH WNL. Continue Synthroid. (9) RLS (restless legs syndrome): Chronic No issues (10) Halitosis: due to lack of oral hygiene for 3+ weeks? (11) Conjunctivitis: cipro drops right eye x 7 days, can stop (12) DVT prophylaxis: Eliquis ordered disposition: SNF, transition to hospice once SNF found Subjective patient having a good morning per RN she took all of her medications this morning without putting up a fight she ate a little breakfast, complained, said she needed a "fresher" tray told her to try to drink some Boost, she said it looked too old, told her it didn't until Apr 2019 she is still acting paranoid, worried RN may be hurting her very suspicious about everyone but at least she is calm and cooperative now discussed with patient's son Braydon over the phone, plan is still for SNF he is looking into three options and will discuss with CM tomorrow Review of Systems Review of Systems: All systems reviewed & are unremarkable except as noted in HPI & below Constitutional: no fever, no chills and no sweats Respiratory: no cough and no dyspnea Cardiovascular: no chest pain and no edema Gastrointestinal: no abdominal pain, no nausea, no vomiting, no constipation and no diarrhea/loose stools Psychiatric: + depression, + change in appetite, + anxiety and + paranoia Physical Exam Constitutional: WD/WN, vitals as above Eyes: PERRL, conjunctivae normal, anicteric sclerae ENMT: external ear and nose normal, oropharynx normal Neck: trachea midline, no thyromegaly Respiratory: normal respiratory effort, lungs clear to auscultation Cardiovascular: RRR, no murmur, no edema Gastrointestinal (Abdomen): normal bowel sounds, soft, nontender, no hepatosplenomegaly Musculoskeletal: no cyanosis or clubbing, extremities motor strength 5/5 Skin: no rashes, warm and dry Neurologic: patellar DTR's 2+ bilat, sensation intact and PERRL, EOMI, accommodation nl, no face palsy, no dysarthria Psychiatric: Orientation: alert, oriented to person, oriented to place and cooperative; + not oriented to time Eye Contact: good eye contact Motor Behavior: + tremor Speech: normal rate/rhythm/volume of speech Affect: + anxious affect Thought Content: + preoccupation and + paranoid Cognition: remote memory grossly intact Lymphatic: no cervical or axillary lymphadenopathy Results & Data Vital Signs (Past 12 Hours) Vital Signs Temp Pulse Resp BP Pulse Ox 09/23/18 08:00 70 09/23/18 07:27 36.6 C 22 121/73 94 Laboratory Results Laboratory Results - last 24 hr 09/22/18 09/22/18 09/22/18 08:27 12:00 16:44 POC Glucose 138 H 98 81 09/22/18 09/23/18 09/23/18 20:06 07:45 11:15 POC Glucose 96 87 97 Medications Administered Current Inpatient Medications Acetaminophen (Tylenol) 650 mg PO Q4H PRN PRN Reason: pain/fever Stop: 10/05/18 18:52 Last Admin: 09/20/18 08:24 Dose: 650 mg Documented by: Apixaban (Eliquis) 5 mg PO BID [facility] Stop: 10/05/18 20:59 Last Admin: 09/23/18 08:32 Dose: 5 mg Documented by: Artificial Tears (Artificial Tears) 2 drops OPB [facility] Stop: 10/06/18 08:59 Last Admin: 09/23/18 08:32 Dose: Not Given Documented by: Aspirin (Aspirin Chew) 81 mg PO QAM [facility] Stop: 10/06/18 08:59 Last Admin: 09/23/18 08:38 Dose: 81 mg Documented by: Carbidopa/Levodopa (Sinemet 25/250mg) 1 tab PO QID [facility] Stop: 10/06/18 18:29 Last Admin: 09/23/18 08:35 Dose: 1 tab Documented by: Ciprofloxacin (Ciloxan 0.3% Opt) 1 drops OPR TID [facility] Stop: 09/24/18 20:59 Last Admin: 09/23/18 08:36 Dose: Not Given Documented by: Dextrose (Dextrose 50%) 25 - 50 ml IV UD PRN; Protocol PRN Reason: Hypoglycemia Protocol Stop: 10/05/18 18:52 Last Admin: 09/16/18 08:04 Dose: 25 ml Documented by: Docusate Sodium (Colace) 100 mg PO BID [facility] Stop: 10/05/18 20:59 Last Admin: 09/23/18 08:36 Dose: Not Given Documented by: Fluoxetine HCl (Prozac) 10 mg PO QAM [facility] Stop: 10/19/18 12:29 Last Admin: 09/23/18 08:34 Dose: 10 mg Documented by: Glucagon (Glucagen) 1 mg SQ UD PRN; Protocol PRN Reason: Hypoglycemia Protocol Stop: 10/05/18 18:52 Glucose (Glucose 40%) 15 - 30 gm PO UD PRN; Protocol PRN Reason: Hypoglycemia Protocol Stop: 10/05/18 18:52 Glucose (Dex4 Glucose) 4 - 8 tabs PO UD PRN; Protocol PRN Reason: Hypoglycemia Protocol Stop: 10/05/18 18:52 Potassium Chloride/Dextrose/Sod Cl (D5w And 1/2nss + 20meq Kcl) 20 meq in 1,000 mls @ 75 mls/hr IV .[id number] [facility] Stop: 10/16/18 09:14 Last Infusion: 09/21/18 13:10 Dose: 0 mls/hr Documented by: Insulin Aspart (Novolog Flexpen) 0 units SC ACHS [facility] Stop: 10/05/18 20:59 Last Admin: 09/23/18 08:52 Dose: Not Given Documented by: Levothyroxine Sodium (Synthroid) 75 mcg PO DAILYBB [facility] Stop: 10/06/18 06:29 Last Admin: 09/23/18 06:27 Dose: 75 mcg Documented by: Magnesium Oxide (Mag-Ox) 400 mg PO QAM [facility] Stop: 10/06/18 08:59 Last Admin: 09/23/18 08:34 Dose: 400 mg Documented by: Miscellaneous (Carbohydrates For Hypoglycemia) 15 - 30 gm PO UD PRN PRN Reason: Hypoglycemia Treatment Stop: 10/05/18 18:52 Last Admin: 09/16/18 07:55 Dose: 1 gm Documented by: Polyethylene Glycol (Miralax Powder Packet) 17 gm PO QAM [facility] Stop: 10/06/18 08:59 Last Admin: 09/23/18 08:34 Dose: Not Given Documented by: Quetiapine Fumarate (Seroquel) 25 mg PO Q4H PRN PRN Reason: Anxiety Stop: 10/19/18 12:29 Last Admin: 09/22/18 02:13 Dose: 25 mg Documented by: Quetiapine Fumarate (Seroquel) 25 mg PO BID@0900,1700 [facility] Stop: 10/20/18 11:44 Last Admin: 09/22/18 22:22 Dose: 25 mg Documented by: Quetiapine Fumarate (Seroquel) 50 mg PO [facility] Stop: 10/22/18 20:59 Last Admin: 09/22/18 22:23 Dose: 50 mg Documented by: Sennosides (Senokot) 17.2 mg PO QAM [facility] Stop: 10/13/18 16:14 Last Admin: 09/23/18 08:35 Dose: 17.2 mg Documented by: Simvastatin (Zocor) 40 mg PO HS [facility] Stop: 10/05/18 20:59 Last Admin: 09/22/18 22:21 Dose: 40 mg Documented by: Thiamine HCl (Vitamin B-1) 200 mg PO BID [facility] Stop: 10/12/18 20:59 Last Admin: 09/23/18 08:32 Dose: 200 mg Documented by: PG Care Time/CCT Total # of Minutes Spent Total Time Spent with Patient: Total time spent is greater than 50% in coordination of care (as documented) at patient's floor/unit and/or counseling patient: (1) Altered mental status Altered mental status type: unspecified Qualified Code(s): R41.82 - Altered mental status, unspecified (2) Diabetes Diabetes mellitus type: type 2 Diabetes mellitus retirement insulin use: without retirement use Diabetes mellitus complication status: without complication Qualified Code(s): E11.9 - Type 2 diabetes mellitus without complications (3) Atrial fibrillation Atrial fibrillation type: unspecified Qualified Code(s): I48.91 - Unspecified atrial fibrillation (4) CAD (coronary artery disease) Coronary Disease-Associated Artery/Lesion type: [place] artery [place] vs. transplanted heart: [place] heart Associated angina: without angina Qualified Code(s): I25.10 - Atherosclerotic heart disease of [place] coronary artery without angina pectoris (5) Hypothyroid Hypothyroidism type: unspecified Qualified Code(s): E03.9 - Hypothyroidism, unspecified (6) Conjunctivitis Conjunctivitis type: other Laterality: right Qualified Code(s): H10.89 - Other conjunctivitis
[2018-09-23] MEDS: QUETIAPINE FUMARATE 25 MG TABLET PO SCH ×4 (13:03→23:06)
[2018-09-23] MEDS ORDERED: QUETIAPINE FUMARATE 25 MG TABLET PO STA (13:30)
[2018-09-23] MEDS ORDERED: LORazepam 1.5 MG/3 ML VIAL IV STA (13:44)
[2018-09-23] MEDS: SIMVASTATIN 40 MG TAB PO SCH ×2 (21:47→23:06)
[2018-09-24] MEDS: LEVOTHYROXINE SODIUM 75 MCG TABLET PO SCH (05:51)
[2018-09-24] MEDS: POLYETHYLENE (MIRALAX) 17 GM PACK PO SCH (08:03)
[2018-09-24] MEDS: ASPIRIN 81 MG CHEW PO SCH (08:04)
[2018-09-24] MEDS: ARTIFICIAL TEARS OPB SCH (08:04)
[2018-09-24] MEDS: FLUOXETINE HCL 10 MG CAP PO SCH (08:05)
[2018-09-24] MEDS: SENNA 8.6 MG TAB PO SCH (08:05)
[2018-09-24] MEDS: CIPROFLOXACIN HCL 0.3% OP SOLN 2.5 ML BTL OPR SCH ×2 (08:05→12:34)
[2018-09-24] MEDS: QUETIAPINE FUMARATE 25 MG TABLET PO SCH ×3 (08:05→20:24)
[2018-09-24] MEDS: CARBIDOPA/LEVODOPA 25-250 1 EA TAB PO SCH ×4 (08:06→20:23)
[2018-09-24] MEDS: MAGNESIUM OXIDE 400 MG TAB PO SCH (08:06)
[2018-09-24] MEDS: THIAMINE HCL 100 MG TAB PO SCH ×2 (08:06→20:24)
[2018-09-24] MEDS: APIXABAN 5 MG TABLET PO SCH ×2 (08:06→20:24)
[2018-09-24] MEDS: DOCUSATE SODIUM 100 MG CAP PO SCH ×2 (08:07→20:26)
[2018-09-24] MEDS: INSULIN ASPART 100 UNITS/ML 3 ML PEN SC SCH ×4 (08:13→21:10)
--- NOTE | 2018-09-24 09:46 | XRay Report ---
XR chest 2V routine CLINICAL HISTORY: dyspnea COMPARISON STUDY: 09/05/2018 FINDINGS: The cardiac and mediastinal contours are normal. There is no evidence of focal pulmonary co nsolidation. There is no evidence of failure. No pleural effusions are visualized.[ IMPRESSION: No active disease in the chest. Electronically signed by: Bin Samayoa M.D. 09/24/2018 9:45 AM
[2018-09-24] MEDS ORDERED: SODIUM CHLORIDE 0.9% 1000ML 1,000 ML IV ONE (14:17)
--- NOTE | 2018-09-24 14:28 | Hospitalist Progress Note ---
Date of Service September 24, 2018 Assessment & Plan (1) Syncope: suspect that today's event was either syncope vs psychogenic. suspect former. BP was low during the unresponsive event. She will be prone to low BPs and orthostasis as a result of her Parkinson's. BP improved s/p fluid bolus. Would advise starting midodrine 2.5mg TID for autonomic insufficiency/orthostasis. monitor. (2) Dyspnea: Despite extensive work-up today - EKG, troponin, chest x-ray, CTA chest and other labs there was no specific etiology for this. Exam was also normal. She did point to the anterior neck as the location of the dyspnea. Telemetry has been normal. Suspect globus sensation from severe anxiety giving her the dyspnea. Even when she is actively c/o the dyspnea O2 sats are 99% in RA. Treat underlying anxiety. Supportive care. Monitor. Present on Admission?: No (3) Altered mental status: Reason for presentation/admission 20 days ago. Had severe confusion and hallucinations treated initially with zyprexa. Latter was ultimately changed to seroquel by psychiatry. Had been taking ativan for many years at home for anxiety disorder but this was weaned off during this stay as recommended by psychiatry. Recent CT head w/o acute pathology. Recent MRI brain negative for acute pathology. TSH, b12, ammonia all normal. ESR normal. Lyme's testing negative. B1 level normal. No obvious infectious issue found. Had "electric shocks in the brain" 4 weeks ago at home. This has not recurred. Doesn't sound like trigeminal neuralgia. Placed on buspar at that time by outpatient psychiatry. Mental status got worse shortly after buspar was added and thus it was discontinued earlier this stay. Suspect we are dealing with advancing parkinson's disease with underlying [place] ia and behavioral disturbance. Her symptoms have improved over the last week - more calm, more oriented, eating better etc. However, still having significant episodes of agitation intermittently (as seen today). Cont seroquel HS and seroquel prn. Appreciate psych input. (4) Anorexia: ongoing but seemingly improved today. monitor. (5) Anxiety: Chronic h/o anxiety and panic attacks -- in setting of parkinson's disease. Presented with delirium, aggression, etc leading to this admission. Review of PDMP showed long-standing use of ativan on daily basis at home. Psych recommended weaning off entirely which in fact was done. Stopped BUSPAR, ropinirole, and effexor. (6) Diabetes: Last A1c was 6.5% in 07/2018. Controlled. (7) Atrial fibrillation: Patient presently in NSR. Continue Eliquis. (8) Parkinson disease: Chronic. Previously followed by Dr. Sidhu as outpatient. Dx 2-3 years ago. Continue Carbidopa/Levodopa at home dosage. Appreciate neuro consultation earlier this stay. (9) CAD (coronary artery disease): Chronic. Stable. Continue ASA, statin. (10) Hypothyroid: Chronic. TSH WNL. Continue Synthroid. (11) RLS (restless legs syndrome): Chronic No issues (12) Halitosis: resolved (13) Conjunctivitis: resolved (14) DVT prophylaxis: Apixaban (15) Discharge planning issues: dispo - SNF, son involved in this decision there had been some talk of possible transition to hospice? would need to d/w SW and son. total time today - 80 minutes over 3 separate visits Subjective 3 visits to see patient today first visit was this am -- she was calm, sitting in chair, and had just finished eating breakfast she passed the 2-item delirium screen (knew the day of the week, and could tell me months of the year backwards) she c/o "not being able to get enough air" she pointed towards her throat as the location of the issue minimal cough she did state "I got some stuff up" (sputum) no chest pain staff report overall good night 2nd visit was in the late morning she was still sitting in chair and had an episode of passing out the staff tried to sternal rub her and she did not wake up initially FSBS was >100 nothing on monitors during the event she eventually awoke and she herself walked back towards the bed her BP was low (SBP 90s) during the event and shortly after I went to the bedside and she was awake & following commands although very agitated she had no focal motor weakness, facial droop, aphasia or dysarthria while testing pronator drift she slapped my left hand and said "you're not my doctor! you're not helping me!" she then subsequently apologized for hitting my hand EKG, labs (except for d-dimer), and CTA chest were all normal I gave a 1 L saline bolus for the low BP with improvement in SBP to 130s afterwards 3rd visit was around dinner time - she was back to normal, sitting in chair, calm, etc Review of Systems Constitutional: no fever Respiratory: + dyspnea Cardiovascular: as per Subjective / HPI, + chest pain and + paroxysmal nocturnal dyspnea; no orthopnea Gastrointestinal: no abdominal pain, no nausea and no vomiting Physical Exam Constitutional: well developed and well nourished; no acute distress ENMT: external ear and nose normal, oropharynx normal Respiratory: normal respiratory effort, lungs clear to auscultation Cardiovascular: Rate/Rhythm: regular rate and regular rhythm Heart Sounds: normal S1 and normal S2; no murmur Vessels: posterior tibial pulses present and dorsalis pedis pulses present; no JVD Gastrointestinal (Abdomen): normal bowel sounds, soft, nontender, no hepatosplenomegaly Neurologic: no focal motor deficits (moves all 4 limbs equally, no pronator drift , no facial droop) Speech / Cognition: normal speech Motor/Sensory: + tremor (facial muscles and arms) Psychiatric: Orientation: alert, oriented to person, oriented to place and oriented to time Mood: no depressed mood Results & Data Vital Signs (Past 12 Hours) Vital Signs Temp Pulse Pulse Resp BP BP Pulse Ox 09/24/18 11:00 36.4 C L 71 14 96/49 L 96 09/24/18 08:00 71 91 H 97 09/24/18 07:00 36.7 C 86 18 111/69 95 09/24/18 03:38 36.3 C L 70 18 121/66 94 Laboratory Results Laboratory Results - last 24 hr 09/24/18 09/24/18 09/24/18 07:46 11:48 14:05 WBC RBC Hgb Hct MCV MCH MCHC RDW Std Deviation RDW Coeff of [place] Plt Count MPV Immature Gran % (Auto) Neut % (Auto) Lymph % (Auto) [place] % (Auto) Eos % (Auto) Baso % (Auto) Immature Gran # (Auto) Neut # (Auto) Lymph # (Auto) [place] # (Auto) Eos # (Auto) Baso # (Auto) D-Dimer Sodium Potassium Chloride Carbon Dioxide Anion Gap BUN Creatinine Est Cr Clr Drug Dosing Est GFR ( Amer) Est GFR (Non-Af Amer) BUN/Creatinine Ratio Glucose POC Glucose 88 126 H 133 H Calcium Magnesium Troponin I 09/24/18 09/24/18 09/24/18 14:49 14:50 14:50 WBC 5.68 RBC 3.99 L Hgb 12.0 Hct 37.2 MCV 93.2 MCH 30.1 MCHC 32.3 RDW Std Deviation 48.8 H RDW Coeff of [place] 14.3 Plt Count 183 MPV 10.2 Immature Gran % (Auto) 0.2 Neut % (Auto) 58.5 Lymph % (Auto) 29.8 [place] % (Auto) 8.6 Eos % (Auto) 2.5 Baso % (Auto) 0.4 Immature Gran # (Auto) 0.01 Neut # (Auto) 3.33 Lymph # (Auto) 1.69 [place] # (Auto) 0.49 Eos # (Auto) 0.14 Baso # (Auto) 0.02 D-Dimer 1220 H* Sodium 144 Potassium 3.7 Chloride 110 H Carbon Dioxide 29 Anion Gap 6.0 BUN 34 H Creatinine 0.73 Est Cr Clr Drug Dosing 51.7 Est GFR ( Amer) 90.8 Est GFR (Non-Af Amer) 78.3 BUN/Creatinine Ratio 46.1 H Glucose 110 H POC Glucose Calcium 9.0 Magnesium 2.4 Troponin I < 0.015 09/24/18 09/24/18 16:43 20:16 WBC RBC Hgb Hct MCV MCH MCHC RDW Std Deviation RDW Coeff of [place] Plt Count MPV Immature Gran % (Auto) Neut % (Auto) Lymph % (Auto) [place] % (Auto) Eos % (Auto) Baso % (Auto) Immature Gran # (Auto) Neut # (Auto) Lymph # (Auto) [place] # (Auto) Eos # (Auto) Baso # (Auto) D-Dimer Sodium Potassium Chloride Carbon Dioxide Anion Gap BUN Creatinine Est Cr Clr Drug Dosing Est GFR ( Amer) Est GFR (Non-Af Amer) BUN/Creatinine Ratio Glucose POC Glucose 98 109 H Calcium Magnesium Troponin I PG Care Time/CCT Total # of Minutes Spent Total Time Spent: 80 Total Time Spent with Patient: Total time spent is greater than 50% in coordination of care (as documented) at patient's floor/unit and/or counseling patient: Prolonged Care Time Prolonged Care Time: Yes Total Prolonged Care Time: 80 (1) Diabetes Diabetes mellitus complication status: without complication Diabetes mellitus fci insulin use: without fci use Diabetes mellitus type: type 2 Qualified Code(s): E11.9 - Type 2 diabetes mellitus without complications (2) CAD (coronary artery disease) Associated angina: without angina Coronary Disease-Associated Artery/Lesion type: [place] artery [place] vs. transplanted heart: [place] heart Qualified Code(s): I25.10 - Atherosclerotic heart disease of [place] coronary artery w ithout angina pectoris (3) Atrial fibrillation Atrial fibrillation type: unspecified Qualified Code(s): I48.91 - Unspecified atrial fibrillation (4) Conjunctivitis Conjunctivitis type: other Laterality: right Qualified Code(s): H10.89 - Other conjunctivitis (5) Hypothyroid Hypothyroidism type: unspecified Qualified Code(s): E03.9 - Hypothyroidism, unspecified (6) Altered mental status Altered mental status type: unspecified Qualified Code(s): R41.82 - Altered mental status, unspecified (7) Dyspnea Dyspnea type: other forms of dyspnea Qualified Code(s): R06.09 - Other forms of dyspnea (8) Syncope Syncope type: unspecified Qualified Code(s): R55 - Syncope and collapse
[2018-09-24 14:57] LABS: Basophils # (auto) 0.02 K/uL (0-0.2); Basophils % (auto) 0.4 %; Eosinophils # (auto) 0.14 K/uL (0-0.5); Eosinophils % (auto) 2.5 %; Hematocrit (blood only) 37.2 % (37-47); Immature Granulocytes # (auto) 0.01 K/uL (0.00-0.02); Immature Granulocytes % (auto) 0.2 %; Lymphocytes # (auto) 1.69 K/uL (1.2-3.4); Lymphocytes % (auto) 29.8 %; Mean Corpuscular Hgb Conc 32.3 g/dL (32-36); Mean Corpuscular Volume 93.2 fL (80-100); Mean Platelet Volume 10.2 fL (7.4-10.4); Monocytes # (auto) 0.49 K/uL (0.11-0.59); Monocytes % (auto) 8.6 %; Neutrophils # (auto) 3.33 K/uL (1.4-6.5); Neutrophils % (auto) 58.5 %; Platelet Count 183 K/uL (130-400); RDW Coefficient of Variation 14.3 % (11.5-14.5); RDW Standard Deviation 48.8 fL (36.4-46.3); Red Blood Count 3.99 M/uL (4.2-5.4); White Blood Count 5.68 K/uL (4.8-10.8)
[2018-09-24 15:10] LABS: D Dimer 1220 ug/L FEU (0-500)
[2018-09-24 15:12] LABS: BUN Creatinine Ratio 46.1 (10-20); Blood Urea Nitrogen 34 mg/dl (7-18); Carbon Dioxide 29 mmol/L (21-32); Chloride 110 mmol/L (98-107); Creatinine Clr Calc Pharmacy 51.7 ml/min; Est GFR (African American) 90.8; Est GFR (Non-African American) 78.3; Glucose 110 mg/dl (70-99); Magnesium 2.4 mg/dl (1.8-2.4); Potassium 3.7 mmol/L (3.5-5.1); Sodium 144 mmol/L (136-145)
[2018-09-24 15:18] LABS: Troponin I < 0.015 ng/ml (0-0.045)
[2018-09-24] MEDS ORDERED: OPTIRAY 320 125ml IV PRN (16:29)
--- NOTE | 2018-09-24 16:39 | CT Scan Report ---
CT angio chest PE protocol CT DOSE: 237.54 mGy.cm HISTORY: Chest pain. Dyspnea. dyspnea, elevated d-dimer; eval PE TECHNIQUE: Multiaxial CT images of the chest were performed following the intravenous administration of contrast to evaluate the pulmonary arteries. Maximal intensity projection images were also obtaine d. A dose lowering technique was utilized adhering to the principles of ALARA. COMPARISON STUDY: 03/07/2018 FINDINGS: There is a normal caliber thoracic aorta with no evidence for dissection. There is no evide nce for pulmonary embolus. No pleural effusions. No pneumothorax. The liver and spleen are unremarkab le. No mediastinal or hilar lymphadenopathy. The central airways are patent. The lungs are clear. IMPRESSION: No evidence for pulmonary embolus. Lungs are considered clear. The above report was generated using voice recognition software. It may contain grammatical, syntax or spelling errors. Electronically signed by: Ernesto Porter M.D. 09/24/2018 4:38 PM
[2018-09-24] MEDS: MIDODRINE HCL 2.5 MG TAB PO SCH (20:23)
[2018-09-24] MEDS: SIMVASTATIN 40 MG TAB PO SCH (20:25)
[2018-09-25] MEDS: SODIUM CHLORIDE 0.9% 1000ML 1,000 ML IV SCH ×2 (00:06→10:41)
[2018-09-25] MEDS: QUETIAPINE FUMARATE 25 MG TABLET PO PRN (01:57)
[2018-09-25] MEDS: LEVOTHYROXINE SODIUM 75 MCG TABLET PO SCH (06:10)
[2018-09-25] MEDS: DOCUSATE SODIUM 100 MG CAP PO SCH ×2 (09:00→21:16)
[2018-09-25] MEDS: CARBIDOPA/LEVODOPA 25-250 1 EA TAB PO SCH ×4 (09:03→21:12)
[2018-09-25] MEDS: MIDODRINE HCL 2.5 MG TAB PO SCH ×3 (09:03→17:18)
[2018-09-25] MEDS: APIXABAN 5 MG TABLET PO SCH ×2 (09:03→21:11)
[2018-09-25] MEDS: MAGNESIUM OXIDE 400 MG TAB PO SCH (09:03)
[2018-09-25] MEDS: SENNA 8.6 MG TAB PO SCH (09:03)
[2018-09-25] MEDS: QUETIAPINE FUMARATE 25 MG TABLET PO SCH ×3 (09:04→21:11)
[2018-09-25] MEDS: THIAMINE HCL 100 MG TAB PO SCH ×2 (09:04→21:12)
[2018-09-25] MEDS: FLUOXETINE HCL 10 MG CAP PO SCH (09:05)
[2018-09-25] MEDS: POLYETHYLENE (MIRALAX) 17 GM PACK PO SCH (09:11)
[2018-09-25] MEDS: ASPIRIN 81 MG CHEW PO SCH (09:11)
[2018-09-25] MEDS: ARTIFICIAL TEARS OPB SCH (09:13)
[2018-09-25] MEDS: INSULIN ASPART 100 UNITS/ML 3 ML PEN SC SCH ×4 (09:14→21:32)
--- NOTE | 2018-09-25 20:42 | Hospitalist Progress Note ---
Date of Service September 25, 2018 Assessment & Plan (1) Syncope: has not recurred suspect some element of autonomic insufficiency from PD in setting of less than optimal oral intake s/p fluids and midodrine with stable BPs since monitoring continues to be normal and w/o dysrhythmia (2) Dyspnea: resolved. extensive w/u including CTA chest negative. suspect psychogenic in origin. has symptoms typically when quite anxious. treat underlying psych issues (3) Altered mental status: Reason for presentation/admission 3 weeks ago. Had severe confusion and hallucinations treated initially with zyprexa. Latter was ultimately changed to seroquel by psychiatry. Had been taking ativan for many years at home for anxiety disorder but this was weaned off during this stay as recommended by psychiatry. Recent CT head w/o acute pathology. Recent MRI brain negative for acute pathology. TSH, b12, ammonia all normal. ESR normal. Lyme's testing negative. B1 level normal. No obvious infectious issue found. Had "electric shocks in the brain" 4 weeks ago at home. This has not recurred. Doesn't sound like trigeminal neuralgia. Placed on buspar at that time by outpatient psychiatry. Mental status got worse shortly after buspar was added and thus it was discontinued earlier this stay. Suspect we are dealing with advancing parkinson's disease with underlying dementia and behavioral disturbance. Her symptoms have improved over the last week - more calm, more oriented, eating better etc. Does have paranoia at times and some hallucinations but MUCH better than previous. Cont seroquel TID. Appreciate psych input. (4) Anorexia: ongoing but not as severe. seroquel should help promote appetite stimulation and weight gain. (5) Anxiety: Chronic h/o anxiety and panic attacks -- in setting of parkinson's disease. Presented with delirium, aggression, etc leading to this admission. Review of PDMP showed long-standing use of ativan on daily basis at home. Psych recommended weaning off entirely which in fact was done. Stopped BUSPAR, ropinirole, and effexor. (6) Diabetes: Last A1c was 6.5% in 07/2018. Controlled. (7) Atrial fibrillation: Patient presently in NSR. Continue Eliquis. (8) Parkinson disease: Chronic. Previously followed by Dr. Sidhu as outpatient. Dx 2-3 years ago. Continue Carbidopa/Levodopa at home dosage. Appreciate neuro consultation earlier this stay. (9) CAD (coronary artery disease): Chronic. Stable. Continue ASA, statin. (10) Hypothyroid: Chronic. TSH WNL. Continue Synthroid. (11) RLS (restless legs syndrome): Chronic No issues (12) Halitosis: resolved (13) Conjunctivitis: right eye - resolved (14) DVT prophylaxis: Apixaban (15) Discharge planning issues: anticipate d/c to SNF in [place] tomorrow that has locked unit sonBraydon, extensively updated by phone tonight (15min spent on phone) he agrees his mother is doing better he is aware of her potential d/c tomorrow Subjective no issues overnight rested well no significant agitation, delirium, or psychosis a/o x 3 during my visit today and could recite months of the year backwards w/o difficulty spoke with son, Braydon, by phone; he concurs that his last 2-3 conversations w/ her by phone have been good and that she is doing MUCH better eating fair Review of Systems Constitutional: no fever Respiratory: no cough Cardiovascular: no chest pain Gastrointestinal: no abdominal pain Physical Exam Constitutional: well developed and well nourished; no acute distress ENMT: Mouth: oral mucous membranes not dry Respiratory: normal respiratory effort, lungs clear to auscultation Cardiovascular: Rate/Rhythm: regular rate and regular rhythm Heart Sounds: normal S1 and normal S2; no murmur Vessels: posterior tibial pulses present and dorsalis pedis pulses present; no JVD Gastrointestinal (Abdomen): normal bowel sounds, soft, nontender, no hepatosplenomegaly Neurologic: Speech / Cognition: normal speech Motor/Sensory: + tremor (facial muscles and arms) Psychiatric: Orientation: alert, oriented to person, oriented to place and oriented to time Results & Data Vital Signs (Past 12 Hours) Vital Signs Temp Pulse Resp BP Pulse Ox 09/25/18 16:29 36.4 C L 72 19 130/74 94 PG Care Time/CCT Total # of Minutes Spent Total Time Spent with Patient: Total time spent is greater than 50% in coordination of care (as documented) at patient's floor/unit and/or counseling patient: (1) Diabetes Diabetes mellitus complication status: without complication Diabetes mellitus remote computer terminal operator insulin use: without remote computer terminal operator use Diabetes mellitus type: type 2 Qualified Code(s): E11.9 - Type 2 diabetes mellitus without complications (2) CAD (coronary artery disease) Associated angina: without angina Coronary Disease-Associated Artery/Lesion type: [place] artery [place] vs. transplanted heart: [place] heart Qualified Code(s): I25.10 - Atherosclerotic heart disease of [place] coronary artery without angina pectoris (3) Atrial fibrillation Atrial fibrillation type: unspecified Qualified Code(s): I48.91 - Unspecified atrial fibrillation (4) Conjunctivitis Conjunctivitis type: other Laterality: right Qualified Code(s): H10.89 - Other conjunctivitis (5) Dyspnea Dyspnea type: other forms of dyspnea Qualified Code(s): R06.09 - Other forms of dyspnea (6) Hypothyroid Hypothyroidism type: unspecified Qualified Code(s): E03.9 - Hypothyroidism, unspecified (7) Syncope Syncope type: unspecified Qualified Code(s): R55 - Syncope and collapse (8) Altered mental status Altered mental status type: unspecified Qualified Code(s): R41.82 - Altered mental status, unspecified
[2018-09-25] MEDS: SIMVASTATIN 40 MG TAB PO SCH (21:13)
[2018-09-26] MEDS: LEVOTHYROXINE SODIUM 75 MCG TABLET PO SCH (05:53)
[2018-09-26 08:10] LABS: BUN Creatinine Ratio 28.1 (10-20); Creatinine Clr Calc Pharmacy 65.1 ml/min; Est GFR (African American) 101.6; Est GFR (Non-African American) 87.7; Potassium 3.6 mmol/L (3.5-5.1)
[2018-09-26] MEDS: INSULIN ASPART 100 UNITS/ML 3 ML PEN SC SCH ×2 (08:26→12:21)
[2018-09-26] MEDS: SENNA 8.6 MG TAB PO SCH (08:27)
[2018-09-26] MEDS: APIXABAN 5 MG TABLET PO SCH (08:27)
[2018-09-26] MEDS: CARBIDOPA/LEVODOPA 25-250 1 EA TAB PO SCH ×2 (08:27→12:40)
[2018-09-26] MEDS: MIDODRINE HCL 2.5 MG TAB PO SCH ×2 (08:27→12:40)
[2018-09-26] MEDS: QUETIAPINE FUMARATE 25 MG TABLET PO SCH (08:28)
[2018-09-26] MEDS: MAGNESIUM OXIDE 400 MG TAB PO SCH (08:28)
[2018-09-26] MEDS: THIAMINE HCL 100 MG TAB PO SCH (08:28)
[2018-09-26] MEDS: FLUOXETINE HCL 10 MG CAP PO SCH (08:28)
[2018-09-26] MEDS: ARTIFICIAL TEARS OPB SCH (08:29)
[2018-09-26] MEDS: ASPIRIN 81 MG CHEW PO SCH (08:34)
[2018-09-26] MEDS: POLYETHYLENE (MIRALAX) 17 GM PACK PO SCH (08:34)
[2018-09-26] MEDS: DOCUSATE SODIUM 100 MG CAP PO SCH (08:34)
--- NOTE | 2018-10-07 06:11 | Discharge Summary ---
Date of Service date of admission - September 05, 2018 date of discharge - September 26, 2018 Admission HPI Per Admitting Provider Galina Kelsey is a 78yo female - currently a [facility] - who presented with altered mental status. Patient is reportedly quite clear at baseline but has been having increased confusion over the last 2-3 weeks. She was seen in the ER on 08/17 with acute SOB thought to be secondary to panic attack. Upon review of documentation from that visit, patient had been combative with the staff at the long-term care residence and was "hearing electricity" in her head. She was seen in the ER on 08/16 with SOB as well. She was also admitted to the Hospitalist service 08/06 - 08/07 with dysphagia and increased anxiety and difficulty taking her medications. Upon arrival to the ER she is afebrile but acutely confused and delirious - trying to crawl out of bed. When asked about why she is in the hospital she responds "because somebody tore out the page", patient counting "1,2,1,2,1,2" repeatedly. Answers some questions and follows some commands. Unable to provide more details of history. Principal Diagnosis advancing Parkinson's Disease with probable underlying dementia and acute enc ephalopathy/behavioral disturbance Discharge Exam Constitutional well developed and well nourished; no acute distress ENMT external ear and nose normal, oropharynx normal Respiratory normal respiratory effort, lungs clear to auscultation Cardiovascular Rate/Rhythm: regular rate and regular rhythm Heart Sounds: normal S1 and normal S2; no murmur Vessels: posterior tibial pulses present and dorsalis pedis pulses present; no JVD Gastrointestinal (Abdomen) normal bowel sounds, soft, nontender, no hepatosplenomegaly Neurologic no focal motor deficits (moves all 4 limbs equally, no pronator drift , no facial droop) Speech / Cognition: normal speech Motor/Sensory: + tremor (facial muscles and arms) Psychiatric Orientation: alert, oriented to person, oriented to place and oriented to time Discharge Data Allergies Allergy/AdvReac Type Severity Reaction Status Date / Time sitagliptin Allergy Mild PER RECORD Verified 09/05/18 14:58 animal dander Allergy Unknown PER RECORD Verified 09/05/18 14:58 metformin Allergy Unknown PER RECORD Verified 09/05/18 14:58 Sulfa (Sulfonamide Allergy Unknown PER RECORD Verified 09/05/18 14:58 Antibiotics) scallops AdvReac Intermediate SEVERE N/V Verified 09/05/18 14:58 morphine AdvReac Mild LOW BP Verified 09/05/18 14:58 METAL Allergy Unknown . Uncoded 09/05/18 14:58 Consultations psychiatry [facility] Neurology speech therapy PT, OT Ordered Studies 1. CT head - no acute process. 2. MRI brain - IMPRESSION: 1. There is no hemorrhage, mass effect, or evidence of acute ischemia. 2. There is mild nonspecific pachymeningeal thickening. This is of indeterminate significance, but increased from the 2011 examination. 3. CTA chest - No PE; lungs free of infiltrate. Hospital Course (1) Altered mental status: Suspect her altered mental status was advancing parkinson's disease with underlying dementia and behavioral disturbance. CT head w/o acute pathology. MRI brain negative for acute pathology. TSH, b12, ammonia all normal. ESR normal. Lyme's testing negative. B1 level normal. No obvious infectious issue found during any point of her 3-week stay. Had "electric shocks in the brain" several weeks prior to admission. This did not recur while hospitalized. Multiple medications were stopped either due to concern of making her symptoms worse or lack of efficacy (or was simply not able to take orally) - 1. ativan (weaned off slowly over several weeks) 2. buspar 3. effexor xr 4. ropinirole Initially she was placed on zyprexa for her psychotic symptoms; this was later changed to seroquel three times daily. She was also started on prozac by psychiatry. The seroquel controlled her symptoms of hallucinations (had vivid auditory, visual, and even olfactory hallucinations) and paranoia. Her orientation ultimately improved. Agitation resolved. She was finally able to carry on a more normal conversation. With the above said she still had intermittent episodes of paranoia and slight agitation but nothing in comparison to when she first was hospitalized. Advise ongoing follow-up with psychiatry and neurology shortly after discharge. (2) Parkinson disease: Chronic. Previously followed by Dr. Ana Sidhu as outpatient. Diagnosed 2-3 years ago. Continue Carbidopa/Levodopa at home dosage. Appears to probably have underlying dementia process from the Parkinson's Disease. Her altered mental status/behavioral disturbance was likely an extension of her Parkinson's. (3) Syncope: Several days prior to discharge she had a brief episode of syncope. Fortunately she was on telemetry when the event occurred. No dysrhythmia was seen. BPs were quite low at the time of the event. This improved s/p fluids. Suspect some element of autonomic insufficiency from her Parkinson's in the setting of less than optimal oral intake. To help prevent orthostasis she was started on midodrine TID. She had no further recurrent episodes. (4) Dyspnea: She complained of this multiple times during the stay. She often described a globus sensation in her throat. Extensive work-up including CTA chest, EKGs, troponins, chest x-ray, etc were all normal/negative. Suspect psychogenic in origin. Had symptoms typically when she was quite anxious. (5) Anorexia: Ongoing issue during much of the stay but did improve somewhat later on in the hospitalization. Seroquel should help promote appetite stimulation and weight gain. She is a poor candidate for other appetite stimulants (marinol, etc) because of her mental status. (6) Anxiety: Chronic history of anxiety and panic attacks -- in setting of parkinson's disease. Presented with delirium, aggression, etc leading to this admission. Review of PDMP showed long-standing use of ativan on daily basis at home. Psych recommended weaning off entirely which in fact was done. BUSPAR and effexor were also stopped. (7) Diabetes: Last A1c was 6.5% in 07/2018. Controlled during this stay. (8) Atrial fibrillation: Paroxysmal. Patient was in NSR the entire stay. Continue Eliquis. (9) CAD (coronary artery disease): Chronic. Stable. Continue ASA, statin. No ischemic symptoms while here. (10) Hypothyroid: Chronic. TSH WNL. Continue Synthroid. (11) RLS (restless legs syndrome): Chronic; no issues while hospitalized. (12) Halitosis: resolved (13) Conjunctivitis: right eye - resolved (14) Discharge planning issues: Patient to be discharged to [facility] in [place] for rehab and ongoing care. It remains to be seen if she will ever be a candidate to return to [facility] in the future. 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 Neurology within 2 weeks for parkinson's disease) Ame Gaston [Primary Care Provider] - Diet: Carb Consistent or DM2 Diet Texture: Dental soft (bite-sized) Addtl Provider Instructions: Patient was admitted to [facility] 3 weeks ago for severe encephalopathy. Found to have severe psychosis (auditory, visual, gustatory hallucinations) along with severe agitation. These symptoms were likely due to psychosis from parkinson's disease. MRI brain was normal. No infections founds. No metabolic abnormalities found (no vitamin B12 or B1 deficiency found, normal thyroid function, normal ammonia level, etc) Recommendations from Mauricio Acosta, [facility] Hospitalist: 1. periodic orthostatic BP checks in light of orthostasis (likely from her parkinson's disease) 2. BMP, mag level in 1 week for stability 3. nystatin solution x 10 days for possible mild thrush; swish and swallow 4. avoidance of ALL benzodiazepines (patient previously took ativan, now completely weaned off) 5. stopping of buspar, ropinirole, and effexor 6. if Rytary is not available for her parkinson's disease may substitute generic carbidopa/levodopa as follows (but ideally should be on her home Rytary) - * carbidopa/levodopa - 25/250mg - 1 tab PO QID Follow-up appointments -- 1. recommend she see her primary neurologist, [facility] in [place], for ongoing parkinson's disease care -- within 2 weeks would be best 2. ongoing psychiatric care - patient had been followed for years by psychiatry in [place] for her severe anxiety disorder; recommend follow-up with psychiatry within 1 week, especially in light of significant psychosis that was likely due to her parkinson's disease On day of discharge the patient is awake, alert, and oriented to person/place/time. She does have intermittent hallucinations (mainly visual at this point) but they are markedly better than 2-3 weeks ago. She has intermittent paranoia and mistrust of staff but this, too, is improved. She has intermittent agitation but this is also much better than 2-3 weeks ago. She at times has enough insight to know that she is confused and will tell you "I think I am a bit confused." Prescriptions: New quetiapine 25 mg Tablet 50 mg PO HS Qty: 30 RF: 3 fluoxetine 10 mg Capsule 10 mg PO QAM Qty: 30 RF: 3 Continued aspirin [Aspirin Childrens] 81 mg Tablet,Chewable 81 mg PO QAM RF: 0 magnesium oxide 400 mg magnesium Tablet 400 mg PO QAM RF: 0 polyethylene glycol 3350 17 gram powder in packet 1 packet PO QAM RF: 0 levothyroxine [Synthroid] 75 mcg tablet 75 mcg PO QAM RF: 0 Eliquis 5 mg tablet 5 mg PO BID RF: 0 docusate sodium [Colace] 100 mg Capsule 100 mg PO BID RF: 0 simvastatin 40 mg Tablet 40 mg PO HS RF: 0 cholecalciferol (vitamin D3) [Vitamin D3] 1,000 unit Capsule 1,000 unit PO QAM RF: 0 Rytary 36.25-145 mg Capsule, Extended Release 3 cap PO QID RF: 0 Discontinued clonazepam 1 mg Tablet 1 mg PO HS RF: 0 venlafaxine 150 mg capsule,extended release 24hr 150 mg PO QAM RF: 0 lorazepam 0.5 mg Tablet 1 mg PO HS RF: 0 ropinirole 0.25 mg Tablet 0.25 mg PO HS RF: 0 buspirone 5 mg tablet 5 mg PO BID RF: 0 No Action TheraTears 0.25 % Drops 2 drp OPHTHALMIC (EYE) QAM RF: 0 quetiapine 25 mg tablet 25 mg PO BID RF: 0 midodrine 2.5 mg tablet 2.5 mg PO TID RF: 0 acetaminophen 325 mg Tablet 650 mg PO Q4H MDD 3G PRN (Reason: Fever Or Pain) RF: 0 amoxicillin 500 mg Capsule 20,000 mg PO UD PRN (Reason: .PROPHYLACTIC) RF: 0 potassium chloride 20 mEq tablet,ER particles/crystals 20 meq PO DAILY RF: 0 magnesium hydroxide [Milk of Magnesia] 400 mg/5 mL Suspension 15 ml PO DAILY PRN (Reason: Constipation) RF: 0 bisacodyl 10 mg Suppository 10 mg MT DAILY PRN (Reason: Constipation) RF: 0 Stand-Alone Forms: [facility], [facility] Discharge Orders: Discharge Order (Routine); Ordered 09/26/18 Ordered By: Mauricio Acosta Skilled Items Patient informed of condition?: Yes DNR: Yes Discharge Level of Care: Skilled Communicable Disease: No Discharge Prognosis: Stable Admission Data Admit Date/Time: 09/05/18 17:21 Attending Provider: Mauricio Acosta Admit Provider: Tammy Norris Primary Care Provider: Ame Gaston Other Providers: Segun Hua ; Tammy Norris ; Tameka Hodge ; Rohan Michel ; IRB Approved Study,Monika Service: Medical Other Interventions: Discharge Summary Assessment (RN) Last Done: 09/26/18 12:27 Pending Studies at Discharge: No DC Date/Time DO NOT enter until pt leaves facility: 09/26/18 15:15
== END 2018-09-26 15:15 | DRG 57 ==
LOC: ED 13:45 → 4E 17:21 → SUATTDRO 17:21 → 4E 17:58 → 4W 09-07 21:19 → 2W 09-18 13:25

== ENCOUNTER 2020-04-04 11:27 | Inpatient (IN) ==
[2020-04-04] MEDS ORDERED: SODIUM CHLORIDE 0.9% 1000ML 1,000 ML IV ONE (11:59)
[2020-04-04] MEDS ORDERED: ONDANSETRON INJ 2 MG/ML 2 ML VIAL IV STA (11:59)
[2020-04-04 12:11] LABS: Basophils # (auto) 0.01 K/uL (0-0.2); Basophils % (auto) 0.2 %; Eosinophils # (auto) 0.02 K/uL (0-0.5); Eosinophils % (auto) 0.3 %; Hematocrit (blood only) 45.2 % (37-47); Hemoglobin 13.9 g/dL (12.0-16.0); Immature Granulocytes # (auto) 0.01 K/uL (0.00-0.02); Immature Granulocytes % (auto) 0.2 %; Lymphocytes # (auto) 1.35 K/uL (1.2-3.4); Lymphocytes % (auto) 22.3 %; Mean Corpuscular Hemoglobin 29.5 pg (25-34); Mean Corpuscular Hgb Conc 30.8 g/dL (32-36); Mean Platelet Volume 12.3 fL (7.4-10.4); Monocytes # (auto) 0.39 K/uL (0.11-0.59); Monocytes % (auto) 6.4 %; Neutrophils # (auto) 4.28 K/uL (1.4-6.5); Neutrophils % (auto) 70.6 %; Platelet Count 161 K/uL (130-400); RDW Coefficient of Variation 15.4 % (11.5-14.5); RDW Standard Deviation 54.5 fL (36.4-46.3); Red Blood Count 4.71 M/uL (4.2-5.4); White Blood Count 6.06 K/uL (4.8-10.8)
--- NOTE | 2020-04-04 12:14 | Emergency Department Note ---
Impression & Plan Acute dehydration, Acute alteration in mental status, Subcapital fracture of left hip ED Provider Note NAME: SADI MANNING AGE: 79 SEX: F : 1940 ARRIVES VIA: Ambulance INFORMANT: Prehospital personnel and [facility] documentation ED PROVIDER(S): Maxx Hills DO CHIEF COMPLAINT: Altered mental status HPI: The patient is an 79-year-old female who is a history of being diagnosed with COVID-19 infection recently. She presented to the emergency department because of decreased p.o. intake and altered mental status. The patient is unable to give any history and I am unsure if this is her baseline. The history is obtained from the nursing personnel as well as the prehospital personnel. The patient has had decreased p.o. intake and decreased activity. There was a reported history of emesis but it is unclear when this occurred. There was no reported fever. There is no reported chest pain or swelling in the legs. There is no reported trauma. ROS: See above HPI for pertinent positives & negatives. A total of 10 systems reviewed and were otherwise negative. PAST MEDICAL HISTORY: See Below PAST SURGICAL HISTORY: See Below FAMILY HISTORY: See Below SOCIAL HISTORY: See Below HOME MEDICATIONS: See Below ALLERGIES: See Below VITALS: See Below PHYSICAL EXAMINATION: GENERAL: The patient is listless and slow to respond to questions. She keeps her eyes closed and does not follow commands. EYES: The conjunctivae are clear. The pupils are round and reactive. EARS, NOSE, MOUTH AND THROAT: The nose is without any evidence of any deformity. Mucous membranes are dry. NECK: The neck is nontender and supple. RESPIRATORY: Shallow respirations were noted. Diminished breath sounds are noted throughout. CARDIOVASCULAR: Regular rate and rhythm noted there no murmurs rubs or gallops normal S1 normal S2. GASTROINTESTINAL: The abdomen is moderately distended. There is left-sided te nderness to palpation which is moderate to severe. MUSCULOSKELETAL/EXTREMITIES: There is no evidence of gross deformity full range of motion is noted in the hips and shoulders. SKIN: No significant pedal edema was noted. NEUROLOGIC: The patient does not answer questions. I am unable to ascertain or ientation at this time. MEDICAL DECISION MAKING: The patient is an 79-year-old female who presented to the emergency department for altered mental status. The patient is unable to give any history but the patient does have a history of underlying Parkinson's. She was found be very dehydrated on physical exam as well as by laboratory studies. I discussed the patient's laboratory and radiographic studies with the on-call [facility] hospitalist. They have agreed to evaluate the patient in the emergency department for further management and disposition. The patient was treated with IV fluids and IV antibiotics. He was also found to have a subacute left hip fracture. There was no history of trauma so this will need to be evaluated further. Triage Nursing notes reviewed. Prior medical records reviewed Vital Signs: reviewed and remarkable for hypertension Differential diagnosis: Infection, hypoglycemia, electrolyte abnormalities, overdose, toxicologic, cardiac sources, intracerebral event, neurologic, trauma, as well as other pathologies. ER treatment provided: See below Diagnostics interpreted by me: ECG: EKG was obtained in the emergency department. My interpretation is normal sinus rhythm at 78 bpm. There was no ectopy. There is no acute ST segment abnormalities noted. This was compared to a tracing from November 24, 2018. No significant changes were noted. Cardiac Monitoring: An order was placed for continuous cardiac monitoring. The monitor shows a rate of 80 bpm with sinus rhythm. Laboratory studies: As stated above and show below. Imaging studies: See below Consultation(s): 1430: Dr. Serrano was notified about the patient's condition. He will evaluate the patient in the emergency department for further management and disposition. Past Med/Surg History Medical History (Updated 04/04/20 @ 14:29 by Maxx Hills DO) Abdominal bloating Anxiety and depression Arthritis Atrial fibrillation Benign hypertension (12/11/12) Carpal tunnel syndrome of left wrist Cervical radicular pain Change in bowel habits Claustrophobia Coronary artery disease Diabetes Diverticulosis Dysphonia Fatigue Heart disease (12/11/12) Hyperlipidemia Hypothyroidism Hypoxia Internal hemorrhoids Laryngopharyngeal reflux Macular degeneration Mass of right breast Mitral regurgitation Numbness Obstructive sleep apnea Panic attacks Parkinson disease Paroxysmal supraventricular tachycardia Sinus bradycardia Sleep disturbances Surgical History History of bladder surgery S/P appendectomy S/P hysterectomy S/P knee surgery Status post repair of nerve Status post tubal ligation Family History Unknown Acute myocardial infarction Father Acute myocardial infarction Brother Stroke syndrome Sister Colon cancer Aunt Breast cancer Other FHx: heart disease Family history of diabetes mellitus Social History Smoking Status: Never smoker Second Hand Exposure: No; Hx Alcohol Use: No Hx Substance Use: No Preferred Language: Greek Communication Ability: Impaired Room Clerk Required: No Beliefs That Will Affect Care: None marital status: Current Living Situation: Personal Care Facility current occupational status: retired Feels Safe at Home: Yes Assistive Devices: Glasses Allergies Allergies Allergy/AdvReac Type Severity Reaction Status Date / Time sitagliptin Allergy Mild PER RECORD Verified 03/21/19 08:54 animal dander Allergy Unknown PER RECORD Verified 03/21/19 08:54 metformin Allergy Unknown PER RECORD Verified 03/21/19 08:54 Sulfa (Sulfonamide Allergy Unknown PER RECORD Verified 04/04/20 13:14 Antibiotics) shellfish derived Allergy Unknown Verified 03/21/19 08:54 scallops AdvReac Intermediate SEVERE N/V Verified 03/21/19 08:54 morphine AdvReac Mild LOW BP Verified 03/21/19 08:54 METAL Allergy Unknown . Uncoded 03/21/19 08:54 Home Meds Home Medications Medication Instructions Recorded Confirmed aspirin [Aspirin Childrens] 81 mg PO QAM 08/17/18 04/04/20 levothyroxine [Synthroid] 75 mcg PO QAM 08/17/18 04/04/20 magnesium oxide 400 mg PO QAM 08/17/18 04/04/20 polyethylene glycol 3350 1 packet PO QAM 08/17/18 04/04/20 simvastatin 40 mg PO HS 08/17/18 04/04/20 cholecalciferol (vitamin D3) 1,000 unit PO QAM 09/05/18 04/04/20 [Vitamin D3] carboxymethylcellulose sodium 2 drp OPB BID 10/03/18 04/04/20 [TheraTears] potassium chloride 20 meq PO QAM 10/03/18 04/04/20 escitalopram oxalate 10 mg tablet 15 mg PO QAM tab 03/21/19 04/04/20 trazodone 50 mg tablet 50 mg PO HS 03/21/19 04/04/20 lorazepam 1 mg tablet 1 mg PO QID tab 01/10/20 04/04/20 quetiapine 50 mg tablet See Rx Instructions .ROUTE 01/10/20 04/04/20 .COMPLEX tab quetiapine 50 mg PO QAM 04/04/20 04/04/20 vitamins A,C,[id number] 1 tab PO BIDM 04/04/20 04/04/20 [PreserVision AREDS] Previous Rx's Medication Instructions Recorded carbidopa 25 mg-levodopa 100 mg 2.5 tab PO QID #300 tab 01/10/20 tablet Results & Data (ED) Vital Signs Vital Signs - 24 hr 04/04/20 11:14 04/04/20 11:33 04/04/20 11:37 Temperature 36.8 C Temperature Source Axillary Pulse Rate 82 80 80 Pulse Rate from SpO2 Sensor 79 Pulse Rhythm Respiratory Rate 16 16 19 Respiratory Effort / Characteristics Spontaneous Blood Pressure 137/68 137/88 Blood Pressure Mean 91 112 Pulse Oximetry 95 95 Oxygen Delivery Method Room Air Sepsis Recent Fever Within 48 Hours Yes Sepsis New/Unexplained Change in Mental Status Yes Sepsis Action Taken by Nursing No Action Required 04/04/20 11:45 04/04/20 11:46 04/04/20 11:59 Temperature Temperature Source Pulse Rate 78 79 Pulse Rate from SpO2 Sensor 78 79 Pulse Rhythm Respiratory Rate 21 17 Respiratory Effort / Characteristics Blood Pressure 135/82 Blood Pressure Mean 84 Pulse Oximetry 94 95 95 Oxygen Delivery Method Room Air Sepsis Recent Fever Within 48 Hours Sepsis New/Unexplained Change in Mental Status Sepsis Action Taken by Nursing 04/04/20 12:00 04/04/20 12:01 04/04/20 12:15 Temperature Temperature Source Pulse Rate 80 79 78 Pulse Rate from SpO2 Sensor 80 79 78 Pulse Rhythm Respiratory Rate 17 15 13 Respiratory Effort / Characteristics Blood Pressure 136/77 Blood Pressure Mean 81 Pulse Oximetry 94 94 95 Oxygen Delivery Method Room Air Room Air Sepsis Recent Fever Within 48 Hours Sepsis New/Unexplained Change in Mental Status Sepsis Action Taken by Nursing 04/04/20 12:30 04/04/20 12:31 04/04/20 12:45 Temperature Temperature Source Pulse Rate 76 74 70 Pulse Rate from SpO2 Sensor Pulse Rhythm Respiratory Rate 13 15 15 Respiratory Effort / Characteristics Blood Pressure 157/79 H Blood Pressure Mean 104 Pulse Oximetry Oxygen Delivery Method Sepsis Recent Fever Within 48 Hours Sepsis New/Unexplained Change in Mental Status Sepsis Action Taken by Nursing 04/04/20 12:58 04/04/20 13:00 04/04/20 13:01 Temperature Temperature Source Pulse Rate 78 77 77 Pulse Rate from SpO2 Sensor Pulse Rhythm Regular Respiratory Rate 14 15 Respiratory Effort / Characteristics Blood Pressure 154/75 H Blood Pressure Mean 90 Pulse Oximetry 96 Oxygen Delivery Method Room Air Sepsis Recent Fever Within 48 Hours Sepsis New/Unexplained Change in Mental Status Sepsis Action Taken by Nursing 04/04/20 13:15 Temperature Temperature Source Pulse Rate 73 Pulse Rate from SpO2 Sensor Pulse Rhythm Respiratory Rate 13 Respiratory Effort / Characteristics Blood Pressure Blood Pressure Mean Pulse Oximetry Oxygen Delivery Method Sepsis Recent Fever Within 48 Hours Sepsis New/Unexplained Change in Mental Status Sepsis Action Taken by Longterm Medications Current Medication List: was personally reviewed by me Laboratory Data Attestation: I reviewed the patient's lab results. Result diagrams: 04/04/20 11:46 04/04/20 12:50 Lab Results 04/04/20 04/04/20 04/04/20 Range/Units 11:46 11:46 11:46 WBC 6.06 (4.8-10.8) K/uL RBC 4.71 (4.2-5.4) M/uL Hgb 13.9 (12.0-16.0) g/dL Hct 45.2 (37-47) % MCV 96.0 (80-100) fL MCH 29.5 (25-34) pg MCHC 30.8 L (32-36) g/dL RDW Std Deviation 54.5 H (36.4-46.3) fL RDW Coeff of Beverly 15.4 H (11.5-14.5) % Plt Count 161 (130-400) K/uL MPV 12.3 H (7.4-10.4) fL Immature Gran % (Auto) 0.2 % Neut % (Auto) 70.6 % Lymph % (Auto) 22.3 % Columbia % (Auto) 6.4 % Eos % (Auto) 0.3 % Baso % (Auto) 0.2 % Neut # (Auto) 4.28 (1.4-6.5) K/uL Lymph # (Auto) 1.35 (1.2-3.4) K/uL Columbia # (Auto) 0.39 (0.11-0.59) K/uL Eos # (Auto) 0.02 (0-0.5) K/uL Baso # (Auto) 0.01 (0-0.2) K/uL Immature Gran # (Auto) 0.01 (0.00-0.02) K/uL PT 11.5 (9.0-12.0) Seconds INR 1.1 (0.9-1.1) APTT 25.0 (21.0-31.0) Seconds PTT Ratio 0.9 Sodium 154 H (136-145) mmol/L Potassium (3.5-5.1) mmol/L Chloride 119 H (98-107) mmol/L Carbon Dioxide 32 (21-32) mmol/L Anion Gap 3.0 (3-11) BUN 56 H (7-18) mg/dl Creatinine 0.91 (0.6-1.2) mg/dl Est Cr Clr Drug Dosing 40.8 ml/min Est GFR ( Amer) 69.1 Est GFR (Non-Af Amer) 59.6 BUN/Creatinine Ratio 61.6 H (10-20) Glucose 129 H (70-99) mg/dl Lactate (0.4-2.0) mmol/L Calcium 9.3 (8.5-10.1) mg/dl Magnesium (1.8-2.4) mg/dl Total Bilirubin 0.8 (0.2-1) mg/dl AST (15-37) U/L ALT 7 L (12-78) U/L Alkaline Phosphatase 105 (45-117) U/L Troponin I < 0.015 (0-0.045) ng/ml Total Protein 8.0 (6.4-8.2) gm/dl Albumin 3.4 (3.4-5.0) gm/dl Globulin 4.6 H (2.5-4.0) gm/dl Albumin/Globulin Ratio 0.7 L (0.9-2) Procalcitonin (0-0.5) ng/ml TSH 0.554 (0.300-4.500) uIu/ml 04/04/20 04/04/20 04/04/20 Range/Units 11:46 12:29 12:50 WBC (4.8-10.8) K/uL RBC (4.2-5.4) M/uL Hgb (12.0-16.0) g/dL Hct (37-47) % MCV (80-100) fL MCH (25-34) pg MCHC (32-36) g/dL RDW Std Deviation (36.4-46.3) fL RDW Coeff of Beverly (11.5-14.5) % Plt Count (130-400) K/uL MPV (7.4-10.4) fL Immature Gran % (Auto) % Neut % (Auto) % Lymph % (Auto) % Columbia % (Auto) % Eos % (Auto) % Baso % (Auto) % Neut # (Auto) (1.4-6.5) K/uL Lymph # (Auto) (1.2-3.4) K/uL Columbia # (Auto) (0.11-0.59) K/uL Eos # (Auto) (0-0.5) K/uL Baso # (Auto) (0-0.2) K/uL Immature Gran # (Auto) (0.00-0.02) K/uL PT (9.0-12.0) Seconds INR (0.9-1.1) APTT (21.0-31.0) Seconds PTT Ratio Sodium (136-145) mmol/L Potassium 4.3 (3.5-5.1) mmol/L Chloride (98-107) mmol/L Carbon Dioxide (21-32) mmol/L Anion Gap (3-11) BUN (7-18) mg/dl Creatinine (0.6-1.2) mg/dl Est Cr Clr Drug Dosing ml/min Est GFR ( Amer) Est GFR (Non-Af Amer) BUN/Creatinine Ratio (10-20) Glucose (70-99) mg/dl Lactate 1.4 (0.4-2.0) mmol/L Calcium (8.5-10.1) mg/dl Magnesium 3.2 H (1.8-2.4) mg/dl Total Bilirubin (0.2-1) mg/dl AST 25 (15-37) U/L ALT (12-78) U/L Alkaline Phosphatase (45-117) U/L Troponin I (0-0.045) ng/ml Total Protein (6.4-8.2) gm/dl Albumin (3.4-5.0) gm/dl Globulin (2.5-4.0) gm/dl Albumin/Globulin Ratio (0.9-2) Procalcitonin 0.05 (0-0.5) ng/ml TSH (0.300-4.500) uIu/ml Administered Medications Discontinued Medications Sodium Chloride (Nss 1000ml) 1,000 mls @ 999 mls/hr IV .Q1H1M ONE Stop: 04/04/20 12:59 Last Infusion: 04/04/20 14:00 Dose: 0 mls/hr Documented by: [id number] Admin: 04/04/20 12:41 Dose: 999 mls/hr Documented by: [id number] Ioversol (Ioversol 100ml) 94 ml IV ONCE ONE Stop: 04/04/20 13:47 Last Admin: 04/04/20 13:47 Dose: 94 ml Documented by: [id number] Ondansetron HCl (Ondansetron Inj 2 Mg/Ml 2 Ml Vial) 4 mg IV NOW STA Stop: 04/04/20 12:00 Last Admin: 04/04/20 12:42 Dose: 4 mg Documented by: [id number] Imaging Data Radiologist's Impression: Patient: SADI MANNING Admit Date: 04/04/20 MR#: [id number] Address1: [address] [place] [address] Acct ID:[id number] Address2: [facility] Date: 1940 [facility] [place] Zip: [place] [address] Age: 79 Location: ED Sex: F Room/Bed: Att Phy: Diagnosis: NA Andreina Phy: [facility] Service Date: 04/04/20 Fam Phy: Interpreting Phy: Mandeep Saul MD Admit Phy: Ordering Phy: Maxx Hills DO cc: ~ CT OF THE ABDOMEN AND PELVIS WITH CONTRAST CLINICAL HISTORY: Left-sided abdominal pain. COMPARISON STUDY: [facility] September 13, 2018. TECHNIQUE: Following IV administration of 94 mL of Optiray-320, axial images of the abdomen and pelvis were obtained from the lung bases to the proximal femurs. Images were reviewed in the axial, sagittal, and coronal planes. IV contrast was administered without complication. Automated exposure control was utilized for the study. A dose lowering technique was utilized adhering to the principles of ALARA. CT DOSE: 687.74 mGycm FINDINGS: Visualized portions of the lower chest demonstrate airspace opacities within the right lower lobe. There is also minimal left lower lobe airspace opacity. No pneumatosis, free air or portal venous gas is present. The liver, adrenal glands, kidneys and pancreas are unremarkable. There is mild splenomegaly. No biliary or pancreatic ductal dilatation is noted. There is no evidence for a bowel obstruction. Colonic diverticulosis is noted without evidence for acute diverticulitis. A moderate amount of stool within the colon and rectum is noted. Major vasculature is patent. Note is made of an impacted subcapital left femoral neck fracture. This is age indeterminate. There may be contusion within the right gluteus natasha. There is no hydronephrosis. There is no biliary or pancreatic ductal dilatation. IMPRESSION: 1. Impacted subcapital left femoral neck fracture, likely subacute. Findings discussed with Dr. Hills at time of dictation. 2. Moderately distended bladder. 3. Moderate amount of stool within the colon and rectum. No bowel obstruction. No bowel wall thickening. 4. Mild asymmetric enlargement of the right gluteus natasha with adjacent infiltration. This may reflect a contusion. Less likely, this could be infectious. 5. Lower lung airspace opacities which favor an infectious process such as viral pneumonia. ACT 112: Negative or not required by law. Electronically signed by: Mandeep Saul M.D. 04/04/2020 2:23 PM Dictated: 04/04/20 141 Transcribed: 04/04/20 141 Patient: SADI MANNING Admit Date: 04/04/20 MR#: [id number] Address1: [address] [place] [address] Acct ID:[id number] Address2: [facility] Date: 1940 [facility] [place] Zip: [place] [address] Age: 79 Location: ED Sex: F Room/Bed: Att Phy: Diagnosis: NA Andreina Phy: [facility] Service Date: 04/04/20 [facility] Phy: Interpreting Phy: Mandeep Saul MD Admit Phy: Ordering Phy: Maxx Hills DO cc: ~ XR chest 1V portable CLINICAL HISTORY: SEPSIS COMPARISON STUDY: Chest CT and chest radiograph November 24, 2018. FINDINGS: Lung volumes are normal. There is no pneumothorax or pleural effusion. Moderate bilateral lower lung airspace opacities are present. Cardiac size is normal. Mediastinal contours are normal. There is no evidence for pulmonary edema. IMPRESSION: Mild bilateral lower lung airspace opacities which favor an infectious process. ACT 112: Negative or not required by law. Electronically signed by: Mandeep Saul M.D. 04/04/2020 12:48 PM Dictated: 04/04/20 1247 Transcribed: 04/04/201246 Patient: SADI MANNING Admit Date: 04/04/20 MR#: [id number] Address1: [address] [place] [address] Acct ID:[id number] Address2: [facility] Date: 1940 [facility] [place] Zip: [place] [address] Age: 79 Location: ED Sex: F Room/Bed: Att Phy: Diagnosis: NA Andreina Phy: [facility] Service Date: 04/04/20 Fam Phy: Interpreting Phy: Mandeep Saul MD Admit Phy: Ordering Phy: Maxx Hills DO cc: ~ CT OF THE HEAD WITHOUT CONTRAST CLINICAL HISTORY: Altered mental status. COMPARISON STUDY: MRI of the brain September 17, 2018. Head CT November 24, 2018. CT DOSE: 638.56 mGycm TECHNIQUE: Helical axial images of the head were obtained without IV contrast. Automated exposure control was utilized for the study. A dose lowering technique was utilized adhering to the principles of ALARA. FINDINGS: No acute intracranial hemorrhage, midline shift or mass effect is present. The ventricular system is stable. White matter hypodensity suggests small vessel disease. The basal cisterns are patent. No extra-axial collections are present. There are no findings to suggest acute dural sinus thrombosis or acute territorial infarct. No significant calvarial abnormalities are present. Minimal left maxillary sinus mucosal thickening is noted. IMPRESSION: No acute intracranial findings. ACT 112: Negative or not required by law. Electronically signed by: Mandeep Saul M.D. 04/04/2020 1:58 PM Dictated: 04/04/20 1355 Transcribed: 04/04/20 1355 Blood Pressure Blood Pressure Findings: Elevated blood pressure Discharge Plan Visit Data Chief Complaint: Lethargic ED Provider: Maxx Hills Discharge Problem: Acute dehydration, Acute alteration in mental status, Subcapital fracture of left hip Forms Stand Alone Forms: [facility] [employer] Prescriptions Prescriptions: No Action escitalopram oxalate 10 mg tablet 15 mg PO QAM RF: 0 trazodone 50 mg tablet 50 mg PO HS RF: 0 lorazepam 1 mg tablet 1 mg PO QID RF: 0 quetiapine 50 mg tablet See Rx Instructions .ROUTE .COMPLEX RF: 0 carbidopa-levodopa 25-100 mg tablet 2.5 tab PO QID Qty: 300 RF: 0 aspirin [Aspirin Childrens] 81 mg Tablet,Chewable 81 mg PO QAM RF: 0 magnesium oxide 400 mg magnesium Tablet 400 mg PO QAM RF: 0 polyethylene glycol 3350 17 gram powder in packet 1 packet PO QAM RF: 0 levothyroxine [Synthroid] 75 mcg tablet 75 mcg PO QAM RF: 0 simvastatin 40 mg Tablet 40 mg PO HS RF: 0 cholecalciferol (vitamin D3) [Vitamin D3] 1,000 unit Capsule 1,000 unit PO QAM RF: 0 quetiapine 50 mg tablet 50 mg PO QAM RF: 0 PreserVision AREDS 7,160-113-100 [id number] Tablet 1 tab PO BIDM RF: 0 TheraTears 0.25 % Drops 2 drp OPB BID RF: 0 potassium chloride 20 mEq tablet,ER particles/crystals 20 meq PO QAM RF: 0 Referrals Referrals: Carlos, [Primary Care Provider] -
[2020-04-04 12:22] LABS: INR 1.1 (0.9-1.1); Partial Thromboplastin Ratio 0.9; Prothrombin Time 11.5 Seconds (9.0-12.0)
[2020-04-04 12:27] LABS: Alanine Aminotransferase 7 U/L (12-78); Albumin Level 3.4 gm/dl (3.4-5.0); BUN Creatinine Ratio 61.6 (10-20); Blood Urea Nitrogen 56 mg/dl (7-18); Calcium 9.3 mg/dl (8.5-10.1); Carbon Dioxide 32 mmol/L (21-32); Chloride 119 mmol/L (98-107); Creatinine Clr Calc Pharmacy 40.8 ml/min; Est GFR (African American) 69.1; Est GFR (Non-African American) 59.6; Glucose 129 mg/dl (70-99); Sodium 154 mmol/L (136-145)
[2020-04-04 12:30] LABS: Albumin Globulin Ratio 0.7 (0.9-2); Alkaline Phosphatase 105 U/L (45-117); Bilirubin,Total 0.8 mg/dl (0.2-1); Globulin 4.6 gm/dl (2.5-4.0); Thyroid Stimulating Hormone 0.554 uIu/ml (0.300-4.500); Troponin I < 0.015 ng/ml (0-0.045)
--- NOTE | 2020-04-04 12:49 | XRay Report ---
XR chest 1V portable CLINICAL HISTORY: SEPSIS COMPARISON STUDY: Chest CT and chest radiograph November 24, 2018. FINDINGS: Lung volumes are normal. There is no pneumothorax or pleural effusion. Moderate bilateral l ower lung airspace opacities are present. Cardiac size is normal. Mediastinal contours are normal. Th ere is no evidence for pulmonary edema. IMPRESSION: Mild bilateral lower lung airspace opacities which favor an infectious process. ACT 112: Negative or not required by law. Electronically signed by: Mandeep Saul M.D. 04/04/2020 12:48 PM
[2020-04-04 13:16] LABS: Potassium 4.3 mmol/L (3.5-5.1)
[2020-04-04 13:22] LABS: Magnesium 3.2 mg/dl (1.8-2.4)
[2020-04-04] MEDS ORDERED: PIPERACILL/TAZOBAC CONSULT ACTIVE PRN (13:35)
[2020-04-04] MEDS ORDERED: PIPERACILLIN/TAZOBACTAM 4.5 GM/120 ML BAG IV ONE (13:35)
[2020-04-04] MEDS ORDERED: SODIUM CHLORIDE 0.9% 1000ML 500 ML IV ONE (13:35)
[2020-04-04] MEDS ORDERED: IOVERSOL 100ml IV ONE (13:46)
--- NOTE | 2020-04-04 13:46 | Electrocardiogram Report ---
Test Reason : Blood Pressure : / mmHG Vent. Rate : 078 BPM Atrial Rate : 078 BPM P-R Int : 142 ms QRS Dur : 082 ms QT Int : 380 ms P-R-T Axes : 015 -08 047 degrees QTc Int : 433 ms Poor data quality, interpretation may be adversely affected Normal sinus rhythm Nonspecific ST and T wave abnormality Abnormal ECG When compared with ECG of 24-NOV-2018 10:43, Nonspecific T wave abnormality no longer evident in Inferior leads T wave inversion now evident in Lateral leads Confirmed by Maxx Carranza ([id number]) on 04/04/2020 1:45:46 PM Referred By: REFERRED SELF Confirmed By:Maxx Carranza
--- NOTE | 2020-04-04 13:59 | CT Scan Report ---
CT OF THE HEAD WITHOUT CONTRAST CLINICAL HISTORY: Altered mental status. COMPARISON STUDY: MRI of the brain September 17, 2018. Head CT November 24, 2018. CT DOSE: 638.56 mGycm TECHNIQUE: Helical axial images of the head were obtained without IV contrast. Automated exposure con trol was utilized for the study. A dose lowering technique was utilized adhering to the principles o f ALARA. FINDINGS: No acute intracranial hemorrhage, midline shift or mass effect is present. The ventricular system is stable. White matter hypodensity suggests small vessel disease. The basal cisterns are nelson nt. No extra-axial collections are present. There are no findings to suggest acute dural sinus thromb osis or acute territorial infarct. No significant calvarial abnormalities are present. Minimal left m axillary sinus mucosal thickening is noted. IMPRESSION: No acute intracranial findings. ACT 112: Negative or not required by law. Electronically signed by: Mandeep Saul M.D. 04/04/2020 1:58 PM
--- NOTE | 2020-04-04 14:24 | CT Scan Report ---
CT OF THE ABDOMEN AND PELVIS WITH CONTRAST CLINICAL HISTORY: Left-sided abdominal pain. COMPARISON STUDY: KUB September 13, 2018. TECHNIQUE: Following IV administration of 94 mL of Optiray-320, axial images of the abdomen and pelvi s were obtained from the lung bases to the proximal femurs. Images were reviewed in the axial, sagitt al, and coronal planes. IV contrast was administered without complication. Automated exposure contro l was utilized for the study. A dose lowering technique was utilized adhering to the principles of A HOLLAND. CT DOSE: 687.74 mGycm FINDINGS: Visualized portions of the lower chest demonstrate airspace opacities within the right lowe r lobe. There is also minimal left lower lobe airspace opacity. No pneumatosis, free air or portal ve nous gas is present. The liver, adrenal glands, kidneys and pancreas are unremarkable. There is mild splenomegaly. No biliary or pancreatic ductal dilatation is noted. There is no evidence for a bowel o bstruction. Colonic diverticulosis is noted without evidence for acute diverticulitis. A moderate shaila unt of stool within the colon and rectum is noted. Major vasculature is patent. Note is made of an im pacted subcapital left femoral neck fracture. This is age indeterminate. There may be contusion withi n the right gluteus natasha. There is no hydronephrosis. There is no biliary or pancreatic ductal dil atation. IMPRESSION: 1. Impacted subcapital left femoral neck fracture, likely subacute. Findings discussed with Dr. Hills at time of dictation. 2. Moderately distended bladder. 3. Moderate amount of stool within the colon and rectum. No bowel obstruction. No bowel wall thickeni ng. 4. Mild asymmetric enlargement of the right gluteus natasha with adjacent infiltration. This may refl ect a contusion. Less likely, this could be infectious. 5. Lower lung airspace opacities which favor an infectious process such as viral pneumonia. ACT 112: Negative or not required by law. Electronically signed by: Mandeep Saul M.D. 04/04/2020 2:23 PM
[2020-04-04 15:25] LABS: Appearance Urine Cloudy (Clear); Bacteria Urine Automated 4+ (Negative); Bilirubin Urine Negative (Negative); Blood Urine Negative (Negative); Color Urine Dark Yellow; Epithelial Cell Urine Auto 20-30 /lpf (0-5); Glucose Urine UA Negative (Negative); Ketones Urine 1+ (Negative); Leukocyte Esterase Urine Trace (Negative); Nitrite Urine Negative (Negative); Protein Urine Trace (Negative); Specific Gravity Urine 1.031 (1.000-1.030); Urobilinogen Urine Negative (Negative)
--- NOTE | 2020-04-04 16:35 | History & Physical Report ---
Date of Service April 04, 2020 Assessment & Plan (1) Subcapital fracture of left hip: Orthopedics consult -N.p.o. after midnight (2) Parkinson disease: Continue current anti-Parkinson's meds (3) Atrial fibrillation: Paroxysmal atrial fibrillation -Assume not a candidate for anticoagulation -Normal sinus rhythm on today's EKG Present on Admission?: No (4) COVID-19: Family contacted approximately 3 days ago that patient was Covid positive -Repeat Covid testing -Adequately oxygen saturation on room air Present on Admission?: Yes History of Present Illness Chief Complaint: Decreased responsiveness [facility] Patient is an 79-year-old female who presents from her personal [facility]: [facility] for inability to get out of bed and decreased p.o. intake and decreased level of consciousness per report. History is obtained largely from prior re cords as well as physicians as the patient does exhibits decreased awareness and engagement. Patient's [id number] reports that they had been receiving calls occasionally from personal mcfp when she would fall, she is on sure of when her last fall was. They are aware that the patient was transferred to the emergency department. I informed them that it appears the patient has a urinary tract infection as well as a left-sided hip fracture. Patient does admit to pain and pain with palpation of the left hip, there is no other history that is obtainable from the patient at this time. Allergies Allergy/AdvReac Type Severity Reaction Status Date / Time sitagliptin Allergy Mild PER RECORD Verified 03/21/19 08:54 animal dander Allergy Unknown PER RECORD Verified 03/21/19 08:54 metformin Allergy Unknown PER RECORD Verified 03/21/19 08:54 Sulfa (Sulfonamide Allergy Unknown PER RECORD Verified 04/04/20 13:14 Antibiotics) shellfish derived Allergy Unknown Verified 03/21/19 08:54 scallops AdvReac Intermediate SEVERE N/V Verified 03/21/19 08:54 morphine AdvReac Mild LOW BP Verified 03/21/19 08:54 METAL Allergy Unknown . Uncoded 03/21/19 08:54 Home Medications Medication Instructions Recorded Confirmed Type aspirin [Aspirin Childrens] 81 mg PO QAM 08/17/18 04/04/20 History levothyroxine [Synthroid] 75 mcg PO QAM 08/17/18 04/04/20 History magnesium oxide 400 mg PO QAM 08/17/18 04/04/20 History polyethylene glycol 3350 1 packet PO QAM 08/17/18 04/04/20 History simvastatin 40 mg PO HS 08/17/18 04/04/20 History cholecalciferol (vitamin D3) 1,000 unit PO QAM 09/05/18 04/04/20 History [Vitamin D3] carboxymethylcellulose sodium 2 drp OPB BID 10/03/18 04/04/20 History [TheraTears] potassium chloride 20 meq PO QAM 10/03/18 04/04/20 History escitalopram oxalate 10 mg tablet 15 mg PO QAM tab 03/21/19 04/04/20 History trazodone 50 mg tablet 50 mg PO HS 03/21/19 04/04/20 History carbidopa 25 mg-levodopa 100 mg 2.5 tab PO QID #300 tab 01/10/20 04/04/20 Rx tablet lorazepam 1 mg tablet 1 mg PO QID tab 01/10/20 04/04/20 History quetiapine 50 mg tablet See Rx Instructions .ROUTE 01/10/20 04/04/20 History .COMPLEX tab quetiapine 50 mg PO QAM 04/04/20 04/04/20 History vitamins A,C,X-zmne-vcutlq 1 tab PO BIDM 04/04/20 04/04/20 History [PreserVision AREDS] Past Med/Surg History Medical History (Updated 04/04/20 @ 17:14 by Rohan Serrano DO) Abdominal bloating Anxiety and depression Arthritis Atrial fibrillation Benign hypertension (12/11/12) Carpal tunnel syndrome of left wrist Cervical radicular pain Change in bowel habits Claustrophobia Coronary artery disease Diabetes Diverticulosis Dysphonia Fatigue Heart disease (12/11/12) Hyperlipidemia Hypothyroidism Hypoxia Internal hemorrhoids Laryngopharyngeal reflux Macular degeneration Mass of right breast Mitral regurgitation Numbness Obstructive sleep apnea Panic attacks Parkinson disease Paroxysmal supraventricular tachycardia Sinus bradycardia Sleep disturbances Surgical History History of bladder surgery S/P appendectomy S/P hysterectomy S/P knee surgery Status post repair of nerve Status post tubal ligation Family History Unknown Acute myocardial infarction Father Acute myocardial infarction Brother Stroke syndrome Sister Colon cancer Aunt Breast cancer Other FHx: heart disease Family history of diabetes mellitus Social History Smoking Status: Never smoker Second Hand Exposure: No; Hx Alcohol Use: No Hx Substance Use: No Preferred Language: Turkmen Communication Ability: Impaired Pattern Shop Supervisor Required: No Beliefs That Will Affect Care: None marital status: Current Living Situation: Personal Care Facility current occupational status: retired Feels Safe at Home: Yes Assistive Devices: Glasses Review of Systems Review of Systems: Unobtainable due to reduced consciousness Physical Exam Physical Exam: General: Sleeping in bed arouses to voice. nontoxic. Skin: Warm, dry, Head: Atraumatic Ears, nose, mouth and throat: airway patent Cardiovascular: Normal peripheral perfusion S1-S2 regular rate and rhythm Respiratory: no respiratory distress lungs clear to auscultation bilaterally Gastrointestinal: Non distended soft nondistended nontender Musculoskeletal: No obvious deformity, tenderness with palpation of the left hip Results & Data Results & Data ([facility]) Vital Signs (Past 12 Hours) Vital Signs Temp Pulse Resp BP Pulse Ox 04/04/20 15:30 68 15 114/59 L 96 04/04/20 15:00 73 16 141/67 H 04/04/20 14:45 74 14 04/04/20 14:31 75 12 04/04/20 14:30 74 16 152/72 H 04/04/20 14:15 78 15 04/04/20 14:01 80 16 04/04/20 14:00 81 16 146/65 H 04/04/20 13:49 82 12 04/04/20 13:47 82 13 143/75 H 04/04/20 13:15 73 13 04/04/20 13:01 77 15 04/04/20 13:00 77 14 154/75 H 04/04/20 12:58 78 96 04/04/20 12:45 70 15 04/04/20 12:31 74 15 04/04/20 12:30 76 13 157/79 H 04/04/20 12:15 78 13 95 04/04/20 12:01 79 15 94 04/04/20 12:00 80 17 136/77 94 04/04/20 11:59 95 04/04/20 11:46 79 17 135/82 95 04/04/20 11:45 78 21 94 04/04/20 11:37 80 19 04/04/20 11:33 80 16 137/88 95 04/04/20 11:14 36.8 C 82 16 137/68 95 Laboratory Results 04/04/20 04/04/20 04/04/20 Range/Units 14:30 12:50 12:29 WBC (4.8-10.8) K/uL RBC (4.2-5.4) M/uL Hgb (12.0-16.0) g/dL Hct (37-47) % MCV (80-100) fL MCH (25-34) pg MCHC (32-36) g/dL RDW Std Deviation (36.4-46.3) fL RDW Coeff of Beverly (11.5-14.5) % Plt Count (130-400) K/uL MPV (7.4-10.4) fL Immature Gran % (Auto) % Neut % (Auto) % Lymph % (Auto) % Furn[place] % (Auto) % Eos % (Auto) % Baso % (Auto) % Neut # (Auto) (1.4-6.5) K/uL Lymph # (Auto) (1.2-3.4) K/uL Furnas # (Auto) (0.11-0.59) K/uL Eos # (Auto) (0-0.5) K/uL Baso # (Auto) (0-0.2) K/uL Immature Gran # (Auto) (0.00-0.02) K/uL PT (9.0-12.0) Seconds INR (0.9-1.1) APTT (21.0-31.0) Seconds PTT Ratio Sodium (136-145) mmol/L Potassium 4.3 (3.5-5.1) mmol/L Chloride (98-107) mmol/L Carbon Dioxide (21-32) mmol/L Anion Gap (3-11) BUN (7-18) mg/dl Creatinine (0.6-1.2) mg/dl Est Cr Clr Drug Dosing ml/min Est GFR ( Amer) Est GFR (Non-Af Amer) BUN/Creatinine Ratio (10-20) Glucose (70-99) mg/dl Lactate 1.4 (0.4-2.0) mmol/L Calcium (8.5-10.1) mg/dl Magnesium 3.2 H (1.8-2.4) mg/dl Total Bilirubin (0.2-1) mg/dl AST 25 (15-37) U/L ALT (12-78) U/L Alkaline Phosphatase (45-117) U/L Troponin I (0-0.045) ng/ml Total Protein (6.4-8.2) gm/dl Albumin (3.4-5.0) gm/dl Globulin (2.5-4.0) gm/dl Albumin/Globulin Ratio (0.9-2) Procalcitonin (0-0.5) ng/ml TSH (0.300-4.500) uIu/ml Urine Color Dark Yellow Urine Appearance Cloudy A (Clear) Urine pH 5.0 (4.5-7.5) Ur Specific Steger 1.031 H (1.000-1.030) Urine Protein Trace H (Negative) Urine Glucose (UA) Negative (Negative) Urine Ketones 1+ H (Negative) Urine Blood Negative (Negative) Urine Nitrite Negative (Negative) Urine Bilirubin Negative (Negative) Urine Urobilinogen Negative (Negative) Ur Leukocyte Esterase Trace H (Negative) Urine WBC (Auto) 1-5 (0-5) /hpf Urine RBC (Auto) 5-10 H (0-4) /hpf U Hyaline Cast (Auto) 1-5 (0-5) /lpf U Epithel Cells (Auto) 20-30 H (0-5) /lpf Urine Bacteria (Auto) 4+ H (Negative) 04/04/20 04/04/20 04/04/20 Range/Units 11:46 11:46 11:46 WBC (4.8-10.8) K/uL RBC (4.2-5.4) M/uL Hgb (12.0-16.0) g/dL Hct (37-47) % MCV (80-100) fL MCH (25-34) pg MCHC (32-36) g/dL RDW Std Deviation (36.4-46.3) fL RDW Coeff of Beverly (11.5-14.5) % Plt Count (130-400) K/uL MPV (7.4-10.4) fL Immature Gran % (Auto) % Neut % (Auto) % Lymph % (Auto) % Furn[place] % (Auto) % Eos % (Auto) % Baso % (Auto) % Neut # (Auto) (1.4-6.5) K/uL Lymph # (Auto) (1.2-3.4) K/uL Furnas # (Auto) (0.11-0.59) K/uL Eos # (Auto) (0-0.5) K/uL Baso # (Auto) (0-0.2) K/uL Immature Gran # (Auto) (0.00-0.02) K/uL PT 11.5 (9.0-12.0) Seconds INR 1.1 (0.9-1.1) APTT 25.0 (21.0-31.0) Seconds PTT Ratio 0.9 Sodium 154 H (136-145) mmol/L Potassium (3.5-5.1) mmol/L Chloride 119 H (98-107) mmol/L Carbon Dioxide 32 (21-32) mmol/L Anion Gap 3.0 (3-11) BUN 56 H (7-18) mg/dl Creatinine 0.91 (0.6-1.2) mg/dl Est Cr Clr Drug Dosing 40.8 ml/min Est GFR ( Amer) 69.1 Est GFR (Non-Af Amer) 59.6 BUN/Creatinine Ratio 61.6 H (10-20) Glucose 129 H (70-99) mg/dl Lactate (0.4-2.0) mmol/L Calcium 9.3 (8.5-10.1) mg/dl Magnesium (1.8-2.4) mg/dl Total Bilirubin 0.8 (0.2-1) mg/dl AST (15-37) U/L ALT 7 L (12-78) U/L Alkaline Phosphatase 105 (45-117) U/L Troponin I < 0.015 (0-0.045) ng/ml Total Protein 8.0 (6.4-8.2) gm/dl Albumin 3.4 (3.4-5.0) gm/dl Globulin 4.6 H (2.5-4.0) gm/dl Albumin/Globulin Ratio 0.7 L (0.9-2) Procalcitonin 0.05 (0-0.5) ng/ml TSH 0.554 (0.300-4.500) uIu/ml Urine Color Urine Appearance (Clear) Urine pH (4.5-7.5) Ur Specific Steger (1.000-1.030) Urine Protein (Negative) Urine Glucose (UA) (Negative) Urine Ketones (Negative) Urine Blood (Negative) Urine Nitrite (Negative) Urine Bilirubin (Negative) Urine Urobilinogen (Negative) Ur Leukocyte Esterase (Negative) Urine WBC (Auto) (0-5) /hpf Urine RBC (Auto) (0-4) /hpf U Hyaline Cast (Auto) (0-5) /lpf U Epithel Cells (Auto) (0-5) /lpf Urine Bacteria (Auto) (Negative) 04/04/20 Range/Units 11:46 WBC 6.06 (4.8-10.8) K/uL RBC 4.71 (4.2-5.4) M/uL Hgb 13.9 (12.0-16.0) g/dL Hct 45.2 (37-47) % MCV 96.0 (80-100) fL MCH 29.5 (25-34) pg MCHC 30.8 L (32-36) g/dL RDW Std Deviation 54.5 H (36.4-46.3) fL RDW Coeff of Beverly 15.4 H (11.5-14.5) % Plt Count 161 (130-400) K/uL MPV 12.3 H (7.4-10.4) fL Immature Gran % (Auto) 0.2 % Neut % (Auto) 70.6 % Lymph % (Auto) 22.3 % Furnas % (Auto) 6.4 % Eos % (Auto) 0.3 % Baso % (Auto) 0.2 % Neut # (Auto) 4.28 (1.4-6.5) K/uL Lymph # (Auto) 1.35 (1.2-3.4) K/uL Furnas # (Auto) 0.39 (0.11-0.59) K/uL Eos # (Auto) 0.02 (0-0.5) K/uL Baso # (Auto) 0.01 (0-0.2) K/uL Immature Gran # (Auto) 0.01 (0.00-0.02) K/uL PT (9.0-12.0) Seconds INR (0.9-1.1) APTT (21.0-31.0) Seconds PTT Ratio Sodium (136-145) mmol/L Potassium (3.5-5.1) mmol/L Chloride (98-107) mmol/L Carbon Dioxide (21-32) mmol/L Anion Gap (3-11) BUN (7-18) mg/dl Creatinine (0.6-1.2) mg/dl Est Cr Clr Drug Dosing ml/min Est GFR ( Amer) Est GFR (Non-Af Amer) BUN/Creatinine Ratio (10-20) Glucose (70-99) mg/dl Lactate (0.4-2.0) mmol/L Calcium (8.5-10.1) mg/dl Magnesium (1.8-2.4) mg/dl Total Bilirubin (0.2-1) mg/dl AST (15-37) U/L ALT (12-78) U/L Alkaline Phosphatase (45-117) U/L Troponin I (0-0.045) ng/ml Total Protein (6.4-8.2) gm/dl Albumin (3.4-5.0) gm/dl Globulin (2.5-4.0) gm/dl Albumin/Globulin Ratio (0.9-2) Procalcitonin (0-0.5) ng/ml TSH (0.300-4.500) uIu/ml Urine Color Urine Appearance (Clear) Urine pH (4.5-7.5) Ur Specific Steger (1.000-1.030) Urine Protein (Negative) Urine Glucose (UA) (Negative) Urine Ketones (Negative) Urine Blood (Negative) Urine Nitrite (Negative) Urine Bilirubin (Negative) Urine Urobilinogen (Negative) Ur Leukocyte Esterase (Negative) Urine WBC (Auto) (0-5) /hpf Urine RBC (Auto) (0-4) /hpf U Hyaline Cast (Auto) (0-5) /lpf U Epithel Cells (Auto) (0-5) /lpf Urine Bacteria (Auto) (Negative) Diagnostic Findings [facility], [phone] CT Scan Report Patient: ASDI MANNING LAdmit Date: 04/04/20MR#: [id number]: 89 F MALIA FIELDSMilitary Health : ELM[facility]FTBirth Date: 1940[facility] Zip: [place], [place] [address]Qco: 79Location: EDSex: FRoom/Bed:Att Phy:Diagnosis: NAPri Phy: ElroftService Date: 04/04/20Fa Phy:Interpreting Phy: Mandeep Saul MDAdmit Phy: Ordering Phy: Maxx Hills DO cc: ~ CT OF THE ABDOMEN AND PELVIS WITH CONTRAST CLINICAL HISTORY: Left-sided abdominal pain. COMPARISON STUDY: KUB September 13, 2018. TECHNIQUE: Following IV administration of 94 mL of Optiray-320, axial images of the abdomen and pelvis were obtained from the lung bases to the proximal femurs. Images were reviewed in the axial, sagittal, and coronal planes. IV contrast was administered without complication. Automated exposure control was utilized for the study. A dose lowering technique was utilized adhering to the principles of ALARA. CT DOSE: 687.74 mGycm FINDINGS: Visualized portions of the lower chest demonstrate airspace opacities within the right lower lobe. There is also minimal left lower lobe airspace opacity. No pneumatosis, free air or portal venous gas is present. The liver, adrenal glands, kidneys and pancreas are unremarkable. There is mild splenomegaly. No biliary or pancreatic ductal dilatation is noted. There is no evidence for a bowel obstruction. Colonic diverticulosis is noted without evidence for acute diverticulitis. A moderate amount of stool within the colon and rectum is noted. Major vasculature is patent. Note is made of an impacted subcapital left femoral neck fracture. This is age indeterminate. There may be contusion within the right gluteus natasha. There is no hydronephrosis. There is no biliary or pancreatic ductal dilatation. IMPRESSION: 1. Impacted subcapital left femoral neck fracture, likely subacute. Findings discussed with Dr. Hills at time of dictation. 2. Moderately distended bladder. 3. Moderate amount of stool within the colon and rectum. No bowel obstruction. No bowel wall thickening. 4. Mild asymmetric enlargement of the right gluteus natasha with adjacent infiltration. This may reflect a contusion. Less likely, this could be infectious. 5. Lower lung airspace opacities which favor an infectious process such as viral pneumonia. ACT 112: Negative or not required by law. Electronically signed by: Mandeep Saul M.D. 04/04/2020 2:23 PM Dictated: 04/04/20 1413Transcribed: 04/04/20 1413 XR chest 1V portable CLINICAL HISTORY: SEPSIS COMPARISON STUDY: Chest CT and chest radiograph November 24, 2018. FINDINGS: Lung volumes are normal. There is no pneumothorax or pleural effusion. Moderate bilateral lower lung airspace opacities are present. Cardiac size is normal. Mediastinal contours are normal. There is no evidence for pulmonary edema. IMPRESSION: Mild bilateral lower lung airspace opacities which favor an infectious process. ACT 112: Negative or not required by law. Electronically signed by: Mandeep Saul M.D. 04/04/2020 12:48 PM Dictated: 04/04/20 1247Transcribed: 04/04/[address] OF THE HEAD WITHOUT CONTRAST CLINICAL HISTORY: Altered mental status. COMPARISON STUDY: MRI of the brain September 17, 2018. Head CT November 24, 2018. CT DOSE: 638.56 mGycm TECHNIQUE: Helical axial images of the head were obtained without IV contrast. Automated exposure control was utilized for the study. A dose lowering technique was utilized adhering to the principles of ALARA. FINDINGS: No acute intracranial hemorrhage, midline shift or mass effect is present. The ventricular system is stable. White matter hypodensity suggests small vessel disease. The basal cisterns are patent. No extra-axial collections are present. There are no findings to suggest acute dural sinus thrombosis or acute territorial infarct. No significant calvarial abnormalities are present. Minimal left maxillary sinus mucosal thickening is noted. IMPRESSION: No acute intracranial findings. ACT 112: Negative or not required by law. Electronically signed by: Mandeep Saul M.D. 04/04/2020 1:58 PM Dictated: 04/04/20 1355Transcribed: 04/04/20 1355 PG Care Time/CCT Total # of Minutes Spent Total Time Spent with Patient: Total time spent is greater than 50% in coordination of care (as documented) at patient's floor/unit and/or counseling patient: Coding Level of Care Code 18976 Initial Inpt Care Lvl 3 Diagnoses Subcapital fracture of left hip S72.012A Encounter type: initial encounter Fracture type: closed Parkinson disease G20 Atrial fibrillation I48.91 Atrial fibrillation type: unspecified COVID-19 U07.1 (1) Atrial fibrillation Atrial fibrillation type: unspecified Qualified Code(s): I48.91 - Unspecified atrial fibrillation (2) Subcapital fracture of left hip Encounter type: initial encounter Fracture type: closed Qualified Code(s): S72.012A - Unspecified intracapsular fracture of left femur, initial encounter for closed fracture
[2020-04-04] MEDS ORDERED: cefTRIAXone SODIUM 350 MG/ML IM IM ONE (20:44)
[2020-04-04] MEDS ORDERED: cefTRIAXone SODIUM 1,000 MG in SYRINGE 0 ML IM STA (21:04)
[2020-04-04] MEDS: PIPERACILLIN/TAZOBACTAM 3.375 GM in DEXTROSE 5% 100 ML IV SCH (21:54)
[2020-04-04] MEDS: QUEtiapine FUMARATE 100 MG TABLET PO SCH (21:55)
[2020-04-04] MEDS: CARBIDOPA/LEVODOPA 25/100MG TAB PO SCH (21:55)
[2020-04-04] MEDS: NORMOSOL-R 1,000 ML IV SCH (21:57)
[2020-04-04] MEDS: traZODone HCL 50 MG TAB PO SCH (22:00)
[2020-04-04] MEDS: HEPARIN SOD 5,000 UNIT/0.5 ML VIAL SQ SCH (22:00)
[2020-04-04] MEDS: SIMVASTATIN 40 MG TAB PO SCH (22:00)
[2020-04-04] MEDS: LORazepam 1 MG TAB PO SCH (22:18)
[2020-04-04] MEDS: ARTIFICIAL TEARS OP SCH (22:19)
[2020-04-05] MEDS: PIPERACILLIN/TAZOBACTAM 3.375 GM in DEXTROSE 5% 100 ML IV SCH ×3 (06:01→21:14)
[2020-04-05] MEDS: LEVOTHYROXINE SODIUM 75 MCG TABLET PO SCH (06:10)
--- NOTE | 2020-04-05 07:24 | XRay Report ---
XR hip 1V LT w pelvis CLINICAL HISTORY: Left hip pain COMPARISON: CT scan performed the same day DISCUSSION: There is a subcapital left hip fracture. There is a Reyna catheter present. There is cont rast in the bladder. Degenerative changes are present within the lumbar spine. IMPRESSION: Subcapital left hip fracture. ACT 112: Negative or not required by law. Electronically signed by: Bin Samayoa M.D. 04/05/2020 7:22 AM
[2020-04-05 07:58] LABS: Creatinine Clr Calc Pharmacy 55.4 ml/min; Est GFR (African American) 96.2
[2020-04-05] MEDS: ASPIRIN 81 MG ECTAB PO SCH (08:13)
[2020-04-05] MEDS: POLYETHYLENE (MIRALAX) 17 GM PACK PO SCH (08:13)
[2020-04-05] MEDS: MAGNESIUM OXIDE 400 MG TAB PO SCH (08:13)
[2020-04-05] MEDS: LORazepam 1 MG TAB PO SCH ×4 (08:13→20:23)
[2020-04-05] MEDS: QUEtiapine FUMARATE 25 MG TABLET PO SCH (08:13)
[2020-04-05] MEDS: ESCITALOPRAM OXALATE 10 MG TAB PO SCH (08:13)
[2020-04-05] MEDS: CARBIDOPA/LEVODOPA 25/100MG TAB PO SCH ×4 (08:14→20:24)
[2020-04-05] MEDS: CHOLECALCIFEROL 1,000 UNITS 25 MCG TAB PO SCH (08:14)
[2020-04-05] MEDS: ARTIFICIAL TEARS OP SCH ×2 (08:17→21:15)
[2020-04-05] MEDS: HEPARIN SOD 5,000 UNIT/0.5 ML VIAL SQ SCH ×2 (08:18→21:15)
[2020-04-05] MEDS: NORMOSOL-R 1,000 ML IV SCH (08:18)
[2020-04-05 09:30] LABS: BUN Creatinine Ratio 57.7 (10-20); Calcium 8.6 mg/dl (8.5-10.1); Est GFR (African American) 94.8; Est GFR (Non-African American) 81.8
[2020-04-05] MEDS ORDERED: ACETAMINOPHEN 1000 MG/100 ML IV IV PRN (09:47)
[2020-04-05] MEDS ORDERED: CARBOHYDRATES FOR HYPOGLYCEMIA PO PRN (10:08)
[2020-04-05] MEDS ORDERED: GLUCAGON FOR INJ 1 MG VIAL SQ PRN (10:08)
[2020-04-05] MEDS ORDERED: GLUCOSE 40% GEL 15 GM TUBE PO PRN (10:08)
[2020-04-05] MEDS ORDERED: GLUCOSE 10 TABS/TUBE PO PRN (10:08)
[2020-04-05] MEDS ORDERED: DEXTROSE 50% 50 ML SYRINGE IV PRN (10:08)
[2020-04-05] MEDS ORDERED: D5W AND NSS 1,000 ML IV SCH (10:15)
[2020-04-05] MEDS ORDERED: Nursing to Pharmacy Communication SCH ×2 (10:15→15:15)
[2020-04-05] MEDS: DEXTROSE 5% 1,000 ML IV SCH ×2 (10:22→22:37)
[2020-04-05] MEDS ORDERED: INSULIN ASPART 100 UNITS/ML 3 ML PEN SC SCH ×2 (11:30→12:00)
--- NOTE | 2020-04-05 12:45 | Orthopedic Consultation ---
Date of Consultation April 05, 2020 Assessment & Plan (1) Subcapital fracture of left hip: She has a subacute, minimally displaced, impacted fracture of the left femoral neck discovered incidentally on CT scan that is already showing healing and callus formation on imaging. It is unclear when this fracture occurred, but based on discussions with her son, it sounds like this likely occurred at least a month ago when she was last ambulatory. I had an extensive discussion with her son today regarding typical treatment of femoral neck fractures in general, and treatment of her femoral neck fracture in particular given the chronicity and her current medical and mental status. For this fracture pattern, we typically recommend percutaneous screw fixation to prevent displacement of the fracture and therefore the need for a hip hemiarthroplasty, which would be a much more extensive surgery. However, in her case it appears that is already healing in its current position without any further displacement. She is Covid positive, and currently on the Covid nixon, and any surgical intervention would be high risk for her. She also has a very poor mental status, and is minimally arousable at this point. It does not appear that she will be ambulatory anytime soon. We therefore mutually decided to forego any surgical intervention at this point, as the risk of displacement of this fracture is very low given the circumstances. She does not appear to be in any pain at this point. If her mental status improves and she reports significant pain in the hip or gets to the point where we would consider ambulation, we can reassess, but for now we will plan on nonsurgical treatment of this femoral neck fracture. Present on Admission?: Yes History of Present Illness Reason for Consultation: Left hip fracture Requesting Physician: Dr. Serrano Attending Physician: Julissa Mitchell MD History of Present Illness Ms. Kelsey is an 79-year old female who was brought from [facility] due to decreased oral intake and declining mental status. The history is entirely obtained from the medical records so far, including the emergency room provider notes as well as the internal medicine history and physical, as well as an extensive discussion with her son, Braydon Kelsey ([phone]). The patient is nonverbal and minimally interactive, precluding any history obtained from her. Per her son, she has a history of Parkinson's disease, and has been declining fairly rapidly in that regard over the past few months. He states that she has become significantly less interactive over the past few months, and he often cannot have any kind of meaningful interaction with her anymore. She has been on increasing doses of medications to control her Parkinson's disease as well as significant anxiety. She was previously ambulatory with a walker, but Braydon has gotten reports from the intermediate that she has had multiple falls over the past few months, but it sounds like these may not have been terribly traumatic, with her often just sort of sitting down behind her walker. He reports that just before Thanksgiving, with the Covid outbreak in the intermediate, the residents were no longer allowed to ambulate. They were basically confined to their rooms, so it sounds like she likely has not been ambulatory for at least the past month. Braydon never received any report of a significantly traumatic fall or of any obvious pain in her left hip. Again, she was brought to the emergency room for decreased oral intake and worsening mental status; there was no report of a recent fall, traumatic event, or obvious hip pain. However, during a CT scan of the chest, abdomen, pelvis obtained in the emergency room, a left hip fracture was incidentally noted on this scan. Allergies Allergy/AdvReac Type Severity Reaction Status Date / Time sitagliptin Allergy Mild PER RECORD Verified 03/21/19 08:54 animal dander Allergy Unknown PER RECORD Verified 03/21/19 08:54 metformin Allergy Unknown PER RECORD Verified 03/21/19 08:54 Sulfa (Sulfonamide Allergy Unknown PER RECORD Verified 04/04/20 13:14 Antibiotics) shellfish derived Allergy Unknown Verified 03/21/19 08:54 scallops AdvReac Intermediate SEVERE N/V Verified 03/21/19 08:54 morphine AdvReac Mild LOW BP Verified 03/21/19 08:54 METAL Allergy Unknown . Uncoded 03/21/19 08:54 Home Medications Medication Instructions Recorded Confirmed Type aspirin [Aspirin Childrens] 81 mg PO QAM 08/17/18 04/04/20 History levothyroxine [Synthroid] 75 mcg PO QAM 08/17/18 04/04/20 History magnesium oxide 400 mg PO QAM 08/17/18 04/04/20 History polyethylene glycol 3350 1 packet PO QAM 08/17/18 04/04/20 History simvastatin 40 mg PO HS 08/17/18 04/04/20 History cholecalciferol (vitamin D3) 1,000 unit PO QAM 09/05/18 04/04/20 History [Vitamin D3] carboxymethylcellulose sodium 2 drp OPB BID 10/03/18 04/04/20 History [TheraTears] potassium chloride 20 meq PO QAM 10/03/18 04/04/20 History escitalopram oxalate 10 mg tablet 15 mg PO QAM tab 03/21/19 04/04/20 History trazodone 50 mg tablet 50 mg PO HS 03/21/19 04/04/20 History carbidopa 25 mg-levodopa 100 mg 2.5 tab PO QID #300 tab 01/10/20 04/04/20 Rx tablet lorazepam 1 mg tablet 1 mg PO QID tab 01/10/20 04/04/20 History quetiapine 50 mg tablet See Rx Instructions .ROUTE 01/10/20 04/04/20 History .COMPLEX tab quetiapine 50 mg PO QAM 04/04/20 04/04/20 History vitamins A,C,Y-zici-ifwrfx 1 tab PO BIDM 04/04/20 04/04/20 History [PreserVision AREDS] Patient History Medical History (Updated 04/04/20 @ 17:14 by Rohan Serrano DO) Abdominal bloating Anxiety and depression Arthritis Atrial fibrillation Benign hypertension (12/11/12) Carpal tunnel syndrome of left wrist Cervical radicular pain Change in bowel habits Claustrophobia Coronary artery disease Diabetes Diverticulosis Dysphonia Fatigue Heart disease (12/11/12) Hyperlipidemia Hypothyroidism Hypoxia Internal hemorrhoids Laryngopharyngeal reflux Macular degeneration Mass of right breast Mitral regurgitation Numbness Obstructive sleep apnea Panic attacks Parkinson disease Paroxysmal supraventricular tachycardia Sinus bradycardia Sleep disturbances Surgical History History of bladder surgery S/P appendectomy S/P hysterectomy S/P knee surgery Status post repair of nerve Status post tubal ligation Family History Unknown Acute myocardial infarction Father Acute myocardial infarction Brother Stroke syndrome Sister Colon cancer Aunt Breast cancer Other FHx: heart disease Family history of diabetes mellitus Social History Smoking Status: Smoker, status unknown Second Hand Exposure: No; Preferred Language: [place] Communication Ability: Impaired Finishing Technician Required: No Beliefs That Will Affect Care: None marital status: Current Living Situation: Personal Care Facility Current Living Situation Comment: [facility] current occupational status: retired Other Information That Helps Us Care for You: No Feels Safe at Home: Yes Assistive Devices: None Assistive Devices Comment: Patient nonverbal/not answering regarding assistive devices Physical Exam Physical Exam: General: The patient appears well developed and well nourished. She appears to be resting comfortably and asleep upon entering the room. However, I am unable to get her to open her eyes. She will squeeze my hand and wiggle her toes on command, but appears unable to form any verbal communication. Skin: The skin over the left hip shows no open wounds. Inspection/Palpation: Visual inspection reveals minimal shortening but no external rotation of the leg. There is no obvious swelling or tenderness to palpation of the thigh and hip area. Compartments are soft and compressible. Range of Motion: Hip range of motion was not assessed due to the known fracture. However, upon logroll of the left leg, she does not appear in any obvious pain. Stability: Ligamentous stability was not tested due to the known fracture. Strength: Assessment of hip strength is limited due to patient's mental status. Intact ankle and toe dorsiflexion and plantarflexion upon command. Sensation: Assessment of sensation is limited due to patient's mental status. Vascular: Leg is warm and well perfused. No diffuse edema. Results & Data ([facility]) Vital Signs (Past 12 Hours) Vital Signs Temp Pulse Resp BP Pulse Ox 04/05/20 05:47 36.4 C L 80 14 127/[address] scan and left hip x-rays were reviewed. They show a subacute, minimally displaced, impacted left femoral neck fracture. There does appear to be some healing of this fracture already. (1) Subcapital fracture of left hip Encounter type: initial encounter Fracture type: closed Qualified Code(s): S72.012A - Unspecified intracapsular fracture of left femur, initial encounter for closed fracture
--- NOTE | 2020-04-05 15:27 | Hospitalist Progress Note ---
Date of Service April 05, 2020 Assessment & Plan (1) Subcapital fracture of left hip: Presented with poor p.o. intake and altered mental status due to Covid-19 and acute dehydration as below Found incidentally to have what turns out to be a subacute, minimally displaced, impacted fracture of the left femoral neck discovered incidentally on CT scan that is already showing healing and callus formation on imaging as per orthopedic surgery. Orthopedic surgery discussed the fracture with the son and decision was made for nonsurgical management She is to be nonweightbearing on the left lower extremity and have repeat x-rays in 2 weeks and follow-up Heparin SQ for DVT prophylaxis She does not appear to be in pain but IV Tylenol is ordered as needed PT/OT will be ordered -Diet as ordered More likely needs palliative care consultation and possible hospice referral (2) COVID-19: Tested +3 days prior to admission She is not hypoxic and is asymptomatic other than fatigue, poor p.o. intake, dehydration Continue Covid airborne and contact precautions No indication for dexamethasone, remdesivir, or convalescent plasma at this time Continue to follow Supportive care, IV fluids (3) Acute dehydration: With significant hypernatremia secondary to poor p.o. intake and dehydration Switch IV fluids to D5W Follow BMP in the morning Encourage p.o. intake if except (4) Acute alteration in mental status: Acute metabolic encephalopathy secondary to dehydration and hypernatremia in the setting of dementia and Parkinson's disease which is advanced Also with UTI Treat UTI with antibiotics Treat with IV fluids as above (5) UTI (urinary tract infection): Urinalysis is abnormal, urine culture pending Continue Zosyn for now Follow urine culture (6) Benign hypertension: Blood pressures are normal Not on medication for this anymore at home (7) Hyperlipidemia: Continue statin (8) Obstructive sleep apnea: Noted in the chart, unclear if she is on CPAP (9) Hypothyroid: TSH here 0.554 Continue levothyroxine (10) Anxiety: Stable at this time Continue home Seroquel, lorazepam, trazodone (11) CAD (coronary artery disease): Stable Continue home aspirin, statin (12) Diabetes: No hemoglobin A1c checked in almost 2 years Start Accu-Cheks, insulin sliding scale as needed Check hemoglobin A1c in the morning (13) Atrial fibrillation: History of such, is in sinus rhythm here Not on anticoagulation presumably due to multiple falls (14) Parkinson disease: Advanced, follows with neurology Continue Sinemet With associated hallucinations Continue Seroquel (15) DVT prophylaxis: Heparin SQ Disposition-continued stay PT/OT consults ordered Will need placement Consider palliative care consultation-we will discuss with her son Admission and Anticipated Discharge Date Admission Date: April 04, 2020 Subjective Patient is sleeping soundly and would not wake up with loud verbal stimulus or gentle tactile stimulus. Nursing reports that she has been like that all day and has not eaten. Orthopedics reviewed her case and made discussed her care with her son and she is not a good surgical candidate at this time. Her hip fracture is likely old. Review of Systems Review of Systems: Unobtainable due to cognitive status and Unobtainable due to reduced consciousness Physical Exam Constitutional: WD/WN, vitals as above Eyes: + anicteric sclerae Neck: trachea midline, no thyromegaly Respiratory: normal respiratory effort, lungs clear to auscultation Cardiovascular: RRR, no murmur, no edema Chest (Breasts): Chest: normal inspection of chest Gastrointestinal (Abdomen): normal bowel sounds, soft, nontender, no hepatosplenomegaly Musculoskeletal: Extremities: extremities normal to inspection; no cyanosis and no clubbing Skin: no rashes, warm and dry Psychiatric: Eye Contact: + poor eye contact Motor Behavior: + tremor (Resting tremor in the jaw and right hand) Lethargic, would not wake up Genitourinary: + abnormal external appearance (Reyna catheter in place) Lymphatic: no lymphedema Results & Data Results & Data ([facility]) Vital Signs (Past 12 Hours) Vital Signs Temp Pulse Resp BP Pulse Ox 04/05/20 15:13 36.4 C L 67 16 127/73 93 04/05/20 05:47 36.4 C L 80 14 127/76 93 Laboratory Results 04/05/20 04/05/20 04/05/20 Range/Units 11:57 06:03 06:03 Sodium 157 H* (136-145) mmol/L Potassium 4.0 (3.5-5.1) mmol/L Chloride 121 H (98-107) mmol/L Carbon Dioxide 32 (21-32) mmol/L Anion Gap 5.0 (3-11) BUN 40 H (7-18) mg/dl Creatinine 0.70 0.67 (0.6-1.2) mg/dl Est Cr Clr Drug Dosing 53.0 55.4 ml/min Est GFR ( Amer) 94.8 96.2 Est GFR (Non-Af Amer) 81.8 83.0 BUN/Creatinine Ratio 57.7 H (10-20) Glucose 70 (70-99) mg/dl POC Glucose 86 (70-99) mg/dl Calcium 8.6 (8.5-10.1) mg/dl Urine Color Urine Appearance (Clear) Urine pH (4.5-7.5) Ur Specific [place] (1.000-1.030) Urine Protein (Negative) Urine Glucose (UA) (Negative) Urine Ketones (Negative) Urine Blood (Negative) Urine Nitrite (Negative) Urine Bilirubin (Negative) Urine Urobilinogen (Negative) Ur Leukocyte Esterase (Negative) Urine WBC (Auto) (0-5) /hpf Urine RBC (Auto) (0-4) /hpf U Hyaline Cast (Auto) (0-5) /lpf U Epithel Cells (Auto) (0-5) /lpf Urine Bacteria (Auto) (Negative) COVID-19 Eval Order SARS-CoV-2, RNA, NAAT (NEGATIVE) Blood Type Antibody Screen Antibody Identification Antibody ID Comment 04/05/20 04/05/20 04/04/20 Range/Units 02:50 02:50 21:24 Sodium (136-145) mmol/L Potassium (3.5-5.1) mmol/L Chloride (98-107) mmol/L Carbon Dioxide (21-32) mmol/L Anion Gap (3-11) BUN (7-18) mg/dl Creatinine (0.6-1.2) mg/dl Est Cr Clr Drug Dosing ml/min Est GFR ( Amer) Est GFR (Non-Af Amer) BUN/Creatinine Ratio (10-20) Glucose (70-99) mg/dl POC Glucose (70-99) mg/dl Calcium (8.5-10.1) mg/dl Urine Color Urine Appearance (Clear) Urine pH (4.5-7.5) Ur Specific [place] (1.000-1.030) Urine Protein (Negative) Urine Glucose (UA) (Negative) Urine Ketones (Negative) Urine Blood (Negative) Urine Nitrite (Negative) Urine Bilirubin (Negative) Urine Urobilinogen (Negative) Ur Leukocyte Esterase (Negative) Urine WBC (Auto) (0-5) /hpf Urine RBC (Auto) (0-4) /hpf U Hyaline Cast (Auto) (0-5) /lpf U Epithel Cells (Auto) (0-5) /lpf Urine Bacteria (Auto) (Negative) COVID-19 Eval Order Covid19 IDNow atMWAC SARS-CoV-2, RNA, NAAT POSITIVE A* (NEGATIVE) Blood Type O Negative Antibody Screen POSITIVE A Antibody Identification Anti-E Antibody ID Comment Pending 04/04/20 04/04/20 Range/Units 20:33 14:30 Sodium (136-145) mmol/L Potassium (3.5-5.1) mmol/L Chloride (98-107) mmol/L Carbon Dioxide (21-32) mmol/L Anion Gap (3-11) BUN (7-18) mg/dl Creatinine (0.6-1.2) mg/dl Est Cr Clr Drug Dosing ml/min Est GFR ( Amer) Est GFR (Non-Af Amer) BUN/Creatinine Ratio (10-20) Glucose (70-99) mg/dl POC Glucose 105 H (70-99) mg/dl Calcium (8.5-10.1) mg/dl Urine Color Dark Yellow Urine Appearance Cloudy A (Clear) Urine pH 5.0 (4.5-7.5) Ur Specific [place] 1.031 H (1.000-1.030) Urine Protein Trace H (Negative) Urine Glucose (UA) Negative (Negative) Urine Ketones 1+ H (Negative) Urine Blood Negative (Negative) Urine Nitrite Negative (Negative) Urine Bilirubin Negative (Negative) Urine Urobilinogen Negative (Negative) Ur Leukocyte Esterase Trace H (Negative) Urine WBC (Auto) 1-5 (0-5) /hpf Urine RBC (Auto) 5-10 H (0-4) /hpf U Hyaline Cast (Auto) 1-5 (0-5) /lpf U Epithel Cells (Auto) 20-30 H (0-5) /lpf Urine Bacteria (Auto) 4+ H (Negative) COVID-19 Eval Order SARS-CoV-2, RNA, NAAT (NEGATIVE) Blood Type Antibody Screen Antibody Identification Antibody ID Comment PG Care Time/CCT Total # of Minutes Spent Total Time Spent with Patient: Total time spent is greater than 50% in coordination of care (as documented) at patient's floor/unit and/or counseling patient: Coding Level of Care Code 33352 Subseq Hosp Care Lvl 3 Diagnoses Subcapital fracture of left hip S72.012A Encounter type: initial encounter Fracture type: closed COVID-19 U07.1 Acute dehydration E86.0 Acute alteration in mental status R41.82 UTI (urinary tract infection) N39.0 Benign hypertension I10 Hyperlipidemia E78.5 Obstructive sleep apnea G47.33 Hypothyroid E03.9 Hypothyroidism type: unspecified Anxiety F41.9 CAD (coronary artery disease) I25.10 Associated angina: without angina Coronary Disease-Associated Artery/Lesion type: [place] artery [place] vs. transplanted heart: [place] heart Diabetes E11.9 Diabetes mellitus complication status: without complication Diabetes mellitus watermelon inspector insulin use: without watermelon inspector use Diabetes mellitus type: type 2 Atrial fibrillation I48.91 Atrial fibrillation type: unspecified Parkinson disease G20 DVT prophylaxis Z29.9 (1) Diabetes Diabetes mellitus complication status: without complication Diabetes mellitus senior living insulin use: without senior living use Diabetes mellitus type: type 2 Qualified Code(s): E11.9 - Type 2 diabetes mellitus without complications (2) CAD (coronary artery disease) Associated angina: without angina Coronary Disease-Associated Artery/Lesion type: [place] artery [place] vs. transplanted heart: [place] heart Qualified Code(s): I25.10 - Atherosclerotic heart disease of [place] coronary artery without angina pectoris (3) Atrial fibrillation Atrial fibrillation type: unspecified Qualified Code(s): I48.91 - Unspecified atrial fibrillation (4) Hypothyroid Hypothyroidism type: unspecified Qualified Code(s): E03.9 - Hypothyroidism, unspecified (5) Subcapital fracture of left hip Encounter type: initial encounter Fracture type: closed Qualified Code(s): S72.012A - Unspecified intracapsular fracture of left femur, initial encounter for closed fracture
[2020-04-05] MEDS: INSULIN ASPART 100 UNITS/ML 3 ML PEN SC SCH ×2 (18:00→20:52)
[2020-04-05] MEDS: traZODone HCL 50 MG TAB PO SCH (20:24)
[2020-04-05] MEDS: QUEtiapine FUMARATE 100 MG TABLET PO SCH (20:24)
[2020-04-05] MEDS: SIMVASTATIN 40 MG TAB PO SCH (20:24)
[2020-04-06] MEDS: PIPERACILLIN/TAZOBACTAM 3.375 GM in DEXTROSE 5% 100 ML IV SCH ×2 (05:01→13:57)
[2020-04-06] MEDS: LEVOTHYROXINE SODIUM 75 MCG TABLET PO SCH (05:03)
[2020-04-06 06:40] LABS: Basophils # (auto) 0.01 K/uL (0-0.2); Basophils % (auto) 0.2 %; Eosinophils # (auto) 0.07 K/uL (0-0.5); Eosinophils % (auto) 1.4 %; Hematocrit (blood only) 37.3 % (37-47); Hemoglobin 11.5 g/dL (12.0-16.0); Immature Granulocytes # (auto) 0.03 K/uL (0.00-0.02); Immature Granulocytes % (auto) 0.6 %; Lymphocytes # (auto) 1.47 K/uL (1.2-3.4); Lymphocytes % (auto) 29.7 %; Mean Corpuscular Hemoglobin 28.8 pg (25-34); Mean Corpuscular Hgb Conc 30.8 g/dL (32-36); Mean Corpuscular Volume 93.3 fL (80-100); Mean Platelet Volume 11.6 fL (7.4-10.4); Monocytes # (auto) 0.35 K/uL (0.11-0.59); Monocytes % (auto) 7.1 %; Neutrophils # (auto) 3.02 K/uL (1.4-6.5); Platelet Count 155 K/uL (130-400); RDW Standard Deviation 51.4 fL (36.4-46.3); White Blood Count 4.95 K/uL (4.8-10.8)
[2020-04-06 07:22] LABS: Albumin Globulin Ratio 0.8 (0.9-2); Albumin Level 2.7 gm/dl (3.4-5.0); BUN Creatinine Ratio 36.6 (10-20); Bilirubin,Total 0.9 mg/dl (0.2-1); Calcium 8.2 mg/dl (8.5-10.1); Creatinine Clr Calc Pharmacy 58.9 ml/min; Est GFR (African American) 98.2; Est GFR (Non-African American) 84.7; Globulin 3.5 gm/dl (2.5-4.0); Magnesium 2.5 mg/dl (1.8-2.4); Potassium 3.4 mmol/L (3.5-5.1); Total Protein 6.2 gm/dl (6.4-8.2)
[2020-04-06] MEDS: DEXTROSE 5% 1,000 ML IV SCH ×2 (07:45→20:11)
[2020-04-06 08:43] LABS: Estimated Average Glucose 123 mg/dl; Hemoglobin A1C 5.9 % (4.5-5.6)
[2020-04-06] MEDS: INSULIN ASPART 100 UNITS/ML 3 ML PEN SC SCH ×3 (09:09→18:49)
[2020-04-06] MEDS: HEPARIN SOD 5,000 UNIT/0.5 ML VIAL SQ SCH ×2 (09:10→20:17)
[2020-04-06] MEDS: ESCITALOPRAM OXALATE 10 MG TAB PO SCH (09:11)
[2020-04-06] MEDS: MAGNESIUM OXIDE 400 MG TAB PO SCH (09:11)
[2020-04-06] MEDS: POLYETHYLENE (MIRALAX) 17 GM PACK PO SCH (09:11)
[2020-04-06] MEDS: CHOLECALCIFEROL 1,000 UNITS 25 MCG TAB PO SCH (09:12)
[2020-04-06] MEDS: CARBIDOPA/LEVODOPA 25/100MG TAB PO SCH ×4 (09:12→20:15)
[2020-04-06] MEDS: QUEtiapine FUMARATE 25 MG TABLET PO SCH (09:12)
[2020-04-06] MEDS: ASPIRIN 81 MG ECTAB PO SCH (09:13)
[2020-04-06] MEDS: LORazepam 1 MG TAB PO SCH ×4 (09:13→20:19)
[2020-04-06] MEDS: ARTIFICIAL TEARS OP SCH ×2 (09:13→20:17)
--- NOTE | 2020-04-06 18:51 | Hospitalist Progress Note ---
Date of Service April 06, 2020 Assessment & Plan (1) Subcapital fracture of left hip: Presented with poor p.o. intake and altered mental status due to Covid-19 and acute dehydration as below Found incidentally to have what turns out to be a subacute, minimally displaced, impacted fracture of the left femoral neck discovered incidentally on CT scan that is already showing healing and callus formation on imaging as per orthopedic surgery. Orthopedic surgery discussed the fracture with the son and decision was made for nonsurgical management She is to be nonweightbearing on the left lower extremity and have repeat x-rays in 2 weeks and follow-up Heparin SQ for DVT prophylaxis She does not appear to be in pain and denies pain now that she is more awake and talking; IV Tylenol is ordered as needed PT/OT will be ordered -Diet as ordered Son is POA and reports ok to transition to ASSISTANT OCEANOGRAPHER if not improving or declines (2) COVID-19: Tested +3 days prior to admission She is not hypoxic and is asymptomatic other than fatigue, poor p.o. intake, dehydration She was unresponsive for the first 36-48 hours of her admission, and then woke up on the evening of 04/06 Continue Covid airborne and contact precautions No indication for dexamethasone, remdesivir, or convalescent plasma at this time Continue to follow Supportive care, IV fluids (3) Acute dehydration: With significant hypernatremia secondary to poor p.o. intake and dehydration, now improving, Na+ down from 157 to 142 continue IV fluids to D5W Follow BMP in the morning Encourage p.o. intake now that she is awake (4) Acute alteration in mental status: Acute metabolic encephalopathy secondary to dehydration and hypernatremia in the setting of dementia and Parkinson's disease which is advanced Also with suspected UTI, now ruled out [place] UTI with antibiotics which will now be stopped Treat with IV fluids as above (5) UTI (urinary tract infection): Urinalysis is abnormal, urine culture Gardeernella like species, likely contaminate received Zosyn for 2-3 days--> will STOP Blood cxs NGTD (6) Benign hypertension: Blood pressures are normal Not on medication for this anymore at home (7) Hyperlipidemia: Continue statin (8) Obstructive sleep apnea: Noted in the chart, unclear if she is on CPAP (9) Hypothyroid: TSH here 0.554 Continue levothyroxine (10) Anxiety: Stable at this time Continue home Seroquel, lorazepam, trazodone (11) CAD (coronary artery disease): Stable Continue home aspirin, statin (12) Diabetes: hemoglobin A1c here is now normal dc accuchecks no insulin needed (13) Atrial fibrillation: History of such, is in sinus rhythm here Not on anticoagulation presumably due to multiple falls (14) Parkinson disease: Advanced, follows with neurology Continue Sinemet With associated hallucinations Continue Seroquel (15) DVT prophylaxis: Heparin SQ Disposition-continued stay PT/OT consults ordered Will need placement possibly back on hospice vs SNF if can participate with PT now that she is awake Will call son with update Admission and Anticipated Discharge Date Admission Date: April 04, 2020 Subjective Pt apparently was unresponsive all day with nursing. But when I came to see her at 6:15, she was awake and alert, answering questions. A Bit confused, said she didn't know where she was and "I'm not sure how I am feeling." Denied pain in her hip. Denies nausea and was eager to eat some dinner. Review of Systems Review of Systems: All systems reviewed & are unremarkable except as noted in HPI & below Physical Exam Constitutional: WD/WN, vitals as above Eyes: + anicteric sclerae ENMT: external ear and nose normal, oropharynx normal Neck: trachea midline, no thyromegaly Respiratory: normal respiratory effort, lungs clear to auscultation Cardiovascular: RRR, no murmur, no edema Chest (Breasts): Chest: normal inspection of chest Gastrointestinal (Abdomen): normal bowel sounds, soft, nontender, no hepatosplenomegaly Musculoskeletal: Extremities: extremities normal to inspection; no cyanosis and no clubbing Skin: no rashes, warm and dry Psychiatric: Eye Contact: + poor eye contact Motor Behavior: + tremor (Resting tremor in the jaw and right hand) Genitourinary: + abnormal external appearance (Reyna catheter in place) Lymphatic: no lymphedema Results & Data Results & Data ([facility]) Vital Signs (Past 12 Hours) Vital Signs Temp Pulse Resp BP BP Pulse Ox 04/06/20 15:35 36.5 C 67 18 119/74 91 04/06/20 07:08 36.8 C 80 18 137/80 99 Laboratory Results 04/06/20 04/06/20 04/06/20 Range/Units 17:03 12:28 08:13 WBC (4.8-10.8) K/uL RBC (4.2-5.4) M/uL Hgb (12.0-16.0) g/dL Hct (37-47) % MCV (80-100) fL MCH (25-34) pg MCHC (32-36) g/dL RDW Std Deviation (36.4-46.3) fL RDW Coeff of [place] (11.5-14.5) % Plt Count (130-400) K/uL MPV (7.4-10.4) fL Immature Gran % (Auto) % Neut % (Auto) % Lymph % (Auto) % [place] % (Auto) % Eos % (Auto) % Baso % (Auto) % Neut # (Auto) (1.4-6.5) K/uL Lymph # (Auto) (1.2-3.4) K/uL [place] # (Auto) (0.11-0.59) K/uL Eos # (Auto) (0-0.5) K/uL Baso # (Auto) (0-0.2) K/uL Immature Gran # (Auto) (0.00-0.02) K/uL Sodium (136-145) mmol/L Potassium (3.5-5.1) mmol/L Chloride (98-107) mmol/L Carbon Dioxide (21-32) mmol/L Anion Gap (3-11) BUN (7-18) mg/dl Creatinine (0.6-1.2) mg/dl Est Cr Clr Drug Dosing ml/min Est GFR ( Amer) Est GFR (Non-Af Amer) BUN/Creatinine Ratio (10-20) Glucose (70-99) mg/dl POC Glucose 140 H 131 H 130 H (70-99) mg/dl Estimat Average Glucose mg/dl Hemoglobin A1c (4.5-5.6) % Calcium (8.5-10.1) mg/dl Magnesium (1.8-2.4) mg/dl Total Bilirubin (0.2-1) mg/dl AST (15-37) U/L ALT (12-78) U/L Alkaline Phosphatase (45-117) U/L Total Protein (6.4-8.2) gm/dl Albumin (3.4-5.0) gm/dl Globulin (2.5-4.0) gm/dl Albumin/Globulin Ratio (0.9-2) Antibody ID Comment 04/06/20 04/06/20 04/06/20 Range/Units 06:12 06:12 06:12 WBC 4.95 (4.8-10.8) K/uL RBC 4.00 L (4.2-5.4) M/uL Hgb 11.5 L (12.0-16.0) g/dL Hct 37.3 (37-47) % MCV 93.3 (80-100) fL MCH 28.8 (25-34) pg MCHC 30.8 L (32-36) g/dL RDW Std Deviation 51.4 H (36.4-46.3) fL RDW Coeff of [place] 15.0 H (11.5-14.5) % Plt Count 155 (130-400) K/uL MPV 11.6 H (7.4-10.4) fL Immature Gran % (Auto) 0.6 % Neut % (Auto) 61.0 % Lymph % (Auto) 29.7 % [place] % (Auto) 7.1 % Eos % (Auto) 1.4 % Baso % (Auto) 0.2 % Neut # (Auto) 3.02 (1.4-6.5) K/uL Lymph # (Auto) 1.47 (1.2-3.4) K/uL [place] # (Auto) 0.35 (0.11-0.59) K/uL Eos # (Auto) 0.07 (0-0.5) K/uL Baso # (Auto) 0.01 (0-0.2) K/uL Immature Gran # (Auto) 0.03 H (0.00-0.02) K/uL Sodium 142 D (136-145) mmol/L Potassium 3.4 L (3.5-5.1) mmol/L Chloride 109 H (98-107) mmol/L Carbon Dioxide 30 (21-32) mmol/L Anion Gap 3.0 (3-11) BUN 23 H (7-18) mg/dl Creatinine 0.63 (0.6-1.2) mg/dl Est Cr Clr Drug Dosing 58.9 ml/min Est GFR ( Amer) 98.2 Est GFR (Non-Af Amer) 84.7 BUN/Creatinine Ratio 36.6 H (10-20) Glucose 138 H (70-99) mg/dl POC Glucose (70-99) mg/dl Estimat Average Glucose 123 mg/dl Hemoglobin A1c 5.9 H (4.5-5.6) % Calcium 8.2 L (8.5-10.1) mg/dl Magnesium 2.5 H (1.8-2.4) mg/dl Total Bilirubin 0.9 (0.2-1) mg/dl AST 17 (15-37) U/L ALT 15 (12-78) U/L Alkaline Phosphatase 84 (45-117) U/L Total Protein 6.2 L D (6.4-8.2) gm/dl Albumin 2.7 L (3.4-5.0) gm/dl Globulin 3.5 (2.5-4.0) gm/dl Albumin/Globulin Ratio 0.8 L (0.9-2) Antibody ID Comment 04/05/20 04/04/20 Range/Units 20:43 21:24 WBC (4.8-10.8) K/uL RBC (4.2-5.4) M/uL Hgb (12.0-16.0) g/dL Hct (37-47) % MCV (80-100) fL MCH (25-34) pg MCHC (32-36) g/dL RDW Std Deviation (36.4-46.3) fL RDW Coeff of [place] (11.5-14.5) % Plt Count (130-400) K/uL MPV (7.4-10.4) fL Immature Gran % (Auto) % Neut % (Auto) % Lymph % (Auto) % [place] % (Auto) % Eos % (Auto) % Baso % (Auto) % Neut # (Auto) (1.4-6.5) K/uL Lymph # (Auto) (1.2-3.4) K/uL [place] # (Auto) (0.11-0.59) K/uL Eos # (Auto) (0-0.5) K/uL Baso # (Auto) (0-0.2) K/uL Immature Gran # (Auto) (0.00-0.02) K/uL Sodium (136-145) mmol/L Potassium (3.5-5.1) mmol/L Chloride (98-107) mmol/L Carbon Dioxide (21-32) mmol/L Anion Gap (3-11) BUN (7-18) mg/dl Creatinine (0.6-1.2) mg/dl Est Cr Clr Drug Dosing ml/min Est GFR ( Amer) Est GFR (Non-Af Amer) BUN/Creatinine Ratio (10-20) Glucose (70-99) mg/dl POC Glucose 122 H (70-99) mg/dl Estimat Average Glucose mg/dl Hemoglobin A1c (4.5-5.6) % Calcium (8.5-10.1) mg/dl Magnesium (1.8-2.4) mg/dl Total Bilirubin (0.2-1) mg/dl AST (15-37) U/L ALT (12-78) U/L Alkaline Phosphatase (45-117) U/L Total Protein (6.4-8.2) gm/dl Albumin (3.4-5.0) gm/dl Globulin (2.5-4.0) gm/dl Albumin/Globulin Ratio (0.9-2) Antibody ID Comment Ur cx with Gardernella-like bacteria PG Care Time/CCT Total # of Minutes Spent Total Time Spent with Patient: Total time spent is greater than 50% in coordination of care (as documented) at patient's floor/unit and/or counseling patient: Coding Level of Care Code 06833 Subseq Hosp Care Lvl 2 Diagnoses Subcapital fracture of left hip S72.012A Encounter type: initial encounter Fracture type: closed COVID-19 U07.1 Acute dehydration E86.0 Acute alteration in mental status R41.82 UTI (urinary tract infection) N39.0 Benign hypertension I10 Hyperlipidemia E78.5 Obstructive sleep apnea G47.33 Hypothyroid E03.9 Hypothyroidism type: unspecified Anxiety F41.9 CAD (coronary artery disease) I25.10 Coronary Disease-Associated Artery/Lesion type: [place] artery [place] vs. transplanted heart: [place] heart Associated angina: without angina Diabetes E11.9 Diabetes mellitus type: type 2 Diabetes mellitus nursing home insulin use: without nursing home use Diabetes mellitus complication status: without complication Atrial fibrillation I48.91 Atrial fibrillation type: unspecified Parkinson disease G20 DVT prophylaxis Z29.9 (1) Subcapital fracture of left hip Encounter type: initial encounter Fracture type: closed Qualified Code(s): S72.012A - Unspecified intracapsular fracture of left femur, initial encounter for closed fracture (2) Hypothyroid Hypothyroidism type: unspecified Qualified Code(s): E03.9 - Hypothyroidism, unspecified (3) CAD (coronary artery disease) Coronary Disease-Associated Artery/Lesion type: [place] artery [place] vs. transplanted heart: [place] heart Associated angina: without angina Qualified Code(s): I25.10 - Atherosclerotic heart disease of [place] coronary artery without angina pectoris (4) Diabetes Diabetes mellitus type: type 2 Diabetes mellitus intermediate manager insulin use: without intermediate manager use Diabetes mellitus complication status: without complication Qualified Code(s): E11.9 - Type 2 diabetes mellitus without complications (5) Atrial fibrillation Atrial fibrillation type: unspecified Qualified Code(s): I48.91 - Unspecified atrial fibrillation
[2020-04-06] MEDS: traZODone HCL 50 MG TAB PO SCH (20:15)
[2020-04-06] MEDS: SIMVASTATIN 40 MG TAB PO SCH (20:15)
[2020-04-06] MEDS: QUEtiapine FUMARATE 100 MG TABLET PO SCH (20:16)
[2020-04-07] MEDS: LEVOTHYROXINE SODIUM 75 MCG TABLET PO SCH (05:31)
[2020-04-07 08:20] LABS: Basophils # (auto) 0.01 K/uL (0-0.2); Basophils % (auto) 0.3 %; Eosinophils # (auto) 0.06 K/uL (0-0.5); Eosinophils % (auto) 1.6 %; Hematocrit (blood only) 38.4 % (37-47); Hemoglobin 11.9 g/dL (12.0-16.0); Immature Granulocytes # (auto) 0.02 K/uL (0.00-0.02); Immature Granulocytes % (auto) 0.5 %; Lymphocytes # (auto) 1.55 K/uL (1.2-3.4); Lymphocytes % (auto) 41.1 %; Mean Corpuscular Hemoglobin 28.9 pg (25-34); Mean Corpuscular Volume 93.2 fL (80-100); Mean Platelet Volume 12.1 fL (7.4-10.4); Monocytes # (auto) 0.23 K/uL (0.11-0.59); Monocytes % (auto) 6.1 %; Neutrophils % (auto) 50.4 %; Platelet Count 140 K/uL (130-400); RDW Standard Deviation 51.2 fL (36.4-46.3); Red Blood Count 4.12 M/uL (4.2-5.4); White Blood Count 3.77 K/uL (4.8-10.8)
[2020-04-07] MEDS: ASPIRIN 81 MG ECTAB PO SCH (08:30)
[2020-04-07] MEDS: ESCITALOPRAM OXALATE 10 MG TAB PO SCH (08:31)
[2020-04-07] MEDS: CARBIDOPA/LEVODOPA 25/100MG TAB PO SCH ×4 (08:32→20:53)
[2020-04-07] MEDS: CHOLECALCIFEROL 1,000 UNITS 25 MCG TAB PO SCH (08:33)
[2020-04-07] MEDS: MAGNESIUM OXIDE 400 MG TAB PO SCH (08:33)
[2020-04-07] MEDS: POLYETHYLENE (MIRALAX) 17 GM PACK PO SCH (08:34)
[2020-04-07] MEDS: QUEtiapine FUMARATE 25 MG TABLET PO SCH (08:34)
[2020-04-07] MEDS: ARTIFICIAL TEARS OP SCH ×2 (08:35→20:52)
[2020-04-07] MEDS: HEPARIN SOD 5,000 UNIT/0.5 ML VIAL SQ SCH ×2 (08:35→20:52)
[2020-04-07] MEDS: DEXTROSE 5% 1,000 ML IV SCH (08:38)
[2020-04-07] MEDS: LORazepam 1 MG TAB PO SCH ×4 (08:38→20:52)
[2020-04-07 08:51] LABS: BUN Creatinine Ratio 17.3 (10-20); Calcium 8.6 mg/dl (8.5-10.1); Creatinine Clr Calc Pharmacy 51.6 ml/min; Est GFR (African American) 91.7; Est GFR (Non-African American) 79.1; Potassium 3.5 mmol/L (3.5-5.1)
--- NOTE | 2020-04-07 14:51 | Hospitalist Progress Note ---
Date of Service April 07, 2020 Assessment & Plan (1) Subcapital fracture of left hip: Presented with poor p.o. intake and altered mental status due to Covid-19 and acute dehydration as below Found incidentally to have what turns out to be a subacute, minimally displaced, impacted fracture of the left femoral neck discovered incidentally on CT scan that is already showing healing and callus formation on imaging as per orthopedic surgery. Orthopedic surgery discussed the fracture with the son and decision was made for nonsurgical management She is to be nonweightbearing on the left lower extremity and have repeat x-rays in 2 weeks and follow-up Heparin SQ for DVT prophylaxis She does not have much pain PT/OTevals ordered -Diet as ordered Son is POA and reports ok to transition to SYSTEMS ANALYSIS MANAGER if not improving or declines (2) COVID-19: Tested +3 days prior to admission She is not hypoxic and is asymptomatic other than fatigue, poor p.o. intake, dehydration She was unresponsive for the first 36-48 hours of her admission, and then woke up on the evening of 04/06 Now is eating and drinking, remains afebrile, no cough or SOB, no hypoxia Continue Covid airborne and contact precautions No indication for dexamethasone, remdesivir, or convalescent plasma at this time Continue to follow Supportive care, IV fluids (3) Acute dehydration: With significant hypernatremia secondary to poor p.o. intake and dehydration, now improving, Na+ down from 157 to 145 continue IV fluids to D5W Follow BMP in the morning Encourage p.o. intake now that she is awake (4) Acute alteration in mental status: Acute metabolic encephalopathy secondary to dehydration and hypernatremia in the setting of dementia and Parkinson's disease which is advanced Also with suspected UTI, now ruled out [place] UTI with antibiotics which have since been stopped Treat with IV fluids as above (5) UTI (urinary tract infection): Urinalysis is abnormal, urine culture Gardeernella like species, likely contaminate received Zosyn for 2-3 days, then stopped Blood cxs NGTD (6) Benign hypertension: Blood pressures are normal Not on medication for this anymore at home (7) Hyperlipidemia: Continue statin (8) Obstructive sleep apnea: Noted in the chart, unclear if she is on CPAP (9) Hypothyroid: TSH here 0.554 Continue levothyroxine (10) Anxiety: Stable at this time Continue home Seroquel, lorazepam, trazodone (11) CAD (coronary artery disease): Stable Continue home aspirin, statin (12) Diabetes: hemoglobin A1c here is now normal dc accuchecks no insulin needed (13) Atrial fibrillation: History of such, is in sinus rhythm here Not on anticoagulation presumably due to multiple falls (14) Parkinson disease: Advanced, follows with neurology Continue Sinemet With associated hallucinations Continue Seroquel (15) DVT prophylaxis: Heparin SQ Disposition-continued stay PT/OT consults ordered Will need placement at SNF as she is now able to participate with PT Admission and Anticipated Discharge Date Admission Date: April 04, 2020 Subjective Pt pleasant and doing well today. Even jokes with me stating "No one can keep up with me" when asked about working with PT today. She is eating and drinking, doing well, following commands. Review of Systems Review of Systems: All systems reviewed & are unremarkable except as noted in HPI & below denies CP or SOB Physical Exam Constitutional: WD/WN, vitals as above Eyes: + anicteric sclerae Neck: trachea midline, no thyromegaly Respiratory: normal respiratory effort, lungs clear to auscultation Cardiovascular: RRR, no murmur, no edema Chest (Breasts): Chest: normal inspection of chest Gastrointestinal (Abdomen): normal bowel sounds, soft, nontender, no hepatosplenomegaly Musculoskeletal: Extremities: extremities normal to inspection; no cyanosis and no clubbing Skin: no rashes, warm and dry Psychiatric: Eye Contact: + poor eye contact Motor Behavior: + tremor (Resting tremor in the jaw ) Genitourinary: + abnormal external appearance (Reyna catheter in place) Lymphatic: no lymphedema Results & Data Results & Data ([facility]) Vital Signs (Past 12 Hours) Vital Signs Temp Pulse Resp BP Pulse Ox 04/07/20 07:27 36.7 C 57 L 16 115/65 96 Laboratory Results 04/07/20 04/07/20 04/07/20 Range/Units 12:07 08:08 05:35 WBC (4.8-10.8) K/uL RBC (4.2-5.4) M/uL Hgb (12.0-16.0) g/dL Hct (37-47) % MCV (80-100) fL MCH (25-34) pg MCHC (32-36) g/dL RDW Std Deviation (36.4-46.3) fL RDW Coeff of Beverly (11.5-14.5) % Plt Count (130-400) K/uL MPV (7.4-10.4) fL Immature Gran % (Auto) % Neut % (Auto) % Lymph % (Auto) % [place] % (Auto) % Eos % (Auto) % Baso % (Auto) % Neut # (Auto) (1.4-6.5) K/uL Lymph # (Auto) (1.2-3.4) K/uL [place] # (Auto) (0.11-0.59) K/uL Eos # (Auto) (0-0.5) K/uL Baso # (Auto) (0-0.2) K/uL Immature Gran # (Auto) (0.00-0.02) K/uL Sodium 145 (136-145) mmol/L Potassium 3.5 (3.5-5.1) mmol/L Chloride 109 H (98-107) mmol/L Carbon Dioxide 31 (21-32) mmol/L Anion Gap 5.0 (3-11) BUN 12 (7-18) mg/dl Creatinine 0.72 (0.6-1.2) mg/dl Est Cr Clr Drug Dosing 51.6 ml/min Est GFR ( Amer) 91.7 Est GFR (Non-Af Amer) 79.1 BUN/Creatinine Ratio 17.3 (10-20) Glucose 107 H (70-99) mg/dl POC Glucose 125 H 101 H (70-99) mg/dl Calcium 8.6 (8.5-10.1) mg/dl 04/07/20 04/06/20 04/06/20 Range/Units 05:35 20:23 17:03 WBC 3.77 L (4.8-10.8) K/uL RBC 4.12 L (4.2-5.4) M/uL Hgb 11.9 L (12.0-16.0) g/dL Hct 38.4 (37-47) % MCV 93.2 (80-100) fL MCH 28.9 (25-34) pg MCHC 31.0 L (32-36) g/dL RDW Std Deviation 51.2 H (36.4-46.3) fL RDW Coeff of Beverly 15.0 H (11.5-14.5) % Plt Count 140 (130-400) K/uL MPV 12.1 H (7.4-10.4) fL Immature Gran % (Auto) 0.5 % Neut % (Auto) 50.4 % Lymph % (Auto) 41.1 % [place] % (Auto) 6.1 % Eos % (Auto) 1.6 % Baso % (Auto) 0.3 % Neut # (Auto) 1.90 (1.4-6.5) K/uL Lymph # (Auto) 1.55 (1.2-3.4) K/uL [place] # (Auto) 0.23 (0.11-0.59) K/uL Eos # (Auto) 0.06 (0-0.5) K/uL Baso # (Auto) 0.01 (0-0.2) K/uL Immature Gran # (Auto) 0.02 (0.00-0.02) K/uL Sodium (136-145) mmol/L Potassium (3.5-5.1) mmol/L Chloride (98-107) mmol/L Carbon Dioxide (21-32) mmol/L Anion Gap (3-11) BUN (7-18) mg/dl Creatinine (0.6-1.2) mg/dl Est Cr Clr Drug Dosing ml/min Est GFR ( Amer) Est GFR (Non-Af Amer) BUN/Creatinine Ratio (10-20) Glucose (70-99) mg/dl POC Glucose 136 H 140 H (70-99) mg/dl Calcium (8.5-10.1) mg/dl PG Care Time/CCT Total # of Minutes Spent Total Time Spent with Patient: Total time spent is greater than 50% in coordination of care (as documented) at patient's floor/unit and/or counseling patient: Coding Level of Care Code 11484 Subseq Hosp Care Lvl 2 Diagnoses Subcapital fracture of left hip S72.012A Encounter type: initial encounter Fracture type: closed COVID-19 U07.1 Acute dehydration E86.0 Acute alteration in mental status R41.82 UTI (urinary tract infection) N39.0 Benign hypertension I10 Hyperlipidemia E78.5 Obstructive sleep apnea G47.33 Hypothyroid E03.9 Hypothyroidism type: unspecified Anxiety F41.9 CAD (coronary artery disease) I25.10 Coronary Disease-Associated Artery/Lesion type: [place] artery [place] vs. transplanted heart: [place] heart Associated angina: without angina Diabetes E11.9 Diabetes mellitus type: type 2 Diabetes mellitus jail insulin use: without buttermilk drier operator use Diabetes mellitus complication status: without complication Atrial fibrillation I48.91 Atrial fibrillation type: unspecified Parkinson disease G20 DVT prophylaxis Z29.9 (1) Subcapital fracture of left hip Encounter type: initial encounter Fracture type: closed Qualified Code(s): S 72.012A - Unspecified intracapsular fracture of left femur, initial encounter for closed fracture (2) Hypothyroid Hypothyroidism type: unspecified Qualified Code(s): E03.9 - Hypothyroidism, unspecified (3) CAD (coronary artery disease) Coronary Disease-Associated Artery/Lesion type: [place] artery [place] vs. transplanted heart: [place] heart Associated angina: without angina Qualified Code(s): I25.10 - Atherosclerotic heart disease of [place] coronary artery without angina pectoris (4) Diabetes Diabetes mellitus type: type 2 Diabetes mellitus buttermilk drier operator insulin use: without buttermilk drier operator use Diabetes mellitus complication status: without complication Qualified Code(s): E11.9 - Type 2 diabetes mellitus without complications (5) Atrial fibrillation Atrial fibrillation type: unspecified Qualified Code(s): I48.91 - Unspecified atrial fibrillation
[2020-04-07] MEDS: SIMVASTATIN 40 MG TAB PO SCH (20:52)
[2020-04-07] MEDS: QUEtiapine FUMARATE 100 MG TABLET PO SCH (20:52)
[2020-04-07] MEDS: traZODone HCL 50 MG TAB PO SCH (20:52)
[2020-04-08] MEDS: DEXTROSE 5% 1,000 ML IV SCH ×2 (01:48→21:35)
[2020-04-08] MEDS: LEVOTHYROXINE SODIUM 75 MCG TABLET PO SCH ×2 (05:51→05:55)
[2020-04-08 07:09] LABS: Basophils # (auto) 0.01 K/uL (0-0.2); Basophils % (auto) 0.2 %; Eosinophils # (auto) 0.14 K/uL (0-0.5); Eosinophils % (auto) 3.3 %; Hemoglobin 11.5 g/dL (12.0-16.0); Immature Granulocytes # (auto) 0.04 K/uL (0.00-0.02); Lymphocytes # (auto) 1.79 K/uL (1.2-3.4); Lymphocytes % (auto) 42.5 %; Mean Corpuscular Hemoglobin 28.7 pg (25-34); Mean Corpuscular Hgb Conc 31.1 g/dL (32-36); Mean Corpuscular Volume 92.3 fL (80-100); Mean Platelet Volume 12.1 fL (7.4-10.4); Monocytes # (auto) 0.23 K/uL (0.11-0.59); Monocytes % (auto) 5.5 %; Neutrophils % (auto) 47.5 %; Platelet Count 132 K/uL (130-400); RDW Coefficient of Variation 14.7 % (11.5-14.5); RDW Standard Deviation 50.1 fL (36.4-46.3); Red Blood Count 4.01 M/uL (4.2-5.4); White Blood Count 4.21 K/uL (4.8-10.8)
[2020-04-08 07:35] LABS: BUN Creatinine Ratio 27.2 (10-20); Calcium 8.5 mg/dl (8.5-10.1); Creatinine Clr Calc Pharmacy 60.8 ml/min; Est GFR (African American) 99.2; Est GFR (Non-African American) 85.6; Potassium 3.5 mmol/L (3.5-5.1)
[2020-04-08] MEDS: HEPARIN SOD 5,000 UNIT/0.5 ML VIAL SQ SCH ×2 (08:37→20:30)
[2020-04-08] MEDS: ARTIFICIAL TEARS OP SCH ×2 (08:37→20:28)
[2020-04-08] MEDS: LORazepam 1 MG TAB PO SCH ×2 (11:01→12:38)
[2020-04-08] MEDS: POLYETHYLENE (MIRALAX) 17 GM PACK PO SCH (11:02)
[2020-04-08] MEDS: ESCITALOPRAM OXALATE 10 MG TAB PO SCH (11:02)
[2020-04-08] MEDS: ASPIRIN 81 MG ECTAB PO SCH (11:02)
[2020-04-08] MEDS: MAGNESIUM OXIDE 400 MG TAB PO SCH (11:02)
[2020-04-08] MEDS: CARBIDOPA/LEVODOPA 25/100MG TAB PO SCH ×4 (11:03→20:29)
[2020-04-08] MEDS: CHOLECALCIFEROL 1,000 UNITS 25 MCG TAB PO SCH (11:03)
[2020-04-08] MEDS: QUEtiapine FUMARATE 25 MG TABLET PO SCH (11:03)
[2020-04-08] MEDS ORDERED: LORazepam 1 MG TAB PO PRN (14:19)
--- NOTE | 2020-04-08 15:04 | Hospitalist Progress Note ---
Date of Service April 08, 2020 Assessment & Plan (1) Subcapital fracture of left hip: Presented with poor p.o. intake and altered mental status due to Covid-19 and acute dehydration as below Found incidentally to have what turns out to be a subacute, minimally displaced, impacted fracture of the left femoral neck discovered incidentally on CT scan that is already showing healing and callus formation on imaging as per orthopedic surgery. Orthopedic surgery discussed the fracture with the son and decision was made for nonsurgical management She is to be nonweightbearing on the left lower extremity and have repeat x-rays in 2 weeks and follow-up Heparin SQ for DVT prophylaxis She does not have much pain PT/OT evals ordered and recommend rehab Son is POA and reports ok to transition to ANALYTICS ARCHITECT if not improving or declines (2) COVID-19: Tested positive 3 days prior to admission on 04/01 She is not hypoxic and remains asymptomatic other than fatigue, poor p.o. intake, dehydration She was unresponsive for the first 36-48 hours of her admission, and then woke up on the evening of 04/06 Then was eating and drinking, remains afebrile, no cough or SOB, no hypoxia On afternoon of 04/08, is again in a deep sleep and unable to be woken up, but is responding to some stimuli-suspect secondary to advanced Parkinson's in the setting of Covid-19 acute illness Continue Covid airborne and contact precautions No indication for dexamethasone, remdesivir, or convalescent plasma at this time Continue to follow Supportive care, continue IV fluids until consistently taking p.o. (3) Acute dehydration: With significant hypernatremia secondary to poor p.o. intake and dehydration, now improving, Na+ down from 157 to 141 continue IV fluids D5W Follow BMP in the morning Encourage p.o. intake once awake again (4) Acute alteration in mental status: Acute metabolic encephalopathy secondary to dehydration and hypernatremia in the setting of dementia and Parkinson's disease which is advanced and Covid- 19 Also with suspected UTI, now ruled out Treated UTI with antibiotics which have since been stopped Treat with IV fluids as above -Will make Ativan as needed rather than scheduled which is her home dosing-would suggest weaning down to a lower dose of lorazepam (5) UTI (urinary tract infection): Urinalysis is abnormal, urine culture Gardeernella like species, likely contaminate received Zosyn for 2-3 days, then stopped Blood cxs NGTD (6) Benign hypertension: Blood pressures are normal Not on medication for this anymore at home (7) Hyperlipidemia: Continue statin (8) Obstructive sleep apnea: Noted in the chart, unclear if she is on CPAP (9) Hypothyroid: TSH here 0.554 Continue levothyroxine (10) Anxiety: Stable at this time Continue home Seroquel, trazodone, but make lorazepam as needed as above (11) CAD (coronary artery disease): Stable Continue home aspirin, statin (12) Diabetes: hemoglobin A1c here is now normal dc accuchecks no insulin needed (13) Atrial fibrillation: History of such, is in sinus rhythm here Not on anticoagulation presumably due to multiple falls (14) Parkinson disease: Advanced, follows with neurology Continue Sinemet With associated hallucinations Continue Seroquel (15) DVT prophylaxis: Heparin SQ Disposition-continued stay for intermittent encephalopathy PT/OT consults ordered and recommend rehab [facility] if she is more awake and alert and taking better p.o. Admission and Anticipated Discharge Date Admission Date: April 04, 2020 Subjective Patient apparently worked with physical therapy today and did very well and stood up 2 times and followed all commands. Nursing reports that shortly after that she fell asleep in has not been arousable since. She did not take her pills and would not wake up for lunch. When I saw her, she did say "uh huh" and shake her head yes when I would ask her questions but she would not open her eyes. She did then try to pull the covers up over her chest. Review of Systems Review of Systems: Unobtainable due to cognitive status Physical Exam Constitutional: WD/WN, vitals as above + lethargic Neck: trachea midline, no thyromegaly Respiratory: normal respiratory effort, lungs clear to auscultation Cardiovascular: RRR, no murmur, no edema Chest (Breasts): Chest: normal inspection of chest Gastrointestinal (Abdomen): normal bowel sounds, soft, nontender, no hepatosplenomegaly Musculoskeletal: Extremities: extremities normal to inspection; no cyanosis and no clubbing Skin: no rashes, warm and dry Psychiatric: Eye Contact: + poor eye contact Motor Behavior: + tremor (Resting tremor in the jaw ) Genitourinary: + abnormal external appearance (Reyna catheter in place) Lymphatic: no lymphedema Results & Data Results & [facility] ([facility]) Vital Signs (Past 12 Hours) Vital Signs Temp Pulse Resp BP BP Pulse Ox 04/08/20 12:39 71 119/80 92 04/08/20 07:10 36.4 C L 57 L 16 116/70 96 Laboratory Results 04/08/20 05:52 04/08/20 05:52 PG Care Time/CCT Total # of Minutes Spent Total Time Spent with Patient: Total time spent is greater than 50% in coordination of care (as documented) at patient's floor/unit and/or counseling patient: Coding Level of Care Code 74417 Subseq Hosp Care Lvl 2 Diagnoses Subcapital fracture of left hip S72.012A Encounter type: initial encounter Fracture type: closed COVID-19 U07.1 Acute dehydration E86.0 Acute alteration in mental status R41.82 UTI (urinary tract infection) N39.0 Benign hypertension I10 Hyperlipidemia E78.5 Obstructive sleep apnea G47.33 Hypothyroid E03.9 Hypothyroidism type: unspecified Anxiety F41.9 CAD (coronary artery disease) I25.10 Coronary Disease-Associated Artery/Lesion type: [place] artery [place] vs. transplanted heart: [place] heart Associated angina: without angina Diabetes E11.9 Diabetes mellitus type: type 2 Diabetes mellitus jail insulin use: without jail use Diabetes mellitus complication status: without complication Atrial fibrillation I48.91 Atrial fibrillation type: unspecified Parkinson disease G20 DVT prophylaxis Z29.9 (1) Subcapital fracture of left hip Encounter type: initial encounter Fracture type: closed Qualified Code(s): S72.012A - Unspecified intracapsular fracture of left femur, initial encounter for closed fracture (2) Hypothyroid Hypothyroidism type: unspecified Qualified Code(s): E03.9 - Hypothyroidism, unspecified (3) CAD (coronary artery disease) Coronary Disease-Associated Artery/Lesion type: [place] artery [place] vs. transplanted heart: [place] heart Associated angina: without angina Qualified Code(s): I25.10 - Atherosclerotic heart disease of [place] coronary artery without angina pectoris (4) Diabetes Diabetes mellitus type: type 2 Diabetes mellitus bowl sander insulin use: without bowl sander use Diabetes mellitus complication status: without complication Qualified Code(s): E11.9 - Type 2 diabetes mellitus without complications (5) Atrial fibrillation Atrial fibrillation type: unspecified Qualified Code(s): I48.91 - Unspecified atrial fibrillation
[2020-04-08] MEDS: traZODone HCL 50 MG TAB PO SCH (20:29)
[2020-04-08] MEDS: QUEtiapine FUMARATE 100 MG TABLET PO SCH (20:29)
[2020-04-08] MEDS: SIMVASTATIN 40 MG TAB PO SCH (20:29)
[2020-04-09] MEDS: LEVOTHYROXINE SODIUM 75 MCG TABLET PO SCH (05:32)
[2020-04-09 09:27] LABS: BUN Creatinine Ratio 18.6 (10-20); Calcium 9.1 mg/dl (8.5-10.1); Est GFR (African American) 103.9; Est GFR (Non-African American) 89.7; Potassium 3.5 mmol/L (3.5-5.1)
[2020-04-09] MEDS: ARTIFICIAL TEARS OP SCH ×2 (09:55→20:05)
[2020-04-09] MEDS: ASPIRIN 81 MG ECTAB PO SCH ×3 (09:55→11:44)
[2020-04-09] MEDS: MAGNESIUM OXIDE 400 MG TAB PO SCH ×2 (09:56→11:44)
[2020-04-09] MEDS: CARBIDOPA/LEVODOPA 25/100MG TAB PO SCH ×5 (09:56→20:02)
[2020-04-09] MEDS: POLYETHYLENE (MIRALAX) 17 GM PACK PO SCH ×2 (09:57→11:44)
[2020-04-09] MEDS: ESCITALOPRAM OXALATE 10 MG TAB PO SCH ×3 (09:57→11:45)
[2020-04-09] MEDS: QUEtiapine FUMARATE 25 MG TABLET PO SCH ×2 (09:57→11:44)
[2020-04-09] MEDS: HEPARIN SOD 5,000 UNIT/0.5 ML VIAL SQ SCH ×2 (09:58→20:02)
[2020-04-09] MEDS: CHOLECALCIFEROL 1,000 UNITS 25 MCG TAB PO SCH ×2 (09:58→11:44)
[2020-04-09] MEDS: DEXTROSE 5% 1,000 ML IV SCH (17:01)
[2020-04-09] MEDS: QUEtiapine FUMARATE 100 MG TABLET PO SCH (20:02)
[2020-04-09] MEDS: SIMVASTATIN 40 MG TAB PO SCH (20:02)
[2020-04-09] MEDS: traZODone HCL 50 MG TAB PO SCH (20:02)
--- NOTE | 2020-04-09 20:45 | Hospitalist Progress Note ---
Date of Service April 09, 2020 Assessment & Plan (1) Subcapital fracture of left hip: Presented with poor p.o. intake and altered mental status due to Covid-19 and acute dehydration as below Found incidentally to have what turns out to be a subacute, minimally displaced, impacted fracture of the left femoral neck discovered incidentally on CT scan that is already showing healing and callus formation on imaging as per orthopedic surgery. Orthopedic surgery discussed the fracture with the son and decision was made for nonsurgical management She is to be nonweightbearing on the left lower extremity and have repeat x-rays in 2 weeks and follow-up Heparin SQ for DVT prophylaxis She does not have much pain PT/OT evals ordered and recommend rehab Son is POA and reports ok to transition to CARDIAC CATHETERIZATION TECHNOLOGIST if not improving or declines (2) COVID-19: Tested positive 3 days prior to admission on 04/01 She is not hypoxic and remains asymptomatic other than fatigue, poor p.o. intake, dehydration She was unresponsive for the first 36-48 hours of her admission, and then woke up on the evening of 04/06 Then was eating and drinking, remains afebrile, no cough or SOB, no hypoxia On afternoon of 04/08, is again in a deep sleep and unable to be woken up, but is responding to some stimuli-suspect secondary to advanced Parkinson's in the setting of Covid-19 acute illness On 04/09, she was awake and following commands and sitting up on the side of the bed in the morning, but then fell asleep by lunchtime and was very lethargic after that although still answers questions with her eyes closed Continue Covid airborne and contact precautions No indication for dexamethasone, remdesivir, or convalescent plasma at this time Continue to follow Supportive care, continue IV fluids until consistently taking p.o. (3) Acute dehydration: With significant hypernatremia secondary to poor p.o. intake and dehydration, now improving, Na+ down from 157 to 142 continue IV fluids D5W Follow BMP in the morning Encourage p.o. intake when awake (4) Acute alteration in mental status: Acute metabolic encephalopathy secondary to dehydration and hypernatremia in the setting of dementia and Parkinson's disease which is advanced and [id number] resolved and now waxes and wanes Also with suspected UTI, now ruled out Treated UTI with antibiotics which have since been stopped Treat with IV fluids as above -Will make Ativan as needed rather than scheduled which is her home dosing-would suggest weaning down to a lower dose of lorazepam (5) UTI (urinary tract infection): Urinalysis is abnormal, urine culture Gardeernella like species, likely contaminate received Zosyn for 2-3 days, then stopped Blood cxs NGTD (6) Benign hypertension: Blood pressures are normal Not on medication for this anymore at home (7) Hyperlipidemia: Continue statin (8) Obstructive sleep apnea: Noted in the chart, unclear if she is on CPAP (9) Hypothyroid: TSH here 0.554 Continue levothyroxine (10) Anxiety: Stable at this time Continue home Seroquel, trazodone, but make lorazepam as needed as above for lethargy (11) CAD (coronary artery disease): Stable Continue home aspirin, statin (12) Diabetes: hemoglobin A1c here is now normal dc accuchecks no insulin needed (13) Atrial fibrillation: History of such, is in sinus rhythm here Not on anticoagulation presumably due to multiple falls (14) Parkinson disease: Advanced, follows with neurology Continue Sinemet With associated hallucinations Continue Seroquel (15) DVT prophylaxis: Heparin SQ Disposition-continued stay for intermittent encephalopathy and likely would not be able to participate in therapy at rehab right now PT/OT consults ordered and recommend rehab Will need placement [facility] if she is more awake and alert and taking better p.o. Admission and Anticipated Discharge Date Admission Date: April 04, 2020 Subjective Nurse reports patient was more awake this morning and was able to follow some commands and sit up at the side of the bed, however when I saw her she was taking a nap. She would answer some my questions but would not open her eyes. She would not cooperate for examination by sitting up either. Review of Systems Review of Systems: Unobtainable due to cognitive status Physical Exam Constitutional: WD/WN, vitals as above + lethargic Eyes: + anicteric sclerae Neck: trachea midline, no thyromegaly Respiratory: normal respiratory effort, lungs clear to auscultation Cardiovascular: RRR, no murmur, no edema Chest (Breasts): Chest: normal inspection of chest Gastrointestinal (Abdomen): normal bowel sounds, soft, nontender, no hepatosplenomegaly Musculoskeletal: Extremities: extremities normal to inspection; no cyanosis and no clubbing Skin: no rashes, warm and dry Psychiatric: Eye Contact: + poor eye contact Motor Behavior: + tremor (Resting tremor in the jaw ) Genitourinary: + abnormal external appearance (Reyna catheter in place) Lymphatic: no lymphedema Results & Data Results & Data ([facility]) Vital Signs (Past 12 Hours) Vital Signs Temp Pulse Resp BP Pulse Ox 04/09/20 15:48 36.4 C L 71 16 137/73 95 Laboratory Results 04/08/20 05:52 04/09/20 06:02 PG Care Time/CCT Total # of Minutes Spent Total Time Spent with Patient: Total time spent is greater than 50% in coordination of care (as documented) at patient's floor/unit and/or counseling patient: Coding Level of Care Code 10189 Subseq Hosp Care Lvl 2 Diagnoses Subcapital fracture of left hip S72.012A Encounter type: initial encounter Fracture type: closed COVID-19 U07.1 Acute dehydration E86.0 Acute alteration in mental status R41.82 UTI (urinary tract infection) N39.0 Benign hypertension I10 Hyperlipidemia E78.5 Obstructive sleep apnea G47.33 Hypothyroid E03.9 Hypothyroidism type: unspecified Anxiety F41.9 CAD (coronary artery disease) I25.10 Coronary Disease-Associated Artery/Lesion type: [place] artery [place] vs. transplanted heart: [place] heart Associated angina: without angina Diabetes E11.9 Diabetes mellitus type: type 2 Diabetes mellitus custodial insulin use: without custodial use Diabetes mellitus complication status: without complication Atrial fibrillation I48.91 Atrial fibrillation type: unspecified Parkinson disease G20 DVT prophylaxis Z29.9 (1) Subcapital fracture of left hip Encounter type: initial encounter Fracture type: closed Qualified Code(s): S72.012A - Unspecified intracapsular fracture of left femur, initial encounter for closed fracture (2) Hypothyroid Hypothyroidism type: unspecified Qualified Code(s): E03.9 - Hypothyroidism, unspecified (3) CAD (coronary artery disease) Coronary Disease-Associated Artery/Lesion type: [place] artery [place] vs. transplanted heart: [place] heart Associated angina: without angina Qualified Code(s): I25.10 - Atherosclerotic heart disease of [place] coronary artery without angina pectoris (4) Diabetes Diabetes mellitus type: type 2 Diabetes mellitus terminal worker insulin use: without custodial use Diabetes mellitus complication status: without complication Qualified Code(s): E11.9 - Type 2 diabetes mellitus without complications (5) Atrial fibrillation Atrial fibrillation type: unspecified Qualified Code(s): I48.91 - Unspecified atrial fibrillation
[2020-04-10] MEDS: LEVOTHYROXINE SODIUM 75 MCG TABLET PO SCH (05:34)
[2020-04-10] MEDS: HEPARIN SOD 5,000 UNIT/0.5 ML VIAL SQ SCH ×2 (10:06→20:58)
[2020-04-10] MEDS: ARTIFICIAL TEARS OP SCH ×2 (10:07→20:56)
[2020-04-10] MEDS: ASPIRIN 81 MG ECTAB PO SCH (14:29)
[2020-04-10] MEDS: MAGNESIUM OXIDE 400 MG TAB PO SCH (14:29)
[2020-04-10] MEDS: CARBIDOPA/LEVODOPA 25/100MG TAB PO SCH ×4 (14:29→20:59)
[2020-04-10] MEDS: ESCITALOPRAM OXALATE 10 MG TAB PO SCH (14:29)
[2020-04-10] MEDS: QUEtiapine FUMARATE 25 MG TABLET PO SCH (14:29)
[2020-04-10] MEDS: POLYETHYLENE (MIRALAX) 17 GM PACK PO SCH (14:29)
[2020-04-10] MEDS: DEXTROSE 5% 1,000 ML IV SCH (14:30)
[2020-04-10] MEDS: CHOLECALCIFEROL 1,000 UNITS 25 MCG TAB PO SCH (14:30)
--- NOTE | 2020-04-10 15:57 | Hospitalist Progress Note ---
Date of Service April 10, 2020 Assessment & Plan (1) Subcapital fracture of left hip: Presented with poor p.o. intake and altered mental status due to Covid-19 and acute dehydration as below Found incidentally to have what turns out to be a subacute, minimally displaced, impacted fracture of the left femoral neck discovered incidentally on CT scan that is already showing healing and callus formation on imaging as per orthopedic surgery. It is unclear when this fracture occurred-no known falls at the son was aware of Orthopedic surgery discussed the fracture with the son and decision was made for nonsurgical management She is to be nonweightbearing on the left lower extremity and have repeat x-rays in 2 weeks and follow-up with orthopedic surgery Heparin SQ for DVT prophylaxis She does not have much pain PT/OT evals ordered and recommend rehab Son is POA and reports ok to transition to [facility] if not improving or declines (2) COVID-19: Tested positive 3 days prior to admission on 04/01 She is not hypoxic and remains asymptomatic other than fatigue, poor p.o. intake, dehydration She was unresponsive for the first 36-48 hours of her admission, and then woke up on the evening of 04/06 Then was eating and drinking, remains afebrile, no cough or SOB, no hypoxia On afternoon of 04/08, is again in a deep sleep and unable to be woken up, but is responding to some stimuli-suspect secondary to advanced Parkinson's in the setting of Covid-19 acute illness On 04/09, she was awake and following commands and sitting up on the side of the bed in the morning, but then fell asleep by lunchtime and was very lethargic after that although still answers questions with her eyes closed On 04/10, awake and alert, eating and drinking when it is offered to her, following commands. Continue Covid airborne and contact precautions No indication for dexamethasone, remdesivir, or convalescent plasma at this time Continue to follow Supportive care, will now discontinue IV fluids and discontinue Reyna catheter (3) Acute dehydration: With significant hypernatremia secondary to poor p.o. intake and dehydration, now improving, Na+ down from 157 to 142 discontinue D5W Encourage p.o. intake when awake (4) Acute alteration in mental status: Acute metabolic encephalopathy secondary to dehydration and hypernatremia in the setting of dementia and Parkinson's disease which is advanced and [id number] resolved and now waxes and wanes as noted above Also with suspected UTI, now ruled out Treated UTI with antibiotics which have since been stopped Treated with IV fluids -Changed Ativan to as needed rather than scheduled as per home dosing-she is doing well without this for now (5) UTI (urinary tract infection): Urinalysis is abnormal, urine culture Gardeernella like species, likely contaminate received Zosyn for 2-3 days, then stopped Blood cxs NGTD (6) Benign hypertension: Blood pressures are normal Not on medication for this anymore at home (7) Hyperlipidemia: Continue statin (8) Obstructive sleep apnea: Noted in the chart, unclear if she is on CPAP (9) Hypothyroid: TSH here 0.554 Continue levothyroxine (10) Anxiety: Stable at this time Continue home Seroquel, trazodone, but make lorazepam as needed as above for lethargy (11) CAD (coronary artery disease): Stable Continue home aspirin, statin (12) Diabetes: hemoglobin A1c here is now normal dc accuchecks no insulin needed (13) Atrial fibrillation: History of such, is in sinus rhythm here Not on anticoagulation presumably due to multiple falls (14) Parkinson disease: Advanced, follows with neurology Continue Sinemet With associated hallucinations Continue Seroquel (15) DVT prophylaxis: Heparin SQ Disposition-medically stable for discharge today-awaiting PT/OT consults ordered and recommend rehab Admission and Anticipated Discharge Date Admission Date: April 04, 2020 Subjective Patient is awake and alert today, answers questions. Denies pain or shortness of breath. She worked with speech therapy today and did well. She denies pain in the hip. Review of Systems Review of Systems: All systems reviewed & are unremarkable except as noted in HPI & below Physical Exam Constitutional: WD/WN, vitals as above Eyes: + anicteric sclerae Neck: trachea midline, no thyromegaly Respiratory: normal respiratory effort, lungs clear to auscultation Cardiovascular: RRR, no murmur, no edema Chest (Breasts): Chest: normal inspection of chest Gastrointestinal (Abdomen): normal bowel sounds, soft, nontender, no hepatosplenomegaly Musculoskeletal: Extremities: extremities normal to inspection; no cyanosis and no clubbing Skin: no rashes, warm and dry Psychiatric: Motor Behavior: + tremor (Resting tremor in the jaw ) Genitourinary: + abnormal external appearance (Reyna catheter in place) Lymphatic: no lymphedema Results & Data Results & Data ([facility]) Vital Signs (Past 12 Hours) Vital Signs Temp Pulse Resp BP Pulse Ox 04/10/20 15:28 37.0 C 75 18 113/71 93 04/10/20 07:45 92 04/10/20 07:39 36.4 C L 81 16 144/76 H 87 L PG Care Time/CCT Total # of Minutes Spent Total Time Spent with Patient: Total time spent is greater than 50% in coordination of care (as documented) at patient's floor/unit and/or counseling patient: Coding Level of Care Code 25151 Subseq Hosp Care Lvl 2 Diagnoses Subcapital fracture of left hip S72.012A Encounter type: initial encounter Fracture type: closed COVID-19 U07.1 Acute dehydration E86.0 Acute alteration in mental status R41.82 UTI (urinary tract infection) N39.0 Benign hypertension I10 Hyperlipidemia E78.5 Obstructive sleep apnea G47.33 Hypothyroid E03.9 Hypothyroidism type: unspecified Anxiety F41.9 CAD (coronary artery disease) I25.10 Coronary Disease-Associated Artery/Lesion type: [place] artery [place] vs. transplanted heart: [place] heart Associated angina: without angina Diabetes E11.9 Diabetes mellitus type: type 2 Diabetes mellitus laborer marine terminal insulin use: without prison use Diabetes mellitus complication status: without complication Atrial fibrillation I48.91 Atrial fibrillation type: unspecified Parkinson disease G20 DVT prophylaxis Z29.9 (1) Subcapital fracture of left hip Encounter type: initial encounter Fracture type: closed Qualified Code(s): S72.012A - Unspecified intracapsular fracture of left femur, initial encounter for closed fracture (2) Hypothyroid Hypothyroidism type: unspecified Qualified Code(s): E03.9 - Hypothyroidism, unspecified (3) CAD (coronary artery disease) Coronary Disease-Associated Artery/Lesion type: [place] artery [place] vs. transplanted heart: [place] heart Associated angina: without angina Qualified Code(s): I25.10 - Atherosclerotic heart disease of [place] coronary artery without angina pectoris (4) Diabetes Diabetes mellitus type: type 2 Diabetes mellitus laborer marine terminal insulin use: witho ut laborer marine terminal use Diabetes mellitus complication status: without complication Qualified Code(s): E11.9 - Type 2 diabetes mellitus without complications (5) Atrial fibrillation Atrial fibrillation type: unspecified Qualified Code(s): I48.91 - Unspecified atrial fibrillation
[2020-04-10] MEDS: QUEtiapine FUMARATE 100 MG TABLET PO SCH (20:58)
[2020-04-10] MEDS: traZODone HCL 50 MG TAB PO SCH (20:58)
[2020-04-10] MEDS: SIMVASTATIN 40 MG TAB PO SCH (20:59)
[2020-04-11] MEDS: LEVOTHYROXINE SODIUM 75 MCG TABLET PO SCH (07:19)
[2020-04-11 07:40] VITALS: PULSE 77; TEMP 98.4; O2SAT 93
[2020-04-11] MEDS: ASPIRIN 81 MG ECTAB PO SCH (09:14)
[2020-04-11] MEDS: CARBIDOPA/LEVODOPA 25/100MG TAB PO SCH ×2 (09:15→14:59)
[2020-04-11] MEDS: ESCITALOPRAM OXALATE 10 MG TAB PO SCH (09:18)
[2020-04-11] MEDS: CHOLECALCIFEROL 1,000 UNITS 25 MCG TAB PO SCH (09:19)
[2020-04-11] MEDS: MAGNESIUM OXIDE 400 MG TAB PO SCH (09:19)
[2020-04-11] MEDS: POLYETHYLENE (MIRALAX) 17 GM PACK PO SCH (09:26)
[2020-04-11] MEDS: HEPARIN SOD 5,000 UNIT/0.5 ML VIAL SQ SCH (09:27)
[2020-04-11] MEDS: ARTIFICIAL TEARS OP SCH (09:27)
[2020-04-11 14:59] VITALS: BP 138/81
[2020-04-11] MEDS: QUEtiapine FUMARATE 25 MG TABLET PO SCH (14:59)
== END 2020-04-11 16:27 | DRG 640 ==
LOC: ED 11:27 → 3E 17:14 → SUATTDRO 17:14 → 3E 19:55